=== PATIENT | female | born 1960 | race Caucasian/White ===

== ENCOUNTER 2019-08-20 00:50 | Day surgery (SDC) | payer MEDICARE, SELFPAY ==
[2019-08-13 15:16] VITALS: BMI 27.0
--- NOTE | 2019-08-18 15:43 | WPDANESEPP ---
Anes - Eval Pre Procedure Procedure: Operation Date: 08/20/19 12:00 Proposed Procedures p Esophagogastroduodenoscopy - John Lopez DO Date/Time: 08/18/19 15:43 Pre Op Diagnosis: Abd distension, GERD Patient Data Age: 58 Gender: F Height: 5 ft 6 in Weight: 76 kg Allergies Allergy/AdvReac Type Severity Reaction Status Date / Time varenicline Allergy Severe SUICIDAL Verified 08/13/19 15:14 THOUGHTS alprazolam Allergy Unknown Verified 08/13/19 15:14 levofloxacin Allergy Unknown Verified 08/13/19 15:14 Quinolones Allergy Unknown Verified 08/13/19 15:14 Home Medications Medication Instructions Recorded Confirmed Type albuterol sulfate [ProAir HFA] 90 inh INHALATION DAILY 08/13/19 08/13/19 History buspirone 10 mg PO DAILY 08/13/19 08/13/19 History cefuroxime axetil 250 mg PO DAILY 08/13/19 08/13/19 History cilostazol 100 mg PO BID 08/13/19 08/13/19 History citalopram 40 mg DAILY 08/13/19 08/13/19 History cyclobenzaprine 10 mg PO HS 08/13/19 08/13/19 History ergocalciferol (vitamin D2) 1,250 mcg PO DAILY 08/13/19 08/13/19 History [Vitamin D2] fenofibrate 54 mg PO DAILY 08/13/19 08/13/19 History fluticasone propionate [Flonase 50 mcg INTRANASAL DAILY 08/13/19 08/13/19 History Allergy Relief] gabapentin [Neurontin] 300 mg PO TID 08/13/19 08/13/19 History glipizide 5 mg PO BID 08/13/19 08/13/19 History hydrochlorothiazide 12.5 mg PO DAILY 08/13/19 08/13/19 History isosorbide mononitrate 60 mg PO DAILY 08/13/19 08/13/19 History linagliptin [Tradjenta] 5 mg PO DAILY 08/13/19 08/13/19 History losartan 5 mg PO DAILY 08/13/19 08/13/19 History meloxicam 7.5 mg DAILY 08/13/19 08/13/19 History metformin 1,000 mg DAILY 08/13/19 08/13/19 History metoclopramide HCl 5 mg PO DAILY 08/13/19 08/13/19 History metoprolol succinate 25 mg PO DAILY 08/13/19 08/13/19 History nitroglycerin 0.4 mg SUBLINGUAL PRN 08/13/19 08/13/19 History omeprazole 20 mg PO DAILY 08/13/19 08/13/19 History pantoprazole [Protonix] 40 mg PO DAILY 08/13/19 08/13/19 History potassium citrate 10 meq PO DAILY 08/13/19 08/13/19 History rosuvastatin 10 mg PO DAILY 08/13/19 08/13/19 History trazodone 50 mg PO DAILY 08/13/19 08/13/19 History Patient hx anesthesia problems: none Family hx anesthesia problems: none PMFSH Past Medical History Medical History (Updated 08/18/19 @ 15:43 by Yanira Aaron CRNA) Anxiety Arthritis Chronic GERD COPD (chronic obstructive pulmonary disease) Depression Diabetes oral meds Hyperlipidemia Hypertension SAUD treated with BiPAP Overweight (BMI 25.0-29.9) Seizure disorder last seizure 05/2019 Surgical History Surgical History (Updated 08/18/19 @ 15:45 by Yanira Aaron CRNA) H/O: hysterectomy History of colon resection 11/2018 sigmoid colectomy w/colorectal anastomosis secondary to diverticulitis Hx of cholecystectomy Family History Family History (Updated 08/10/18 @ 10:51 by DOCTOR UNKNOWN) Mother Depression Hypertension Asthma Family history of osteoarthritis Family history of allergic disorder Family history of elevated blood lipids Cerebrovascular accident Family history of diabetes mellitus in first degree relative Other Diabetes mellitus Family history of cardiovascular disease Family history of colonic diverticulitis Family history of malignant neoplasm Social History Social History Smoking status: Former smoker Second hand tobacco smoke exposure: No Smoking end date: 07/11/17 Alcohol intake: never Gender identity (if verbalized by the patient): Female Exam Day of Procedure 08/18/19 15:43
[2019-08-20 10:58] VITALS: BP 116/49; PULSE 58; RESP 14; TEMP 36.4; O2SAT 99
[2019-08-20 11:08] LABS: Glucose Point of Care 93 (65-105)
[2019-08-20] MEDS: LACTATED RINGERS 1,000 ML 150 ML IV CONT (11:10)
--- NOTE | 2019-08-20 11:22 | PM.IMHP ---
H&P: HPI History of Present Illness Chief complaint: Abd distension, GERD Narrative: Valentina Padgett is a 58 year old female presents today for EGD. Patient reports generalized abdominal pain that starts in the epigastric region and radiates to LLQ. She does have chronic GERD and has been on PPI for 20 years. She does report dysphagia to both solids and liquids. She denies NSAID use. She has hx of sigmoid colectomy secondary to diverticulitisi 11/2018 and had extensive adhesions noted as well. She had a colonsocopy 08/[address] Manning and had three polyps that were tubular adenomatous and ulcerated polyp. She tells me she recently had CT abd/pelvis at [facility] but i dont have report to review. She does report chronic constipation and has somewhat improved on miralax daily. She denies any melena, hematochezia or rectal pain. she reports 20 lb weight loss. Denies fever or chills. Review of Systems Review of Systems: All systems reviewed & are unremarkable except as noted in HPI and below PMFSH Past Medical History Medical History (Updated 08/20/19 @ 11:26 by Fadumo Girard, [employer]) Anxiety Arthritis Chronic GERD COPD (chronic obstructive pulmonary disease) Depression Diabetes oral meds Hyperlipidemia Hypertension SAUD treated with BiPAP Overweight (BMI 25.0-29.9) Seizure disorder last seizure 05/2019 Surgical History Surgical History (Updated 08/20/19 @ 11:27 by Fadumo Girard, [employer]) H/O: hysterectomy History of colon resection 11/2018 sigmoid colectomy w/colorectal anastomosis secondary to diverticulitis Hx of cholecystectomy Family History Family History (Updated 08/10/18 @ 10:51 by DOCTOR UNKNOWN) Mother Depression Hypertension Asthma Family history of osteoarthritis Family history of allergic disorder Family history of elevated blood lipids Cerebrovascular accident Family history of diabetes mellitus in first degree relative Other Diabetes mellitus Family history of cardiovascular disease Family history of colonic diverticulitis Family history of malignant neoplasm Social History Social History Smoking status: Former smoker Second hand tobacco smoke exposure: No Smoking end date: 07/11/17 Alcohol intake: never Gender identity (if verbalized by the patient): Female Meds Home Medications and Allergies Home Medications Medication Instructions Recorded Confirmed Type albuterol sulfate [ProAir HFA] 90 inh INHALATION DAILY 08/13/19 08/13/19 History buspirone 10 mg PO DAILY 08/13/19 08/13/19 History cefuroxime axetil 250 mg PO DAILY 08/13/19 08/13/19 History cilostazol 100 mg PO BID 08/13/19 08/13/19 History citalopram 40 mg DAILY 08/13/19 08/13/19 History cyclobenzaprine 10 mg PO HS 08/13/19 08/13/19 History ergocalciferol (vitamin D2) 1,250 mcg PO DAILY 08/13/19 08/13/19 History [Vitamin D2] fenofibrate 54 mg PO DAILY 08/13/19 08/13/19 History fluticasone propionate [Flonase 50 mcg INTRANASAL DAILY 08/13/19 08/13/19 History Allergy Relief] gabapentin [Neurontin] 300 mg PO TID 08/13/19 08/13/19 History glipizide 5 mg PO BID 08/13/19 08/13/19 History hydrochlorothiazide 12.5 mg PO DAILY 08/13/19 08/13/19 History isosorbide mononitrate 60 mg PO DAILY 08/13/19 08/13/19 History linagliptin [Tradjenta] 5 mg PO DAILY 08/13/19 08/13/19 History losartan 5 mg PO DAILY 08/13/19 08/13/19 History meloxicam 7.5 mg DAILY 08/13/19 08/13/19 History metformin 1,000 mg DAILY 08/13/19 08/13/19 History metoclopramide HCl 5 mg PO DAILY 08/13/19 08/13/19 History metoprolol succinate 25 mg PO DAILY 08/13/19 08/13/19 History nitroglycerin 0.4 mg SUBLINGUAL PRN 08/13/19 08/13/19 History omeprazole 20 mg PO DAILY 08/13/19 08/13/19 History pantoprazole [Protonix] 40 mg PO DAILY 08/13/19 08/13/19 History potassium citrate 10 meq PO DAILY 08/13/19 08/13/19 History rosuvastatin 10 mg PO DAILY 08/13/19 08/13/19 History trazodone 50 mg PO DAILY 08/13/19 08/13/19 History Allerg
--- NOTE | 2019-08-20 11:59 | WPDANESEFPP ---
Anes - Eval Final PreProcedure Day of Procedure 08/20/19 11:59 Patient weight: overweight Heart: regular rate and rhythm Lungs: clear to auscultation Airway: Mallampati scale class II and other (dentures) Neurological: alert and oriented Last oral intake: >/= 8 hours ASA classification: III Emergent: no Anesthetic plan: proceed Anesthesia type and monitoring: general GIVS and standard monitoring Informed Consent: The patient's anesthetic plan and its attendant risks and benefits were discussed with the patient/family/POA. Questions were solicited and answers provided to the satisfaction of the patient/family/POA.
[2019-08-20] MEDS: BENZOCAINE (*SP) 60 ML SPRAY CAN (HURRICAINE) 1 SPRAY MUCOUS MEM (12:39)
[2019-08-20 12:50] VITALS: BP 103/52; PULSE 64; RESP 15; O2SAT 95
[2019-08-20 13:00] VITALS: BP 103/51; PULSE 64; RESP 22; O2SAT 96
[2019-08-20 13:10] VITALS: BP 121/64; PULSE 59; RESP 20; O2SAT 97
== END 2019-08-20 13:22 | disposition home or self-care (01) ==
PROVIDERS: Visit Provider Internal Medicine Gastroenterology
PROC: 0DJ08ZZ Inspection of Upper Intestinal Tract, Via Natural or Artificial Opening Endoscopic (ICD-10-PCS; CPT 43235; principal; 2019-08-20 12:00)
DX: K29.80 Duodenitis without bleeding (principal); K29.50 Unspecified chronic gastritis without bleeding; J44.9 Chronic obstructive pulmonary disease, unspecified; E11.9 Type 2 diabetes mellitus without complications; I10 Essential (primary) hypertension; E78.5 Hyperlipidemia, unspecified; G40.909 Epilepsy, unspecified, not intractable, without status epilepticus; M19.90 Unspecified osteoarthritis, unspecified site; F41.8 Other specified anxiety disorders; Z79.84 Long term (current) use of oral hypoglycemic drugs; Z90.49 Acquired absence of other specified parts of digestive tract; Z98.0 Intestinal bypass and anastomosis status; Z87.19 Personal history of other diseases of the digestive system; Z87.891 Personal history of nicotine dependence
CPT/HCPCS: 43239; 43450; 87081; 88305; J2704; J7120

== ENCOUNTER 2019-09-06 01:37 | Day surgery (SDC) | payer MEDICARE, SELFPAY ==
[2019-08-31 15:16] VITALS: BMI 27.6
[2019-09-06 07:17] VITALS: BP 117/61; PULSE 69; RESP 20; TEMP 36.6; O2SAT 97
[2019-09-06] MEDS: LACTATED RINGERS 1,000 ML 150 ML IV CONT (07:42)
--- NOTE | 2019-09-06 07:51 | WPDHPUPDATE1 ---
History and Physical Update Update Date/Time: 09/06/19 07:51 History and Physical has been reviewed, including an updated exam of the patient. There are NO changes in the patient's condition. Risks, benefits, and alternatives have been discussed and questions answered. Patient agrees to proceed with procedure. Plan: 1. Colonoscopy today 2. CBC and Protime
--- NOTE | 2019-09-06 07:57 | WPDANESEPPF ---
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 Patient Data Age: 58 Gender: F Height: 5 ft 6 in Weight: 74 kg Last Vital Signs Temp 36.6 C 09/06/19 07:17 Pulse 69 09/06/19 07:17 Resp 20 09/06/19 07:17 BP 117/61 09/06/19 07:17 Pulse Ox 97 09/06/19 07:17 Allergies Allergy/AdvReac Type Severity Reaction Status Date / Time varenicline Allergy Severe SUICIDAL Verified 09/06/19 07:23 THOUGHTS alprazolam Allergy Unknown Swelling Verified 09/06/19 07:23 levofloxacin Allergy Unknown Swelling Verified 09/06/19 07:23 Quinolones Allergy Unknown Swelling Verified 09/06/19 07:23 Home Medications Medication Instructions Recorded Confirmed Type albuterol sulfate 1 inh INHALATION DAILY 08/31/19 09/06/19 History buspirone 10 mg PO DAILY 08/31/19 09/06/19 History citalopram 40 mg PO DAILY 08/31/19 09/06/19 History ergocalciferol (vitamin D2) 1,250 mcg PO WEEKLY 08/31/19 09/06/19 History [Vitamin D2] fenofibrate 54 mg PO DAILY 08/31/19 09/06/19 History fluticasone propionate 1 spray INTRANASAL DAILY 08/31/19 09/06/19 History gabapentin 300 mg PO TID 08/31/19 09/06/19 History hydrochlorothiazide 12.5 mg PO DAILY 08/31/19 09/06/19 History isosorbide mononitrate 60 mg PO DAILY 08/31/19 08/31/19 History linagliptin [Tradjenta] 5 mg PO DAILY 08/31/19 08/31/19 History losartan 25 mg PO DAILY 08/31/19 08/31/19 History meloxicam 7.5 mg PO DAILY 08/31/19 08/31/19 History metformin 1,000 mg PO BID 08/31/19 08/31/19 History metoprolol succinate 25 mg PO DAILY 08/31/19 08/31/19 History nitroglycerin 0.4 mg SUBLINGUAL PRN PRN 08/31/19 08/31/19 History pantoprazole 40 mg PO DAILY 08/31/19 08/31/19 History rosuvastatin 10 mg PO DAILY 08/31/19 08/31/19 History trazodone 50 mg PO DAILY 08/31/19 08/31/19 History metformin 1,000 mg PO TID 09/06/19 09/06/19 History Patient hx anesthesia problems: none Family hx anesthesia problems: none PMFSH Past Medical History Medical History Anxiety Arthritis Chronic GERD COPD (chronic obstructive pulmonary disease) Depression Diabetes oral meds Hyperlipidemia Hypertension SAUD treated with BiPAP Overweight (BMI 25.0-29.9) Seizure disorder last seizure 05/2019 Surgical History Surgical History H/O: hysterectomy History of colon resection 11/2018 sigmoid colectomy w/colorectal anastomosis secondary to diverticulitis Hx of cholecystectomy Family History Family History Mother Depression Hypertension Asthma Family history of osteoarthritis Family history of allergic disorder Family history of elevated blood lipids Cerebrovascular accident Family history of diabetes mellitus in first degree relative Other Diabetes mellitus Family history of cardiovascular disease Family history of colonic diverticulitis Family history of malignant neoplasm Social History Social History Smoking status: Former smoker Second hand tobacco smoke exposure: No Smoking end date: 07/11/17 Alcohol intake: never Gender identity (if verbalized by the patient): Female Anes - Eval Final PreProcedure Day of Procedure 09/06/19 07:57 Patient weight: overweight Heart: regular rate and rhythm Lungs: clear to auscultation Airway: Mallampati scale class II Neurological: alert and oriented Last oral intake: >/= 8 hours ASA classification: III Emergent: no Anesthetic plan: proceed Anesthesia type and monitoring: general GIVS and standard monitoring Informed Consent: The patient's anesthetic plan and its attendant risks and benefits were discussed with the patient/fa
[2019-09-06 08:02] LABS: Glucose Point of Care 110 (65-105)
[2019-09-06 08:04] LABS: Hematocrit 44.4 % (37.0-47.0); Hemoglobin 14.4 g/dL (12.0-15.0); Mean Corpuscular HGB Conc 32.4 g/dl (32-36); Mean Corpuscular Hemoglobin 29.3 pg (26-34); Mean Corpuscular Volume 90.4 fl (80-100); Mean Platelet Volume 12.2 fl (7.4-10.4); Platelet Count Result 157 k/mm3 (150-375); Red Blood Count 4.91 M/mm3 (4.2-5.4); Red Cell Distribution Width 14.1 % (11.5-14.5); White Blood Count 8.4 K/mm3 (4.5-10.0)
[2019-09-06 08:16] LABS: INR 1.1; Prothrombin Time 13.6 Seconds (11.1-14.7)
[2019-09-06 08:58] VITALS: BP 95/41; PULSE 62; RESP 21; O2SAT 97
[2019-09-06 09:08] VITALS: BP 110/58; PULSE 63; RESP 19; O2SAT 99
[2019-09-06 09:18] VITALS: BP 135/60; PULSE 59; RESP 17; O2SAT 99
== END 2019-09-06 09:33 | disposition home or self-care (01) ==
PROVIDERS: Nurse Practitioner; PCP Physician Assistant; Visit Provider Internal Medicine Gastroenterology
PROC: 0DJD8ZZ Inspection of Lower Intestinal Tract, Via Natural or Artificial Opening Endoscopic (ICD-10-PCS; CPT 45378; principal; 2019-09-06 08:00)
DX: Z12.11 Encounter for screening for malignant neoplasm of colon (principal); D12.3 Benign neoplasm of transverse colon; D12.5 Benign neoplasm of sigmoid colon; K63.89 Other specified diseases of intestine; Z98.0 Intestinal bypass and anastomosis status; Z90.49 Acquired absence of other specified parts of digestive tract; Z87.19 Personal history of other diseases of the digestive system; I10 Essential (primary) hypertension; E78.5 Hyperlipidemia, unspecified; E11.9 Type 2 diabetes mellitus without complications; J44.9 Chronic obstructive pulmonary disease, unspecified; G40.909 Epilepsy, unspecified, not intractable, without status epilepticus; G47.33 Obstructive sleep apnea (adult) (pediatric); F41.8 Other specified anxiety disorders; K21.9 Gastro-esophageal reflux disease without esophagitis; M19.90 Unspecified osteoarthritis, unspecified site; Z79.84 Long term (current) use of oral hypoglycemic drugs; Z87.891 Personal history of nicotine dependence
CPT/HCPCS: 45380; 45385; 36415; 85027; 85610; 88305; J2704; J7120

== ENCOUNTER 2019-09-07 13:55 | Outpatient (CLI) | payer MEDICARE, SELFPAY ==
[2019-09-07 16:07] LABS: Alanine Aminotransferase 29 U/L (4-35); Albumin Level 4.2 g/dL (3.5-5.1); Alkaline Phosphatase 51 U/L (38-126); Aspartate Amino Transferase 40 U/L (14-36); Bilirubin,Total 0.5 mg/dL (0.2-1.3)
[2019-09-07 16:08] LABS: Ammonia < 9 umol/L (9-30)
[2019-09-07 16:36] LABS: Hepatitis B Surface Antigen Negative (Negative)
[2019-09-07 16:42] LABS: HAV RESULT Negative (Negative); Hepatitis B Core IgM Result Negative (Negative)
[2019-09-07 16:53] LABS: Hepatitis C Virus Antibody Negative (Negative)
[2019-09-07 17:13] LABS: Iron 101 ug/dL (37-170)
[2019-09-07 17:21] LABS: Percent Iron Saturation 26 % (20-50)
[2019-09-10 10:58] LABS: Mitochondrial (M2) Ab (IgG) <=20.0 U (<=20.0)
[2019-09-10 18:22] LABS: Alpha Fetoprotein Tumor Marker 2.3 ng/mL (<6.1)
[2019-09-10 22:46] LABS: Alpha-1-Antitrypsin, QN 141 mg/dL (83-199); Ceruloplasmin 27 mg/dL (18-53)
[2019-09-12 11:07] LABS: LKM 1 Antibody <=20.0 U (<=20.0)
[2019-09-12 13:15] LABS: Actin Antibody (IgG) <20 U (<20)
[2019-09-12 14:42] LABS: ALT 25 U/L (6-29); Alpha-2-Macroglobulin 298 mg/dL (106-279); Apolipoprotein A1 102 mg/dL (101-198); Fibrosis Score 0.35; Fibrosis Stage F1-F2; GGT 24 U/L (3-65); Haptoglobin 181 mg/dL (43-212); Necroinflammat Act Grade A0; Total Bilirubin 0.3 mg/dL (0.2-1.2)
[2019-09-12 21:20] LABS: Anti Nuclear Antibody Pattern Nuclear, Speckled; Anti Nuclear Antibody Titer 1:40 (Negative)
== END 2019-09-07 13:56 | disposition home or self-care (01) ==
PROVIDERS: Visit Provider Nurse Practitioner Family
DX: K71.7 Toxic liver disease with fibrosis and cirrhosis of liver (principal)
CPT/HCPCS: 36415; 80074; 80076; 81596; 82103; 82105; 82140; 82390; 82595; 83516; 83520; 83540; 83550; 86038; 86039; 86376

== ENCOUNTER 2019-09-12 06:58 | Outpatient (CLI) | payer MEDICARE, SELFPAY ==
[2019-09-17 16:53] LABS: Cryoglobulin, QL Negative (Negative)
== END 2019-09-12 06:59 | disposition home or self-care (01) ==
PROVIDERS: PCP Physician Assistant; Visit Provider Nurse Practitioner Family
DX: K71.7 Toxic liver disease with fibrosis and cirrhosis of liver (principal)
CPT/HCPCS: 36415; 82595

== ENCOUNTER 2019-09-18 13:00 | Outpatient (CLI) | payer MEDICARE, SELFPAY | END 2019-09-18 13:01 | disposition home or self-care (01) | PROVIDERS: PCP Physician Assistant; Visit Provider Nurse Practitioner Family | DX: K71.7 Toxic liver disease with fibrosis and cirrhosis of liver (principal) | CPT/HCPCS: 36415; 86235 ==

== ENCOUNTER 2019-10-03 12:32 | Outpatient (CLI) | payer MEDICARE, SELFPAY ==
[2019-10-03 13:57] LABS: Ammonia < 9 umol/L (9-30)
[2019-10-03 14:00] LABS: Alanine Aminotransferase 18 U/L (4-35); Alkaline Phosphatase 56 U/L (38-126); Aspartate Amino Transferase 24 U/L (14-36); Bilirubin,Total 0.2 mg/dL (0.2-1.3)
[2019-10-03 14:18] LABS: Iron 69 ug/dL (37-170)
[2019-10-03 14:27] LABS: Percent Iron Saturation 16 % (20-50)
[2019-10-03 14:31] LABS: Hepatitis B Surface Antigen Negative (Negative)
[2019-10-03 14:37] LABS: HAV RESULT Negative (Negative); Hepatitis B Core IgM Result Negative (Negative)
[2019-10-03 14:48] LABS: Hepatitis C Virus Antibody Negative (Negative)
[2019-10-05 03:18] LABS: Alpha-1-Antitrypsin, QN 142 mg/dL (83-199); Ceruloplasmin 30 mg/dL (18-53)
[2019-10-06 10:37] LABS: Mitochondrial (M2) Ab (IgG) <=20.0 U (<=20.0)
[2019-10-06 10:45] LABS: LKM 1 Antibody <=20.0 U (<=20.0)
[2019-10-08 17:42] LABS: Alpha Fetoprotein Tumor Marker 1.9 ng/mL (<6.1)
[2019-10-09 14:01] LABS: SM Antibody <1.0; SM/RNP Antibody <1.0
== END 2019-10-03 12:33 | disposition home or self-care (01) ==
PROVIDERS: PCP Physician Assistant; Visit Provider Nurse Practitioner Family
DX: K71.7 Toxic liver disease with fibrosis and cirrhosis of liver (principal); R93.5 Abnormal findings on diagnostic imaging of other abdominal regions, including retroperitoneum
CPT/HCPCS: 36415; 80074; 80076; 82103; 82105; 82140; 82390; 83520; 83540; 83550; 86038; 86235; 86376

== ENCOUNTER 2019-10-06 10:03 | Outpatient (CLI) | payer MEDICARE, SELFPAY ==
[2019-10-12 07:35] LABS: Cryoglobulin, QL Negative (Negative)
== END 2019-10-06 10:04 | disposition home or self-care (01) ==
PROVIDERS: PCP Physician Assistant; Visit Provider Nurse Practitioner Family
DX: K71.7 Toxic liver disease with fibrosis and cirrhosis of liver (principal)
CPT/HCPCS: 36415; 81596; 82595

== ENCOUNTER 2019-12-10 19:11 | Emergency (ER) | payer MEDICARE, SELFPAY ==
--- NOTE | ~2019-12-10 | XR_ITS ---
EXAMINATION: [id number] EXAM DATE: 12/10/2019 20:42 INDICATION: Rib pain, felt pop. Initial encounter. TECHNIQUE: Frontal projection of the upper right ribs, frontal projection of the lower right ribs, ob lique projection of the right ribs, frontal chest x-ray(s) for interpretation. Comparison is made to prior examination from 02/01/2018. FINDINGS: There are no displaced acute right rib fractures identified. Consider educating patient th at even if there is a radiographically occult nondisplaced rib fracture, there is no specific treatme nt other than to refrain from activity that prevents healing. There is no soft tissue abnormality see n. No confluent consolidation, pneumothorax or pleural effusion suspected. There are cholecystectomy clips. IMPRESSION: No displaced right rib fractures. Reviewed, dictated and finalized at location A.
[2019-12-10 19:16] VITALS: BP 113/61; PULSE 74; RESP 16; TEMP 36.2; O2SAT 100
[2019-12-10 19:37] VITALS: RESP 18
--- NOTE | 2019-12-10 20:09 | ED.GENADULT ---
HPI - General Adult General Chief complaint: Unspecified Stated complaint: right rib pain Time Seen by Provider: 12/10/19 19:54 Source: patient Mode of arrival: ambulatory Limitations: no limitations History of Present Illness HPI narrative: This patient is a 59 year old female who presents for evaluation of right rib pain. Patient states 4 days ago she was reaching across the table and she felt a pop to her right ribs. She has continued to have pain with movement and breathing. She was attempting to mow her lawn today but her pain worsened so she came to the ER. She has not taken any medication for her pain. She denies nausea, vomiting or fever. She also denies abdominal pain, hematemsis or melena. She does reports some sob. Onset (ago): day(s) (4 days) Related Data Home Medications Medication Instructions Recorded Confirmed albuterol sulfate 1 inh INHALATION DAILY 08/31/19 09/06/19 buspirone 10 mg PO DAILY 08/31/19 09/06/19 citalopram 40 mg PO DAILY 08/31/19 09/06/19 ergocalciferol (vitamin D2) 1,250 mcg PO WEEKLY 08/31/19 09/06/19 [Vitamin D2] fenofibrate 54 mg PO DAILY 08/31/19 09/06/19 fluticasone propionate 1 spray INTRANASAL DAILY 08/31/19 09/06/19 gabapentin 300 mg PO TID 08/31/19 09/06/19 hydrochlorothiazide 12.5 mg PO DAILY 08/31/19 09/06/19 isosorbide mononitrate 60 mg PO DAILY 08/31/19 08/31/19 linagliptin [Tradjenta] 5 mg PO DAILY 08/31/19 08/31/19 losartan 25 mg PO DAILY 08/31/19 08/31/19 meloxicam 7.5 mg PO DAILY 08/31/19 08/31/19 metformin 1,000 mg PO BID 08/31/19 08/31/19 metoprolol succinate 25 mg PO DAILY 08/31/19 08/31/19 nitroglycerin 0.4 mg SUBLINGUAL PRN PRN 08/31/19 08/31/19 pantoprazole 40 mg PO DAILY 08/31/19 08/31/19 rosuvastatin 10 mg PO DAILY 08/31/19 08/31/19 trazodone 50 mg PO DAILY 08/31/19 08/31/19 metformin 1,000 mg PO TID 09/06/19 09/06/19 Allergies Allergy/AdvReac Type Severity Reaction Status Date / Time varenicline Allergy Severe SUICIDAL Verified 12/10/19 19:38 THOUGHTS alprazolam Allergy Unknown Swelling Verified 12/10/19 19:38 levofloxacin Allergy Unknown Swelling Verified 12/10/19 19:38 Quinolones Allergy Unknown Swelling Verified 12/10/19 19:38 Review of Systems Review of Systems: All systems reviewed & are unremarkable except as noted in HPI and below Constitutional: Constitutional: Denies chills and Denies fever(s) ENT: Denies dizziness Cardiovascular: Cardiovascular: Denies rapid heart rate Respiratory: Respiratory: Denies cough and Reports dyspnea Comments: right rib pain Gastrointestinal: Gastrointestinal: Denies abdominal pain, Denies nausea and Denies vomiting Genitourinary: Genitourinary: Denies hematuria [facility] Social History Social History Smoking status: Former smoker Second hand tobacco smoke exposure: No Smoking end date: 07/11/17 Alcohol intake: never Gender identity (if verbalized by the patient): Female Exam Const: General: no acute distress and alert Orientation/consciousness: patient oriented x3 HENMT: Head: normocephalic and atraumatic Face and sinus: normal facial exam, sinuses nontender and face symmetric Mouth: Yes Normal oral and palatal mucosa present Throat: posterior oropharynx normal and uvula midline Eyes: EOM: EOMs intact bilaterally Chest: Chest palpation & inspection: tenderness (right anterior lateral along muscles) rib Resp: Effort & Inspection: normal respiratory effort and no retractions Auscultation: clear to auscultation bilaterally Cardio: Rate: regular rate Rhythm: regular rhythm GI: GI Palp: Yes Soft to palpation, No Tenderness to palpation present (GI), No Guarding due to palpation present (GI) and No Rigid due to palpation Course Reevaluation(s) Reevaluation #1: I Discussed with patient xray results. She understands treatment is pain management and to use incentive spirometer Date: 12/10/19 Time: 21:53 Vital Signs Vital si
[2019-12-10] MEDS: KETOROLAC (*BKC) 60 MG/2 ML VIAL IM (20:10)
[2019-12-10] MEDS: CYCLOBENZAPRINE HCL 5 MG TABLET PO (20:11)
[2019-12-10 20:40] VITALS: TEMP 36.2
[2019-12-10 21:03] VITALS: BP 130/54; PULSE 66; RESP 14; O2SAT 96
[2019-12-10 22:09] VITALS: BP 103/89; PULSE 65; RESP 18; TEMP 36.7; O2SAT 98
== END 2019-12-10 22:11 | disposition home or self-care (01) ==
PROVIDERS: Emergency Provider General Practice
DX: R07.81 Pleurodynia (principal); Z87.891 Personal history of nicotine dependence
CPT/HCPCS: 71101; 96372; 99283; A9270; J1885

== ENCOUNTER 2020-06-21 11:21 | Emergency (ER) | payer MEDICARE, SELFPAY ==
--- NOTE | ~2020-06-21 | XR_ITS ---
EXAMINATION: XR chest 2V DATE: 06/21/2020 11:45 INDICATION: Cough and shortness of breath. TECHNIQUE: PA and lateral views of the chest were obtained. COMPARISON: Chest radiograph dated 02/01/2018 FINDINGS: The lungs remain clear with no focal airspace opacities, pulmonary edema, pleural effusion or pneumot horax. Calcified nodules in the left upper lung zone consistent with old granulomatous disease. The c ardiomediastinal silhouette is normal. Cholecystectomy clips in the right upper quadrant. With a coup le likely dropped clips more laterally along the caudal tip of the liver. Mild thoracic spondylosis. IMPRESSION: 1. No acute cardiopulmonary disease. Reviewed, dictated and finalized at location A. SITTER
[2020-06-21 11:28] VITALS: BP 132/76; PULSE 65; RESP 20; TEMP 37.1; O2SAT 98
--- NOTE | 2020-06-21 11:32 | ED.URI ---
HPI - URI/Sore Throat General Chief Complaint: Upper Respiratory Infection Stated Complaint: diarrhea/sob/rossi/body aches Source: patient and RN notes reviewed Limitations: no limitations History of Present Illness HPI Narrative: The patient, a smoker/drinker that works at [employer], presents with with myalgias and body aches. Patient states she has a 3-day history of myalgias with headache, diarrhea x2. No fever measured, CP, vomiting, cough, wheezing/sneezing, rash, known sick contacts-but she reports loss of taste and smell. She mentions shortness of breath - vital signs are stable, including walking pulse ox Related Data Home Medications Medication Instructions Recorded Confirmed albuterol sulfate 1 inh INHALATION DAILY 08/31/19 09/06/19 buspirone 10 mg PO DAILY 08/31/19 09/06/19 citalopram 40 mg PO DAILY 08/31/19 09/06/19 ergocalciferol (vitamin D2) 1,250 mcg PO WEEKLY 08/31/19 09/06/19 [Vitamin D2] fenofibrate 54 mg PO DAILY 08/31/19 09/06/19 fluticasone propionate 1 spray INTRANASAL DAILY 08/31/19 09/06/19 gabapentin 300 mg PO TID 08/31/19 09/06/19 hydrochlorothiazide 12.5 mg PO DAILY 08/31/19 09/06/19 isosorbide mononitrate 60 mg PO DAILY 08/31/19 08/31/19 linagliptin [Tradjenta] 5 mg PO DAILY 08/31/19 08/31/19 losartan 25 mg PO DAILY 08/31/19 08/31/19 meloxicam 7.5 mg PO DAILY 08/31/19 08/31/19 metformin 1,000 mg PO BID 08/31/19 08/31/19 metoprolol succinate 25 mg PO DAILY 08/31/19 08/31/19 nitroglycerin 0.4 mg SUBLINGUAL PRN PRN 08/31/19 08/31/19 pantoprazole 40 mg PO DAILY 08/31/19 08/31/19 rosuvastatin 10 mg PO DAILY 08/31/19 08/31/19 trazodone 50 mg PO DAILY 08/31/19 08/31/19 metformin 1,000 mg PO TID 09/06/19 09/06/19 Allergies Allergy/AdvReac Type Severity Reaction Status Date / Time varenicline Allergy Severe SUICIDAL Verified 12/10/19 19:38 THOUGHTS alprazolam Allergy Unknown Swelling Verified 12/10/19 19:38 levofloxacin Allergy Unknown Swelling Verified 12/10/19 19:38 Quinolones Allergy Unknown Swelling Verified 12/10/19 19:38 Review of Systems Review of Systems: Narrative: General/Constitutional: No weight loss,fever Eyes: N0: Redness,discharge Ears/Nose/Throat: No: Epistaxis,ear discharge Respiratory: Denies: Hemoptysis Gastrointestinal: No Vomiting, Bleeding-rectal Skin: No Lumps, eruption Neurologic: No Focal Weakness,Sz Hematologic: Denies: Petechiae/Purpura Psychiatric: No: Suicida ideationl All Other Systems: Reviewed and Negative PMFSH Past Medical History Medical History (Updated 06/21/20 @ 16:57 by Wellington Alaniz MD) Anxiety Arthritis Chronic GERD COPD (chronic obstructive pulmonary disease) Depression Diabetes oral meds Hyperlipidemia Hypertension SAUD treated with BiPAP Overweight (BMI 25.0-29.9) Seizure disorder last seizure 05/2019 Surgical History Surgical History H/O: hysterectomy History of colon resection 11/2018 sigmoid colectomy w/colorectal anastomosis secondary to diverticulitis Hx of cholecystectomy Family History Family History Mother Depression Hypertension Asthma Family history of osteoarthritis Family history of allergic disorder Family history of elevated blood lipids Cerebrovascular accident Family history of diabetes mellitus in first degree relative Other Diabetes mellitus Family history of cardiovascular disease Family history of colonic diverticulitis Family history of malignant neoplasm Social History Social History Smoking status: Former smoker Second hand tobacco smoke exposure: No Smoking end date: 07/11/17 Alcohol intake: never Gender identity (if verbalized by the patient): Female Exam Narrative: Exam Narrative: General Appearance: , Well nourished EYE: PERRLA, Conjunctiva clear Ears: Auditory canal normal, TM normal Nos
== END 2020-06-21 12:09 | disposition home or self-care (01) ==
PROVIDERS: Emergency Provider Emergency Medicine; PCP Family Medicine
DX: J11.1 Influenza due to unidentified influenza virus with other respiratory manifestations (principal); R19.7 Diarrhea, unspecified; Z20.828 Contact with and (suspected) exposure to other viral communicable diseases; Z87.891 Personal history of nicotine dependence; M19.90 Unspecified osteoarthritis, unspecified site; J44.9 Chronic obstructive pulmonary disease, unspecified; E11.9 Type 2 diabetes mellitus without complications; E78.5 Hyperlipidemia, unspecified; I10 Essential (primary) hypertension; G47.33 Obstructive sleep apnea (adult) (pediatric); G40.909 Epilepsy, unspecified, not intractable, without status epilepticus; F41.9 Anxiety disorder, unspecified; F32.9 Major depressive disorder, single episode, unspecified
CPT/HCPCS: 71046; 87635; 99213; C9803; G0463; U0003

== ENCOUNTER 2020-06-21 11:57 | Outpatient (NON) | payer MEDICARE, SELFPAY ==
[2020-06-22 00:44] LABS: SARS-CoV-2 RNA PCR Negative
== END 2020-06-21 11:58 ==
PROVIDERS: PCP Family Medicine; Visit Provider Emergency Medicine
DX: J11.1 Influenza due to unidentified influenza virus with other respiratory manifestations (principal); Z20.828 Contact with and (suspected) exposure to other viral communicable diseases
CPT/HCPCS: 87635; C9803; U0003

== ENCOUNTER 2020-07-01 09:45 | Emergency (ER) | payer MEDICARE, SELFPAY ==
--- NOTE | ~2020-07-01 | XR_ITS ---
EXAMINATION: XR chest 2V EXAM DATE: 07/01/2020 10:25 INDICATION: COUGH, hx of COPD, HTN, diabetes. TECHNIQUE: Frontal and lateral projections of the chest obtained and reviewed. Comparison is made to prior examination from 06/21/2020. FINDINGS: The lungs are clear. There are no pleural effusions. The cardiomediastinal silhouette is within normal limits. There is no pneumothorax suspected. The bones and soft tissues are unremarkab le. IMPRESSION: No acute cardiopulmonary findings. Reviewed, dictated and finalized at location B. CTOR APPAREL
[2020-07-01 09:50] VITALS: BP 124/51; PULSE 65; RESP 20; TEMP 36.1; O2SAT 100
--- NOTE | 2020-07-01 09:53 | ED.URI ---
HPI - URI/Sore Throat General Chief Complaint: Upper Respiratory Infection Stated Complaint: sore throat/chest pain Time Seen by Provider: 07/01/20 10:02 Source: patient and RN notes reviewed Mode of arrival: ambulatory Limitations: no limitations History of Present Illness HPI Narrative: 59-year-old female who presents to express care with complaints of cough, hoarseness, sore throat, nasal congestion and drainage for the past 3 days. Patient states that she was Covid tested on the for symptoms of muscle aches and back pain and tested Negative at that time. Patient states that her throat is so sore that she can hardly swallow with throat red and tongue also with dryness. Patient has hoarse voice, no acute dyspea noted or tachypnea, SAO2 100% on room air. Patient denies any known fevers, chills or sweats, reports general body aches and severe cough as her main complaints. Patient does have history of COPD, asthma and she continues to abuse tobacco products. MD elicited complaint: cough, sore throat, rhinorrhea and nasal congestion Pertinent past history: pneumonia, COPD, asthma and other (sleep apnea) Onset (ago): day(s) (3) Consistency: progressively worsening Severity: moderate Pain scale (0-10): 7 Description of mucous: yellow Able to tolerate fluids by mouth: Yes Exacerbating factors: swallowing and exertion Related Data Home Medications Medication Instructions Recorded Confirmed albuterol sulfate 1 inh INHALATION DAILY 08/31/19 09/06/19 buspirone 10 mg PO DAILY 08/31/19 09/06/19 citalopram 40 mg PO DAILY 08/31/19 09/06/19 ergocalciferol (vitamin D2) 1,250 mcg PO WEEKLY 08/31/19 09/06/19 [Vitamin D2] fenofibrate 54 mg PO DAILY 08/31/19 09/06/19 fluticasone propionate 1 spray INTRANASAL DAILY 08/31/19 09/06/19 gabapentin 300 mg PO TID 08/31/19 09/06/19 hydrochlorothiazide 12.5 mg PO DAILY 08/31/19 09/06/19 isosorbide mononitrate 60 mg PO DAILY 08/31/19 08/31/19 linagliptin [Tradjenta] 5 mg PO DAILY 08/31/19 08/31/19 losartan 25 mg PO DAILY 08/31/19 08/31/19 meloxicam 7.5 mg PO DAILY 08/31/19 08/31/19 metformin 1,000 mg PO BID 08/31/19 08/31/19 metoprolol succinate 25 mg PO DAILY 08/31/19 08/31/19 nitroglycerin 0.4 mg SUBLINGUAL PRN PRN 08/31/19 08/31/19 pantoprazole 40 mg PO DAILY 08/31/19 08/31/19 rosuvastatin 10 mg PO DAILY 08/31/19 08/31/19 trazodone 50 mg PO DAILY 08/31/19 08/31/19 metformin 1,000 mg PO TID 09/06/19 09/06/19 Allergies Allergy/AdvReac Type Severity Reaction Status Date / Time varenicline Allergy Severe SUICIDAL Verified 12/10/19 19:38 THOUGHTS alprazolam Allergy Unknown Swelling Verified 12/10/19 19:38 levofloxacin Allergy Unknown Swelling Verified 12/10/19 19:38 Quinolones Allergy Unknown Swelling Verified 12/10/19 19:38 Review of Systems Review of Systems: Narrative: CONSTITUTIONAL: Denies fever, chills, or sweats. EYES: Denies visual changes, redness, or discharge. ENT:Positive rhinorrhea, congestion, sore throat, no otalgia. CARDIOVASCULAR: Denies chest pain, palpitations, or edema. RESPIRATORY: Positive cough denies acute dyspnea. GASTROINTESTINAL: Denies abdominal pain, nausea, vomiting, or diarrhea. GENITOURINARY: Denies dysuria or hematuria. SKIN: Denies rash or itching. MUSCULOSKELETAL: Denies back pain, joint pain, or myalgia. NEUROLOGIC: Denies headache, numbness, or weakness. PSYCHIATRIC: Positive history anxiety or depression. All systems reviewed & are unremarkable except as noted in HPI and below PMFSH Past Medical History Medical History (Updated 07/01/20 @ 10:46 by Odalys Parry NP) Anxiety Arthritis Chronic GERD COPD (chronic obstructive pulmonary disease) Depression Diabetes oral meds Hyperlipidemia Hypertension SAUD treated with BiPAP Overweight (BMI 25.0-29.9) Seizure disorder last seizure 05/2019 Surgical History Surgical History H/O: hysterectomy History of colon resection 11/2018 sigm
--- NOTE | 2020-07-01 10:07 | PC.NURSE ---
Pt does not know what medications she takes, There are too many .
== END 2020-07-01 11:05 | disposition home or self-care (01) ==
PROVIDERS: Emergency Provider Registered Nurse; PCP Family Medicine
DX: B34.9 Viral infection, unspecified (principal); J02.9 Acute pharyngitis, unspecified; F41.9 Anxiety disorder, unspecified; M19.90 Unspecified osteoarthritis, unspecified site; K21.9 Gastro-esophageal reflux disease without esophagitis; J44.9 Chronic obstructive pulmonary disease, unspecified; E11.9 Type 2 diabetes mellitus without complications; Z79.84 Long term (current) use of oral hypoglycemic drugs; E78.5 Hyperlipidemia, unspecified; I10 Essential (primary) hypertension; G47.33 Obstructive sleep apnea (adult) (pediatric); E66.3 Overweight; Z68.30 Body mass index [BMI] 30.0-30.9, adult; Z90.49 Acquired absence of other specified parts of digestive tract; F17.210 Nicotine dependence, cigarettes, uncomplicated
CPT/HCPCS: 71046; 87081; 87804; 87880; 99213; G0463

== ENCOUNTER → 2020-09-13 00:44 | Outpatient (CLI) | payer MEDICARE, SELFPAY ==
[2020-09-13 19:48] LABS: SARS-CoV-2 RNA PCR Negative
== END ==
PROVIDERS: PCP Family Medicine; Visit Provider Plastic Surgery
DX: Z01.812 Encounter for preprocedural laboratory examination (principal); Z20.822 Contact with and (suspected) exposure to COVID-19
CPT/HCPCS: C9803; U0003; U0005

== ENCOUNTER 2020-09-15 13:24 | Outpatient (CLI) | payer MEDICARE, SELFPAY ==
--- NOTE | 2020-09-15 13:30 | ECG_ITS ---
Measurements Intervals [place] Rate: 75 P: 8 WI: 168 QRS: -1 QRSD: 84 T: 21 QT: 396 QTc: 443 Interpretive Statements SINUS RHYTHM DELAYED PRECORDIAL R/S TRANSITION LOW QRS VOLTAGE IN PRECORDIAL LEADS BASELINE ARTIFACT- I, III, AVL, V5-V6 BORDERLINE ECG Electronically Signed On 09-15-2020 13:44:50 DISCHARGING MACHINE OPERATOR by Glen Casper D.O.
[2020-09-15 14:03] LABS: Anion Gap 6 mmol/L (8-16); Blood Urea Nitrogen 8 mg/dL (7-17); Calcium 8.5 mg/dL (8.4-10.2); Carbon Dioxide 28 mmol/L (22-30); Chloride 103 mmol/L (98-107); Estimated Glomerular Filt Rate 56; Glucose 193 mg/dL (65-105); Potassium 3.7 mmol/L (3.4-5.0); Sodium 137 mmol/L (137-145)
== END 2020-09-15 13:25 | disposition home or self-care (01) ==
PROVIDERS: Anesthesiology; PCP Family Medicine; Visit Provider Plastic Surgery
DX: Z01.818 Encounter for other preprocedural examination (principal); E11.9 Type 2 diabetes mellitus without complications; I10 Essential (primary) hypertension
CPT/HCPCS: 36415; 80048; 93005

== ENCOUNTER 2020-09-17 01:31 | Day surgery (SDC) | payer MEDICARE, SELFPAY ==
[2020-09-15 11:13] VITALS: BMI 28.7
[2020-09-17] VITALS (7 sets, daily range): BP systolic 116–163; BP diastolic 41–70; PULSE 69–73; RESP 16–18; TEMP 36.6; O2SAT 95–99
--- NOTE | 2020-09-17 07:15 | WPDHPUPDATE1 ---
History and Physical Update Update Date/Time: 09/17/20 07:15 History and Physical has been reviewed, including an updated exam of the patient. There are NO changes in the patient's condition. Risks, benefits, and alternatives have been discussed and questions answered. Patient agrees to proceed with procedure.
[2020-09-17] MEDS: LIDO 1%/EPINEPHRINE 1:100,000 50 ML VIAL INFILTRATE (10:12)
--- NOTE | 2020-09-17 10:36 | PM.OP ---
Procedure Note - Brief Procedure Note - Brief Date of procedure: 09/17/20 Pre-op diagnosis: right carpal tunnel syndrome Post-op diagnosis: same Procedure performed: R OCTR Anesthesia: local Surgeon: Carlos Alberto Tilley MD Tourniquet time (min): 4 Drains: No Packing: No Pathology: none sent Complications: None Condition: stable Disposition: same day
--- NOTE | 2020-09-17 10:38 | PM.PROC ---
Procedure Note - Detailed Date of procedure: 09/17/20 Pre-op diagnosis: right carpal tunnel syndrome Post-op diagnosis: same Procedure performed: Right open carpal tunnel release Description of procedure: The right wrist site was marked on the patient in the holding area. She was taken to the operating room and placed supine on the operating table a time-out was held and confirmed. The site was remarked and infiltrated with 1% lidocaine with epinephrine. The extremity was prepped and draped in usual fashion just before that. A time was allowed for anesthetic effect. The extremity was elevated and the tourniquet inflated to 250 mmHg. The incision was made as marked and carried bluntly through the subcutaneous tissue to the palmar fascia. This and the carpal retinacular ligament was incised. Under 3 point retraction the ligament was divided distally and proximally for complete release. No unusual anatomy was noted. The skin was closed with interrupted 5 0 nylon. The usual bandage was applied. The tourniquet was released and she is discharged home with instructions in wound care and follow-up and a prescription for hydrocodone 5/325 5. Anesthesia: local Surgeon: Carlos Alberto Tilley MD Estimated blood loss (mL): 0 Tourniquet time (min): 4 Drains: No Packing: No Pathology: none sent Complications: No immediate complications Condition: stable Disposition: same day
== END 2020-09-17 10:48 | disposition home or self-care (01) ==
PROVIDERS: PCP Family Medicine; Visit Provider Plastic Surgery
PROC: (CPT 64721; principal; 2020-09-17 09:45)
DX: G56.01 Carpal tunnel syndrome, right upper limb (principal); I10 Essential (primary) hypertension; J45.909 Unspecified asthma, uncomplicated; E11.9 Type 2 diabetes mellitus without complications; M19.90 Unspecified osteoarthritis, unspecified site; Z79.84 Long term (current) use of oral hypoglycemic drugs
CPT/HCPCS: 64721; 36415; 80048; 93005; A9270; C9803; U0003; U0005

== ENCOUNTER 2020-09-23 10:22 | Emergency (ER) | payer OTHER, MEDICARE, SELFPAY ==
--- NOTE | ~2020-09-23 | XR_ITS ---
EXAMINATION: XR hip BI 2V w AP pelvis DATE: 09/23/2020 11:17 INDICATION: Bilateral hip pain. TECHNIQUE: An anteroposterior view of the pelvis and 2 views of each hip were obtained. COMPARISON: None. FINDINGS: There is lumbar dextrocurvature and mild spondylosis. No fracture. There is mild osteoarthr itis of the hips. There is a bowel staple line overlying the pelvis. IMPRESSION: 1. Mild osteoarthritis of the hips. Reviewed, dictated and finalized at location A.
--- NOTE | ~2020-09-23 | CT_ITS ---
EXAMINATION: CT cervical spine wo con DATE: 09/23/2020 11:09 INDICATION: Neck pain post fall TECHNIQUE: Computed tomography (CT) of the cervical spine was performed without intravenous contrast. Automated exposure control and iterative reconstruction technique were employed. The dose-length pro duct was 390.40 mGy-cm. COMPARISON: None FINDINGS: 1-2 mm anterolisthesis C7 on T1. Alignment is otherwise normal. Vertebral body heights are normal. No fracture. Mild disc height loss at C5-C6. Atherosclerotic calcification is at the bilateral carotid siphons and carotid bulbs. Cervical soft tissues are unremarkable. Mosaic attenuation at the bilatera l apices of lungs with both small region of groundglass opacity and increased lucency consistent with expiratory phase of imaging with combination of atelectasis and subsegmental air trapping related to small airway disease. The following disc levels are specifically discussed: C2-C3: Disc is bulging. There is mild bilateral uncovertebral joint osteoarthritis. There is mild tiffanie ateral facet joint osteoarthritis. There is no neural foraminal stenosis. There is mild central canal stenosis. C3-C4: Disc is bulging. There is some ossification along the posterior longitudinal ligament. There i s mild bilateral uncovertebral joint osteoarthritis. There is minimal bilateral facet joint osteoarth ritis. There is mild right and minimal left neural foraminal stenosis. There is mild central canal st enosis. C4-C5: Disc is mildly bulging. There is mild bilateral uncovertebral joint osteoarthritis. There is m inimal bilateral facet joint osteoarthritis. There is minimal bilateral neural foraminal stenosis. Th ere is mild central canal stenosis. C5-C6: Posterior disc osteophyte complex is present. There is severe bilateral uncovertebral joint os teoarthritis. There is mild bilateral facet joint osteoarthritis. There is moderate bilateral neural foraminal stenosis. There is mild central canal stenosis. C6-C7: Disc is mildly bulging. There is minimal bilateral uncovertebral joint osteoarthritis. There i s mild to moderate bilateral facet joint osteoarthritis. There is mild bilateral neural foraminal panda nosis. There is no central canal stenosis. C7-T1: Disc is mildly bulging. There is minimal bilateral uncovertebral joint osteoarthritis. There i s moderate left and severe right facet joint osteoarthritis. There is minimal right neural foraminal stenosis. There is no central canal stenosis. IMPRESSION: 1. Mild to moderate cervical spondylosis. No acute osseous abnormality. Reviewed, dictated and finalized at location B.
--- NOTE | ~2020-09-23 | XR_ITS ---
EXAMINATION: XR lumbar spine 2-3V DATE: 09/23/2020 11:17 INDICATION: Back pain. Fall. TECHNIQUE: 3 views of lumbar spine were obtained. COMPARISON: Lumbar spine radiographs 05/24/2012 FINDINGS: There is 9 degrees dextrocurvature of lumbar spine. Vertebral body heights are normal. Ther e is mildly decreased disc height at L1-L2 and L3-L4. There are endplate osteophytes at most levels. There is multilevel mild to moderate facet joint osteoarthritis. There are surgical clips in the abdo men. IMPRESSION: 1. Mild lumbar spondylosis. Reviewed, dictated and finalized at location A. IMPRESSION: 1. Mild lumbar spondylosis.
[2020-09-23 10:30] VITALS: BP 136/62; PULSE 77; RESP 18; TEMP 36.2; O2SAT 99
[2020-09-23 10:32] VITALS: PULSE 80; RESP 12; O2SAT 98
[2020-09-23 10:46] VITALS: BP 122/84; PULSE 80; RESP 14; O2SAT 96
[2020-09-23 10:47] VITALS: PULSE 81; RESP 14; O2SAT 94
--- NOTE | 2020-09-23 10:57 | ED.FALL ---
HPI - Fall General Chief Complaint: Fall Stated Complaint: fall at work Time Seen by Provider: 09/23/20 10:35 Source: patient Mode of arrival: ambulatory History of Present Illness HPI Narrative: This is a 59 year old female who presents for evaluation after suffering a fall. Patient states she works at [employer] and she suffered a fall at work 6 am this morning. She states she did not see a pallet on the floor and this caused her to fall. She states she fell in between 2 hanging racks. She initially was able to get up and walk around. She states she thought she was find. As time progressed her pain worsened. She denies hitting her head or LOC. She is complaining of neck pain, right hip pain, right thigh pain and lower back pain. She had right carpal tunnel surgery 1 week ago. She denies any complications regarding her right wrist. She has mild pain the incision, and she reports she has sensation to her fingers. She reports she had decreased sensation before her surgery but it has now improved. She has not taken anything for her pain. She take aspirin daily. Related Data Home Medications Medication Instructions Recorded Confirmed albuterol sulfate 2 inh INHALATION DAILY PRN 08/31/19 09/17/20 ergocalciferol (vitamin D2) 1,250 mcg PO WEEKLY 08/31/19 09/17/20 [Vitamin D2] fenofibrate 54 mg PO DAILY 08/31/19 09/17/20 fluticasone propionate 2 spray INTRANASAL DAILY 08/31/19 09/17/20 gabapentin 300 mg PO TID 08/31/19 09/17/20 isosorbide mononitrate 60 mg PO DAILY 08/31/19 09/17/20 losartan 25 mg PO DAILY 08/31/19 09/17/20 metoprolol succinate 25 mg PO DAILY 08/31/19 09/17/20 nitroglycerin 0.4 mg SUBLINGUAL PRN PRN 08/31/19 09/17/20 pantoprazole 40 mg PO DAILY 08/31/19 09/17/20 trazodone 50 mg PO DAILY 08/31/19 09/17/20 aspirin 81 mg tablet,delayed 81 mg PO DAILY 09/03/20 09/17/20 release atorvastatin 40 mg tablet 40 mg PO DAILY 09/03/20 09/17/20 buspirone 15 mg tablet 15 mg PO TID 09/03/20 09/17/20 cilostazol 100 mg tablet 100 mg PO BID 09/03/20 09/17/20 cyanocobalamin (vitamin B-12) 500 500 mcg PO DAILY 09/03/20 09/17/20 mcg tablet meloxicam 15 mg tablet 15 mg PO DAILY 09/03/20 09/17/20 metformin 1,000 mg tablet 1,000 mg PO BID tablet 09/03/20 09/17/20 methotrexate sodium 2.5 mg tablet 10 mg PO WEEKLY tablet 09/03/20 09/17/20 mirtazapine 15 mg tablet 15 mg PO DAILY 09/03/20 09/17/20 oxybutynin chloride 10 mg 10 mg PO DAILY 09/03/20 09/17/20 tablet,extended release 24 hr potassium citrate 10 mEq (1,080 10 meq PO TID 09/03/20 09/17/20 mg) tablet,extended release vitamin E 1,000 unit capsule 1,000 unit PO DAILY 09/03/20 09/17/20 cyclobenzaprine 10 mg PO HS PRN 09/15/20 09/17/20 escitalopram oxalate [Lexapro] 20 mg PO DAILY 09/15/20 09/17/20 fluticasone propionate 2 spray INTRANASAL DAILY 09/15/20 09/17/20 glipizide 10 mg PO BID 09/15/20 09/17/20 guaifenesin [Mucinex] 600 mg PO BID 09/15/20 09/17/20 polyethylene glycol 3350 [Miralax] 17 g PO DAILY 09/15/20 09/17/20 Allergies Allergy/AdvReac Type Severity Reaction Status Date / Time varenicline Allergy Severe SUICIDAL Verified 09/17/20 09:16 THOUGHTS alprazolam Allergy Unknown Swelling Verified 09/17/20 09:16 levofloxacin Allergy Unknown Swelling Verified 09/17/20 09:16 Quinolones Allergy Unknown Swelling Verified 09/17/20 09:16 Review of Systems Review of Systems: All systems reviewed & are unremarkable except as noted in HPI and below PMFSH Past Medical History Medical History Allergies Anxiety Arthritis Asthma Chronic GERD COPD (chronic obstructive pulmonary disease) Depression Diabetes oral meds Hyperlipidemia Hypertension SAUD treated with BiPAP Overweight (BMI 25.0-29.9) Seizure disorder last seizure 05/2019 Surgical History Surgical History H/O: hysterectomy History of colon resection 11/2018 sigmoid colectomy w/color
[2020-09-23] MEDS: CYCLOBENZAPRINE HCL 10 MG TABLET PO (10:59)
[2020-09-23] MEDS: IBUPROFEN 400 MG TABLET 800 MG PO (11:00)
[2020-09-23 12:47] VITALS: BP 120/82; PULSE 80; RESP 12; O2SAT 94
[2020-09-23 13:30] VITALS: BP 125/67; PULSE 75; RESP 12; O2SAT 99
== END 2020-09-23 13:30 | disposition home or self-care (01) ==
PROVIDERS: Emergency Provider General Practice; PCP Family Medicine
DX: S39.92XA Unspecified injury of lower back, initial encounter (principal); M54.2 Cervicalgia; J44.9 Chronic obstructive pulmonary disease, unspecified; E11.9 Type 2 diabetes mellitus without complications; E78.5 Hyperlipidemia, unspecified; I10 Essential (primary) hypertension; G47.33 Obstructive sleep apnea (adult) (pediatric); G40.909 Epilepsy, unspecified, not intractable, without status epilepticus; F41.9 Anxiety disorder, unspecified; F32.9 Major depressive disorder, single episode, unspecified; M16.0 Bilateral primary osteoarthritis of hip; Z79.84 Long term (current) use of oral hypoglycemic drugs; Z79.82 Long term (current) use of aspirin; Z90.49 Acquired absence of other specified parts of digestive tract; F17.210 Nicotine dependence, cigarettes, uncomplicated; M47.816 Spondylosis without myelopathy or radiculopathy, lumbar region; W18.09XA Striking against other object with subsequent fall, initial encounter
CPT/HCPCS: 72100; 72125; 73521; 99284; A9270; L0140

== ENCOUNTER 2020-10-23 11:42 | Observation (INO) | payer MEDICARE, SELFPAY ==
[2020-10-23] VITALS (14 sets, daily range): BP systolic 99–139; BP diastolic 42–107; PULSE 66–87; RESP 13–20; TEMP 35.7–35.9; O2SAT 87–100; BMI 29.7
--- NOTE | ~2020-10-23 | XR_ITS ---
EXAMINATION: XR chest 1V DATE: 10/23/2020 12:55 INDICATION: Dizziness. TECHNIQUE: A single frontal view of the chest was obtained. COMPARISON: Chest 2 views 07/01/2020 FINDINGS: There is mild elevation of right hemidiaphragm. A calcified left lung nodule is consistent with old granulomatous disease. No pleural effusion or pneumothorax. The heart size is normal. There are surgical clips in right abdomen. IMPRESSION: 1. No acute cardiopulmonary disease. Reviewed, dictated and finalized at location A.
--- NOTE | ~2020-10-23 | CT_ITS ---
EXAMINATION: CT abdomen pelvis w con DATE: 10/23/2020 15:31 INDICATION: Lower abdominal pain, back pain. Recent fall. TECHNIQUE: Computed tomography (CT) of the abdomen and pelvis was performed with 100 cc Omnipaque 350 intravenous contrast. Automated exposure control and iterative reconstruction technique were employe d. Exam dose: 731.67 mGy-cm total exam DLP. COMPARISON: 10/05/2018 CT abdomen pelvis FINDINGS: There is bilateral dependent lower lobe atelectasis, greater on the right. Cardiomegaly. No pericardial or pleural effusion. Status post cholecystectomy. Additional surgical clips are noted along the inferomedial aspect of the right hepatic lobe and kimberley hepatis and at the superolateral aspect of the pancreatic head and neck . No hepatic, splenic, pancreatic, adrenal or renal space-occupying mass lesion or urinary tract calcul us or hydroureteronephrosis is evident. The urinary bladder is unremarkable. Diffuse atherosclerotic calcification of the abdominal aorta but no aneurysm. No intraperitoneal or r etroperitoneal or pelvic mass lesion or adenopathy or ascites is evident. Normal appendix. There is a suture line at the sigmoid colon. No bowel obstruction, bowel wall thickening, pneumatosis or intraperitoneal free air is detected. No bone fracture or suspicious osteolytic or osteoblastic lesions. IMPRESSION: Cardiomegaly Status post cholecystectomy Postoperative change of the sigmoid colon Reviewed, dictated and finalized at Location [facility]. Reviewed, dictated and finalized at location A.
--- NOTE | ~2020-10-23 | CT_ITS ---
EXAMINATION: CT brain wo con DATE: 10/23/2020 12:53 INDICATION: Dizziness. TECHNIQUE: Computed tomography (CT) of the head was performed without intravenous contrast. The mA wa s adjusted according to patient size. Iterative reconstruction technique was employed. The dose-lengt h product was 605.33 mGy-cm. COMPARISON: Head CT 06/25/2016 FINDINGS: There is no intracranial hemorrhage, acute infarction, or abnormal intracranial mass lesion . There are scattered areas of low attenuation in the cerebral white matter, which is within normal l imits for the patient's age. The ventricles are normal in size. There are likely changes of ocular le ns replacement surgeries. There is mucosal thickening in sphenoid sinus with thickening and sclerosis of the sinus johnson, consistent with chronic sinusitis. The mastoid air cells are normal. IMPRESSION: 1. Normal aging brain. 2. Chronic sinusitis. Reviewed, dictated and finalized at location A.
--- NOTE | 2020-10-23 12:02 | PC.NURSE ---
Pt states she is diabetic and hasnt checked her bg today and doesnt remember what it was yesterday.
[2020-10-23 12:09] LABS: Glucose Point of Care 152 (65-105)
[2020-10-23] MEDS: LORazepam INJ (*CRX) 2 MG/ML VIAL IM (12:20)
--- NOTE | 2020-10-23 12:21 | PC.NURSE ---
Nurse called to room by registration. Pt went unresponsive and started flailing her arms and legs in bed. Pt able to speak but not following commands. RAMOS miller at bedside. Orders for 2mg IM ativan given and performed. Pt resting comfortably but confused. Currently A&Ox2.
--- NOTE | 2020-10-23 12:23 | ECG_ITS ---
Measurements Intervals [place] Rate: 73 P: 9 NH: 149 QRS: -3 QRSD: 85 T: 28 QT: 394 QTc: 435 Interpretive Statements SINUS RHYTHM LOW QRS VOLTAGE IN PRECORDIAL LEADS CONSIDER INFERIOR INFARCT, AGE INDETERMINATE BASELINE ARTIFACT- I, II, III, AVR, AVL, AVF, V1, V3-V6 ABNORMAL ECG Electronically Signed On 10-23-2020 17:09:31 CDT by Glen Casper D.O.
--- NOTE | 2020-10-23 12:32 | PC.NURSE ---
Bed alarm placed under patient.
[2020-10-23 13:07] LABS: Basophils Percent Auto 0.3 % (0.2-1.2); Eosinophils Absolute Auto 0.1 K/mm3 (0-0.3); Eosinophils Percent Auto 1.2 % (0-4.4); Hematocrit 28.1 % (37.0-47.0); Hemoglobin 8.6 g/dL (12.0-15.0); Immature Granulocyte Absolute 0.05 K/mm3 (0.00-0.031); Immature Granulocyte Percent A 0.5 % (0-0.5); Lymphocytes Percent Auto 16.7 % (18.3-44.2); Mean Corpuscular HGB Conc 30.6 g/dl (32-36); Mean Corpuscular Hemoglobin 24.5 pg (26-34); Mean Corpuscular Volume 80.1 fl (80-100); Mean Platelet Volume 10.2 fl (7.4-10.4); Monocytes Absolute Auto 0.3 K/mm3 (0.1-0.6); Monocytes Percent Auto 3.1 % (2.6-8.5); Neutrophils Percent Auto 78.2 % (45.5-73.1); Platelet Count Result 167 k/mm3 (150-375); Red Blood Count 3.51 M/mm3 (4.2-5.4); Red Cell Distribution Width 20.9 % (11.5-14.5); White Blood Count 10.2 K/mm3 (4.5-10.0)
[2020-10-23 13:18] LABS: INR 0.9; Prothrombin Time 12.6 Seconds (11.1-14.7)
[2020-10-23 13:19] LABS: Partial Thromboplastin Time 21.3 SECONDS (22.3-36.8)
[2020-10-23 13:42] LABS: Acanthocytes 2+ (NORMAL); Hypochromasia 1+ (NORMAL); Ovalocytes 2+ (NORMAL); Platelet Estimate Adequate (Adequate)
--- NOTE | 2020-10-23 14:08 | ED.GENADULT ---
HPI - General Adult General Chief complaint: Dizziness Stated complaint: low blood pressure Time Seen by Provider: 10/23/20 12:16 Mode of arrival: ambulatory Limitations: clinical condition History of Present Illness HPI narrative: This is a 59 year old female with multiple medical problems who presents for evaluation of dizziness. I was called into patient's room because she was Flailing her arms and legs while laying in bed. They report on arrival to ER in triage, patient was alert and oriented x 3. Patient is able look at you during the flailing. Related Data Home Medications Medication Instructions Recorded Confirmed albuterol sulfate 2 inh INHALATION DAILY PRN 08/31/19 09/17/20 ergocalciferol (vitamin D2) 1,250 mcg PO WEEKLY 08/31/19 09/17/20 [Vitamin D2] fenofibrate 54 mg PO DAILY 08/31/19 09/17/20 fluticasone propionate 2 spray INTRANASAL DAILY 08/31/19 09/17/20 gabapentin 300 mg PO TID 08/31/19 09/17/20 isosorbide mononitrate 60 mg PO DAILY 08/31/19 09/17/20 losartan 25 mg PO DAILY 08/31/19 09/17/20 metoprolol succinate 25 mg PO DAILY 08/31/19 09/17/20 nitroglycerin 0.4 mg SUBLINGUAL PRN PRN 08/31/19 09/17/20 pantoprazole 40 mg PO DAILY 08/31/19 09/17/20 trazodone 50 mg PO DAILY 08/31/19 09/17/20 aspirin 81 mg tablet,delayed 81 mg PO DAILY 09/03/20 09/17/20 release atorvastatin 40 mg tablet 40 mg PO DAILY 09/03/20 09/17/20 buspirone 15 mg tablet 15 mg PO TID 09/03/20 09/17/20 cilostazol 100 mg tablet 100 mg PO BID 09/03/20 09/17/20 cyanocobalamin (vitamin B-12) 500 500 mcg PO DAILY 09/03/20 09/17/20 mcg tablet meloxicam 15 mg tablet 15 mg PO DAILY 09/03/20 09/17/20 metformin 1,000 mg tablet 1,000 mg PO BID tablet 09/03/20 09/17/20 methotrexate sodium 2.5 mg tablet 10 mg PO WEEKLY tablet 09/03/20 09/17/20 mirtazapine 15 mg tablet 15 mg PO DAILY 09/03/20 09/17/20 oxybutynin chloride 10 mg 10 mg PO DAILY 09/03/20 09/17/20 tablet,extended release 24 hr potassium citrate 10 mEq (1,080 10 meq PO TID 09/03/20 09/17/20 mg) tablet,extended release vitamin E 1,000 unit capsule 1,000 unit PO DAILY 09/03/20 09/17/20 cyclobenzaprine 10 mg PO HS PRN 09/15/20 09/17/20 escitalopram oxalate [Lexapro] 20 mg PO DAILY 09/15/20 09/17/20 fluticasone propionate 2 spray INTRANASAL DAILY 09/15/20 09/17/20 glipizide 10 mg PO BID 09/15/20 09/17/20 guaifenesin [Mucinex] 600 mg PO BID 09/15/20 09/17/20 polyethylene glycol 3350 [Miralax] 17 g PO DAILY 09/15/20 09/17/20 Allergies Allergy/AdvReac Type Severity Reaction Status Date / Time varenicline Allergy Severe SUICIDAL Verified 09/17/20 09:16 THOUGHTS alprazolam Allergy Unknown Swelling Verified 09/17/20 09:16 levofloxacin Allergy Unknown Swelling Verified 09/17/20 09:16 Quinolones Allergy Unknown Swelling Verified 09/17/20 09:16 [facility] Past Medical History Medical History Allergies Anxiety Arthritis Asthma Chronic GERD COPD (chronic obstructive pulmonary disease) Depression Diabetes oral meds Hyperlipidemia Hypertension SAUD treated with BiPAP Overweight (BMI 25.0-29.9) Seizure disorder last seizure 05/2019 Surgical History Surgical History H/O: hysterectomy History of colon resection 11/2018 sigmoid colectomy w/colorectal anastomosis secondary to diverticulitis Hx of cholecystectomy Family History Family History (Updated 09/03/20 @ 09:24 by Adele Correia CMA) Mother Depression Hypertension Asthma Family history of osteoarthritis Family history of allergic disorder Family history of elevated blood lipids Cerebrovascular accident Family history of diabetes mellitus in first degree relative Kidney disorder Father Cancer Grandparent Cancer Sibling Leukemia Other Diabetes mellitus Family history of cardiovascular disease Family history of colonic diverticulitis Family history of malignant neoplasm
[2020-10-23 14:10] LABS: Alanine Aminotransferase 20 U/L (4-35); Albumin Level 3.6 g/dL (3.5-5.1); Alkaline Phosphatase 61 U/L (38-126); Anion Gap 4 mmol/L (8-16); Aspartate Amino Transferase 30 U/L (14-36); Bilirubin,Total 0.3 mg/dL (0.2-1.3); Blood Urea Nitrogen 16 mg/dL (7-17); Calcium 8.7 mg/dL (8.4-10.2); Carbon Dioxide 27 mmol/L (22-30); Chloride 104 mmol/L (98-107); Estimated CRCL calculation 43 ml/min; Estimated Glomerular Filt Rate 42; Ethanol < 10 mg/dL (<10); Glucose 171 mg/dL (65-105); Sodium 135 mmol/L (137-145)
[2020-10-23 14:49] LABS: Amphetamine Screen Urine Negative (Negative); Barbiturate Screen Urine Negative (Negative); Benzodiazepines Screen Urine Negative (Negative); Cannabinoid Screen Urine Negative (Negative); Cocaine Screen Urine Negative (Negative); Methadone Screen Urine Negative (Negative); Opiate Screen Urine Negative (Negative); Phencyclidine Screen Urine Negative (Negative)
[2020-10-23 15:02] LABS: Add Urine Microscopic? YES; Appearance Urine Cloudy (Clear); Bacteria Urine 2+ /hpf; Bilirubin Urine Negative (Negative); Blood Urine Negative (Negative); Color Urine Yellow (Yellow); Glucose Urine UA Negative (Negative); Ketones Urine Negative (Negative); Leukocyte Esterase Ur 3+ LEU/UL (Negative); Mucus Urine Rare /lpf; Nitrate Urine Negative (Negative); Protein Urine Negative (Negative); Specific Grav Ur 1.008 (1.001-1.035); Squamous Epithelial Cell Urine Rare /hpf (Few); Urobilinogen Urine Negative mg/dL (<2.0); WBC Urine >75 /hpf
[2020-10-23 15:50] LABS: Iron 39 ug/dL (37-170)
[2020-10-23 15:59] LABS: Percent Iron Saturation 9 % (20-50)
[2020-10-23] MEDS: SODIUM CHLORIDE 0.9% IV 1,000 ML 999 ML IV CONT (16:19)
[2020-10-23 16:58] LABS: Folic Acid 3.6 ng/mL (2.76->20)
[2020-10-23 18:35] LABS: Alveolar/Arterial O2 Gradient 40.3 mmHg; Base Excess ABG -0.3 mEq/l (+/-2.0); Carboxyhemoglobin 6.4 % THb (0-2.0); Device ROOM AIR; Fractional Inspired Oxygen 21 %; HCO3 ABG 25.2 mEq/l (22.0-26.0); Methemoglobin ABG 0.2 %THb (0-1.5); Modified Allen's Test Pass; Oxygen Content ABG 10.4 %vol (16.0-22.0); Oxygen Saturation ABG 87.2 % (95.0-100.0); Oxyhemoglobin 81.4 % THb (90.0-100.0); PCO2 ABG 45.6 mmHg (35.0-45.0); PO2 ABG 54.8 mmHg (80.0-100.0); PO2 FiO2 Ratio Arterial Blood 2.61 %; Site Drawn LEFT RADIAL; pH ABG 7.361 (7.350-7.450)
--- NOTE | 2020-10-23 18:51 | PC.NURSE ---
This patient, Valentina Padgett, was admitted to Medical Room 343-01. Patient/family oriented to hospital policies and general routines including ID bracelet, bed and alarms, visiting hours, pain management, procedures, bathroom and other care routines, personal items, smoking policy, room service/diet, and visiting hours. Information on how to activate the Rapid Response Team has been discussed. Patient/Family are encouraged to report perceived risks to care and to ask questions if they do not understand what they are told or what they should do.
[2020-10-23] MEDS: SODIUM CHLORIDE 0.9% IV 1,000 ML 125 ML IV CONT (19:34)
--- NOTE | 2020-10-23 20:32 | PM.IMHP ---
H&P: HPI History of Present Illness Date/Time: 10/23/20 20:32 Chief Complaint: Dizziness, blurred vision and shaking for 1 week Narrative: Source of information: Past medical records and ER records. The patient only provides limited information since she received Ativan in the ER and falls asleep multiple times during my evaluation. 59-year-old female with a past medical history of pseudoseizures, hypertension, diabetes, psoriatic arthritis chronic pain, anxiety and depression who presented to the ER with multiple complaints. The patient reportedly fell 3 weeks ago and came to the ER reporting 1 week of dizziness. When the patient arrived to the ER the patient was flailing her arms and legs while laying in the bed. Her reports that the patient has history of anxiety induced seizures. The patient received a dose of Ativan in the ER at which time her oxygen saturations dropped into the 80s when she fell asleep. She does have a history of obstructive sleep apnea and uses CPAP. When the patient woke up her sats were 95% on room air. She was able to look at staff while she was flailing around. Having lightheadedness for 1 week. She has had decreased oral intake for at least 24 hours. She recommend planes of generalized weakness. She reports brown loose stools. She has not had any hematochezia or melena. She does have a long history of anemia with her hemoglobin for the most part ranging around 10. However last hemoglobin prior to her carpal tunnel surgery in September was up to 14. She no longer has menstrual cycles. She has not noticed any hematuria, hematochezia, or melena. She had a colonoscopy in 2019 with 2 polyps removed. She reported diffuse abdominal tenderness to the ER staff but did not have any abdominal tenderness at the time of my evaluation. The patient reports increased urinary frequency from baseline but denies any dysuria. She has chronic urinary urgency. She denies any chest pain or shortness of breath compared to her baseline. She does still smoke at least a quarter pack of cigarettes per day. She states that she has smoked since the age of 38 however prior documentation to suggest patient actually started smoking at a much younger age. The patient's smell strongly of smoke. She reported low blood pressures to the ER staff. The patient's blood pressures were normotensive on arrival to the ER. Review of Systems Review of Systems: Narrative: 12 systems were reviewed with pertinent positives and negatives per HPI. Except as documented in the HPI, all other systems were reviewed and are negative. However somewhat limited as the patient falls asleep multiple times during my evaluation. FORMERLY [facility] Past Medical History Medical History (Updated 10/24/20 @ 00:02 by Pilar Toney DO) Anxiety Asthma Chronic anemia Chronic GERD COPD (chronic obstructive pulmonary disease) CVA (cerebral vascular accident) at age 28 per patient report however MRI of the brain 08/23/2016 demonstrated normal aging brain Depression Diabetes oral meds Dyslipidemia Hyperlipidemia Hypertension Kidney stones AGUIAR (nonalcoholic steatohepatitis) Obstructive sleep apnea on CPAP polysomnogram March 2017 recommended CPAP of 14 Overweight (BMI 25.0-29.9) Psoriatic arthritis Psychogenic nonepileptic seizure (~2015) Surgical History Surgical History (Updated 10/23/20 @ 20:45 by Pilar Toney DO) H/O bilateral breast reduction surgery (~09/2018) H/O: hysterectomy History of carpal tunnel release (09/17/20) right History of section x1 History of colon resection (11/2018) sigmoid colectomy w/colorectal anastomosis secondary to diverticulitis History of colonoscopy with polypectomy (09/06/19) melanosis coli, 2 colon polyps, colorectal anastomosis History of esophagogastroduodenoscopy (EGD) (08/20/19) Duodenitis History of lithotripsy Hx of cholecystectomy S/P laparoscopic procedure (04/05/18) diagnostic laparoscop
[2020-10-23 22:10] LABS: Glucose Point of Care 85 (65-105)
[2020-10-23] MEDS: guaiFENesin 12 HR 600 MG TABCR PO (22:10)
[2020-10-23] MEDS: busPIRone HCL 5 MG TABLET 15 MG PO (22:10)
[2020-10-23] MEDS: MIRTAZAPINE 15 MG TABLET PO (22:10)
[2020-10-23] MEDS: ATORVASTATIN 40 MG TABLET PO (22:10)
[2020-10-23] MEDS: GABAPENTIN 300 MG CAPSULE PO (22:11)
[2020-10-24] VITALS (12 sets, daily range): BP systolic 115–136; BP diastolic 48–88; PULSE 66–81; RESP 14–18; TEMP 36–36.6; O2SAT 93–99
[2020-10-24] MEDS: SODIUM CHLORIDE 0.9% IV 1,000 ML 125 ML IV CONT ×2 (03:28→12:37)
[2020-10-24 03:56] LABS: IFOB Positive Control Positive; Immunochemical Fecal Occult Bl Negative (N)
[2020-10-24] MEDS: glipiZIDE 5 MG TABLET 10 MG PO (05:45)
[2020-10-24 05:48] LABS: Basophils Percent Auto 0.3 % (0.2-1.2); Eosinophils Absolute Auto 0.1 K/mm3 (0-0.3); Eosinophils Percent Auto 1.4 % (0-4.4); Hematocrit 29.9 % (37.0-47.0); Hemoglobin 8.8 g/dL (12.0-15.0); Immature Granulocyte Absolute 0.05 K/mm3 (0.00-0.031); Immature Granulocyte Percent A 0.9 % (0-0.5); Immature Reticulocyte Fraction 18.1 % (3.0-15.9); Lymphocytes Absolute Auto 1.28 K/mm3 (0.9-3.2); Lymphocytes Percent Auto 21.8 % (18.3-44.2); Mean Corpuscular HGB Conc 29.4 g/dl (32-36); Mean Corpuscular Hemoglobin 23.8 pg (26-34); Mean Platelet Volume 9.4 fl (7.4-10.4); Monocytes Absolute Auto 0.3 K/mm3 (0.1-0.6); Monocytes Percent Auto 5.3 % (2.6-8.5); Neutrophils Absolute Auto 4.1 K/mm3 (1.3-6.7); Neutrophils Percent Auto 70.3 % (45.5-73.1); Platelet Count Result 184 k/mm3 (150-375); Red Blood Count 3.69 M/mm3 (4.2-5.4); Red Cell Distribution Width 20.7 % (11.5-14.5); Reticulocyte Hemoglobin Conten 27.9 pg (28.2-35.7); Reticulocyte Percent 1.18 % (0.7-4.3); Reticulocytes Absolute 0.04 B/L (32.2-175.7); White Blood Count 5.9 K/mm3 (4.5-10.0)
[2020-10-24 06:03] LABS: Anion Gap 0 mmol/L (8-16); Blood Urea Nitrogen 9 mg/dL (7-17); Calcium 8.4 mg/dL (8.4-10.2); Carbon Dioxide 29 mmol/L (22-30); Chloride 112 mmol/L (98-107); Estimated CRCL calculation 57 ml/min; Estimated Glomerular Filt Rate 56; Glucose 101 mg/dL (65-105); Potassium 4.7 mmol/L (3.4-5.0); Sodium 141 mmol/L (137-145)
--- NOTE | 2020-10-24 07:50 | PC.NURSE ---
Blood sugar of 53 this morning. Gave apple juice to patient and will check in 15 minutes before giving IV glucose.
[2020-10-24 07:51] LABS: Glucose Point of Care 53 (65-105)
[2020-10-24 08:02] LABS: Basophils Absolute Manual 0.05 K/mm3 (0.0-0.1); Basophils Percent Manual 1 % (0-1); Lymphocytes Absolute Manual 1.18 K/mm3 (1.1-4.5); Monocytes Absolute Manual 0.11 K/mm3 (0.1-0.90); Monocytes Percent Manual 2 % (3-9); Neutrophils Percent Manual 77 % (46-73); Platelet Estimate Adequate (Adequate); Total Cells Counted 100
[2020-10-24 08:03] LABS: Hypochromasia 2+ (NORMAL); Schistocytes 1+ (NORMAL)
[2020-10-24 08:04] LABS: Crenated RBC 1+ (NORMAL); Ovalocytes 2+ (NORMAL)
[2020-10-24 08:58] LABS: Glucose Point of Care 48 (65-105)
[2020-10-24 08:58] LABS: Glucose Point of Care 69 (65-105)
[2020-10-24] MEDS: GABAPENTIN 300 MG CAPSULE PO ×3 (09:38→17:16)
[2020-10-24] MEDS: ISOSORBIDE MONONITRATE 60 MG TAB.ER.24H PO (09:38)
[2020-10-24] MEDS: OMEGA 3 POLYUNSAT FATTY ACIDS 1 GM CAP PO (09:38)
[2020-10-24] MEDS: guaiFENesin 12 HR 600 MG TABCR PO ×2 (09:38→20:42)
[2020-10-24] MEDS: polyethylene glycoL 3350 17 GM POWD.PACK PO (09:38)
[2020-10-24] MEDS: ESCITALOPRAM OXALATE 10 MG TABLET 20 MG PO (09:38)
[2020-10-24] MEDS: LOSARTAN POTASSIUM 25 MG TABLET PO (09:38)
[2020-10-24] MEDS: busPIRone HCL 5 MG TABLET 15 MG PO ×3 (09:38→17:14)
[2020-10-24] MEDS: METOPROLOL SUCCINATE EXT REL 25 MG TABCR PO (09:38)
[2020-10-24] MEDS: FLUTICASONE PROPIONATE 0.05% NA SPR 16 GM BTL (*BKC) 2 SPRAY NASAL (09:38)
[2020-10-24] MEDS: cilostazoL 100 MG TABLET PO ×2 (09:39→17:14)
[2020-10-24] MEDS: CYANOCOBALAMIN 500 MCG TABLET PO (09:39)
[2020-10-24] MEDS: POTASSIUM CITRATE 5 MEQ TAB CR 10 MEQ PO ×3 (09:39→17:13)
[2020-10-24] MEDS: FENOFIBRATE,MICRONIZED 48 MG TABLET PO (09:39)
[2020-10-24] MEDS: ASPIRIN 81 MG ENTERIC TABLET PO (09:39)
[2020-10-24] MEDS: PANTOPRAZOLE 40 MG TABLET PO (09:40)
[2020-10-24] MEDS: MELOXICAM 7.5 MG TABLET 15 MG PO (09:40)
[2020-10-24] MEDS: metFORMIN HCL 500 MG TABLET 1000 MG PO (09:40)
[2020-10-24 10:45] LABS: Lactate Dehydrogenase 517 U/L (313-618)
[2020-10-24] MEDS: VITAMIN E 1,000 UNIT CAPSULE 1000 UNIT PO (10:50)
[2020-10-24 10:55] LABS: Glucose Point of Care 79 (65-105)
[2020-10-24 13:15] LABS: Glucose Point of Care 58 (65-105)
--- NOTE | 2020-10-24 13:34 | PM.IMPN ---
Progress Note: A&P Assessment and Plan (1) Hypoglycemia: Code(s): E16.2 - Hypoglycemia, unspecified Status: Acute Assessment and Plan: Patient has been hypoglycemic many times today which could explain her symptoms of dizziness, blurred vision and shakiness that led her to the ER -unfortunately, she received oral hypoglycemics today. This has been placed on hold -because of multiple episodes of hypoglycemia, I am going to start dextrose 5% with normal saline and continue Q 2 Accu-Cheks -patient's A1c is 6.0 -she states that she takes her glucose every day but is unable date even give me arrange a what she usually runs -will likely decrease diabetes medications at discharge (2) UTI (urinary tract infection): Code(s): N39.0 - Urinary tract infection, site not specified Status: Acute Assessment and Plan: UA suspicious for UTI -continue ceftriaxone and await cultures -this could also be worsening her dizziness/confusion (3) Acute kidney injury: Code(s): N17.9 - Acute kidney failure, unspecified Status: Acute Assessment and Plan: Resolved (4) Dizziness: Code(s): R42 - Dizziness and giddiness Status: Acute Assessment and Plan: Resolved -continue with PT and OT (5) Anemia: Qualifiers: Anemia type: unspecified type Qualified Code(s): D64.9 - Anemia, unspecified Code(s): D64.9 - Anemia, unspecified Status: Acute Assessment and Plan: It appears has early iron deficiency anemia as her ferritin is low end of normal and her TIBC is high end of normal -occult blood is negative -will start iron Time Spent With Patient Time with patient: 25 - 35 minutes Subjective Date/time seen: 10/24/20 13:34 Interval history: Pt is a 59-year-old female here for dizziness, blurred vision and shakiness for 1 week and found have a UTI and hypoglycemia. Patient was seen today and states she feels okay. She seems to be understand the question and is alert and oriented x4 on exam. She states that she tries to take her glucose daily but cannot even given estimate on what usually runs. She says when she has these shakiness episodes she has not checked her blood sugar. She takes her diabetes medications as prescribed. She has not been having any dysuria, frequency or blood in her urine. She is eating and drinking well with no nausea, vomiting or diarrhea on admission but since she has been here she has had a couple episodes of diarrhea. She denies chest pain or shortness of breath . Review of Systems Review of Systems: All systems reviewed & are unremarkable except as noted in HPI and below Exam Narrative: Exam Narrative: General: Well developed well nourished patient in NAD HEENT: normocephalic Neck: supple Neuro: Alert and oriented x4. Cranial nerves 2-12 intact. Equal strength the upper lower extremity 5/5. No tremor on exam CV:RRR Resp:CTA Abd: Soft, non distended. No pain to palpation. Positive bowel sounds Extremities: No swelling, erythema, or pain to palpation. Objective Data Vital Signs Vital Signs: Vital Signs - 24 hr 10/23/20 15:57 10/23/20 15:59 10/23/20 16:03 Temperature Pulse Rate 81 81 80 Respiratory Rate Blood Pressure 112/58 L 121/58 L 99/53 L Pulse Oximetry 10/23/20 18:10 10/23/20 18:13 10/23/20 18:51 Temperature 96.6 F L Pulse Rate 87 70 Respiratory Rate 13 20 Blood Pressure 139/107 H 131/55 L Pulse Oximetry 87 L 92 100 10/23/20 20:10 10/23/20 20:52 10/23/20 21:04 Temperature 96.2 F L 96.2 F L Pulse Rate 72 66 66 Respiratory Rate 16 16 Blood Pressure 123/59 L 123/59 L Pulse Oximetry 96 98 97 10/23/20 21:10 10/23/20 21:25 10/24/20 00:00 Temperature Pulse Rate 68 70 Respiratory Rate 15 Blood Pressure Pulse Oximetry 95 92 10/24/20 00:20 10/24/20 04:00 10/24/20 04:54 Temperature 97.2 F L Pulse Rate 70 74 81 Respiratory
[2020-10-24] MEDS: DEXTROSE 5%/0.9% SOD CHL 1,000 ML 100 ML IV CONT (13:46)
[2020-10-24 15:14] LABS: Glucose Point of Care 95 (65-105)
[2020-10-24 16:58] LABS: Glucose Point of Care 186 (65-105)
[2020-10-24] MEDS: FERROUS SULFATE 324 MG TABLET PO (17:16)
[2020-10-24] MEDS: ATORVASTATIN 40 MG TABLET PO (20:41)
[2020-10-24] MEDS: MIRTAZAPINE 15 MG TABLET PO (20:42)
[2020-10-24 21:23] LABS: Glucose Point of Care 149 (65-105)
[2020-10-25] VITALS (8 sets, daily range): BP systolic 140; BP diastolic 73; PULSE 66–97; RESP 12–15; TEMP 36.4; O2SAT 95–98
[2020-10-25] MEDS: DEXTROSE 5%/0.9% SOD CHL 1,000 ML 100 ML IV CONT (03:03)
[2020-10-25 06:12] LABS: Hematocrit 27.6 % (37.0-47.0); Hemoglobin 8.3 g/dL (12.0-15.0); Mean Corpuscular HGB Conc 30.1 g/dl (32-36); Mean Corpuscular Hemoglobin 24.2 pg (26-34); Mean Corpuscular Volume 80.5 fl (80-100); Mean Platelet Volume 9.9 fl (7.4-10.4); Platelet Count Result 168 k/mm3 (150-375); Red Blood Count 3.43 M/mm3 (4.2-5.4); Red Cell Distribution Width 20.4 % (11.5-14.5); White Blood Count 5.1 K/mm3 (4.5-10.0)
[2020-10-25 06:19] LABS: Anion Gap 5 mmol/L (8-16); Blood Urea Nitrogen 11 mg/dL (7-17); Carbon Dioxide 25 mmol/L (22-30); Chloride 112 mmol/L (98-107); Estimated CRCL calculation 57 ml/min; Estimated Glomerular Filt Rate 56; Glucose 136 mg/dL (65-105); Sodium 142 mmol/L (137-145)
[2020-10-25] MEDS: FLUTICASONE PROPIONATE 0.05% NA SPR 16 GM BTL (*BKC) 2 SPRAY NASAL (08:04)
[2020-10-25] MEDS: polyethylene glycoL 3350 17 GM POWD.PACK PO (08:06)
[2020-10-25] MEDS: VITAMIN E 1,000 UNIT CAPSULE 1000 UNIT PO (08:08)
[2020-10-25] MEDS: MELOXICAM 7.5 MG TABLET 15 MG PO (08:08)
[2020-10-25] MEDS: ESCITALOPRAM OXALATE 10 MG TABLET 20 MG PO (08:09)
[2020-10-25] MEDS: busPIRone HCL 5 MG TABLET 15 MG PO ×2 (08:10→13:02)
[2020-10-25] MEDS: OMEGA 3 POLYUNSAT FATTY ACIDS 1 GM CAP PO (08:10)
[2020-10-25] MEDS: GABAPENTIN 300 MG CAPSULE PO ×2 (08:11→13:03)
[2020-10-25] MEDS: METOPROLOL SUCCINATE EXT REL 25 MG TABCR PO (08:11)
[2020-10-25] MEDS: cilostazoL 100 MG TABLET PO (08:11)
[2020-10-25] MEDS: POTASSIUM CITRATE 5 MEQ TAB CR 10 MEQ PO ×2 (08:11→11:57)
[2020-10-25] MEDS: metFORMIN HCL 500 MG TABLET 1000 MG PO (08:14)
[2020-10-25] MEDS: ASPIRIN 81 MG ENTERIC TABLET PO (08:14)
[2020-10-25] MEDS: CYANOCOBALAMIN 500 MCG TABLET PO (08:14)
[2020-10-25] MEDS: FERROUS SULFATE 324 MG TABLET PO (08:14)
[2020-10-25] MEDS: LOSARTAN POTASSIUM 25 MG TABLET PO (08:14)
[2020-10-25] MEDS: guaiFENesin 12 HR 600 MG TABCR PO (08:17)
[2020-10-25] MEDS: FENOFIBRATE,MICRONIZED 48 MG TABLET PO (08:17)
[2020-10-25] MEDS: PANTOPRAZOLE 40 MG TABLET PO (08:17)
[2020-10-25] MEDS: ISOSORBIDE MONONITRATE 60 MG TAB.ER.24H PO (08:17)
[2020-10-25 08:25] LABS: Glucose Point of Care 121 (65-105)
[2020-10-25] MEDS: AMOXICILLIN/CLAVULANATE K 500-125 MG TAB 1 TABLET PO (09:28)
--- NOTE | 2020-10-25 11:26 | PM.DS ---
DS: Admitting Diagnosis Admitting Diagnosis Admitting Diagnosis: dizziness DS: Discharge Diagnosis Discharge Diagnosis (1) Hypoglycemia: Code(s): E16.2 - Hypoglycemia, unspecified Status: Acute Assessment and Plan: Patient has been hypoglycemic many times throughout her hospitalization which could explain her symptoms of dizziness, blurred vision and shakiness that led her to the ER -patient's A1c is 6.0 -she states that she takes her glucose every day but is unable date even give me arrange a what she usually runs -she said she is changing her diet and trying to lose weight with her . -with her dietary changes, A1c and these symptoms, I am going to decrease her diabetes medications at discharge. I have asked her to keep a log of all of her glucose is an to show them to her primary care physician in 1-2 weeks dizzy if she needs further adjustment. Also educated her that if she has those symptoms again, that she needs to immediately check her glucose since she has not been doing that. -patient states she has the equipment and abilities to check her glucose at home without issue (2) UTI (urinary tract infection): Code(s): N39.0 - Urinary tract infection, site not specified Status: Acute Assessment and Plan: Confirmed E coli ESBL UTI -will finish treatment with Augmentin outpatient (which is sensitive) (3) Acute kidney injury: Code(s): N17.9 - Acute kidney failure, unspecified Status: Acute Assessment and Plan: Resolved (4) Dizziness: Code(s): R42 - Dizziness and giddiness Status: Acute Assessment and Plan: Resolved -patient was walking to the bathroom back on my exam. No issues (5) Anemia: Qualifiers: Anemia type: unspecified type Qualified Code(s): D64.9 - Anemia, unspecified Code(s): D64.9 - Anemia, unspecified Status: Acute Assessment and Plan: It appears has early iron deficiency anemia as her ferritin is low end of normal and her TIBC is high end of normal -occult blood is negative -start iron -educated to make sure she is up-to-date with her colonoscopy and mammogram DS: Summary Hospital Course Hospital Course: Patient is a 59-year-old female who has a history of diabetes who presented emergency room for dizziness, shakiness and confusion. Vitals in the ER were temperature 96.5? F, pulse 71, respiratory rate 20, blood pressure 111/42, pulse ox 97 on room air. Initial white blood cell count 10.2, hemoglobin 8.6, hematocrit 28.1, platelets 167. BMP showed creatinine 1.3 and a glucose of 171. UA suspicious for UTI. Head CT showed normal aging brain, chest x-ray showed no acute pathology, a CT of the abdomen pelvis showed no cause for her symptoms. Patient was admitted to the hospitalist service and observed. She had multiple episodes of hypoglycemia during her stay which leads me to believe that this is the cause of her symptoms at home although UTI cannot be ruled out. On further review, she said she has been changing her diet and losing weight with her which is likely causing her to become hypoglycemic. I talked to her about the symptoms of hypoglycemia and to check her glucose immediately when she has these symptoms. She agrees. I also decreased her medications as stated above and she is to follow-up with her primary care physician for further adjustment as needed. Her urine culture grew out E coli ESBL which was sensitive to Augmentin and she was discharged on that. The day of discharge she had no further dizziness, shakiness or confusion and was ready to go. She was educated about the worrisome signs and symptoms come back to emergency room for and was discharged stable condition. Status at Discharge Functional status at discharge: independent ambulation Overall status at discharge: patient is back to baseline Time Spent with Patient Time attestation: Total time spe
[2020-10-25 12:34] LABS: Glucose Point of Care 103 (65-105)
== END 2020-10-25 14:40 | disposition home or self-care (01) ==
LOC: ANHED 16:29 → ANH3MED 18:33
PROVIDERS: Internal Medicine; Admitting Provider Family Medicine; Emergency Provider General Practice; PCP Family Medicine; Visit Provider Physician Assistant
DX: E16.2 Hypoglycemia, unspecified (principal); N39.0 Urinary tract infection, site not specified; B96.20 Unspecified Escherichia coli [E. coli] as the cause of diseases classified elsewhere; D64.9 Anemia, unspecified; E11.9 Type 2 diabetes mellitus without complications; F41.8 Other specified anxiety disorders; G89.29 Other chronic pain; G47.33 Obstructive sleep apnea (adult) (pediatric); I10 Essential (primary) hypertension; F17.210 Nicotine dependence, cigarettes, uncomplicated; J44.9 Chronic obstructive pulmonary disease, unspecified; L40.50 Arthropathic psoriasis, unspecified; Z86.73 Personal history of transient ischemic attack (TIA), and cerebral infarction without residual deficits; Z79.84 Long term (current) use of oral hypoglycemic drugs
CPT/HCPCS: 36415; 36600; 70450; 71045; 74177; 80048; 80053; 80307; 81001; 82274; 82375; 82607; 82728; 82746; 82805; 82948; 83036; 83050; 83540; 83550; 83615; 85025; 85027; 85046; 85610; 85730; 86850; 86900; 86901; 87077; 87086; 87088; 87186; 93005; 96361; 96365; 96372; 97161; 97165; 99285; A9270; G0378; J0696; J2060; J7030; J7042; Q9967

== ENCOUNTER 2021-01-16 15:17 | Emergency (ER) | payer MEDICARE, SELFPAY ==
--- NOTE | ~2021-01-16 | CT_ITS ---
EXAMINATION: CT abdomen pelvis w con DATE: 01/16/2021 20:05 INDICATION: Nausea, vomiting and diarrhea TECHNIQUE: Computed tomography (CT) of the abdomen and pelvis was performed without intravenous contr ast. The dose-length product was 789.71 mGy-cm. Automated exposure control and iterative reconstructi on technique were employed. COMPARISON: CT dated 10/23/2020. FINDINGS: Bibasilar dependent atelectasis. Heart size normal. No significant pleural or pericardial e ffusion. There is pancreatic calcifications, consistent with chronic pancreatitis. There are cholecys tectomy clips. Fat-containing umbilical hernia. There is an air-fluid level in the bladder with mild bladder wall thickening. Nonobstructive bowel gas pattern. There is anterior/fluid debris levels in t he colon. Mild lumbar spondylosis. Mild degenerative changes of the hips. The liver, spleen, adrenal glands and kidneys are unremarkable. IMPRESSION: 1. Mild bladder wall thickening with air-fluid level. Correlate for recent instrumentation. If there is no history of recent instrumentation, consider cystitis. 2: Air-fluid/debris levels in the colon, consistent with diarrhea. No obstruction. 3: Chronic pancreatitis. Reviewed, dictated and finalized at location A. IMPRESSION: 1. Mild bladder wall thickening with air-fluid level. Correlate for recent inst rumentation. If there is no history of recent instrumentation, consider cystiti s. 2: Air-fluid/debris levels in the colon, consistent with diarrhea. No obstructi on. 3: Chronic pancreatitis.
[2021-01-16 16:31] VITALS: BP 114/40; PULSE 86; RESP 18; TEMP 36.4; O2SAT 99
[2021-01-16 19:09] LABS: Basophils Percent Auto 0.4 % (0.2-1.2); Eosinophils Absolute Auto 0.1 K/mm3 (0-0.3); Eosinophils Percent Auto 1.3 % (0-4.4); Hematocrit 34.7 % (37.0-47.0); Immature Granulocyte Absolute 0.03 K/mm3 (0.00-0.031); Immature Granulocyte Percent A 0.4 % (0-0.5); Lymphocytes Absolute Auto 2.48 K/mm3 (0.9-3.2); Lymphocytes Percent Auto 29.5 % (18.3-44.2); Mean Corpuscular HGB Conc 31.7 g/dl (32-36); Mean Corpuscular Hemoglobin 27.8 pg (26-34); Mean Corpuscular Volume 87.6 fl (80-100); Mean Platelet Volume 9.5 fl (7.4-10.4); Monocytes Absolute Auto 0.5 K/mm3 (0.1-0.6); Monocytes Percent Auto 5.7 % (2.6-8.5); Neutrophils Absolute Auto 5.3 K/mm3 (1.3-6.7); Neutrophils Percent Auto 62.7 % (45.5-73.1); Platelet Count Result 206 k/mm3 (150-375); Red Blood Count 3.96 M/mm3 (4.2-5.4); Red Cell Distribution Width 20.2 % (11.5-14.5); White Blood Count 8.4 K/mm3 (4.5-10.0)
[2021-01-16 19:17] LABS: Add Urine Microscopic? YES; Appearance Urine Turbid (Clear); Bilirubin Urine Negative (Negative); Blood Urine Negative (Negative); Color Urine Yellow (Yellow); Glucose Urine UA Negative (Negative); Ketones Urine Negative (Negative); Leukocyte Esterase Ur 3+ LEU/UL (Negative); Nitrate Urine Negative (Negative); Protein Urine 1+ mg/dL (Negative); Specific Grav Ur 1.013 (1.001-1.035); Urobilinogen Urine Negative mg/dL (<2.0); WBC Clumps Urine Present /HPF; WBC Urine >75 /hpf
--- NOTE | 2021-01-16 19:22 | ED.NAVMDI ---
HPI - Nausea/Vomiting/Diarrhea General Chief complaint: Nausea/Vomiting/Diarrhea Stated complaint: v/d x 1 month Time Seen by Provider: 01/16/21 19:05 Source: RN notes reviewed History of Present Illness HPI Narrative: Patient presents emergency department from home for nausea vomiting diarrhea. Patient states symptoms been ongoing for the past 1 month. She states that whenever she eats she has either nausea vomiting or diarrhea but states that with this she has diffuse abdominal pain. States abdominal pain is described as cramping. She states she went saw her PCP for this today and recommend she come to the ER for further evaluation. She denies any fevers or chills, chest pain, shortness of breath or any other symptoms Related Data Home Medications Medication Instructions Recorded Confirmed albuterol sulfate 2 inh INHALATION DAILY PRN 08/31/19 10/23/20 ergocalciferol (vitamin D2) 1,250 mcg PO WEEKLY 08/31/19 10/23/20 [Vitamin D2] fenofibrate 54 mg PO DAILY 08/31/19 10/23/20 gabapentin 300 mg PO TID 08/31/19 10/23/20 isosorbide mononitrate 60 mg PO DAILY 08/31/19 10/23/20 losartan 25 mg PO DAILY 08/31/19 10/23/20 metoprolol succinate 25 mg PO DAILY 08/31/19 10/23/20 nitroglycerin 0.4 mg SUBLINGUAL PRN PRN 08/31/19 10/23/20 pantoprazole 40 mg PO DAILY 08/31/19 10/23/20 trazodone 50 mg PO HS PRN 08/31/19 10/23/20 aspirin 81 mg tablet,delayed 81 mg PO DAILY 09/03/20 10/23/20 release atorvastatin 40 mg tablet 40 mg PO HS 09/03/20 10/23/20 buspirone 15 mg tablet 15 mg PO TID 09/03/20 10/23/20 cilostazol 100 mg tablet 100 mg PO BID 09/03/20 10/23/20 cyanocobalamin (vitamin B-12) 500 500 mcg PO DAILY 09/03/20 10/23/20 mcg tablet meloxicam 15 mg tablet 15 mg PO DAILY 09/03/20 10/23/20 metformin 1,000 mg tablet 1,000 mg PO BID tablet 09/03/20 10/23/20 methotrexate sodium 2.5 mg tablet 10 mg PO WEEKLY tablet 09/03/20 10/23/20 mirtazapine 15 mg tablet 15 mg PO HS 09/03/20 10/23/20 oxybutynin chloride 10 mg 10 mg PO DAILY 09/03/20 10/23/20 tablet,extended release 24 hr potassium citrate 10 mEq (1,080 10 meq PO TID 09/03/20 10/23/20 mg) tablet,extended release vitamin E 1,000 unit capsule 1,000 unit PO DAILY 09/03/20 10/23/20 escitalopram oxalate [Lexapro] 20 mg PO DAILY 09/15/20 10/23/20 fluticasone propionate 2 spray INTRANASAL DAILY 09/15/20 10/23/20 polyethylene glycol 3350 [Miralax] 17 g PO DAILY 09/15/20 10/23/20 flaxseed oil 1,000 mg PO TID 10/23/20 10/23/20 omega-3 fatty acids 1,000 mg PO DAILY 10/23/20 10/23/20 tramadol 50 mg PO Q6H PRN 10/23/20 10/23/20 sitagliptin 100 mg tablet 100 mg PO DAILY 11/25/20 Allergies Allergy/AdvReac Type Severity Reaction Status Date / Time varenicline Allergy Severe SUICIDAL Verified 01/16/21 19:16 THOUGHTS alprazolam Allergy Unknown Swelling Verified 01/16/21 19:16 levofloxacin Allergy Unknown Swelling Verified 01/16/21 19:16 Quinolones Allergy Unknown Swelling Verified 01/16/21 19:16 Review of Systems Review of Systems: Narrative: Gen.: Denies fevers or chills ENT: Denies congestion Respiratory: Denies shortness of breath or cough CV: Denies chest pain or palpitations GI: See HPI denies burning, urgency, frequency or hematuria Musculoskeletal: Denies back pain or muscle pain Neuro: Denies numbness, tingling, weakness or focal weakness Skin: Denies rash Except as documented, all other systems reviewed and negative PMFSH Past Medical History Medical History Anxiety Asthma Chronic anemia Chronic GERD COPD (chronic obstructive pulmonary disease) CVA (cerebral vascular accident) at age 28 per patient report however MRI of the brain 08/23/2016 demonstrated normal aging brain Depression Diabetes oral meds Dyslipidemia Hyperlipidemia Hypertension Inflammatory arthritis Kidney stones AGUIAR (nonalcoholic steatohepatitis) Obstructive sleep apnea on CPAP polysomnogram March 2017 recommended CPAP of 14 Ov
[2021-01-16 19:23] LABS: Alanine Aminotransferase 47 U/L (4-35); Albumin Level 4.2 g/dL (3.5-5.1); Alkaline Phosphatase 69 U/L (38-126); Anion Gap 10 mmol/L (8-16); Aspartate Amino Transferase 47 U/L (14-36); Bilirubin,Total 0.3 mg/dL (0.2-1.3); Blood Urea Nitrogen 21 mg/dL (7-17); Calcium 9.4 mg/dL (8.4-10.2); Carbon Dioxide 25 mmol/L (22-30); Chloride 99 mmol/L (98-107); Estimated CRCL calculation 37 ml/min; Estimated Glomerular Filt Rate 35; Glucose 85 mg/dL (65-105); Lipase 129 U/L (23-300); Sodium 134 mmol/L (137-145)
[2021-01-16] MEDS: SODIUM CHLORIDE 0.9% IV 1,000 ML 999 ML IV CONT (19:28)
[2021-01-16 20:23] VITALS: BP 110/60; PULSE 83; RESP 18; O2SAT 96
[2021-01-16 21:27] VITALS: BP 122/56; PULSE 91; RESP 19; O2SAT 96
== END 2021-01-16 21:31 | disposition home or self-care (01) ==
PROVIDERS: Emergency Medicine; Emergency Provider Emergency Medicine; PCP Family Medicine
DX: N39.0 Urinary tract infection, site not specified (principal); R11.2 Nausea with vomiting, unspecified; R10.9 Unspecified abdominal pain; J44.9 Chronic obstructive pulmonary disease, unspecified; E11.9 Type 2 diabetes mellitus without complications; E78.5 Hyperlipidemia, unspecified; I10 Essential (primary) hypertension; K75.81 Nonalcoholic steatohepatitis (NASH); G47.33 Obstructive sleep apnea (adult) (pediatric); L40.50 Arthropathic psoriasis, unspecified; D64.9 Anemia, unspecified; F32.9 Major depressive disorder, single episode, unspecified; F41.9 Anxiety disorder, unspecified; Z86.73 Personal history of transient ischemic attack (TIA), and cerebral infarction without residual deficits; Z87.442 Personal history of urinary calculi; Z79.82 Long term (current) use of aspirin; Z79.84 Long term (current) use of oral hypoglycemic drugs; Z90.49 Acquired absence of other specified parts of digestive tract; Z98.42 Cataract extraction status, left eye; Z98.41 Cataract extraction status, right eye; Z96.1 Presence of intraocular lens; F17.210 Nicotine dependence, cigarettes, uncomplicated; K86.1 Other chronic pancreatitis
CPT/HCPCS: 36415; 74177; 80053; 81001; 83690; 85025; 87077; 87086; 87088; 87186; 96361; 96365; 96367; 99284; J0131; J0696; J7030; Q9967

== ENCOUNTER 2021-02-24 07:55 | Outpatient (CLI) | payer MEDICARE, SELFPAY ==
--- NOTE | ~2021-02-24 | XR_ITS ---
XR enema water soluble INDICATION: Abdomen pain TECHNIQUE: Examination of the colon utilizing water soluble contrast technique. COMPARISON: CT dated 01/16/2021 FINDINGS: The entire colon was filled, distending normally. No extrinsic mass effect is noted. The haustral pattern appears normal. There is no evidence of stricture, extravasation, obstruction or pe rsistent mucosal abnormality. Evaluation for mucosal abnormalities limited by single contrast techniq ue. IMPRESSION: 1:Unremarkable limited colon examination. Reviewed, dictated and finalized at location A.
== END 2021-02-24 07:56 | disposition home or self-care (01) ==
LOC: ANHIMG 07:59
PROVIDERS: PCP Family Medicine; Visit Provider Surgery
DX: R93.89 Abnormal findings on diagnostic imaging of other specified body structures (principal)
CPT/HCPCS: 74270

== ENCOUNTER 2021-04-11 09:41 | Emergency (ER) | payer MEDICARE, SELFPAY ==
--- NOTE | ~2021-04-11 | XR_ITS ---
[XR ribs LT 2V ] INDICATION: Left rib pain TECHNIQUE: Frontal projection of the upper left ribs, frontal projection of the lower left ribs, obli que projection of all the left ribs, frontal inspiratory chest x-ray for interpretation. FINDINGS: There is a nondisplaced fracture distal aspect of the left clavicle, age indeterminate. The re is an acute left seventh rib fracture. There is mild scoliosis. There are no soft tissue abnormali ty seen. The lungs are clear. IMPRESSION: 1: Acute left seventh rib fracture. 2: Age-indeterminate nondisplaced fracture distal aspect of the left clavicle. Correlate for point te nderness. Reviewed, dictated and finalized at location A. IMPRESSION: 1: Acute left seventh rib fracture. 2: Age-indeterminate nondisplaced fracture distal aspect of the left clavicle. Correlate for point tenderness.
[2021-04-11 09:45] VITALS: BP 115/48; PULSE 78; RESP 20; TEMP 36.1; O2SAT 99
--- NOTE | 2021-04-11 11:10 | ED.GENADULT ---
HPI - General Adult General Chief complaint: Unspecified Stated complaint: left rib pain x 1 week Time Seen by Provider: 04/11/21 10:15 Source: RN notes reviewed History of Present Illness HPI narrative: Patient presents emergency department from home for left rib pain. Patient states 1 week ago she was reaching out over the table where she had been doing her jigsaw puzzle when she felt a pop in her left rib states has had pain in that area since that time pain is worse with deep inspiration and move the torso she denies directly falling onto the chest she denies any fevers or chills shortness of breath or any other symptoms states she is not taking pain medication today patient drove her self to the emergency department Related Data Home Medications Medication Instructions Recorded Confirmed albuterol sulfate 2 inh INHALATION DAILY PRN 08/31/19 02/19/21 ergocalciferol (vitamin D2) 1,250 mcg PO WEEKLY 08/31/19 02/19/21 [Vitamin D2] fenofibrate 54 mg PO DAILY 08/31/19 02/19/21 gabapentin 300 mg PO TID 08/31/19 02/19/21 isosorbide mononitrate 60 mg PO DAILY 08/31/19 02/19/21 losartan 25 mg PO DAILY 08/31/19 02/19/21 metoprolol succinate 25 mg PO DAILY 08/31/19 02/19/21 nitroglycerin 0.4 mg SUBLINGUAL PRN PRN 08/31/19 02/19/21 pantoprazole 40 mg PO DAILY 08/31/19 02/19/21 trazodone 50 mg PO HS PRN 08/31/19 02/19/21 aspirin 81 mg tablet,delayed 81 mg PO DAILY 09/03/20 02/19/21 release atorvastatin 40 mg tablet 40 mg PO HS 09/03/20 02/19/21 buspirone 15 mg tablet 15 mg PO TID 09/03/20 02/19/21 cilostazol 100 mg tablet 100 mg PO BID 09/03/20 02/19/21 cyanocobalamin (vitamin B-12) 500 500 mcg PO DAILY 09/03/20 02/19/21 mcg tablet meloxicam 15 mg tablet 15 mg PO DAILY 09/03/20 02/19/21 metformin 1,000 mg tablet 1,000 mg PO BID tablet 09/03/20 02/19/21 methotrexate sodium 2.5 mg tablet 10 mg PO WEEKLY tablet 09/03/20 02/19/21 mirtazapine 15 mg tablet 15 mg PO HS 09/03/20 02/19/21 oxybutynin chloride 10 mg 10 mg PO DAILY 09/03/20 02/19/21 tablet,extended release 24 hr potassium citrate 10 mEq (1,080 10 meq PO TID 09/03/20 02/19/21 mg) tablet,extended release vitamin E 1,000 unit capsule 1,000 unit PO DAILY 09/03/20 02/19/21 escitalopram oxalate [Lexapro] 20 mg PO DAILY 09/15/20 02/19/21 fluticasone propionate 2 spray INTRANASAL DAILY 09/15/20 02/19/21 polyethylene glycol 3350 [Miralax] 17 g PO DAILY 09/15/20 02/19/21 flaxseed oil 1,000 mg PO TID 10/23/20 02/19/21 omega-3 fatty acids 1,000 mg PO DAILY 10/23/20 02/19/21 tramadol 50 mg PO Q6H PRN 10/23/20 02/19/21 sitagliptin 100 mg tablet 100 mg PO DAILY 11/25/20 02/19/21 Allergies Allergy/AdvReac Type Severity Reaction Status Date / Time varenicline Allergy Severe SUICIDAL Verified 03/17/21 13:50 THOUGHTS alprazolam Allergy Unknown Swelling Verified 03/17/21 13:50 levofloxacin Allergy Unknown Swelling Verified 03/17/21 13:50 Quinolones Allergy Unknown Swelling Verified 03/17/21 13:50 Review of Systems Review of Systems: Gen.: Denies fevers or chillsENT: Denies congestion Respiratory: Denies shortness of breath or cough CV: See HPI GI: Denies abdominal pain nausea, emesis or diarrhea Musculoskeletal: Denies back pain or muscle pain Neuro: Denies numbness, tingling, weakness or focal weakness Skin: Denies rash Except as documented, all other systems reviewed and negative PMFSH Past Medical History Medical History Anxiety Asthma Chronic anemia Chronic GERD COPD (chronic obstructive pulmonary disease) CVA (cerebral vascular accident) at age 28 per patient report however MRI of the brain 08/23/2016 demonstrated normal aging brain Depression Diabetes oral meds Dyslipidemia Hyperlipidemia Hypertension Inflammatory arthritis Kidney stones AGUIAR (nonalcoholic steatohepatitis) Obstructive sleep apnea on CPAP polysomnogram March 2017 recommended CPAP of 14 Overweight (BMI 25.0-29.9) Psoriatic arthritis
[2021-04-11] MEDS: IBUPROFEN 600 MG TABLET PO (11:20)
== END 2021-04-11 11:25 | disposition home or self-care (01) ==
PROVIDERS: Emergency Provider Emergency Medicine; PCP Family Medicine
DX: S22.32XA Fracture of one rib, left side, initial encounter for closed fracture (principal); J44.9 Chronic obstructive pulmonary disease, unspecified; D64.9 Anemia, unspecified; E11.9 Type 2 diabetes mellitus without complications; E78.5 Hyperlipidemia, unspecified; I10 Essential (primary) hypertension; G47.33 Obstructive sleep apnea (adult) (pediatric); K75.81 Nonalcoholic steatohepatitis (NASH); M19.90 Unspecified osteoarthritis, unspecified site; L40.50 Arthropathic psoriasis, unspecified; K21.9 Gastro-esophageal reflux disease without esophagitis; F32.A Depression, unspecified; Z90.49 Acquired absence of other specified parts of digestive tract; Z87.442 Personal history of urinary calculi; Z86.010 Personal history of colon polyps; Z98.42 Cataract extraction status, left eye; Z98.41 Cataract extraction status, right eye; Z96.1 Presence of intraocular lens; F17.210 Nicotine dependence, cigarettes, uncomplicated; Z79.82 Long term (current) use of aspirin; Z79.84 Long term (current) use of oral hypoglycemic drugs; X50.9XXA Other and unspecified overexertion or strenuous movements or postures, initial encounter
CPT/HCPCS: 71100; 99283; A9270

== ENCOUNTER → 2021-06-08 13:27 | Outpatient (CLI) | payer MEDICARE, SELFPAY ==
--- NOTE | ~2021-06-08 | DEXA_ITS ---
Bone Density Report Name: ARPIT LECHUGA Age: 60 Sex: Female Ethnicity: White Date of : 1960 Indication: postmenopausal; screening for osteoporosis; height loss; prior fracture; seizure disorder; asthma or emphysema; hysterectomy; rheumatoid arthritis; Referring Provider: Arslan Jose Study: Bone densitometry was performed. Exam Date: June 08, 2021 Accession number: [id number] Bone Density: Region BMD T-score Z-score Classification AP Spine (L1-L4) 0.883 -1.5 0.1 Osteopenia Femoral Neck (Left) 0.573 -2.5 -1.1 Osteoporosis Total Hip (Left) 0.793 -1.2 -0.1 Osteopenia Femoral Neck (Right) 0.587 -2.4 -1.0 Osteopenia Total Hip (Right) 0.769 -1.4 -0.3 Osteopenia Total Hip Mean 0.781 -1.3 -0.2 Osteopenia World Health Organization criteria for BMD impression classify patients as: Normal (T-score at or above -1.0), Osteopenia (T-score between -1.0 and -2.5), or Osteoporosis (T-score at or below -2.5). 10-year Fracture Risk: FRAX not reported because: Some T-score for Spine Total or Hip Total or Femoral Neck at or below -2.5 Clinical Information Provided by Patient: Has had a low trauma fracture Smokes Has rheumatoid arthritis Has used the following medications: Vitamin D Has the following medical conditions: Any Seizure Disorders, Asthma or Emphysema, Hysterectomy Patient maximum height was 67.5 Menopause Age: 36 No regular weight bearing exercise Does not regularly consume dairy products Drinks caffeinated beverages Onset of menses at age 11.5 Number of children 2 Impression: The patient has established osteoporosis, based on the Left Femoral Neck T-score and the existence of a prior fracture. The patient has risk factors, including: smoking, previous fracture. Discussion: HIGH RISK OF FRACTURE. BONE DENSITY IS UNDESIRABLY LOW AT ONE OR MORE SKELETAL SITES, CONSISTENT WITH POSTMENOPAUSAL OSTEOPOROSIS. This patient's lowest T-score, in a patient who has previously fractured, meets the World Health Organization's (WHO) criteria for severe osteoporosis. In untreated patients, the risk of osteoporotic fracture increases approximately two-fold for each 1.0 SD decrease in T-score. Low bone density is not the only risk factor for fracture; also consider factors such as patient's age, frailty or poor health, risk of falling, risk of injury, previous osteoporotic fracture, family history of osteoporosis, cigarette smoking, low body weight, etc. Not everyone with low bone mineral density has osteoporosis; osteomalacia and other metabolic bone disorders should also be considered. Patients who have osteoporosis should be evaluated for specific diseases and conditions (secondary causes) that may cause or contribute to bone loss. The [place] [employer]ocr[employer] (AACE) and National Osteoporosis
== END ==
PROVIDERS: PCP Family Medicine; Visit Provider Obstetrics & Gynecology
DX: Z78.0 Asymptomatic menopausal state (principal); M85.88 Other specified disorders of bone density and structure, other site; M81.0 Age-related osteoporosis without current pathological fracture; M85.852 Other specified disorders of bone density and structure, left thigh; M85.851 Other specified disorders of bone density and structure, right thigh
CPT/HCPCS: 77080

== ENCOUNTER 2021-06-23 17:19 | Observation (INO) | payer MEDICARE, SELFPAY ==
--- NOTE | ~2021-06-23 | MR_ITS ---
EXAMINATION: MR brain/brain stem wo con EXAM DATE: 06/24/2021 10:48 INDICATION: Amnesia . Head trauma. Somnolence. TECHNIQUE: Magnetic resonance imaging (MRI) of the brain/brain stem obtained without contrast. Sagitt al T1, axial diffusion, gradient echo (T2*), T1, T2, FLAIR sequences obtained. There is no prior st udy for comparison. FINDINGS: Some sequences limited due to patient motion. Mild microangiopathy. There are no areas of restricted diffusion to suggest acute infarction. There is no acute hemorrhage seen on the T2*, a he mosiderin sensitive sequence. No intraparenchymal brain mass. The ventricles are normal in size. Th ere are no extra-axial collections. Flow voids are seen in the cerebral arteries on the T2-weighted sequences consistent with their expected patency. The orbits are unremarkable. Soft tissue is unrem arkable. IMPRESSION: 1. No acute intracranial findings. 2. Mild microangiopathy. Reviewed, dictated and finalized at location B. L EDITOR
--- NOTE | ~2021-06-23 | XR_ITS ---
EXAMINATION: XR thoracic spine 2V DATE: 06/24/2021 02:03 INDICATION: Thoracic back pain TECHNIQUE: AP, lateral and lateral swimmer's views of the thoracic spine were obtained. COMPARISON: 06/23/2021 FINDINGS: There is no fracture, dislocation, or subluxation. The vertebral body heights are maintaine d. There is mild loss of intervertebral disc space height at multiple levels in the thoracic spine. S mall degenerative osteophytes project from the anterior endplates of multiple vertebral bodies. IMPRESSION: 1. Mild thoracic spondylosis. Reviewed, dictated and finalized at location A. MOTIVE COLLISION REPAIR INSTRUCTOR
--- NOTE | ~2021-06-23 | US_ITS ---
EXAMINATION: US right upper quadrant DATE: 06/24/2021 14:01 INDICATION: Cirrhosis TECHNIQUE: Multiple grayscale and Doppler ultrasound images of the abdomen were obtained. COMPARISON: CT from today FINDINGS: The head and body of the pancreas are normal. The pancreatic tail is obscured by bowel gas. The liver is normal with normal echogenicity and echotexture. The liver surface is nodular. Normal h epatopetal flow in the main portal vein. The gallbladder is surgically absent. The normal common bile duct measures 4 mm. IMPRESSION: 1. Cirrhosis without acute findings. Reviewed, dictated and finalized at location A. GARAGE ATTENDANT
--- NOTE | ~2021-06-23 | XR_ITS ---
EXAMINATION: XR foot RT min 3V EXAM DATE: 06/24/2021 13:21 INDICATION: Right foot pain. Ecchymosis to the foot after fall. Swelling. TECHNIQUE: Right foot dorsoplantar, lateral and oblique projections obtained and reviewed. Compariso n is made to prior examination from 06/23/2021. FINDINGS: Right metatarsal bones unremarkable. Possible acute closed posttraumatic nondisplaced frac ture through the proximal aspect of the right 5th proximal phalanx identified on an oblique projectio n. Does this coincide with location of patient's ecchymosis, swelling? Finding has been indicated for clinical correlation. Moderate size inferior calcaneal spur. IMPRESSION: Possible acute nondisplaced right 5th proximal phalangeal shaft fracture. Reviewed, dictated and finalized at location B. IT ASSISTANT IMPRESSION: Possible acute nondisplaced right 5th proximal phalangeal shaft fr acture.
--- NOTE | ~2021-06-23 | XR_ITS ---
EXAMINATION: XR chest 2V 06/23/2021 19:45 INDICATION: Right lateral rib pain. Status post fall. COPD. Hypertension. PROCEDURE: 2 view chest COMPARISON: Comparison to multiple prior studies sequentially, with oldest reviewed study dated 06/10. FINDINGS: The lungs are clear. The cardiomediastinal silhouette is within normal limits. There are no pleural effusions. There is no pneumothorax suspected. IMPRESSION: 1: NO ACUTE CARDIOPULMONARY DISEASE. Reviewed, dictated and finalized at location A. IMPERSONATOR
--- NOTE | ~2021-06-23 | CT_ITS ---
EXAMINATION: CT brain wo con INDICATION: Transient alteration of awareness COMPARISON: 10/23/2020 TECHNIQUE: Standard unenhanced head CT. The dose-length product (DLP) was 832.33 mGy-cm. The mA was a djusted according to patient size. Iterative reconstruction technique was employed. FINDINGS: There is no intracranial hemorrhage, acute infarction, or abnormal mass lesion. The ventric les are normal. There is no abnormal mass effect or midline shift. The chaidez-white matter differentiat ion is normal. The basal cisterns are patent. Changes in the globes are likely from ocular lens surge ry. There is partial opacification and wall thickening of the right sphenoid sinus, consistent with c hronic sinusitis. IMPRESSION: 1. No acute intracranial abnormality. Reviewed, dictated and finalized at location A. FITTER
--- NOTE | ~2021-06-23 | CT_ITS ---
EXAMINATION: CT abdomen pelvis wo con DATE: 06/24/2021 02:10 INDICATION: Abdominal pain. TECHNIQUE: Computed tomography (CT) of the abdomen and pelvis was performed without intravenous contr ast. Automated exposure control and iterative reconstruction technique were employed. The dose-length product was 540.49 mGy-cm. COMPARISON: CT abdomen and pelvis 01/16/2021 FINDINGS: The visualized portions of the lung bases demonstrate mild atelectasis. No pleural effusion . The heart size is normal. No pericardial effusion. The liver demonstrates a nodular surface contour , consistent with cirrhosis. There are changes of cholecystectomy. The spleen, pancreas, adrenal glan ds, and kidneys are normal. There is a staple line in the rectosigmoid. There are no dilated loops of bowel. The appendix is normal. There is a widemouthed ventral hernia containing nonobstructed small bowel. There are no pathologically enlarged lymph nodes. There is no free intraperitoneal fluid. Ther e is a benign bone island in left femoral head. There is mild thoracolumbar spondylosis. IMPRESSION: 1. Widemouthed ventral hernia containing nonobstructed small bowel. 2. Cirrhosis of the liver. Reviewed, dictated and finalized at location A. MAKER HELPER
--- NOTE | ~2021-06-23 | XR_ITS ---
XR foot RT min 3V, XR foot LT min 3V 06/23/2021 19:45 INDICATION: Bilateral foot ecchymosis and pain after fall PROCEDURE: 4 views each foot COMPARISON: No prior studies for comparison. FINDINGS: There is mild osteoarthritis of the first MTP joints bilaterally. Osteopenia. There are deg enerative calcaneal enthesophytes. Lisfranc joint intact. There is an acute nondisplaced fracture of the left fifth proximal phalanx. No intra-articular extension. There are nondisplaced left third and fourth metatarsal neck fractures. The soft tissues appear within normal limits. No foreign bodies ar e identified. No acute right foot fracture. IMPRESSION: 1: Acute nondisplaced fracture of the left fifth proximal phalanx. 2: Acute nondisplaced fractures of the left third and fourth metatarsal necks. Reviewed, dictated and finalized at location A. ABORATING SUPERVISING PHYSICIAN IMPRESSION: 1: Acute nondisplaced fracture of the left fifth proximal phalanx. 2: Acute nondisplaced fractures of the left third and fourth metatarsal necks.
[2021-06-23 17:32] VITALS: BP 155/58; PULSE 76; RESP 16; TEMP 36.9; O2SAT 99
--- NOTE | 2021-06-23 17:53 | ECG_ITS ---
Measurements Intervals Letha Rate: 67 P: 15 MS: 135 QRS: -4 QRSD: 96 T: 31 QT: 393 QTc: 416 Interpretive Statements SINUS RHYTHM CONSIDER INFERIOR INFARCT, AGE INDETERMINATE ABNORMAL ECG Electronically Signed On 06-23-2021 20:24:24 POPULATION GENETICIST by Glen Casper D.O.
[2021-06-23 18:44] LABS: Basophils Percent Auto 0.2 % (0.2-1.2); Eosinophils Percent Auto 0.3 % (0-4.4); Hemoglobin 11.6 g/dL (12.0-15.0); Immature Granulocyte Absolute 0.02 K/mm3 (0.00-0.031); Immature Granulocyte Percent A 0.2 % (0-0.5); Lymphocytes Absolute Auto 1.48 K/mm3 (0.9-3.2); Lymphocytes Percent Auto 16.4 % (18.3-44.2); Mean Corpuscular HGB Conc 31.4 g/dl (32-36); Mean Corpuscular Hemoglobin 24.4 pg (26-34); Mean Corpuscular Volume 77.7 fl (80-100); Mean Platelet Volume 9.3 fl (7.4-10.4); Monocytes Absolute Auto 0.8 K/mm3 (0.1-0.6); Monocytes Percent Auto 8.7 % (2.6-8.5); Neutrophils Absolute Auto 6.7 K/mm3 (1.3-6.7); Neutrophils Percent Auto 74.2 % (45.5-73.1); Platelet Count Result 166 k/mm3 (150-375); Red Blood Count 4.76 M/mm3 (4.2-5.4); Red Cell Distribution Width 18.9 % (11.5-14.5); White Blood Count 9.1 K/mm3 (4.5-10.0)
--- NOTE | 2021-06-23 18:49 | ED.GENADULT ---
HPI - General Adult General Chief complaint: Altered Mental Status Stated complaint: I've been sleeping for 3 days Time Seen by Provider: 06/23/21 18:07 History of Present Illness HPI narrative: 60-year-old female presenting to the emergency department for evaluation of generalized fatigue, increased sleepiness and bilateral foot pain. Patient states over the last 3 days she has been sleeping excessively. Patient denies any other significant symptoms. Patient states she has had multiple falls related to this and has subsequently injured her right ribs and her feet bilaterally. Patient states she did recently stop taking her Metformin because it was making her blood sugars go too high. Related Data Home Medications Medication Instructions Recorded Confirmed albuterol sulfate 2 inh INHALATION DAILY PRN 08/31/19 06/19/21 ergocalciferol (vitamin D2) 1,250 mcg PO WEEKLY 08/31/19 06/19/21 [Vitamin D2] fenofibrate 54 mg PO DAILY 08/31/19 06/19/21 gabapentin 300 mg PO TID 08/31/19 06/19/21 isosorbide mononitrate 60 mg PO DAILY 08/31/19 06/19/21 losartan 25 mg PO DAILY 08/31/19 06/19/21 metoprolol succinate 25 mg PO DAILY 08/31/19 06/19/21 nitroglycerin 0.4 mg SUBLINGUAL PRN PRN 08/31/19 06/19/21 pantoprazole 40 mg PO DAILY 08/31/19 06/19/21 trazodone 50 mg PO HS PRN 08/31/19 06/19/21 aspirin 81 mg tablet,delayed 81 mg PO DAILY 09/03/20 06/19/21 release atorvastatin 40 mg tablet 40 mg PO HS 09/03/20 06/19/21 buspirone 15 mg tablet 15 mg PO TID 09/03/20 06/19/21 cilostazol 100 mg tablet 100 mg PO BID 09/03/20 06/19/21 cyanocobalamin (vitamin B-12) 500 500 mcg PO DAILY 09/03/20 06/19/21 mcg tablet meloxicam 15 mg tablet 15 mg PO DAILY 09/03/20 06/19/21 methotrexate sodium 2.5 mg tablet 10 mg PO WEEKLY tablet 09/03/20 06/19/21 mirtazapine 15 mg tablet 15 mg PO HS 09/03/20 06/19/21 oxybutynin chloride 10 mg 10 mg PO DAILY 09/03/20 06/19/21 tablet,extended release 24 hr potassium citrate 10 mEq (1,080 10 meq PO TID 09/03/20 06/19/21 mg) tablet,extended release vitamin E 1,000 unit capsule 1,000 unit PO DAILY 09/03/20 06/19/21 escitalopram oxalate [Lexapro] 20 mg PO DAILY 09/15/20 06/19/21 fluticasone propionate 2 spray INTRANASAL DAILY 09/15/20 06/19/21 polyethylene glycol 3350 [Miralax] 17 g PO DAILY 09/15/20 06/19/21 flaxseed oil 1,000 mg PO TID 10/23/20 06/19/21 omega-3 fatty acids 1,000 mg PO DAILY 10/23/20 06/19/21 sitagliptin 100 mg tablet 100 mg PO DAILY 11/25/20 06/19/21 Allergies Allergy/AdvReac Type Severity Reaction Status Date / Time varenicline Allergy Severe SUICIDAL Verified 06/23/21 17:36 THOUGHTS alprazolam Allergy Unknown Swelling Verified 06/23/21 17:36 levofloxacin Allergy Unknown Swelling Verified 06/23/21 17:36 Quinolones Allergy Unknown Swelling Verified 06/23/21 17:36 Review of Systems Review of Systems: CONSTITUTIONAL: Denies fever, chills, or sweats. But does report increased sleepiness and generalized weakness EYES: Denies visual changes, redness, or discharge. ENT: Denies rhinorrhea, congestion, sore throat, or otalgia. CARDIOVASCULAR: Denies chest pain, palpitations, or edema. RESPIRATORY: Denies cough or dyspnea. GASTROINTESTINAL: Denies abdominal pain, nausea, vomiting, or diarrhea. GENITOURINARY: Denies dysuria or hematuria. SKIN: Denies rash or itching. MUSCULOSKELETAL: Right-sided rib pain and bilateral foot pain NEUROLOGIC: Denies headache, numbness, or weakness. PSYCHIATRIC: Confusion PMFSH Past Medical History Medical History Anxiety Asthma Chronic anemia Chronic GERD COPD (chronic obstructive pulmonary disease) CVA (cerebral vascular accident) at age 28 per patient report however MRI of the brain 08/23/2016 demonstrated normal aging brain Depression Diabetes oral meds Dyslipidemia Hyperlipidemia Hypertension Inflammatory arthritis Kidney stones AGUIAR (nonalcoholic steatohepatitis) Obstructive sleep apnea on C
[2021-06-23 18:56] LABS: Alanine Aminotransferase 28 U/L (4-35); Alkaline Phosphatase 137 U/L (38-126); Anion Gap 10 mmol/L (8-16); Aspartate Amino Transferase 41 U/L (14-36); Bilirubin,Total 0.5 mg/dL (0.2-1.3); Blood Urea Nitrogen 21 mg/dL (7-17); Calcium 9.4 mg/dL (8.4-10.2); Carbon Dioxide 24 mmol/L (22-30); Chloride 104 mmol/L (98-107); Estimated CRCL calculation 50 ml/min; Estimated Glomerular Filt Rate 56; Glucose 348 mg/dL (65-110); Potassium 3.8 mmol/L (3.4-5.0); Sodium 138 mmol/L (137-145)
[2021-06-23 19:25] LABS: Device ROOM AIR; HCO3 VBG 22.8 mEq/l (24.0-30.0); PO2 VBG 47.3 mmHg (35.0-45.0)
[2021-06-23 20:48] VITALS: BP 133/61; PULSE 66; RESP 19; O2SAT 100
[2021-06-23] MEDS: ACETAMINOPHEN 325 MG TABLET 650 MG PO (20:49)
[2021-06-23] MEDS: SODIUM CHLORIDE 0.9% IV 1,000 ML 999 ML IV CONT (20:51)
[2021-06-23 20:56] LABS: Amphetamine Screen Urine Negative (Negative); Barbiturate Screen Urine Negative (Negative); Benzodiazepines Screen Urine Negative (Negative); Cannabinoid Screen Urine Negative (Negative); Cocaine Screen Urine Negative (Negative); Methadone Screen Urine Negative (Negative); Opiate Screen Urine Negative (Negative); Phencyclidine Screen Urine Negative (Negative)
[2021-06-23 21:54] LABS: Add Urine Microscopic? YES; Appearance Urine Cloudy (Clear); Bacteria Urine 2+ /hpf; Bilirubin Urine Negative (Negative); Blood Urine 1+ (Negative); Color Urine Yellow (Yellow); Glucose Urine UA 3+ mg/dL (Negative); Ketones Urine Negative (Negative); Leukocyte Esterase Ur 1+ LEU/UL (Negative); Mucus Urine Rare /lpf; Nitrate Urine Positive (Negative); Protein Urine 1+ mg/dL (Negative); Specific Grav Ur 1.028 (1.001-1.035); Squamous Epithelial Cell Urine Rare /hpf (Few); Urobilinogen Urine Negative mg/dL (<2.0); WBC Urine >75 /hpf
[2021-06-23 22:20] VITALS: BP 116/79; PULSE 63; RESP 17; O2SAT 98
[2021-06-23] MEDS: fentaNYL CITRATE INJ (*CRX) 100 MCG/2 ML VIAL 50 MCG IV PUSH (22:32)
[2021-06-24] VITALS (8 sets, daily range): BP systolic 110–141; BP diastolic 44–58; PULSE 50–67; RESP 16–20; TEMP 36–36.6; O2SAT 98–100; BMI 27.8
--- NOTE | 2021-06-24 01:40 | PM.IMHP ---
H&P: HPI History of Present Illness Date/Time: 06/24/21 01:40 Chief Complaint: Recurrent falls, altered mental status Narrative: This is a 60-year-old female who presents to the ED today for evaluation of not feeling right. She states that she woke up yesterday in the afternoon at 3:00 p.m. and reports she has been sleeping for past 3 days. She is not able to remember what has happened over the past 3 days or even prior to that and seems confused about the events preceding. When she woke up at 3:00 p.m. she did not feel right but was unable to say exactly how. His she spoke to her about it and related to her brother and came to the ER for evaluation. She states she was blurry in her vision but denies any weakness in the arms or legs. She reports pain in her bilateral foot and had noted bruises in both the feet. She denies any use of illicit drugs or drinking alcohol. She had multiple falls however does not know how and when that happened. Sees noted to have left foot metatarsal and phalangeal fracture for which has been splinted in the ER. She was noted to have urinary tract infection. She reports abdominal pain and also pain in the back area corresponding to his abdominal area she denies any fever or chills. She does have diabetes and takes oral hypoglycemic agents at home but she recently stopped taking those. She was noted to be hyperglycemic at 3:48 a.m. on admission. Review of Systems Review of Systems: - CONSTITUTIONAL: Denies weight loss, fever and chills. - HEENT: Reports changes in vision and denies changes in hearing - RESPIRATORY: Denies SOB and cough. - CV: Denies palpitations and CP. - GI: Reports abdominal pain, nausea, denies vomiting and diarrhea. - : Denies dysuria and urinary frequency. - MSK: Denies myalgia and joint pain. Reports bilateral foot pain - SKIN: Denies rash and pruritus. - NEUROLOGICAL: Denies headache and syncope. Reports recurrent falls - PSYCHIATRIC: Denies recent changes in mood. Denies anxiety and depression. All systems reviewed & are unremarkable except as noted in HPI and below Constitutional: Constitutional: Reports fatigue and Reports weakness Neurologic: Reports weakness Endocrine: Endocrine: Reports fatigue [facility] Past Medical History Medical History (Updated 06/24/21 @ 03:15 by Oniel Cruz MD) Anxiety Asthma Chronic anemia Chronic GERD COPD (chronic obstructive pulmonary disease) CVA (cerebral vascular accident) at age 28 per patient report however MRI of the brain 08/23/2016 demonstrated normal aging brain Depression Diabetes oral meds Dyslipidemia Hyperlipidemia Hypertension Inflammatory arthritis Kidney stones AGUIAR (nonalcoholic steatohepatitis) Obstructive sleep apnea on CPAP polysomnogram March 2017 recommended CPAP of 14 Overweight (BMI 25.0-29.9) Psoriatic arthritis Psychogenic nonepileptic seizure (~2015) Surgical History Surgical History (Updated 06/24/21 @ 03:15 by Oniel Cruz MD) H/O bilateral breast reduction surgery (~09/2018) H/O: hysterectomy History of bladder suspension procedure History of carpal tunnel release (09/17/20) right History of section x1 History of colon resection (11/2018) sigmoid colectomy w/colorectal anastomosis secondary to diverticulitis History of colonoscopy with polypectomy (09/06/19) melanosis coli, 2 colon polyps, colorectal anastomosis History of esophagogastroduodenoscopy (EGD) (08/20/19) Duodenitis History of lithotripsy Hx of cholecystectomy S/P laparoscopic procedure (04/05/18) diagnostic laparoscopic procedure due to ovarian cyst complicated by sigmoid colon injury with subsequent repair Status post cataract extraction of both eyes with insertion of intraocular lens (~2015) Family History Family History Mother Depression Diabetes mellitus Hyperlipidemia Osteoarthritis History of kidney
[2021-06-24 02:18] LABS: Hemoglobin A1C 10.8 % (<5.7)
--- NOTE | 2021-06-24 05:01 | ADMGEN ---
This patient, Valentina Padgett, was admitted to Medical Room 245-. Patient/family oriented to hospital policies and general routines including ID bracelet, bed and alarms, visiting hours, pain management, procedures, bathroom and other care routines, personal items, smoking policy, room service/diet, and visiting hours. Information on how to activate the Rapid Response Team has been discussed. Patient/Family are encouraged to report perceived risks to care and to ask questions if they do not understand what they are told or what they should do.
[2021-06-24 06:33] LABS: Basophils Percent Auto 0.3 % (0.2-1.2); Eosinophils Percent Auto 0.3 % (0-4.4); Hematocrit 36.4 % (37.0-47.0); Hemoglobin 11.1 g/dL (12.0-15.0); Immature Granulocyte Absolute 0.03 K/mm3 (0.00-0.031); Immature Granulocyte Percent A 0.4 % (0-0.5); Lymphocytes Absolute Auto 1.06 K/mm3 (0.9-3.2); Lymphocytes Percent Auto 15.7 % (18.3-44.2); Mean Corpuscular HGB Conc 30.5 g/dl (32-36); Mean Corpuscular Hemoglobin 24.1 pg (26-34); Mean Platelet Volume 10.2 fl (7.4-10.4); Monocytes Absolute Auto 0.5 K/mm3 (0.1-0.6); Monocytes Percent Auto 7.7 % (2.6-8.5); Neutrophils Absolute Auto 5.1 K/mm3 (1.3-6.7); Neutrophils Percent Auto 75.6 % (45.5-73.1); Platelet Count Result 154 k/mm3 (150-375); Red Blood Count 4.61 M/mm3 (4.2-5.4); Red Cell Distribution Width 18.8 % (11.5-14.5); White Blood Count 6.8 K/mm3 (4.5-10.0)
[2021-06-24 06:42] LABS: Glucose Point of Care 319 mg/dl (65-105)
[2021-06-24 06:44] LABS: Alanine Aminotransferase 28 U/L (4-35); Albumin Level 3.8 g/dL (3.5-5.1); Alkaline Phosphatase 122 U/L (38-126); Anion Gap 10 mmol/L (8-16); Aspartate Amino Transferase 41 U/L (14-36); Bilirubin,Total 0.6 mg/dL (0.2-1.3); Blood Urea Nitrogen 20 mg/dL (7-17); Calcium 8.9 mg/dL (8.4-10.2); Carbon Dioxide 21 mmol/L (22-30); Chloride 103 mmol/L (98-107); Creatine Kinase 306 U/L (30-135); Estimated CRCL calculation 56 ml/min; Estimated Glomerular Filt Rate > 60; Glucose 317 mg/dL (65-110); Lipase 111 U/L (23-300); Potassium 3.8 mmol/L (3.4-5.0); Sodium 134 mmol/L (137-145)
[2021-06-24 07:38] LABS: Vitamin D 25 Hydroxy 45.5 ng/mL
[2021-06-24 08:02] LABS: Glucose Point of Care 270 mg/dl (65-105)
[2021-06-24] MEDS: INSULIN ASPART (*BKC) 100 UNITS/ML SUB-Q (08:09)
--- NOTE | 2021-06-24 08:12 | PCOTNOTE ---
Nurse speaking with orthopaedic dr regarding WB status
[2021-06-24 08:18] LABS: Vitamin B12 > 1000.0 pg/mL (239-931)
[2021-06-24] MEDS: CYANOCOBALAMIN 500 MCG TABLET PO (09:06)
[2021-06-24] MEDS: OMEGA 3 POLYUNSAT FATTY ACIDS 1 GM CAP PO (09:06)
[2021-06-24] MEDS: ASPIRIN 81 MG ENTERIC TABLET PO (09:07)
[2021-06-24] MEDS: METOPROLOL SUCCINATE EXT REL 25 MG TABCR PO (09:07)
[2021-06-24] MEDS: glipiZIDE 5 MG TABLET PO (09:07)
[2021-06-24] MEDS: PANTOPRAZOLE 40 MG TABLET PO (09:07)
[2021-06-24] MEDS: cilostazoL 100 MG TABLET PO ×2 (09:07→15:58)
[2021-06-24] MEDS: busPIRone HCL 5 MG TABLET 15 MG PO ×3 (09:07→16:36)
[2021-06-24] MEDS: GABAPENTIN 300 MG CAPSULE PO ×3 (09:08→16:00)
[2021-06-24] MEDS: MELOXICAM 7.5 MG TABLET 15 MG PO (09:08)
[2021-06-24] MEDS: LOSARTAN POTASSIUM 25 MG TABLET PO (09:08)
[2021-06-24] MEDS: polyethylene glycoL 3350 17 GM POWD.PACK PO (09:08)
[2021-06-24] MEDS: ESCITALOPRAM OXALATE 10 MG TABLET 20 MG PO (09:08)
[2021-06-24] MEDS: FERROUS SULFATE 324 MG TABLET PO ×2 (09:08→16:00)
[2021-06-24] MEDS: ISOSORBIDE MONONITRATE 60 MG TAB.ER.24H PO (09:08)
[2021-06-24] MEDS: ENOXAPARIN 40 MG/0.4 ML SYRINGE SUB-Q (09:09)
[2021-06-24] MEDS: FAMOTIDINE 20 MG TABLET PO (09:50)
[2021-06-24] MEDS: FLUTICASONE PROPIONATE 0.05% NA SPR 16 GM BTL (*BKC) 2 SPRAY NASAL (09:50)
--- NOTE | 2021-06-24 11:37 | PCOTNOTE ---
Attempted to see for evaluation. Pt. currently in room receiving EEG
--- NOTE | 2021-06-24 12:11 | WPDNEURCNPN ---
Assessment and Plan Additional Plan 1. Encephalopathy 2. Possible postictal state with history of seizure plan is to obtain EEG before further recommendations are made Consult date: 06/24/21 HPI: Valentina Padgett is a 60 year old female admitted to the hospital through the emergency room for the complaints of recurrent falls in addition to change in mental status reportedly she woke up yesterday in the afternoon at 3:00 p.m. and with the information that she has been sleeping for the last 3 days she was not able to remember what has happened over the last 3 days and when she woke up she was not feeling right though she was ex unable to explain what actually was going on she spoke to her who related to her brother and came to the ER she complained of somewhat blurred vision denied weakness of the upper or lower extremities complained of pain in both feet where no bruises were noted she denied illicit drugs or drinking alcohol but she reported she has had multiple falls she has been splinted in the ER for the fracture of the left foot she was also found to have UTI and was complaining of abdominal pain and pain in her back area she does have ongoing history of diabetes mellitus. 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 Evaluation this time up until now includes the normal MRI of the brain, negative CT scan of the head, cirrhosis of the liver with right mouth ventral hernia containing a nonobstructive small bowel on CT of the abdomen, mild thoracic spondylosis on x-ray of the spine and acute nondisplaced fracture of the left 5th proximal phalanx and left 3rd and 4th metatarsal neck is on plain x-rays Review of Systems Review of Systems: All systems reviewed & are unremarkable except as noted in HPI and below PMFSH Past Medical History Medical History Anxiety Asthma Chronic anemia Chronic GERD COPD (chronic obstructive pulmonary disease) CVA (cerebral vascular accident) at age 28 per patient report however MRI of the brain 08/23/2016 demonstrated normal aging brain Depression Diabetes oral meds Dyslipidemia Hyperlipidemia Hypertension Inflammatory arthritis Kidney stones AGUIAR (nonalcoholic steatohepatitis) Obstructive sleep apnea on CPAP polysomnogram March 2017 recommended CPAP of 14 Overweight (BMI 25.0-29.9) Psoriatic arthritis Psychogenic nonepileptic seizure (~2015) Surgical History Surgical History H/O bilateral breast reduction surgery (~09/2018) H/O: hysterectomy History of bladder suspension procedure History of carpal tunnel release (09/17/20) right History of section x1 History of colon resection (11/2018) sigmoid colectomy w/colorectal anastomosis secondary to diverticulitis History of colonoscopy with polypectomy (09/06/19) melanosis coli, 2 colon polyps, colorectal anastomosis History of esophagogastroduodenoscopy (EGD) (08/20/19) Duodenitis History of lithotripsy Hx of cholecystectomy S/P laparoscopic procedure (04/05/18) diagnostic laparoscopic procedure due to ovarian cyst complicated by sigmoid colon injury with subsequent repair Status post cataract extraction of both eyes with insertion of intraocular lens (~2015) Family History Family History Mother Depression Diabetes mellitus Hyperlipidemia Osteoarthritis History of kidney cancer Hypertension Asthma Cerebrovascular accident Father Malignant neoplasm of prostate Colon cancer Diabetes mellitus Grandparent Cancer Sibling , age 46 Leukemia Social History Social History Social History: She
--- NOTE | 2021-06-24 12:12 | PM.CNOR ---
History of Present Illness HPI Consult date: 06/24/21 Chief complaint: UTI, Foot Fracture [facility] Past Medical History Medical History (Updated 06/24/21 @ 03:15 by Oniel Cruz MD) Anxiety Asthma Chronic anemia Chronic GERD COPD (chronic obstructive pulmonary disease) CVA (cerebral vascular accident) at age 28 per patient report however MRI of the brain 08/23/2016 demonstrated normal aging brain Depression Diabetes oral meds Dyslipidemia Hyperlipidemia Hypertension Inflammatory arthritis Kidney stones AGUIAR (nonalcoholic steatohepatitis) Obstructive sleep apnea on CPAP polysomnogram March 2017 recommended CPAP of 14 Overweight (BMI 25.0-29.9) Psoriatic arthritis Psychogenic nonepileptic seizure (~2015) Surgical History Surgical History (Updated 06/24/21 @ 03:15 by Oniel Cruz MD) H/O bilateral breast reduction surgery (~09/2018) H/O: hysterectomy History of bladder suspension procedure History of carpal tunnel release (09/17/20) right History of section x1 History of colon resection (11/2018) sigmoid colectomy w/colorectal anastomosis secondary to diverticulitis History of colonoscopy with polypectomy (09/06/19) melanosis coli, 2 colon polyps, colorectal anastomosis History of esophagogastroduodenoscopy (EGD) (08/20/19) Duodenitis History of lithotripsy Hx of cholecystectomy S/P laparoscopic procedure (04/05/18) diagnostic laparoscopic procedure due to ovarian cyst complicated by sigmoid colon injury with subsequent repair Status post cataract extraction of both eyes with insertion of intraocular lens (~2015) Family History Family History Mother Depression Diabetes mellitus Hyperlipidemia Osteoarthritis History of kidney cancer Hypertension Asthma Cerebrovascular accident Father Malignant neoplasm of prostate Colon cancer Diabetes mellitus Grandparent Cancer Sibling , age 46 Leukemia Social History Social History Social History: She has been for over 40 years. She has 2 adult sons. She has been smoking at least since the age of 28. She has smoked as much as a half a pack of cigarettes per day. She was also using E cigarettes for a brief time. She denies any alcohol or illicit substance use. She works at [employer]. Primary care provider: Thad Carney Code status: Full code Surrogate decision maker: Smoking packs per day: 0.5 Smoking cigarettes per day: 10.0 Years smoked: 35 Smoking pack-years: 17.50 Smoking status: Current every day smoker Second hand tobacco smoke exposure: No Alcohol intake: never Substance use: never Additional occupation/education comments: [employer]) Gender identity (if verbalized by the patient): Female Spiritual care concerns: No Meds Home Medications and Allergies Home Medications Medication Instructions Recorded Confirmed Type albuterol sulfate 2 inh INHALATION DAILY PRN 08/31/19 06/24/21 History ergocalciferol (vitamin D2) 1,250 mcg PO WEEKLY 08/31/19 06/24/21 History [Vitamin D2] fenofibrate 54 mg PO DAILY 08/31/19 06/24/21 History gabapentin 300 mg PO TID 08/31/19 06/24/21 History isosorbide mononitrate 60 mg PO DAILY 08/31/19 06/24/21 History losartan 25 mg PO DAILY 08/31/19 06/24/21 History metoprolol succinate 25 mg PO DAILY 08/31/19 06/24/21 History nitroglycerin 0.4 mg SUBLINGUAL PRN PRN 08/31/19 06/24/21 History pantoprazole 40 mg PO DAILY 08/31/19 06/24/21 History trazodone 50 mg PO HS PRN 08/31/19 06/24/21 History aspirin 81 mg tablet,delayed 81 mg PO DAILY 09/03/20 06/24/21 History release atorvastatin 40 mg tablet 40 mg PO HS 09/03/20 06/24/21 History buspirone 15 mg tablet 15 mg PO TID 09/03/20 06/24/21 History cilostazol 100 mg tablet 100 mg PO BID 09/03/20 06/24/21 History cyanocobalamin (manjit
[2021-06-24 12:16] LABS: Glucose Point of Care 188 mg/dl (65-105)
[2021-06-24] MEDS: CHOLESTYRAMINE LIGHT 4 GM POWD.PACK PO (12:16)
--- NOTE | 2021-06-24 12:18 | PM.IMPN ---
Progress Note: A&P Assessment and Plan (1) AMS (altered mental status): Qualifiers: Altered mental status type: disorientation Qualified Code(s): R41.0 - Disorientation, unspecified Code(s): R41.82 - Altered mental status, unspecified Status: Acute (2) UTI (urinary tract infection): Qualifiers: Hematuria presence: with hematuria Urinary tract infection type: acute cystitis Qualified Code(s): N30.01 - Acute cystitis with hematuria Code(s): N39.0 - Urinary tract infection, site not specified Status: Acute (3) Displaced fracture of third metatarsal bone, left foot, initial encounter for closed fracture: Code(s): S92.332A - Displaced fracture of third metatarsal bone, left foot, initial encounter for closed fracture Status: Acute (4) Closed fracture of phalanx of left fourth toe: Qualifiers: Encounter type: initial encounter Qualified Code(s): S92.502A - Displaced unspecified fracture of left lesser toe(s), initial encounter for closed fracture Code(s): S92.502A - Displaced unspecified fracture of left lesser toe(s), initial encounter for closed fracture Status: Acute (5) Generalized abdominal pain: Code(s): R10.84 - Generalized abdominal pain Status: Acute (6) Cirrhosis: Code(s): K74.60 - Unspecified cirrhosis of liver Status: Acute (7) Obstructive sleep apnea on CPAP: Code(s): G47.33 - Obstructive sleep apnea (adult) (pediatric); Z99.89 - Dependence on other enabling machines and devices Status: Acute (8) Seizure disorder: Code(s): G40.909 - Epilepsy, unspecified, not intractable, without status epilepticus Status: Acute (9) Diabetes: Code(s): E11.9 - Type 2 diabetes mellitus without complications Status: Acute (10) CVA (cerebral vascular accident): Code(s): I63.9 - Cerebral infarction, unspecified Status: Inactive (11) Chronic GERD: Code(s): K21.9 - Gastro-esophageal reflux disease without esophagitis Status: Acute (12) COPD (chronic obstructive pulmonary disease): Code(s): J44.9 - Chronic obstructive pulmonary disease, unspecified Status: Acute (13) Hypertension: Code(s): I10 - Essential (primary) hypertension Status: Acute (14) History of colon resection: Onset Date: 11/2018 Code(s): Z90.49 - Acquired absence of other specified parts of digestive tract Status: Acute Additional Plan Patient has been admitted to [address] [place] [id number]. Etiology of her altered mental status is unclear. Consider medication induced. Encouraged to be more attentive regarding the patient's medication. Brain MRI showing no acute findings. EEG has been ordered. Neurology consult has been ordered. UA noted. Urine culture pending. She has been started on Rocephin. Follow-up on urine culture. In regards to her left foot fracture, will will consult Orthopedics. Bruising noted on the right foot but no obvious fractures by x-ray. Patient also with a generalized abdominal pain but exam inconsistent. CT of the abdomen pelvis shows hernia but otherwise no acute findings. There was noted to have liver nodularity consistent with cirrhosis. This was not seen by CT scans in October or January of this year but has had a full hepatic workup in September 2019. Will check ammonia level. Will check right upper quadrant ultrasound. Continue CPAP for sleep apnea. 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 She is not on anti epileptic medications chronically. A1c was 10.8. Will resume her diabetic medications. Continue diabetic diet. PT and OT have been ordered but will defer to Orthopedics about extent of which she is able to do. Will review home medications and start appropriate medications. Further recommendations course dictates. Lovenox for DVT prophylaxis Subjective Date/time seen: 06/24/21 12:18 Interval history: 60yo female wi
[2021-06-24 13:25] LABS: Vitamin D 25 Hydroxy 55.2 ng/mL
[2021-06-24 13:25] LABS: Rapid Plasma Reagin Non-Reactive (NonReactive)
--- NOTE | 2021-06-24 15:51 | PM.PNORT ---
Subjective Subjective Date/Time Seen: 06/24/21 15:51 Reviewed new xrays of right foot, no definite evidence of fracture at the 2nd,3rd,4th, MT necks.Poss. fracture to 5th toe prox. phal.this does correlate to bruising of fifth toe. also old sesimoid fractured noted . Can treat right foot as comfort allows,FWB and reg shoe if pt tolerates this, if not may need post-op shoe on right as well till symptoms improve. Objective Data Vital Signs Vital Signs: Vital Signs - 24 hr 06/23/21 17:32 06/23/21 20:48 06/23/21 22:20 Temperature 36.9 C Pulse Rate 76 66 63 Respiratory Rate 16 19 17 Blood Pressure 155/58 H 133/61 116/79 Pulse Oximetry 99 100 98 06/24/21 00:57 06/24/21 04:48 06/24/21 05:03 Temperature 36.0 C L Pulse Rate 60 60 55 L Respiratory Rate 17 20 16 Blood Pressure 141/46 H 133/47 L 141/44 H Pulse Oximetry 99 98 98 06/24/21 05:04 06/24/21 05:15 06/24/21 09:07 Temperature 36.0 C L Pulse Rate 55 L 55 L 67 Respiratory Rate 16 16 Blood Pressure 141/44 H Pulse Oximetry 98 98 Intake/Output Intake/Output: Intake & Output 06/21/21 06/22/21 06/23/21 06/24/21 23:59 23:59 23:59 23:59 Intake Total 1050 930 Balance 1050 930 Meds/Results Medications: Active Medications Generic Name Dose Route Start Last Admin Trade Name Freq PRN Reason Stop Dose Admin Acetaminophen 650 mg 06/24/21 04:48 Acetaminophen 325 Mg Tablet PO Q4H PRN Headache Albuterol 2 puff 06/24/21 07:27 Albuterol Sulfate (*Sp) Aerosol 1 Puff INHALATION DAILY PRN Shortness Of Breath Aspirin 81 mg 06/24/21 09:00 06/24/21 09:07 Aspirin 81 Mg Enteric Tablet PO 81 mg DAILY VENUS Administration Atorvastatin Calcium 40 mg 06/24/21 21:00 Atorvastatin 40 Mg Tablet PO HS VENUS Buspirone HCl 15 mg 06/24/21 09:00 06/24/21 14:13 Buspirone Hcl 5 Mg Tablet PO 15 mg TID VENUS Administration Cholestyramine Resin 4 gm 06/24/21 10:00 06/24/21 12:16 Cholestyramine Light 4 Gm Powd.Pack PO 4 gm 1000,1800 VENUS Administration Cilostazol 100 mg 06/24/21 08:30 06/24/21 09:07 Cilostazol 100 Mg Tablet PO 100 mg 0700,1545 VENUS Administration Cyanocobalamin 500 mcg 06/24/21 09:00 06/24/21 09:06 Cyanocobalamin 500 Mcg Tablet PO 500 mcg DAILY VENUS Administration Dextrose 12.5 gm 06/24/21 01:39 Dextrose 50% 25 Gm/50 Ml Syringe IV PUSH PRN PRN Hypoglycemia Protocol Enoxaparin Sodium 40 mg 06/24/21 09:00 06/24/21 09:09 Enoxaparin 40 Mg/0.4 Ml Syringe SUB-Q 40 mg DAILY VENUS Administration Escitalopram Oxalate 20 mg 06/24/21 09:00 06/24/21 09:08 Escitalopram Oxalate 10 Mg Tablet PO 20 mg DAILY VENUS Administration Famotidine 20 mg 06/24/21 09:00 06/24/21 09:50 Famotidine 20 Mg Tablet PO 20 mg DAILY VENUS Administration Ferrous Sulfate 324 mg 06/24/21 08:00 06/24/21 09:08 Ferrous Sulfate 324 Mg Tablet PO 324 mg BIDWM VENUS Administration Fish Oil 1 gm 06/24/21 09:00 06/24/21 09:06 [place] 3 Polyunsat Fatty Acids 1 Gm Cap PO 1 gm QAM VENUS Administration Fluticasone Propionate 2 spray 06/24/21 09:00 06/24/21 09:50 Fluticasone Propionate 0.05% Na Spr 16 Gm Btl (*Bkc) NASAL 2 spray DAILY VENUS Administration Gabapentin 300 mg 06/24/21 09:00 06/24/21 14:13 Gabapentin 300 Mg Capsule PO 300 mg TID VENUS Administration Glipizide 5 mg 06/24/21 08:15 06/24/21 09:07 Glipizide 5 Mg Tablet PO 5 mg DAILY@0700 VENUS Administration Glucagon 1 mg 06/24/21 01:39 Glucagon For Inj 1 Mg Vial IM PRN PRN Hypoglycemia Protocol Glucose 15 gm 06/24/21 01:39 Glucose Oral Gel 15 Gm Of Glucse In 37.5 Gm Tube PO PRN PRN Hypoglycemia Protocol Ceftriaxone Sodium/Dextrose 1 gm in 50 mls @ 100 mls/hr 06/24/21 22:00 Rocephin 1 Gm/D5w 50 Ml IVPB Q24H VENUS Dextrose 1,000 mls @ 100 mls/hr 06/24/21 01:39 Dextrose 5% 1,000 Ml IVPB PRN PRN
[2021-06-24 16:36] LABS: Glucose Point of Care 197 mg/dl (65-105)
[2021-06-24] MEDS: HYDROcodone/acetaminophen (*CRX) 5-325 MG TABLET 1 TAB PO (16:36)
[2021-06-24] MEDS: MIRTAZAPINE 15 MG TABLET PO (20:34)
[2021-06-24] MEDS: METOCLOPRAMIDE HCL 5 MG TABLET PO (20:34)
[2021-06-24] MEDS: SUCRALFATE 1 GM TABLET PO (20:34)
[2021-06-24] MEDS: guaiFENesin 12 HR 600 MG TABCR PO (20:34)
[2021-06-24 21:27] LABS: Glucose Point of Care 278 mg/dl (65-105)
[2021-06-24] MEDS: ATORVASTATIN 40 MG TABLET PO (22:00)
[2021-06-25] MEDS: CHOLESTYRAMINE LIGHT 4 GM POWD.PACK PO ×2 (00:45→09:46)
[2021-06-25 03:49] VITALS: BP 144/82; PULSE 55; RESP 17; TEMP 36.1; O2SAT 100
[2021-06-25] MEDS: METOCLOPRAMIDE HCL 5 MG TABLET PO ×3 (05:48→16:47)
[2021-06-25] MEDS: SUCRALFATE 1 GM TABLET PO ×3 (05:48→16:48)
[2021-06-25 05:49] LABS: Ammonia < 9 umol/L (9-30)
[2021-06-25 05:59] LABS: Basophils Percent Auto 0.4 % (0.2-1.2); Eosinophils Absolute Auto 0.1 K/mm3 (0-0.3); Eosinophils Percent Auto 0.9 % (0-4.4); Hematocrit 36.2 % (37.0-47.0); Immature Granulocyte Absolute 0.02 K/mm3 (0.00-0.031); Immature Granulocyte Percent A 0.4 % (0-0.5); Lymphocytes Absolute Auto 1.15 K/mm3 (0.9-3.2); Lymphocytes Percent Auto 20.6 % (18.3-44.2); Mean Corpuscular HGB Conc 30.4 g/dl (32-36); Mean Corpuscular Hemoglobin 24.1 pg (26-34); Mean Corpuscular Volume 79.4 fl (80-100); Mean Platelet Volume 10.6 fl (7.4-10.4); Monocytes Absolute Auto 0.4 K/mm3 (0.1-0.6); Monocytes Percent Auto 7.9 % (2.6-8.5); Neutrophils Absolute Auto 3.9 K/mm3 (1.3-6.7); Neutrophils Percent Auto 69.8 % (45.5-73.1); Platelet Count Result 163 k/mm3 (150-375); Red Blood Count 4.56 M/mm3 (4.2-5.4); Red Cell Distribution Width 18.9 % (11.5-14.5); White Blood Count 5.6 K/mm3 (4.5-10.0)
[2021-06-25 06:08] LABS: Alanine Aminotransferase 29 U/L (4-35); Albumin Level 3.6 g/dL (3.5-5.1); Alkaline Phosphatase 106 U/L (38-126); Anion Gap 4 mmol/L (8-16); Aspartate Amino Transferase 39 U/L (14-36); Bilirubin,Total 0.4 mg/dL (0.2-1.3); Blood Urea Nitrogen 17 mg/dL (7-17); Calcium 8.7 mg/dL (8.4-10.2); Carbon Dioxide 23 mmol/L (22-30); Chloride 107 mmol/L (98-107); Estimated CRCL calculation 51 ml/min; Estimated Glomerular Filt Rate 56; Glucose 267 mg/dL (65-110); Potassium 4.1 mmol/L (3.4-5.0); Sodium 134 mmol/L (137-145)
[2021-06-25 06:11] LABS: Iron 40 ug/dL (37-170)
[2021-06-25 06:20] LABS: Percent Iron Saturation 11 % (20-50)
--- NOTE | 2021-06-25 07:17 | PM.PNORT ---
Progress Note: A&P Additional Plan Hospital day 3. Again x-rays of left foot show minimally angulated fracture between the shaft and base of the proximal phalanx of the left 5th toe and mildly impacted fractures of the metatarsal necks of the 4th and 3rd rays. Repeat x-rays of the right foot yesterday show possibly a nondisplaced fracture at the lateral base of the proximal phalanx of the 4th toe. I personally reviewed these x-rays. This finding is somewhat equivocal on x-ray. Patient has diabetes chronic smoking history inflammatory arthritis( psoriatic arthritis). I am going to stop her meloxicam as this may impede healing of her fractures. It would be best for her to remain off anti-inflammatory medications until her fractures are healed. She does take methotrexate. Smoking impairs healing of fractures and she was advised to quit smoking completely at this time. I spent 10 minutes counseling her on the numerous advantages to her stopping smoking status. Patient is on Lovenox for DVT prophylaxis. I think that is appropriate while she is in the hospital since she is inactive but since she will be mobilized when she goes home she would appropriately be protected with a baby aspirin twice daily for 6 weeks. She has history of stroke so she is already on a baby aspirin daily. She has no personal or family history of DVT. Twenty-five hydroxy vitamin-D level was normal. I would recommend the patient have a bone density test done on an outpatient basis and this was recommended to her. Patient has cirrhosis of the liver by ultrasound presumably due to nonalcoholic steatohepatitis. On exam today she has ecchymosis on either side of the base of the right 4th toe and severe tenderness at the base of the right 4th toe and no where else the right foot so I think the subtle finding of possible hairline fracture at the lateral margin of the base of the proximal phalanx of the right 4th toe is likely indicative of a fracture in that location as it correlates precisely with there are areas severe tenderness. I have jagdeep taped the right 4th toe to the 3rd. On the left foot I took the jagdeep taping off and switched it to jagdeep taping the 5th toe to the 4th. She has Darco shoes in her rooms. Her ankles and mid feet are nontender. Patient may be up with a walker. She should wear the [employer]co shoes on both feet. She may be full weight-bearing on the right foot. On the left foot it would be best for her to keep most of her weight on the heel and off the forefoot. She has feeling of pain but does have history of diabetic peripheral neuropathy and is at some increased risk on that basis for nonunion of her fractures if she puts too much weight on the forefoot that she should consciously avoid that. That was discussed with her. I will see her back in the office in 2 weeks to assess her progress. 35 minutes were spent in total care this patient. Subjective Subjective Date/Time Seen: 06/25/21 07:17 Objective Data Vital Signs Vital Signs: Vital Signs - 24 hr 06/24/21 09:07 06/24/21 14:40 06/24/21 19:38 Temperature 36.6 C 36.1 C L Pulse Rate 67 50 L 57 L Respiratory Rate 18 16 Blood Pressure 133/58 L 110/46 L Pulse Oximetry 100 99 06/25/21 03:49 Temperature 36.1 C L Pulse Rate 55 L Respiratory Rate 17 Blood Pressure 144/82 H Pulse Oximetry 100 Intake/Output Intake/Output: Intake & Output 06/22/21 06/23/21 06/24/21 06/25/21 23:59 23:59 23:59 23:59 Intake Total 1050 1470 200 Output Total 250 Balance 1050 1220 200 Meds/Results Medications: Active Medications Generic Name Dose Route Start Last Admin Trade Name Freq PRN Reason Stop Dose Admin Acetaminophen 650 mg 06/24/21 04:48 Acetaminophen 325 Mg Tablet PO Q4H PRN Headache Hydrocodone Bitart/Acetaminophen 1 tab 06/24/21 16:06 06/24/21 16:36 Hydrocodone/Acetaminophen (*Crx) 5-325 Mg Tablet PO 1 tab Q6H PRN Administration Pain rate 6
[2021-06-25] MEDS: cilostazoL 100 MG TABLET PO ×2 (07:32→16:48)
[2021-06-25] MEDS: glipiZIDE 5 MG TABLET PO (07:32)
--- NOTE | 2021-06-25 07:32 | PM.PNORT ---
Subjective Subjective Date/Time Seen: 06/25/21 07:32 Objective Data Vital Signs Vital Signs: Vital Signs - 24 hr 06/24/21 09:07 06/24/21 14:40 06/24/21 19:38 Temperature 36.6 C 36.1 C L Pulse Rate 67 50 L 57 L Respiratory Rate 18 16 Blood Pressure 133/58 L 110/46 L Pulse Oximetry 100 99 06/25/21 03:49 Temperature 36.1 C L Pulse Rate 55 L Respiratory Rate 17 Blood Pressure 144/82 H Pulse Oximetry 100 Intake/Output Intake/Output: Intake & Output 06/22/21 06/23/21 06/24/21 06/25/21 23:59 23:59 23:59 23:59 Intake Total 1050 1470 200 Output Total 250 Balance 1050 1220 200 Meds/Results Medications: Active Medications Generic Name Dose Route Start Last Admin Trade Name Freq PRN Reason Stop Dose Admin Acetaminophen 650 mg 06/24/21 04:48 Acetaminophen 325 Mg Tablet PO Q4H PRN Headache Hydrocodone Bitart/Acetaminophen 1 tab 06/24/21 16:06 06/24/21 16:36 Hydrocodone/Acetaminophen (*Crx) 5-325 Mg Tablet PO 1 tab Q6H PRN Administration Pain rate 6-10 Albuterol 2 puff 06/25/21 04:57 Albuterol Sulfate (*Sp) Aerosol 1 Puff INHALATION Q4H PRN Shortness Of Breath Aspirin 81 mg 06/24/21 09:00 06/24/21 09:07 Aspirin 81 Mg Enteric Tablet PO 81 mg DAILY VENUS Administration Atorvastatin Calcium 40 mg 06/24/21 21:00 06/24/21 22:00 Atorvastatin 40 Mg Tablet PO 40 mg HS VENUS Administration Buspirone HCl 15 mg 06/24/21 09:00 06/24/21 16:36 Buspirone Hcl 5 Mg Tablet PO 15 mg TID VENUS Administration Calcium Polycarbophil 625 mg 06/25/21 09:00 Calcium Polycarbophil 625 Mg Tablet PO DAILY [facility] Cholestyramine Resin 4 gm 06/24/21 10:00 06/25/21 00:45 Cholestyramine Light 4 Gm Powd.Pack PO 4 gm 1000,1800 VENUS Administration Cilostazol 100 mg 06/24/21 08:30 06/25/21 07:32 Cilostazol 100 Mg Tablet PO 100 mg 0700,1545 VENUS Administration Cyanocobalamin 500 mcg 06/24/21 09:00 06/24/21 09:06 Cyanocobalamin 500 Mcg Tablet PO 500 mcg DAILY VENUS Administration Dextrose 12.5 gm 06/24/21 01:39 Dextrose 50% 25 Gm/50 Ml Syringe IV PUSH PRN PRN Hypoglycemia Protocol Enoxaparin Sodium 40 mg 06/24/21 09:00 06/24/21 09:09 Enoxaparin 40 Mg/0.4 Ml Syringe SUB-Q 40 mg DAILY VENUS Administration Escitalopram Oxalate 20 mg 06/24/21 09:00 06/24/21 09:08 Escitalopram Oxalate 10 Mg Tablet PO 20 mg DAILY VENUS Administration Famotidine 20 mg 06/24/21 09:00 06/24/21 09:50 Famotidine 20 Mg Tablet PO 20 mg DAILY VENUS Administration Ferrous Sulfate 324 mg 06/24/21 08:00 06/24/21 16:00 Ferrous Sulfate 324 Mg Tablet PO 324 mg BIDWM VENUS Administration Fish Oil 1 gm 06/24/21 09:00 06/24/21 09:06 [place] 3 Polyunsat Fatty Acids 1 Gm Cap PO 1 gm QAM VENUS Administration Fluticasone Propionate 2 spray 06/24/21 09:00 06/24/21 09:50 Fluticasone Propionate 0.05% Na Spr 16 Gm Btl (*Bkc) NASAL 2 spray DAILY VENUS Administration Gabapentin 300 mg 06/24/21 09:00 06/24/21 16:00 Gabapentin 300 Mg Capsule PO 300 mg TID VENUS Administration Glipizide 5 mg 06/24/21 08:15 06/25/21 07:32 Glipizide 5 Mg Tablet PO 5 mg DAILY@0700 VENUS Administration Glucagon 1 mg 06/24/21 01:39 Glucagon For Inj 1 Mg Vial IM PRN PRN Hypoglycemia Protocol Glucose 15 gm 06/24/21 01:39 Glucose Oral Gel 15 Gm Of Glucse In 37.5 Gm Tube PO PRN PRN Hypoglycemia Protocol Guaifenesin 600 mg 06/24/21 21:00 06/24/21 20:34 Guaifenesin 12 Hr 600 Mg Tabcr PO 600 mg Q12HR VENUS Administration Hydrochlorothiazide 12.5 mg 06/25/21 09:00 Hydrochlorothiazide 12.5 Mg Capsule PO QAM VENUS Ceftriaxone Sodium/Dextrose 1 gm in 50 mls @ 100 mls/hr 12/15/21 22:00 06/24/21 22:31 Rocephin 1 Gm/D5w 50 Ml IVPB Infused Q24H VENUS Infusion Dextrose 1,000 mls @ 100 mls/hr 06/24/21 01:39 Dextrose 5% 1,000 Ml IVP
[2021-06-25 07:49] LABS: Glucose Point of Care 241 mg/dl (65-105)
[2021-06-25] MEDS: INSULIN ASPART (*BKC) 100 UNITS/ML SUB-Q ×2 (08:01→11:38)
[2021-06-25] MEDS: polyethylene glycoL 3350 17 GM POWD.PACK PO (08:03)
[2021-06-25] MEDS: ENOXAPARIN 40 MG/0.4 ML SYRINGE SUB-Q (08:03)
[2021-06-25] MEDS: MAGNESIUM OXIDE 400 MG TABLET PO ×3 (08:03→16:48)
[2021-06-25] MEDS: ISOSORBIDE MONONITRATE 60 MG TAB.ER.24H PO (08:04)
[2021-06-25] MEDS: guaiFENesin 12 HR 600 MG TABCR PO (08:04)
[2021-06-25] MEDS: calcium polycarbophiL 625 MG TABLET PO (08:04)
[2021-06-25] MEDS: FERROUS SULFATE 324 MG TABLET PO ×2 (08:04→16:48)
[2021-06-25] MEDS: GABAPENTIN 300 MG CAPSULE PO ×3 (08:04→16:47)
[2021-06-25] MEDS: busPIRone HCL 5 MG TABLET 15 MG PO ×3 (08:04→16:48)
[2021-06-25] MEDS: hydroCHLOROthiazide 12.5 MG CAPSULE PO (08:04)
[2021-06-25 08:05] VITALS: PULSE 64
[2021-06-25] MEDS: OMEGA 3 POLYUNSAT FATTY ACIDS 1 GM CAP PO (08:05)
[2021-06-25] MEDS: PANTOPRAZOLE 40 MG TABLET PO (08:05)
[2021-06-25] MEDS: LOSARTAN POTASSIUM 50 MG TABLET PO (08:05)
[2021-06-25] MEDS: METOPROLOL SUCCINATE EXT REL 25 MG TABCR PO (08:05)
[2021-06-25] MEDS: FLUTICASONE PROPIONATE 0.05% NA SPR 16 GM BTL (*BKC) 2 SPRAY NASAL (08:05)
[2021-06-25] MEDS: CYANOCOBALAMIN 500 MCG TABLET PO (09:46)
[2021-06-25] MEDS: ASPIRIN 81 MG ENTERIC TABLET PO (09:46)
[2021-06-25] MEDS: ESCITALOPRAM OXALATE 10 MG TABLET 20 MG PO (09:46)
[2021-06-25] MEDS: FAMOTIDINE 20 MG TABLET PO (09:46)
--- NOTE | 2021-06-25 11:10 | P.NEURO_ITS ---
Neurology EEG Report General Information Date of Study: 06/24/21 TEST eeg DIAGNOSIS change in the mental status CONDITION OF RECORDING drowsy and sleep EEG NUMBER [id number] CLINICAL HISTORY patient reported she is here in the hospital because she fell but she was not sure whether she lost the consciousness or not EEG DESCRIPTION the whole record consists of medium voltage 6 to 7 hertz per 2nd theta activity admixed with low to medium voltage 3 to 4 hertz per 2nd delta activity. Bilateral symmetrical sleep activity seen during sleep. Hyperventilation not done. Photic stimulation not done. Non paroxysmal. Nonfocal. Nonlateralizing . IMPRESSION Abnormal record due to the presence of excessive amount of theta and delta activity. Abnormalities could be suggestive of of underlying organic or metabolic encephalopathy or postictal state clinical correlation recommended
[2021-06-25 11:38] LABS: Glucose Point of Care 212 mg/dl (65-105)
[2021-06-25 14:43] VITALS: BP 114/52; PULSE 54; RESP 18; TEMP 36.9; O2SAT 98
--- NOTE | 2021-06-25 15:36 | PM.DS ---
DS: Admitting Diagnosis Discharge Date 06/25/21 Admitting Diagnosis Altered Mental Status DS: Discharge Diagnosis Discharge Diagnosis (1) AMS (altered mental status): Qualifiers: Altered mental status type: disorientation Qualified Code(s): R41.0 - Disorientation, unspecified Code(s): R41.82 - Altered mental status, unspecified Status: Acute (2) UTI (urinary tract infection): Qualifiers: Hematuria presence: with hematuria Urinary tract infection type: acute cystitis Qualified Code(s): N30.01 - Acute cystitis with hematuria Code(s): N39.0 - Urinary tract infection, site not specified Status: Acute (3) Displaced fracture of third metatarsal bone, left foot, initial encounter for closed fracture: Code(s): S92.332A - Displaced fracture of third metatarsal bone, left foot, initial encounter for closed fracture Status: Acute (4) Closed fracture of phalanx of left fourth toe: Qualifiers: Encounter type: initial encounter Qualified Code(s): S92.502A - Displaced unspecified fracture of left lesser toe(s), initial encounter for closed fracture Code(s): S92.502A - Displaced unspecified fracture of left lesser toe(s), initial encounter for closed fracture Status: Acute (5) Generalized abdominal pain: Code(s): R10.84 - Generalized abdominal pain Status: Acute (6) Cirrhosis: Code(s): K74.60 - Unspecified cirrhosis of liver Status: Acute (7) Obstructive sleep apnea on CPAP: Code(s): G47.33 - Obstructive sleep apnea (adult) (pediatric); Z99.89 - Dependence on other enabling machines and devices Status: Acute (8) Seizure disorder: Code(s): G40.909 - Epilepsy, unspecified, not intractable, without status epilepticus Status: Acute (9) Diabetes: Code(s): E11.9 - Type 2 diabetes mellitus without complications Status: Acute (10) CVA (cerebral vascular accident): Code(s): I63.9 - Cerebral infarction, unspecified Status: Inactive (11) Chronic GERD: Code(s): K21.9 - Gastro-esophageal reflux disease without esophagitis Status: Acute (12) COPD (chronic obstructive pulmonary disease): Code(s): J44.9 - Chronic obstructive pulmonary disease, unspecified Status: Acute (13) Hypertension: Code(s): I10 - Essential (primary) hypertension Status: Acute (14) History of colon resection: Onset Date: 11/2018 Code(s): Z90.49 - Acquired absence of other specified parts of digestive tract Status: Acute DS: Summary Hospital Course Reason for hospitalization: 60yo female with DM here for falls and altered mental status. Please see H&P for details. Hospital Course: Patient was admitted to [address] [place] [address]. Patient became alert and oriented. She denies that she took excessive medications resulting in her symptoms. She denies any suicidal or homicidal ideation. Spoke with her by phone with the patient present but he was unable to determine if patient took excessive amounts her medication because she has multiple pill boxes. UA was consistent with UTI. She was started on Rocephin. UCx returned as pansensitive EColi. CBC was unremarkable except for minor microcytic anemia; she is on MTX chronically. Iron studies consistent with iron deficiency. She is on iron chronically. Add Folate. A1c 10.8 and glucose elevated in the 200's. We resumed her home diabetic medications. She will need tighter glycemic control which will be deferred to her primary care doctor. Metformin to be added. CXR was clear. Thoracic spine x-ray showed mild thoracic spondylosis. Head CT showed no acute intracranial abnormalities. Brain MRI also showed no acute intracranial abnormalities. 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 She is not on anti epileptic medications chronically. EEG showed abnormal record due to the presence of excessive amounts of the
[2021-06-25 16:38] LABS: Glucose Point of Care 147 mg/dl (65-105)
[2021-06-27 11:19] LABS: Folic Acid 2.7 ng/mL (2.76->20)
== END 2021-06-25 17:57 | disposition home or self-care (01) ==
LOC: ANHED 23:04 → ANH2MED 06-24 05:31
PROVIDERS: Emergency Medicine; Physician Assistant Surgical; Admitting Provider Internal Medicine; Emergency Provider Emergency Medicine; PCP Family Medicine; Visit Provider Internal Medicine
DX: S92.335A Nondisplaced fracture of third metatarsal bone, left foot, initial encounter for closed fracture (principal); S92.345A Nondisplaced fracture of fourth metatarsal bone, left foot, initial encounter for closed fracture; S92.515A Nondisplaced fracture of proximal phalanx of left lesser toe(s), initial encounter for closed fracture; S20.211A Contusion of right front wall of thorax, initial encounter; R53.83 Other fatigue; W19.XXXA Unspecified fall, initial encounter; R29.6 Repeated falls; N30.01 Acute cystitis with hematuria; B96.20 Unspecified Escherichia coli [E. coli] as the cause of diseases classified elsewhere; G93.40 Encephalopathy, unspecified; R41.0 Disorientation, unspecified; R10.84 Generalized abdominal pain; G40.909 Epilepsy, unspecified, not intractable, without status epilepticus; R94.01 Abnormal electroencephalogram [EEG]; E11.65 Type 2 diabetes mellitus with hyperglycemia; M54.9 Dorsalgia, unspecified; I10 Essential (primary) hypertension; E78.5 Hyperlipidemia, unspecified; J44.9 Chronic obstructive pulmonary disease, unspecified; F41.8 Other specified anxiety disorders; D64.9 Anemia, unspecified; K75.81 Nonalcoholic steatohepatitis (NASH); L40.50 Arthropathic psoriasis, unspecified; G47.33 Obstructive sleep apnea (adult) (pediatric); K21.9 Gastro-esophageal reflux disease without esophagitis; F17.210 Nicotine dependence, cigarettes, uncomplicated; Z86.73 Personal history of transient ischemic attack (TIA), and cerebral infarction without residual deficits; Z79.51 Long term (current) use of inhaled steroids; Z79.82 Long term (current) use of aspirin; Z79.84 Long term (current) use of oral hypoglycemic drugs; Z90.49 Acquired absence of other specified parts of digestive tract; Z98.0 Intestinal bypass and anastomosis status
CPT/HCPCS: 29515; 36415; 51701; 70450; 70551; 71046; 72070; 73630; 74176; 76705; 80053; 80307; 81001; 82140; 82306; 82550; 82607; 82728; 82746; 82803; 82948; 83036; 83540; 83550; 83690; 84439; 84443; 85025; 86592; 87077; 87086; 87186; 93005; 95816; 96361; 96365; 96366; 96372; 96375; 97110; 97165; 97530; 97535; 99285; A9270; G0378; J0696; J1650; J1815; J3010; J7030

== ENCOUNTER 2021-07-02 09:04 | Outpatient (CLI) | payer MEDICARE, SELFPAY ==
[2021-07-02 09:36] LABS: Basophils Percent Auto 0.6 % (0.2-1.2); Eosinophils Percent Auto 0.6 % (0-4.4); Hemoglobin 10.6 g/dL (12.0-15.0); Immature Granulocyte Absolute 0.02 K/mm3 (0.00-0.031); Immature Granulocyte Percent A 0.3 % (0-0.5); Lymphocytes Absolute Auto 1.38 K/mm3 (0.9-3.2); Lymphocytes Percent Auto 19.1 % (18.3-44.2); Mean Corpuscular HGB Conc 30.3 g/dl (32-36); Mean Corpuscular Hemoglobin 24.5 pg (26-34); Mean Corpuscular Volume 80.8 fl (80-100); Mean Platelet Volume 10.6 fl (7.4-10.4); Monocytes Absolute Auto 0.6 K/mm3 (0.1-0.6); Monocytes Percent Auto 8.1 % (2.6-8.5); Neutrophils Absolute Auto 5.2 K/mm3 (1.3-6.7); Neutrophils Percent Auto 71.3 % (45.5-73.1); Platelet Count Result 216 k/mm3 (150-375); Red Blood Count 4.33 M/mm3 (4.2-5.4); Red Cell Distribution Width 19.8 % (11.5-14.5); White Blood Count 7.2 K/mm3 (4.5-10.0)
[2021-07-02 09:57] LABS: Anion Gap 10 mmol/L (8-16); Blood Urea Nitrogen 11 mg/dL (7-17); Calcium 9.3 mg/dL (8.4-10.2); Carbon Dioxide 30 mmol/L (22-30); Chloride 98 mmol/L (98-107); Estimated Glomerular Filt Rate > 60; Glucose 386 mg/dL (65-110); Sodium 138 mmol/L (137-145)
[2021-07-02 09:59] LABS: Alanine Aminotransferase 23 U/L (4-35); Albumin Level 3.7 g/dL (3.5-5.1); Alkaline Phosphatase 115 U/L (38-126); Anion Gap 9 mmol/L (8-16); Aspartate Amino Transferase 24 U/L (14-36); Bilirubin,Total 0.6 mg/dL (0.2-1.3); Blood Urea Nitrogen 11 mg/dL (7-17); Calcium 9.3 mg/dL (8.4-10.2); Carbon Dioxide 29 mmol/L (22-30); Chloride 98 mmol/L (98-107); Estimated Glomerular Filt Rate > 60; Glucose 386 mg/dL (65-110); Sodium 136 mmol/L (137-145); Uric Acid 4.6 mg/dL (2.5-7.5)
[2021-07-02 10:02] LABS: Add Urine Microscopic? YES; Appearance Urine Clear (Clear); Bilirubin Urine Negative (Negative); Blood Urine Negative (Negative); Color Urine Yellow (Yellow); Glucose Urine UA 3+ mg/dL (Negative); Ketones Urine Negative (Negative); Leukocyte Esterase Ur Negative LEU/UL (Negative); Mucus Urine Rare /lpf; Nitrate Urine Negative (Negative); Protein Urine Negative (Negative); RBC Urine 0-2 /hpf (0-2); Specific Grav Ur 1.023 (1.001-1.035); Squamous Epithelial Cell Urine Few /hpf (Few); Urobilinogen Urine Negative mg/dL (<2.0); WBC Urine 0-3 /hpf
[2021-07-02 10:09] LABS: Parathyroid Intact 5.3 pg/mL (7.5-53.5)
[2021-07-02 10:10] LABS: Hemoglobin A1C 10.9 % (<5.7)
[2021-07-02 10:11] LABS: Erythrocyte Sedimentation Rate 24 mm/hr (0-20)
[2021-07-02 10:44] LABS: Vitamin D 25 Hydroxy 51.7 ng/mL
[2021-07-02 11:10] LABS: Creatinine Urine 55.7 mg/dL
[2021-07-02 11:13] LABS: MALB Creatinine Ratio 35.4 mg/g (0-30); Microalbumin Urine Random 19.7 mg/L (0-16.7)
== END 2021-07-02 09:05 | disposition home or self-care (01) ==
PROVIDERS: PCP Family Medicine; Referring Provider Specialist; Visit Provider Internal Medicine
DX: N18.2 Chronic kidney disease, stage 2 (mild) (principal); I50.9 Heart failure, unspecified; R80.9 Proteinuria, unspecified; E11.65 Type 2 diabetes mellitus with hyperglycemia; E55.9 Vitamin D deficiency, unspecified; N39.0 Urinary tract infection, site not specified
CPT/HCPCS: 36415; 80048; 80053; 81001; 82043; 82306; 83036; 83970; 84550; 85025; 85652

== ENCOUNTER 2021-07-06 12:15 | Emergency (ER) | payer MEDICARE, SELFPAY ==
[2021-07-06 12:15] VITALS: BP 93/47; PULSE 66; RESP 18; TEMP 37.1; O2SAT 97
[2021-07-06 12:26] LABS: Glucose Point of Care > 500 mg/dl (65-105)
[2021-07-06 14:02] VITALS: BP 117/41; PULSE 58; RESP 16; O2SAT 98
--- NOTE | 2021-07-06 14:15 | ECG_ITS ---
Measurements Intervals [place] Rate: 54 P: 20 SC: 146 QRS: -5 QRSD: 84 T: 9 QT: 417 QTc: 398 Interpretive Statements SINUS BRADYCARDI VENTRICULAR PREMATURE COMPLEX CONSIDER INFERIOR INFARCT, AGE INDETERMINATE ABNORMAL ECG Electronically Signed On 07-06-2021 17:00:53 [employer]AN [employer]ULT[employer] MEMBER by Glen Casper D.O.
--- NOTE | 2021-07-06 14:15 | ED.GENADULT ---
HPI - General Adult General Chief complaint: Unspecified Stated complaint: high bg Time Seen by Provider: 07/06/21 14:09 Source: patient Mode of arrival: ambulatory Limitations: no limitations History of Present Illness HPI narrative: Patient is a 60-year-old female complaining of elevated blood sugar at home, her glucose meter read high . Patient states that she has been feeling weak and shaky today, and when she checked her blood sugar it was high. Patient states that she is on Metformin 500 mg twice a day, she was advised by her doctor to increase it to 1000 mg twice a day but patient thinks it is the Metformin that is causing her blood sugar to go up so she did not follow her doctor's advice. Denies any speech or vision disturbance, focal weakness or numbness or unsteady gait. Patient denies any chest pain, shortness of breath, abdominal pain, nausea, vomiting, diarrhea, urinary symptoms, fever or chills. Related Data Home Medications Medication Instructions Recorded Confirmed albuterol sulfate 2 inh INHALATION Q4H PRN 08/31/19 06/24/21 ergocalciferol (vitamin D2) 1,250 mcg PO WEEKLY 08/31/19 06/24/21 [Vitamin D2] fenofibrate 54 mg PO DAILY 08/31/19 06/24/21 gabapentin 300 mg PO TID 08/31/19 06/24/21 isosorbide mononitrate 60 mg PO DAILY 08/31/19 06/24/21 metoprolol succinate 25 mg PO DAILY 08/31/19 06/24/21 nitroglycerin 0.4 mg SUBLINGUAL PRN PRN 08/31/19 06/24/21 pantoprazole 40 mg PO DAILY 08/31/19 06/24/21 atorvastatin 40 mg tablet 40 mg PO HS 09/03/20 06/24/21 buspirone 15 mg tablet 15 mg PO TID 09/03/20 06/24/21 cilostazol 100 mg tablet 100 mg PO BID 09/03/20 06/24/21 cyanocobalamin (vitamin B-12) 500 500 mcg PO DAILY 09/03/20 06/24/21 mcg tablet methotrexate sodium 2.5 mg tablet 10 mg PO WEEKLY tablet 09/03/20 06/24/21 mirtazapine 15 mg tablet 15 mg PO HS 09/03/20 06/24/21 oxybutynin chloride 10 mg 10 mg PO DAILY 09/03/20 06/24/21 tablet,extended release 24 hr potassium citrate 10 mEq (1,080 10 meq PO TID 09/03/20 06/24/21 mg) tablet,extended release escitalopram oxalate [Lexapro] 20 mg PO DAILY 09/15/20 06/24/21 fluticasone propionate 2 spray INTRANASAL DAILY 09/15/20 06/24/21 polyethylene glycol 3350 [Miralax] 17 g PO DAILY 09/15/20 06/24/21 omega-3 fatty acids 1,000 mg PO DAILY 10/23/20 06/24/21 calcium polycarbophil [Fiber 625 mg PO DAILY 06/24/21 06/24/21 (calcium polycarbophil)] guaifenesin [Mucinex] 600 mg PO BID 06/24/21 06/24/21 losartan-hydrochlorothiazide 1 tablet PO DAILY 06/24/21 06/24/21 magnesium 40 mg PO TID 06/24/21 06/24/21 metoclopramide HCl 5 mg PO ACHS 06/24/21 06/24/21 spironolactone 25 mg PO DAILY 06/24/21 06/24/21 sucralfate 1 g PO ACHS 06/24/21 06/24/21 Allergies Allergy/AdvReac Type Severity Reaction Status Date / Time varenicline Allergy Severe SUICIDAL Verified 06/23/21 17:36 THOUGHTS alprazolam Allergy Unknown Swelling Verified 06/23/21 17:36 levofloxacin Allergy Unknown Swelling Verified 06/23/21 17:36 Quinolones Allergy Unknown Swelling Verified 06/23/21 17:36 Review of Systems Review of Systems: All systems reviewed & are unremarkable except as noted in HPI and below Constitutional: Constitutional: Denies body ache(s), Denies chills, Denies excessive sweating, Denies fatigue, Denies fever(s), Denies headache(s), Denies lethargy, Denies malaise and Denies weight loss Eyes: Eyes: Denies blurry vision, Denies change in vision and Denies loss of vision ENT: Denies dizziness, Denies ear discharge, Denies headache(s), Denies lip swelling, Denies epistaxis, Denies nasal congestion, Denies neck pain, Denies throat swelling and Denies tongue swelling Cardiovascular: Cardiovascular: Denies chest pain, Denies chest pain at rest, Denies chest pain with activity, Denies diaphoresis, Denies rapid heart rate, Denies edema, Denies irregular heart rhythm, Denies lightheadedness, Denies palpitations, Denies dyspnea and Denies dyspnea on exertion Respiratory: Respiratory: Denies omayra
[2021-07-06] MEDS: SODIUM CHLORIDE 0.9% IV 1,000 ML 999 ML IV CONT (14:20)
[2021-07-06 14:22] LABS: Basophils Percent Auto 0.4 % (0.2-1.2); Eosinophils Absolute Auto 0.1 K/mm3 (0-0.3); Eosinophils Percent Auto 0.6 % (0-4.4); Hematocrit 32.7 % (37.0-47.0); Hemoglobin 10.1 g/dL (12.0-15.0); Immature Granulocyte Absolute 0.03 K/mm3 (0.00-0.031); Immature Granulocyte Percent A 0.3 % (0-0.5); Lymphocytes Absolute Auto 1.77 K/mm3 (0.9-3.2); Lymphocytes Percent Auto 18.6 % (18.3-44.2); Mean Corpuscular HGB Conc 30.9 g/dl (32-36); Mean Corpuscular Hemoglobin 24.4 pg (26-34); Mean Platelet Volume 10.9 fl (7.4-10.4); Monocytes Absolute Auto 0.6 K/mm3 (0.1-0.6); Monocytes Percent Auto 6.5 % (2.6-8.5); Neutrophils Percent Auto 73.6 % (45.5-73.1); Platelet Count Result 210 k/mm3 (150-375); Red Blood Count 4.14 M/mm3 (4.2-5.4); Red Cell Distribution Width 19.3 % (11.5-14.5); White Blood Count 9.5 K/mm3 (4.5-10.0)
[2021-07-06 14:36] LABS: Alanine Aminotransferase 19 U/L (4-35); Albumin Level 3.6 g/dL (3.5-5.1); Alkaline Phosphatase 156 U/L (38-126); Anion Gap 5 mmol/L (8-16); Aspartate Amino Transferase 23 U/L (14-36); Bilirubin,Total 0.4 mg/dL (0.2-1.3); Blood Urea Nitrogen 12 mg/dL (7-17); Calcium 8.6 mg/dL (8.4-10.2); Carbon Dioxide 29 mmol/L (22-30); Chloride 92 mmol/L (98-107); Estimated CRCL calculation 53 ml/min; Estimated Glomerular Filt Rate > 60; Glucose 536 mg/dL (65-110); Potassium 3.9 mmol/L (3.4-5.0); Sodium 126 mmol/L (137-145)
[2021-07-06 14:39] LABS: Alveolar/Arterial O2 Gradient 38.9 mmHg; Base Excess ABG 1.4 mEq/l (+/-2.0); Fractional Inspired Oxygen 21 %; HCO3 ABG 25.8 mEq/l (22.0-26.0); Methemoglobin ABG 0.3 %THb (0-1.5); Oxygen Content ABG 13.2 %vol (16.0-22.0); Oxygen Saturation ABG 92.7 % (95.0-100.0); PCO2 ABG 39.9 mmHg (35.0-45.0); PO2 ABG 63.1 mmHg (80.0-100.0); Reduced Hemoglobin 6.2 %THb (0-5.0); Total Hemoglobin 11.4 g/dL (12.0-18.0); pH ABG 7.428 (7.350-7.450)
[2021-07-06 14:41] LABS: Oxyhemoglobin 81.9 % THb (90.0-100.0)
[2021-07-06 14:42] LABS: Carboxyhemoglobin 11.6 % THb (0-2.0); Modified Allen's Test Pass; Site Drawn LEFT RADIAL
[2021-07-06 14:43] LABS: Device ROOM AIR
[2021-07-06 14:47] LABS: Basophils Percent Auto 0.3 % (0.2-1.2); Eosinophils Absolute Auto 0.1 K/mm3 (0-0.3); Eosinophils Percent Auto 0.6 % (0-4.4); Hematocrit 33.3 % (37.0-47.0); Hemoglobin 10.3 g/dL (12.0-15.0); Immature Granulocyte Absolute 0.03 K/mm3 (0.00-0.031); Immature Granulocyte Percent A 0.3 % (0-0.5); Lymphocytes Absolute Auto 1.88 K/mm3 (0.9-3.2); Lymphocytes Percent Auto 20.2 % (18.3-44.2); Mean Corpuscular HGB Conc 30.9 g/dl (32-36); Mean Corpuscular Hemoglobin 24.6 pg (26-34); Mean Corpuscular Volume 79.7 fl (80-100); Mean Platelet Volume 10.1 fl (7.4-10.4); Monocytes Absolute Auto 0.6 K/mm3 (0.1-0.6); Neutrophils Absolute Auto 6.7 K/mm3 (1.3-6.7); Neutrophils Percent Auto 72.6 % (45.5-73.1); Platelet Count Result 199 k/mm3 (150-375); Red Blood Count 4.18 M/mm3 (4.2-5.4); Red Cell Distribution Width 19.3 % (11.5-14.5); White Blood Count 9.3 K/mm3 (4.5-10.0)
[2021-07-06 14:56] LABS: Troponin I < 0.012 ng/mL (0.000-0.034)
[2021-07-06 15:00] LABS: Add Urine Microscopic? YES; Appearance Urine Cloudy (Clear); Bilirubin Urine Negative (Negative); Blood Urine Negative (Negative); Budding Yeast Urine Present /hpf; Color Urine Yellow (Yellow); Glucose Urine UA 3+ mg/dL (Negative); Ketones Urine Negative (Negative); Leukocyte Esterase Ur 2+ LEU/UL (Negative); Mucus Urine Rare /lpf; Nitrate Urine Positive (Negative); Protein Urine Negative (Negative); Squamous Epithelial Cell Urine Rare /hpf (Few); Urobilinogen Urine Negative mg/dL (<2.0); WBC Urine >75 /hpf
[2021-07-06] MEDS: LACTATED RINGERS 1,000 ML 999 ML IV CONT ×2 (16:19→17:00)
[2021-07-06 17:39] VITALS: BP 154/51; PULSE 56; RESP 16; O2SAT 100
[2021-07-06 18:53] LABS: Glucose Point of Care 393 mg/dl (65-105)
[2021-07-06 18:53] LABS: Glucose Point of Care > 500 mg/dl (65-105)
[2021-07-06 18:53] LABS: Glucose Point of Care 296 mg/dl (65-105)
[2021-07-06 19:05] VITALS: BP 154/74; PULSE 51; RESP 18; O2SAT 96
== END 2021-07-06 19:06 | disposition home or self-care (01) ==
PROVIDERS: Emergency Medicine; Emergency Provider Emergency Medicine; PCP Family Medicine
DX: E11.65 Type 2 diabetes mellitus with hyperglycemia (principal); N39.0 Urinary tract infection, site not specified; I10 Essential (primary) hypertension; E78.5 Hyperlipidemia, unspecified; F41.8 Other specified anxiety disorders; J44.9 Chronic obstructive pulmonary disease, unspecified; D64.9 Anemia, unspecified; K21.9 Gastro-esophageal reflux disease without esophagitis; K75.81 Nonalcoholic steatohepatitis (NASH); G47.33 Obstructive sleep apnea (adult) (pediatric); L40.50 Arthropathic psoriasis, unspecified; Z86.73 Personal history of transient ischemic attack (TIA), and cerebral infarction without residual deficits; F17.210 Nicotine dependence, cigarettes, uncomplicated; Z79.51 Long term (current) use of inhaled steroids; Z79.84 Long term (current) use of oral hypoglycemic drugs; Z79.82 Long term (current) use of aspirin
CPT/HCPCS: 36415; 36600; 80053; 81001; 82375; 82805; 82948; 83050; 84484; 85025; 87077; 87086; 87088; 87186; 93005; 96361; 96365; 99284; J0696; J7030; J7120

== ENCOUNTER → 2021-07-23 14:02 | Outpatient (CLI) | payer MEDICARE, SELFPAY ==
--- NOTE | ~2021-07-23 | MM_ITS ---
EXAMINATION: MM screening [facility] BI w phyllis HISTORY: Screening TECHNIQUE: Craniocaudal and mediolateral oblique 3-D tomosynthesis images were obtained and synthetic 2-D images were generated. CAD analysis was submitted and interpreted. COMPARISON: Comparison to multiple prior studies sequentially, with oldest reviewed study dated 04/10. BREAST PARENCHYMAL COMPOSITION: Breast composed of scattered areas of fibroglandular density FINDINGS: There are surgical changes in the breasts consistent with previous breast reduction surgery with bilateral areas of fat necrosis. There is no evidence of suspicious mass, calcification, or arc hitectural distortion to suggest malignancy in either breast. There has been no suspicious interval c hange. IMPRESSION: 1. No mammographic evidence of malignancy. 2. Recommend routine screening mammography in one year. BI-RADS Category 2: Benign finding(s). Reviewed, dictated and finalized at location A. ECONOMIST
== END ==
PROVIDERS: PCP Family Medicine; Visit Provider Obstetrics & Gynecology
DX: Z12.31 Encounter for screening mammogram for malignant neoplasm of breast (principal)
CPT/HCPCS: 77063; 77067

== ENCOUNTER 2021-07-27 16:12 | Observation (INO) | payer MEDICARE, SELFPAY ==
[2021-07-27 16:19] VITALS: BP 120/47; PULSE 67; RESP 16; TEMP 36.2; O2SAT 100
[2021-07-27 16:26] LABS: Glucose Point of Care > 500 mg/dl (65-105)
[2021-07-27 18:45] LABS: Glucose Point of Care > 500 mg/dl (65-105)
[2021-07-27 18:58] VITALS: BP 102/90; PULSE 88; RESP 16; RESP 20; O2SAT 100; O2SAT 94
[2021-07-27] MEDS: SODIUM CHLORIDE 0.9% IV 1,000 ML 999 ML IV CONT ×3 (19:07→22:11)
[2021-07-27 19:16] LABS: Basophils Percent Auto 0.2 % (0.2-1.2); Eosinophils Absolute Auto 0.1 K/mm3 (0-0.3); Eosinophils Percent Auto 0.7 % (0-4.4); Hematocrit 35.4 % (37.0-47.0); Hemoglobin 10.6 g/dL (12.0-15.0); Immature Granulocyte Absolute 0.08 K/mm3 (0.00-0.031); Immature Granulocyte Percent A 0.9 % (0-0.5); Lymphocytes Absolute Auto 1.44 K/mm3 (0.9-3.2); Lymphocytes Percent Auto 16.3 % (18.3-44.2); Mean Corpuscular HGB Conc 29.9 g/dl (32-36); Mean Corpuscular Hemoglobin 23.3 pg (26-34); Mean Platelet Volume 11.6 fl (7.4-10.4); Monocytes Absolute Auto 0.6 K/mm3 (0.1-0.6); Monocytes Percent Auto 6.5 % (2.6-8.5); Neutrophils Absolute Auto 6.7 K/mm3 (1.3-6.7); Neutrophils Percent Auto 75.4 % (45.5-73.1); Platelet Count Result 170 k/mm3 (150-375); Red Blood Count 4.54 M/mm3 (4.2-5.4); Red Cell Distribution Width 18.2 % (11.5-14.5); White Blood Count 8.8 K/mm3 (4.5-10.0)
[2021-07-27 19:29] LABS: Alanine Aminotransferase 22 U/L (4-35); Albumin Level 4.2 g/dL (3.5-5.1); Alkaline Phosphatase 165 U/L (38-126); Anion Gap 12 mmol/L (8-16); Aspartate Amino Transferase 30 U/L (14-36); Bilirubin,Total 0.5 mg/dL (0.2-1.3); Blood Urea Nitrogen 17 mg/dL (7-17); Calcium 9.3 mg/dL (8.4-10.2); Carbon Dioxide 24 mmol/L (22-30); Chloride 91 mmol/L (98-107); Estimated CRCL calculation 48 ml/min; Estimated Glomerular Filt Rate 56; Potassium 4.7 mmol/L (3.4-5.0); Sodium 127 mmol/L (137-145)
[2021-07-27 19:37] LABS: Glucose 704 mg/dL (65-110)
[2021-07-27 19:53] LABS: Hypochromasia 1+ (NORMAL); Platelet Estimate Adequate (Adequate)
[2021-07-27 19:54] LABS: Anisocytosis 1+ (NORMAL); Ovalocytes 1+ (NORMAL)
--- NOTE | 2021-07-27 19:54 | ED.GENADULT ---
HPI - General Adult General Chief complaint: Recheck/Abnormal Lab/Rx <Loreta Rcok MD - Last Filed: 07/28/21 15:11> Stated complaint: blood sugar over 600 <Loreta Rock MD - Last Filed: 07/28/21 15:11> Time Seen by Provider: 07/27/21 18:44 <Loreta Rock MD - Last Filed: 07/28/21 15:11> Source: patient <Loreta Rock MD - Last Filed: 07/28/21 15:11> History of Present Illness HPI narrative: Patient is a 60 y/o female complaining of high blood sugar for several months. She state that her BS is getting worse during 3-4 days. Her reading has been over 600 recently. There is no alleviating or exacerbating factor. She states that her doctor started on Insulin last . She has feels thirsty and she has frequent urination. She denies any pain, or vomiting. <Loreta Rock MD - Last Filed: 07/28/21 15:11> Related Data Home medications: Home Medications Medication Instructions Recorded Confirmed albuterol sulfate 2 inh INHALATION Q4H PRN 08/31/19 07/28/21 ergocalciferol (vitamin D2) 1,250 mcg PO WEEKLY 08/31/19 07/28/21 [Vitamin D2] fenofibrate 54 mg PO DAILY 08/31/19 07/28/21 gabapentin 300 mg PO TID 08/31/19 07/28/21 isosorbide mononitrate 60 mg PO DAILY 08/31/19 07/28/21 metoprolol succinate 25 mg PO DAILY 08/31/19 07/28/21 nitroglycerin 0.4 mg SUBLINGUAL PRN PRN 08/31/19 07/28/21 pantoprazole 40 mg PO DAILY 08/31/19 07/28/21 atorvastatin 40 mg tablet 40 mg PO HS 09/03/20 07/28/21 buspirone 15 mg tablet 15 mg PO TID 09/03/20 07/28/21 cilostazol 100 mg tablet 100 mg PO BID 09/03/20 07/28/21 cyanocobalamin (vitamin B-12) 500 500 mcg PO DAILY 09/03/20 07/28/21 mcg tablet mirtazapine 15 mg tablet 15 mg PO HS 09/03/20 07/28/21 oxybutynin chloride 10 mg 10 mg PO DAILY 09/03/20 07/28/21 tablet,extended release 24 hr potassium citrate 10 mEq (1,080 10 meq PO TID 09/03/20 07/28/21 mg) tablet,extended release escitalopram oxalate [Lexapro] 20 mg PO DAILY 09/15/20 07/28/21 fluticasone propionate 2 spray INTRANASAL DAILY 09/15/20 07/28/21 polyethylene glycol 3350 [Miralax] 17 g PO DAILY PRN 09/15/20 07/28/21 omega-3 fatty acids 1,000 mg PO DAILY 10/23/20 07/28/21 calcium polycarbophil [Fiber 625 mg PO DAILY 06/24/21 07/28/21 (calcium polycarbophil)] losartan-hydrochlorothiazide 1 tablet PO DAILY 06/24/21 07/28/21 magnesium 400 mg PO TID 06/24/21 07/28/21 metoclopramide HCl 5 mg PO ACHS 06/24/21 07/28/21 spironolactone 25 mg PO DAILY 06/24/21 07/28/21 sucralfate 1 g PO ACHS 06/24/21 07/28/21 aspirin [Aspirin Childrens] 81 mg PO DAILY 07/28/21 07/28/21 hydrocodone-acetaminophen 5 tablet PO BID PRN 07/28/21 07/28/21 insulin glargine U-300 conc 22 unit SUBCUT DAILY 07/28/21 07/28/21 [Toujeo Max U-300 SoloStar] meloxicam 15 mg PO DAILY 07/28/21 07/28/21 metformin 500 mg PO BIDWMEAL 07/28/21 07/28/21 trazodone 50 mg PO HS PRN 07/28/21 07/28/21 <Loreta Rock MD - Last Filed: 07/28/21 15:11> Allergies/adverse reactions: Allergies Allergy/AdvReac Type Severity Reaction Status Date / Time varenicline Allergy Severe SUICIDAL Verified 06/23/21 17:36 THOUGHTS alprazolam Allergy Unknown Swelling Verified 06/23/21 17:36 levofloxacin Allergy Unknown Swelling Verified 06/23/21 17:36 Quinolones Allergy Unknown Swelling Verified 06/23/21 17:36 <Loreta Rock MD - Last Filed: 07/28/21 15:11> Review of Systems Constitutional: Constitutional: Denies chills, Denies fever(s), Denies headache(s) and Denies weakness <Loreta Rock MD - Last Filed: 07/28/21 15:11> Eyes: Eyes: Denies blurry vision <Loreta Rock MD - Last Filed: 07/28/21 15:11> ENT: Denies headache(s) and Denies neck pain <Loreta Rock MD - Last Filed: 07/28/21 15:11> Cardiovascular: Cardiovascular: Denies chest pain and Denies dyspnea <Loreta Rock MD - Last Filed: 07/28/21 15:11> Respiratory: Respiratory: Denies cough and Denies dyspnea <Loreta Rock MD - Last Filed: 07/28/21 15:11> Gastrointestinal
[2021-07-27 20:23] VITALS: BP 125/56; PULSE 62; RESP 17; O2SAT 97
[2021-07-27] MEDS: INSULIN HUMAN REGULAR (*BKC) 100 UNITS/ML 10 UNITS IV PUSH ×2 (20:24→22:07)
[2021-07-27 20:52] LABS: Glucose Point of Care > 500 mg/dl (65-105)
[2021-07-27 20:53] LABS: Add Urine Microscopic? YES; Appearance Urine Clear (Clear); Bilirubin Urine Negative (Negative); Blood Urine Negative (Negative); Color Urine Colorless (Yellow); Glucose Urine UA 3+ mg/dL (Negative); Ketones Urine Negative (Negative); Leukocyte Esterase Ur Negative LEU/UL (Negative); Mucus Urine Rare /lpf; Nitrate Urine Negative (Negative); Protein Urine Negative (Negative); Specific Grav Ur 1.017 (1.001-1.035); Squamous Epithelial Cell Urine Rare /hpf (Few); Urobilinogen Urine Negative mg/dL (<2.0); WBC Urine 0-3 /hpf
[2021-07-27] MEDS: INSULIN GLARGINE (*BKC) 100 UNITS/ML 30 UNITS SUB-Q (22:06)
[2021-07-27] MEDS: METOCLOPRAMIDE HCL INJ 10 MG/2 ML VIAL IV PUSH (22:11)
[2021-07-27 23:01] LABS: Glucose Point of Care 318 mg/dl (65-105)
[2021-07-28] VITALS (10 sets, daily range): BP systolic 115–146; BP diastolic 46–63; PULSE 54–65; RESP 18–20; TEMP 35.8–36.1; O2SAT 91–100; BMI 25.9
[2021-07-28 00:33] LABS: Glucose Point of Care 245 mg/dl (65-105)
--- NOTE | 2021-07-28 01:16 | ADMGEN ---
This patient, Valentina Padgett, was admitted to Medical Room 252-01. Patient/family oriented to hospital policies and general routines including ID bracelet, bed and alarms, visiting hours, pain management, procedures, bathroom and other care routines, personal items, smoking policy, room service/diet, and visiting hours. Information on how to activate the Rapid Response Team has been discussed. Patient/Family are encouraged to report perceived risks to care and to ask questions if they do not understand what they are told or what they should do.
[2021-07-28] MEDS: SODIUM CHLORIDE 0.9% IV 1,000 ML 100 ML IV CONT (05:16)
[2021-07-28 05:41] LABS: Hematocrit 33.3 % (37.0-47.0); Mean Corpuscular Hemoglobin 23.5 pg (26-34); Mean Corpuscular Volume 78.2 fl (80-100); Platelet Count Result 140 k/mm3 (150-375); Red Blood Count 4.26 M/mm3 (4.2-5.4); Red Cell Distribution Width 17.8 % (11.5-14.5); White Blood Count 6.2 K/mm3 (4.5-10.0)
[2021-07-28 06:14] LABS: Anion Gap 8 mmol/L (8-16); Blood Urea Nitrogen 11 mg/dL (7-17); Calcium 8.4 mg/dL (8.4-10.2); Carbon Dioxide 23 mmol/L (22-30); Chloride 107 mmol/L (98-107); Estimated CRCL calculation 67 ml/min; Estimated Glomerular Filt Rate > 60; Glucose 203 mg/dL (65-110); Potassium 4.3 mmol/L (3.4-5.0); Sodium 138 mmol/L (137-145)
--- NOTE | 2021-07-28 06:48 | PM.IMHP ---
H&P: HPI History of Present Illness Date/Time: 07/28/21 06:48 Chief Complaint: Blood sugar greater than 600 Narrative: 60-year-old female with past medical history of pseudoseizures, hypertension, psoriatic arthritis, chronic pain, poorly controlled type 2 diabetes mellitus with history with diabetic nephropathy and neuropathy who presented to the ER with glucoses greater than 600. She was seen hospitalized in mid June for similar complaints but her glucoses at that time were in the mid 300s. During her last hospitalization she had actually stops taking her oral hypoglycemic medications. This time she states that she actually has been taking her medications as directed. At the time she was continued on Januvia and metformin was added. She reported that she went to her primary care physician's office due to glucoses in the 5 and 600 range and a review of external med history demonstrates that she was started on Toujeo 22 units subq daily starting on the . She states that she has been taking the medications as directed but her glucoses have remained elevated above 600. When she arrived to the ER last night her glucose was 704. She reports that she has been having several weeks of polydipsia, polyuria and dysuria. She reports decreased appetite from baseline. She has not been having any abdominal pain or suprapubic tenderness. She denies any hematuria. She has not had any urinary incontinence. She does have chronic peripheral neuropathy is unchanged from baseline. She has chronic pain from her psoriatic arthritis. She denies any shortness of breath or chest pain. Review of Systems Review of Systems: 12 systems were reviewed with pertinent positives and negatives per HPI. Except as documented in the HPI, all other systems were reviewed and are negative. [facility] Past Medical History Medical History Anxiety Asthma Chronic anemia Chronic GERD COPD (chronic obstructive pulmonary disease) CVA (cerebral vascular accident) at age 28 per patient report however MRI of the brain 08/23/2016 demonstrated normal aging brain Depression Diabetes oral meds Dyslipidemia Hyperlipidemia Hypertension Inflammatory arthritis Kidney stones AGUIRA (nonalcoholic steatohepatitis) Obstructive sleep apnea on CPAP polysomnogram March 2017 recommended CPAP of 14 Overweight (BMI 25.0-29.9) Psoriatic arthritis Psychogenic nonepileptic seizure (~2015) Surgical History Surgical History H/O bilateral breast reduction surgery (~09/2018) H/O: hysterectomy History of bladder suspension procedure History of carpal tunnel release (09/17/20) right History of section x1 History of colon resection (11/2018) sigmoid colectomy w/colorectal anastomosis secondary to diverticulitis History of colonoscopy with polypectomy (09/06/19) melanosis coli, 2 colon polyps, colorectal anastomosis History of esophagogastroduodenoscopy (EGD) (08/20/19) Duodenitis History of lithotripsy Hx of cholecystectomy S/P laparoscopic procedure (04/05/18) diagnostic laparoscopic procedure due to ovarian cyst complicated by sigmoid colon injury with subsequent repair Status post cataract extraction of both eyes with insertion of intraocular lens (~2015) Family History Family History Mother Depression Diabetes mellitus Hyperlipidemia Osteoarthritis History of kidney cancer Hypertension Asthma Cerebrovascular accident Father Malignant neoplasm of prostate Colon cancer Diabetes mellitus Grandparent Cancer Sibling , age 46 Leukemia Social History Social History (Updated 07/28/21 @ 06:58 by Pilar Toney DO) Social History: She has been for 43 years. She has 2 adult sons. She has been smoking at least since the age of 28. She has smoked as much as a half a pa
[2021-07-28] MEDS: METOCLOPRAMIDE HCL 5 MG TABLET PO ×4 (06:52→21:14)
[2021-07-28] MEDS: SUCRALFATE 1 GM TABLET PO ×4 (06:52→21:18)
[2021-07-28 07:48] LABS: Glucose Point of Care 202 mg/dl (65-105)
[2021-07-28] MEDS: INSULIN ASPART (*BKC) 100 UNITS/ML SUB-Q ×6 (08:27→16:22)
[2021-07-28] MEDS: MELOXICAM 7.5 MG TABLET 15 MG PO (08:30)
[2021-07-28] MEDS: busPIRone HCL 5 MG TABLET 15 MG PO ×3 (08:31→16:23)
[2021-07-28] MEDS: MAGNESIUM OXIDE 400 MG TABLET PO ×3 (08:31→16:24)
[2021-07-28] MEDS: ASPIRIN 81 MG CHEWABLE TABLET PO (08:31)
[2021-07-28] MEDS: PANTOPRAZOLE 40 MG TABLET PO (08:31)
[2021-07-28] MEDS: METOPROLOL SUCCINATE EXT REL 25 MG TABCR PO (08:31)
[2021-07-28] MEDS: metFORMIN HCL 500 MG TABLET PO ×2 (08:31→16:23)
[2021-07-28] MEDS: FENOFIBRATE,MICRONIZED 48 MG TABLET PO (08:31)
[2021-07-28] MEDS: hydroCHLOROthiazide 12.5 MG CAPSULE PO (08:31)
[2021-07-28] MEDS: POTASSIUM CITRATE 5 MEQ TAB CR 10 MEQ PO ×3 (08:31→16:23)
[2021-07-28] MEDS: SPIRONOLACTONE 25 MG TABLET PO (08:31)
[2021-07-28] MEDS: cilostazoL 100 MG TABLET PO ×2 (08:32→16:24)
[2021-07-28] MEDS: LOSARTAN POTASSIUM 50 MG TABLET PO (08:32)
[2021-07-28] MEDS: CYANOCOBALAMIN 500 MCG TABLET PO (08:32)
[2021-07-28] MEDS: ISOSORBIDE MONONITRATE 60 MG TAB.ER.24H PO (08:32)
[2021-07-28] MEDS: calcium polycarbophiL 625 MG TABLET PO (08:32)
[2021-07-28] MEDS: OMEGA 3 POLYUNSAT FATTY ACIDS 1 GM CAP PO (08:32)
[2021-07-28] MEDS: ESCITALOPRAM OXALATE 10 MG TABLET 20 MG PO (08:32)
[2021-07-28] MEDS: FLUTICASONE PROPIONATE 0.05% NA SPR 16 GM BTL (*BKC) 2 SPRAY NASAL (08:33)
[2021-07-28] MEDS: ENOXAPARIN 40 MG/0.4 ML SYRINGE SUB-Q (10:19)
[2021-07-28 11:27] LABS: Glucose Point of Care 306 mg/dl (65-105)
--- NOTE | 2021-07-28 13:08 | PM.IMPN ---
Progress Note: A&P Assessment and Plan (1) Type 2 diabetes mellitus with hyperglycemia: Qualifiers: Diabetes mellitus equipment operator intermodal yard insulin use: with equipment operator intermodal yard use Qualified Code(s): E11.65 - Type 2 diabetes mellitus with hyperglycemia; Z79.4 - USP (current) use of insulin Code(s): E11.65 - Type 2 diabetes mellitus with hyperglycemia Status: Acute Assessment and Plan: The patient reports that she has been taking her home medications as directed and my found that is difficult to believe as the patient's glucoses have improved significantly does with 20 units of IV insulin and initially 2 L of fluid in the ER with a completion of 3 L of fluid in the ER resulting in the patient's glucoses being down in the low 200s. Will place the patient on high-dose sliding scale insulin with Accu-Cheks a.c. HS. Will increase the patient's long-acting insulin to 30 units subQ daily. Will add mealtime bolus insulin of 5 units with each meal. Continue monitoring and make adjustments as needed. (2) Hypertension: Code(s): I10 - Essential (primary) hypertension Status: Acute Assessment and Plan: BP stable 115/54 this morning. Continue home medications. (3) COPD (chronic obstructive pulmonary disease): Code(s): J44.9 - Chronic obstructive pulmonary disease, unspecified Status: Acute Assessment and Plan: Lungs are clear. No wheezing. Continue home inhalers. Additional Plan Time Spent With Patient Time with patient: 25 - 35 minutes Subjective Date/time seen: 07/28/21 13:08 Interval history: Date of service 07/28/2021: Patient reports feeling better today. She is still having some slight increased thirst and frequent urination, but is improving. She does report to taking her oral diabetes medications as prescribed. She has been checking her glucose 4 times a day which is how she has noticed her glucose being in the 500s. Currently she denies any fevers, chills, CP, SOB, cough, nausea, vomiting, abd pain, leg swelling, calf pain or any other symptoms at this time. Review of Systems Review of Systems: All systems reviewed & are unremarkable except as noted in HPI and below Exam Narrative: General: 60-year-old woman laying flat in bed on her right side taking a nap, easily arousable. Appears comfortable. In no acute distress. Skin: No jaundice or cyanosis. Good skin turgor. Neck: Full range of motion. Supple. Respiratory: Inspiratory crackles noted, but cleared with coughing. Lungs are otherwise clear to auscultation bilaterally. No bony chest wall tenderness. Cardiovascular: The heart has a regular rate and rhythm without murmur. Lower extremities: No lower extremity edema. Distal pulses are easily palpated. No calf tenderness to palpation. Gastrointestinal: The abdomen is soft, nontender and nondistended with active bowel sounds. Psychiatric: Lucid and oriented. Memory intact. Neurologic: No focal deficits. Speech is clear. No facial drooping. Objective Data Vital Signs Vital Signs: Vital Signs - 24 hr 07/27/21 16:19 07/27/21 18:58 07/27/21 20:23 Temperature 97.1 F L Pulse Rate 67 88 62 Respiratory Rate 16 20 17 Blood Pressure 120/47 L 102/90 125/56 L Pulse Oximetry 100 94 97 07/28/21 00:22 07/28/21 01:03 07/28/21 01:35 Temperature 96.9 F L Pulse Rate 63 64 62 Respiratory Rate 18 18 20 Blood Pressure 146/63 H 137/63 119/55 L Pulse Oximetry 91 95 94 07/28/21 02:46 07/28/21 08:31 07/28/21 08:44 Temperature 96.9 F L 96.9 F L Pulse Rate 65 65 65 Respiratory Rate 20 20 Blood Pressure 115/54 L 136/62 Pulse Oximetry 92 98 07/28/21 12:41 Temperature 97.0 F L Pulse Rate 65 Respiratory Rate 20 Blood Pressure 140/51 L Pulse Oximetry 95 Intake/Output Intake/Output: Intake & Output 07/25/21 07/26/21 07/27/21 07/28/21 23:59 23:59 23:59 23:59 Intake Total 1000 2760 Balance 1000 2760 Meds/Results
[2021-07-28 16:12] LABS: Glucose Point of Care 230 mg/dl (65-105)
[2021-07-28] MEDS: MIRTAZAPINE 15 MG TABLET PO (21:15)
[2021-07-28] MEDS: ATORVASTATIN 40 MG TABLET PO (21:17)
[2021-07-28] MEDS: INSULIN GLARGINE (*BKC) 100 UNITS/ML 30 UNITS SUB-Q (21:18)
[2021-07-28 22:53] LABS: Glucose Point of Care 180 mg/dl (65-105)
[2021-07-29] VITALS: BP 120/53; PULSE 54; RESP 20; TEMP 36.1; O2SAT 97
[2021-07-29 04:00] VITALS: BP 123/57; PULSE 64; RESP 22; TEMP 36; O2SAT 100
[2021-07-29 05:29] LABS: Hematocrit 35.6 % (37.0-47.0); Hemoglobin 10.7 g/dL (12.0-15.0); Mean Corpuscular HGB Conc 30.1 g/dl (32-36); Mean Corpuscular Hemoglobin 22.9 pg (26-34); Mean Corpuscular Volume 76.2 fl (80-100); Mean Platelet Volume 10.9 fl (7.4-10.4); Platelet Count Result 166 k/mm3 (150-375); Red Blood Count 4.67 M/mm3 (4.2-5.4); Red Cell Distribution Width 17.6 % (11.5-14.5)
[2021-07-29 05:51] LABS: Anion Gap 8 mmol/L (8-16); Blood Urea Nitrogen 12 mg/dL (7-17); Calcium 9.3 mg/dL (8.4-10.2); Carbon Dioxide 27 mmol/L (22-30); Chloride 105 mmol/L (98-107); Estimated CRCL calculation 48 ml/min; Estimated Glomerular Filt Rate 56; Glucose 199 mg/dL (65-110); Potassium 5.1 mmol/L (3.4-5.0); Sodium 140 mmol/L (137-145)
[2021-07-29] MEDS: SUCRALFATE 1 GM TABLET PO ×2 (06:41→10:30)
[2021-07-29] MEDS: METOCLOPRAMIDE HCL 5 MG TABLET PO ×2 (06:41→10:30)
[2021-07-29 08:00] VITALS: BP 122/54; PULSE 62; RESP 20; TEMP 36.4; O2SAT 100
[2021-07-29 08:09] LABS: Glucose Point of Care 212 mg/dl (65-105)
[2021-07-29] MEDS: metFORMIN HCL 500 MG TABLET PO (08:20)
[2021-07-29] MEDS: busPIRone HCL 5 MG TABLET 15 MG PO ×2 (08:20→12:00)
[2021-07-29] MEDS: ASPIRIN 81 MG CHEWABLE TABLET PO (08:20)
[2021-07-29] MEDS: calcium polycarbophiL 625 MG TABLET PO (08:21)
[2021-07-29] MEDS: cilostazoL 100 MG TABLET PO (08:21)
[2021-07-29] MEDS: CYANOCOBALAMIN 500 MCG TABLET PO (08:21)
[2021-07-29] MEDS: ESCITALOPRAM OXALATE 10 MG TABLET 20 MG PO (08:21)
[2021-07-29] MEDS: ENOXAPARIN 40 MG/0.4 ML SYRINGE SUB-Q (08:21)
[2021-07-29] MEDS: OMEGA 3 POLYUNSAT FATTY ACIDS 1 GM CAP PO (08:22)
[2021-07-29] MEDS: ISOSORBIDE MONONITRATE 60 MG TAB.ER.24H PO (08:22)
[2021-07-29] MEDS: MAGNESIUM OXIDE 400 MG TABLET PO ×2 (08:22→12:00)
[2021-07-29] MEDS: FENOFIBRATE,MICRONIZED 48 MG TABLET PO (08:22)
[2021-07-29] MEDS: FLUTICASONE PROPIONATE 0.05% NA SPR 16 GM BTL (*BKC) 2 SPRAY NASAL (08:22)
[2021-07-29 08:23] VITALS: PULSE 62
[2021-07-29] MEDS: PANTOPRAZOLE 40 MG TABLET PO (08:23)
[2021-07-29] MEDS: METOPROLOL SUCCINATE EXT REL 25 MG TABCR PO (08:23)
[2021-07-29] MEDS: INSULIN ASPART (*BKC) 100 UNITS/ML SUB-Q ×4 (08:24→11:55)
[2021-07-29] MEDS: LOSARTAN POTASSIUM 50 MG TABLET PO (09:28)
--- NOTE | 2021-07-29 10:40 | PM.DS ---
DS: Admitting Diagnosis Discharge Date 07/29/21 Admitting Diagnosis Hyperglycemia DS: Discharge Diagnosis Discharge Diagnosis (1) Type 2 diabetes mellitus with hyperglycemia: Qualifiers: Diabetes mellitus shelter insulin use: with intermediate card tender use Qualified Code(s): E11.65 - Type 2 diabetes mellitus with hyperglycemia; Z79.4 - penitentiary (current) use of insulin Code(s): E11.65 - Type 2 diabetes mellitus with hyperglycemia Status: Acute Assessment and Plan: The patient is a 60-year-old female with past medical history of pseudoseizures, hypertension, psoriatic arthritis, chronic pain, poorly controlled type 2 diabetes mellitus with history with diabetic nephropathy and neuropathy who presented to the ER with glucoses greater than 600. This time she states that she actually has been taking her medications as directed- Januvia,metformin and she was started on Toujeo 22 units subq daily starting on the 07/21/21. She states that she has been taking the medications as directed but her glucoses have remained elevated above 600. When she arrived to the ER her glucose was 704. She reports that she has been having several weeks of polydipsia, polyuria and dysuria. Initial vitals showed blood pressure 120/47, heart rate 67, afebrile, normal oxygenation on room air. Labs show stable microcytic anemia with a hemoglobin of 10, medic crit 35%. Slight hyponatremia at 127 most likely due to hyperglycemia. Creatinine 1.0, BUN 17. Normal LFTs. Urinalysis with 3+ glucose otherwise normal. The patient was given 20 units of IV insulin and initially 2 L of fluid in the ER with a completion of 3 L of fluid in the ER resulting in the patient's glucoses being down in the low 200s. She was placed on long-acting insulin 30 units daily and 5 units with meals. During the patient's hospitalizations her glucoses remained stable- 180-230. Total continue checking glucose 4 times a day, follow-up PCP and may need seeing oil field laborer. I also set her up with an outpatient lathe machinist visit to help her understand her diagnosis and better treat. Return to ER warnings given. Follow-up instructions given. The patient understands agrees the plan all questions answered. (2) Hypertension: Code(s): I10 - Essential (primary) hypertension Status: Acute Assessment and Plan: BP stable 122/54 this morning. Continue home medications. (3) COPD (chronic obstructive pulmonary disease): Code(s): J44.9 - Chronic obstructive pulmonary disease, unspecified Status: Acute Assessment and Plan: Lungs are clear. No wheezing. Continue home inhalers. DS: Summary Hospital Course Hospital Course: See above Status at Discharge Cognitive/behavioral status at discharge: Stable, improved. Time Spent with Patient Time attestation: Total time spent providing and/or coordinating discharge services: 41 Time spent: Greater than 30 minutes Exam Narrative: General: 60-year-old woman sitting up in bed on her phone. Appears comfortable. In no acute distress. Skin: No jaundice or cyanosis. Good skin turgor. Neck: Full range of motion. Supple. Respiratory: Lungs are otherwise clear to auscultation bilaterally. No wheezing, rales or rhonchi. No bony chest wall tenderness. Cardiovascular: The heart has a regular rate and rhythm without murmur. Lower extremities: No lower extremity edema. Distal pulses are easily palpated. No calf tenderness to palpation. Gastrointestinal: The abdomen is soft, nontender and nondistended with active bowel sounds. Psychiatric: Lucid and oriented. Memory intact. Neurologic: No focal deficits. Speech is clear. No facial drooping. DS: Data Data Completed and Pending Labs on day of discharge: Labs from last 24 hours 07/29/21 07/29/21 07/29/21 07:53 04:50 04:50 WBC 6.0 RBC 4.67 Hgb 10.7 L Hct 35.6 L MCV 76.2 L MCH 22.9 L MCHC 30.1 L RDW
[2021-07-29 11:35] VITALS: BMI 25.9
[2021-07-29 11:49] LABS: Glucose Point of Care 216 mg/dl (65-105)
--- NOTE | 2021-07-30 07:31 | PC.NURSE ---
Outpatient referral for initial DSMT and MNT. [facility].
== END 2021-07-29 12:13 | disposition home or self-care (01) ==
LOC: ANHED 23:45 → ANH2MED 07-28 00:15
PROVIDERS: Physician Assistant; Admitting Provider Internal Medicine; Emergency Provider Emergency Medicine; PCP Family Medicine; Visit Provider Internal Medicine
DX: E11.65 Type 2 diabetes mellitus with hyperglycemia (principal); I10 Essential (primary) hypertension; G89.29 Other chronic pain; E11.42 Type 2 diabetes mellitus with diabetic polyneuropathy; E11.21 Type 2 diabetes mellitus with diabetic nephropathy; E78.5 Hyperlipidemia, unspecified; F41.8 Other specified anxiety disorders; F17.210 Nicotine dependence, cigarettes, uncomplicated; J44.9 Chronic obstructive pulmonary disease, unspecified; L40.50 Arthropathic psoriasis, unspecified; Z79.84 Long term (current) use of oral hypoglycemic drugs; Z79.82 Long term (current) use of aspirin; Z79.899 Other long term (current) drug therapy; Z90.710 Acquired absence of both cervix and uterus; Z90.49 Acquired absence of other specified parts of digestive tract; Z98.41 Cataract extraction status, right eye; Z98.42 Cataract extraction status, left eye; Z96.1 Presence of intraocular lens; Z79.4 Long term (current) use of insulin
CPT/HCPCS: 36415; 80048; 80053; 81001; 82948; 85025; 85027; 96361; 96372; 96374; 96375; 96376; 99285; A9270; G0378; J1650; J1815; J2765; J7030

== ENCOUNTER 2021-11-04 14:30 | Outpatient (RCR) | payer MEDICARE, SELFPAY ==
[2021-09-09 09:27] VITALS: BMI 28.1
[2021-10-20 14:28] VITALS: BMI 29.2
[2021-10-20 14:31] VITALS: BMI 29.2
== END 2021-11-23 14:25 | disposition home or self-care (01) ==
LOC: ANHDMC 14:30
PROVIDERS: PCP Family Medicine; Visit Provider Family Medicine
DX: E11.40 Type 2 diabetes mellitus with diabetic neuropathy, unspecified (principal); E11.65 Type 2 diabetes mellitus with hyperglycemia; Z71.3 Dietary counseling and surveillance; Z71.89 Other specified counseling
CPT/HCPCS: 97802; 97803; G0108; G0109

== ENCOUNTER 2022-01-28 14:29 | Outpatient (RCR) | payer MEDICARE, SELFPAY | END 2022-02-05 13:23 | disposition home or self-care (01) | LOC: ANHDMC 14:29 | PROVIDERS: PCP Family Medicine; Visit Provider Family Medicine | DX: E11.65 Type 2 diabetes mellitus with hyperglycemia (principal); E11.40 Type 2 diabetes mellitus with diabetic neuropathy, unspecified; Z71.89 Other specified counseling | CPT/HCPCS: G0109 ==

== ENCOUNTER 2022-05-06 12:31 | Emergency (ER) | payer MEDICARE, SELFPAY ==
--- NOTE | 2022-05-06 12:42 | PC.NURSE ---
After checking in and looking at the waiting room patient states oh gosh it looks like a long wait, I think i will go to [place] Pt ambulated to the exit without difficulty
== END 2022-05-06 12:42 | disposition left against medical advice (07) ==
DX: Z20.822 Contact with and (suspected) exposure to COVID-19 (principal)
CPT/HCPCS: 99199

== ENCOUNTER 2022-05-06 20:32 | Emergency (ER) | payer MEDICARE, SELFPAY ==
[2022-05-06] VITALS (10 sets, daily range): BP systolic 101–121; BP diastolic 47–52; PULSE 82–97; RESP 14–18; TEMP 36.6–37.1; O2SAT 96–100
--- NOTE | ~2022-05-06 | CT_ITS ---
EXAMINATION: CT soft tissue neck w con DATE: 05/06/2022 23:32 INDICATION: Right-sided neck swelling TECHNIQUE: Computed tomography (CT) of the neck was performed with 75 mL Omnipaque-350 intravenous co ntrast. Automated exposure control and iterative reconstruction technique were employed. The dose-ananth gth product was 564.48 mGy-cm. COMPARISON: None FINDINGS: There is stranding in the subcutaneous fat at the right face and right anterior aspect of the upper n rigo extending to the anterior midline of the lower neck. No abscess or abnormal masses identified. Th yroid gland is unremarkable. Submandibular and parotid glands are symmetric. There are scattered no rmal-sized lymph nodes in the neck, no lymphadenopathy. The vasculature is patent and normal in nikki gabriel. Airway is unremarkable. Superior mediastinum is unremarkable. Changes of bilateral intraocular lens replacement. Visualized sinuses and mastoid air cells are well aerated. Mild emphysema. Calcifi ed left upper lobe nodule consistent with old granulomatous disease. IMPRESSION: 1. Nonspecific subcutaneous stranding at the inferior right face extending to the anterior midline of the lower neck with additional subtle haziness to the fat along the anterior strap muscles which maykel ears mildly thickened on the left. This could be infectious, inflammatory or posttraumatic in etiolog y. No abscess or abnormal mass identified. Reviewed, dictated and finalized at location A. IMPRESSION: 1. Nonspecific subcutaneous stranding at the inferior right face extending to t he anterior midline of the lower neck with additional subtle haziness to the fa t along the anterior strap muscles which appears mildly thickened on the left. This could be infectious, inflammatory or posttraumatic in etiology. No abscess or abnormal mass identified.
[2022-05-06 21:42] LABS: Basophils Percent Auto 0.2 % (0.2-1.2); Hemoglobin 7.5 g/dL (12.0-15.0); Immature Granulocyte Absolute 0.08 K/mm3 (0.00-0.031); Immature Granulocyte Percent A 0.8 % (0-0.5); Lymphocytes Absolute Auto 0.76 K/mm3 (0.9-3.2); Lymphocytes Percent Auto 7.9 % (18.3-44.2); Mean Corpuscular HGB Conc 27.8 g/dl (32-36); Mean Corpuscular Hemoglobin 18.3 pg (26-34); Mean Corpuscular Volume 65.9 fl (80-100); Mean Platelet Volume 9.4 fl (7.4-10.4); Monocytes Absolute Auto 0.1 K/mm3 (0.1-0.6); Monocytes Percent Auto 0.7 % (2.6-8.5); Neutrophils Absolute Auto 8.8 K/mm3 (1.3-6.7); Neutrophils Percent Auto 90.4 % (45.5-73.1); Platelet Count Result 254 k/mm3 (150-375); Red Cell Distribution Width 18.8 % (11.5-14.5); White Blood Count 9.7 K/mm3 (4.5-10.0)
[2022-05-06 22:06] LABS: Alanine Aminotransferase 33 U/L (6-35); Albumin Level 4.1 g/dL (3.5-5.1); Alkaline Phosphatase 88 U/L (38-126); Anion Gap 14 mmol/L (8-16); Aspartate Amino Transferase 30 U/L (14-36); Bilirubin,Total 0.4 mg/dL (0.2-1.3); Blood Urea Nitrogen 14 mg/dL (7-17); Calcium 8.4 mg/dL (8.4-10.2); Carbon Dioxide 19 mmol/L (22-30); Chloride 101 mmol/L (98-107); Estimated CRCL calculation 46 ml/min; Estimated Glomerular Filt Rate 45; Glucose 348 mg/dL (65-110); Potassium 4.6 mmol/L (3.4-5.0); Sodium 134 mmol/L (137-145)
[2022-05-06 22:08] LABS: Anisocytosis 1+ (NORMAL); Microcytosis 2+ (NORMAL); Platelet Estimate Adequate (Adequate)
[2022-05-06 22:09] LABS: Hypochromasia 3+ (NORMAL); Ovalocytes 2+ (NORMAL); Schistocytes None Seen (NORMAL)
--- NOTE | 2022-05-06 23:09 | ED.GENADULT ---
HPI - General Adult General Chief complaint: Unspecified Stated complaint: swelling to right side of neck Time Seen by Provider: 05/06/22 22:51 History of Present Illness HPI narrative: Patient is a 61-year-old female who presents the emergency department with chief complaint of right-sided neck pain. Patient reports that she started having swelling in the right side of her neck and feels full and enlarged on that side patient reports no trauma reports no fever reports that her voice seems to be a little different than normal. The patient reports that she is not on blood thinners reports no bruising patient reports that she first noticed it this morning Related Data Home Medications Medication Instructions Recorded Confirmed albuterol sulfate 90 mcg/actuation 2 inh inhalation Q4H PRN Shortness 08/31/19 09/01/21 aerosol inhaler Of Breath ergocalciferol (vitamin D2) 1,250 1,250 mcg PO WEEKLY 08/31/19 09/01/21 mcg (50,000 unit) capsule (Vitamin D2) fenofibrate 54 mg tablet 54 mg PO DAILY 08/31/19 09/01/21 gabapentin 300 mg capsule 300 mg PO TID 08/31/19 09/01/21 isosorbide mononitrate 60 mg 60 mg PO DAILY 08/31/19 09/01/21 tablet,extended release 24 hr metoprolol succinate 25 mg 25 mg PO DAILY 08/31/19 09/01/21 tablet,extended release 24 hr nitroglycerin 0.4 mg sublingual 0.4 mg sublingual PRN PRN Chest 08/31/19 09/01/21 tablet Pain pantoprazole 40 mg tablet,delayed 40 mg PO DAILY 08/31/19 09/01/21 release atorvastatin 40 mg tablet (Lipitor) 40 mg PO HS 09/03/20 09/01/21 buspirone 15 mg tablet 15 mg PO TID 09/03/20 09/01/21 cilostazol 100 mg tablet 100 mg PO BID 09/03/20 09/01/21 cyanocobalamin (vitamin B-12) 500 500 mcg PO DAILY 09/03/20 09/01/21 mcg tablet (Vitamin B-12) mirtazapine 15 mg tablet 15 mg PO HS 09/03/20 09/01/21 oxybutynin chloride 10 mg 10 mg PO DAILY 09/03/20 09/01/21 tablet,extended release 24 hr potassium citrate 10 mEq (1,080 10 meq PO TID 09/03/20 09/01/21 mg) tablet,extended release escitalopram oxalate 20 mg tablet 20 mg PO DAILY 09/15/20 09/01/21 (Lexapro) fluticasone propionate 50 2 spray intranasal DAILY 09/15/20 09/01/21 mcg/actuation nasal spray,suspension polyethylene glycol 3350 17 17 g PO DAILY PRN Constipation 09/15/20 09/01/21 gram/dose oral powder (Miralax) omega-3 fatty acids 1,000 mg PO DAILY 10/23/20 09/01/21 calcium polycarbophil 625 mg 625 mg PO DAILY 06/24/21 09/01/21 tablet (Fiber (calcium polycarbophil)) losartan 50 mg-hydrochlorothiazide 1 tablet PO DAILY 06/24/21 09/01/21 12.5 mg tablet magnesium 200 mg tablet 400 mg PO TID 06/24/21 09/01/21 metoclopramide HCl 5 mg tablet 5 mg PO ACHS 06/24/21 09/01/21 spironolactone 25 mg tablet 25 mg PO DAILY 06/24/21 09/01/21 sucralfate 1 gram tablet 1 g PO ACHS 06/24/21 09/01/21 aspirin 81 mg chewable tablet 81 mg PO DAILY 07/28/21 09/01/21 (Aspirin Childrens) hydrocodone 5 mg-acetaminophen 325 5 tablet PO BID PRN Pain (Scale 07/28/21 09/01/21 mg tablet Score 4-6) meloxicam 15 mg tablet 15 mg PO DAILY 07/28/21 09/01/21 metformin 500 mg tablet 500 mg PO BIDWMEAL 07/28/21 09/01/21 trazodone 50 mg tablet 50 mg PO HS PRN Sleep 07/28/21 09/01/21 Allergies Allergy/AdvReac Type Severity Reaction Status Date / Time varenicline Allergy Severe SUICIDAL Verified 05/06/22 21:27 THOUGHTS alprazolam Allergy Unknown Swelling Verified 05/06/22 21:27 levofloxacin Allergy Unknown Swelling Verified 05/06/22 21:27 Quinolones Allergy Unknown Swelling Verified 05/06/22 21:27 Review of Systems Review of Systems: A 10 system review of systems was completed on the patient and is negative except for what is stated in the HPI. Nursing and ancillary documentation was reviewed. [facility] [place] Past Medical History Medical History Anxiety Asthma Chronic anemia Chronic GERD COPD (chronic obstructive pulmonary disease) CVA (cerebral vascular accident) at age 28
[2022-05-07] VITALS: O2SAT 100
[2022-05-07 00:15] VITALS: BP 108/52; PULSE 83; RESP 16; TEMP 36.8; O2SAT 96
[2022-05-07 00:30] VITALS: O2SAT 100
[2022-05-07 01:02] VITALS: BP 104/62; PULSE 83; RESP 16; TEMP 36.7; O2SAT 96
[2022-05-07] MEDS: AMOXICILLIN/CLAVULANATE K 875-125 MG TAB 1 TABLET PO (01:13)
[2022-05-07 01:26] VITALS: TEMP 36.8
== END 2022-05-07 01:28 | disposition home or self-care (01) ==
PROVIDERS: Emergency Provider Emergency Medicine; PCP Family Medicine
DX: R22.1 Localized swelling, mass and lump, neck (principal); J44.9 Chronic obstructive pulmonary disease, unspecified; E11.9 Type 2 diabetes mellitus without complications; E78.5 Hyperlipidemia, unspecified; I10 Essential (primary) hypertension; D64.9 Anemia, unspecified; K21.9 Gastro-esophageal reflux disease without esophagitis; M19.90 Unspecified osteoarthritis, unspecified site; G47.33 Obstructive sleep apnea (adult) (pediatric); L40.50 Arthropathic psoriasis, unspecified; F41.9 Anxiety disorder, unspecified; Z90.710 Acquired absence of both cervix and uterus; Z90.49 Acquired absence of other specified parts of digestive tract; Z98.42 Cataract extraction status, left eye; Z98.41 Cataract extraction status, right eye; F17.210 Nicotine dependence, cigarettes, uncomplicated; Z96.1 Presence of intraocular lens; Z79.84 Long term (current) use of oral hypoglycemic drugs; Z79.82 Long term (current) use of aspirin
CPT/HCPCS: 36415; 70491; 80053; 85025; 99284; A9270; Q9967

== ENCOUNTER 2022-06-18 14:11 | Outpatient (CLI) | payer MEDICARE, SELFPAY ==
--- NOTE | ~2022-06-18 | XR_ITS ---
XR foot RT 2V DATE: 06/18/2022 14:41 INDICATION: Right foot injury, pain and swelling laterally. TECHNIQUE: AP and lateral views COMPARISON: 06/24/2021 right foot FINDINGS: There is new sclerosis at the base of the proximal phalanx of the fifth digit, not present on 06/24/2021, which may indicate interval fracture. Consider additional fifth toe radiographs for mo re definitive evaluation. No other fracture or dislocation is evident. Prominent plantar calcaneal enthesopathy. IMPRESSION: Interval sclerosis at the base of the proximal phalanx of the fifth toe since 06/24/2021, suggesting interval fracture. There is a limited examination of the fifth toe. Consider additional r adiographic views Reviewed, dictated and finalized at location B. CONTROL SERVICE REPRESENTATIVE IMPRESSION: Interval sclerosis at the base of the proximal phalanx of the fifth toe since 06/24/2021, suggesting interval fracture. There is a limited examina tion of the fifth toe. Consider additional radiographic views
[2022-06-18 15:16] LABS: Alanine Aminotransferase 25 U/L (6-35); Albumin Level 4.5 g/dL (3.5-5.1); Alkaline Phosphatase 100 U/L (38-126); Anion Gap 13 mmol/L (8-16); Aspartate Amino Transferase 37 U/L (14-36); Bilirubin,Total 0.6 mg/dL (0.2-1.3); Blood Urea Nitrogen 35 mg/dL (7-17); Carbon Dioxide 23 mmol/L (22-30); Chloride 99 mmol/L (98-107); Estimated Glomerular Filt Rate 21; Glucose 132 mg/dL (65-110); Potassium 4.4 mmol/L (3.4-5.0); Sodium 135 mmol/L (137-145)
== END 2022-06-18 14:12 | disposition home or self-care (01) ==
PROVIDERS: PCP Family Medicine; Visit Provider Family Medicine
DX: S99.921A Unspecified injury of right foot, initial encounter (principal); X58.XXXA Exposure to other specified factors, initial encounter; E11.40 Type 2 diabetes mellitus with diabetic neuropathy, unspecified; Z79.4 Long term (current) use of insulin
CPT/HCPCS: 36415; 73620; 80053

== ENCOUNTER 2022-11-09 06:43 | Outpatient (CLI) | payer MEDICARE, SELFPAY ==
--- NOTE | ~2022-11-09 | MR_ITS ---
MRI of the right ankle Clinical history: Pain Technique: Coronal proton-density and proton-density fat-sat images, axial proton-density and proton- density fat-sat images, and sagittal proton-density and proton-density fat-sat images were acquired. Findings: Syndesmotic ligaments are intact. There is increased signal and thickening of the anterior talofibular ligament. Posterior talofibular ligament and calcaneofibular ligament are intact. Deltoid ligament is intact. Medial flexor tendons, peroneal tendons, anterior extensor tendons, and Achilles tendon are intact. T here is minimal Achilles tendinosis. There is thickening and increased signal with probable low-grade partial tearing at the origin of the plantar fascia. There is mild adjacent soft tissue edema. No osteochondral lesion of the talar dome. There is mild degenerative change at the tarsometatarsal j oints. No suspicious bone marrow signal abnormality seen. Small tibiotalar and subtalar joint effusio ns are present. Impression: Plantar fasciitis, as detailed above. Probable sprain of the anterior talofibular ligament. Small tibiotalar and subtalar joint effusions. Mild degenerative change at the tarsometatarsal joints. Reviewed, dictated and finalized at location . Impression: Plantar fasciitis, as detailed above. Probable sprain of the anterior talofibular ligament. Small tibiotalar and subtalar joint effusions. Mild degenerative change at the tarsometatarsal joints.
== END 2022-11-09 06:44 | disposition home or self-care (01) ==
PROVIDERS: PCP Family Medicine; Visit Provider Podiatrist Foot & Ankle Surgery
DX: S93.491D Sprain of other ligament of right ankle, subsequent encounter (principal); X58.XXXD Exposure to other specified factors, subsequent encounter; M25.471 Effusion, right ankle; M72.2 Plantar fascial fibromatosis
CPT/HCPCS: 73721

== ENCOUNTER 2022-11-16 13:15 | Outpatient (RCR) | payer MEDICARE, SELFPAY ==
[2022-11-16 14:13] VITALS: BMI 26.0
[2022-11-16 14:19] VITALS: BMI 26.0
== END 2023-01-31 09:30 | disposition home or self-care (01) ==
LOC: ANHDMC 13:15
PROVIDERS: PCP Family Medicine; Visit Provider Family Medicine
DX: E11.40 Type 2 diabetes mellitus with diabetic neuropathy, unspecified (principal); Z71.89 Other specified counseling; Z71.3 Dietary counseling and surveillance
CPT/HCPCS: 97803; G0108

== ENCOUNTER 2023-01-18 09:37 | Outpatient (CLI) | payer MEDICARE, SELFPAY ==
[2023-01-18 10:44] LABS: Hematocrit 43.1 % (37.0-47.0); Hemoglobin 13.9 g/dL (12.0-15.0); Mean Corpuscular HGB Conc 32.3 g/dl (32-36); Mean Corpuscular Hemoglobin 28.5 pg (26-34); Mean Corpuscular Volume 88.3 fl (80-100); Mean Platelet Volume 10.8 fl (7.4-10.4); Platelet Count Result 198 k/mm3 (150-375); Red Blood Count 4.88 M/mm3 (4.2-5.4); Red Cell Distribution Width 19.7 % (11.5-14.5); White Blood Count 11.1 K/mm3 (4.5-10.0)
[2023-01-18 11:00] LABS: Alanine Aminotransferase 26 U/L (6-35); Albumin Level 4.2 g/dL (3.5-5.1); Alkaline Phosphatase 61 U/L (38-126); Anion Gap 6 mmol/L (8-16); Aspartate Amino Transferase 27 U/L (14-36); Bilirubin,Total 0.6 mg/dL (0.2-1.3); Blood Urea Nitrogen 22 mg/dL (7-17); Calcium 9.4 mg/dL (8.4-10.2); Carbon Dioxide 26 mmol/L (22-30); Chloride 105 mmol/L (98-107); Estimated Glomerular Filt Rate 50; Glucose 129 mg/dL (65-110); Potassium 4.2 mmol/L (3.4-5.0); Sodium 137 mmol/L (137-145)
[2023-01-18 11:44] LABS: Hepatitis B Core IgM Result Negative (Negative)
[2023-01-18 11:56] LABS: Hepatitis C Virus Antibody Negative (Negative)
[2023-01-21 11:34] LABS: NIL 0.02 IU/mL; Quantiferon TB Plus, 1T NEGATIVE (NEGATIVE); TB1-NIL 0.01 IU/mL; TB2-NIL 0.01 IU/mL
== END 2023-01-18 09:38 | disposition home or self-care (01) ==
PROVIDERS: PCP Family Medicine
DX: L40.0 Psoriasis vulgaris (principal)
CPT/HCPCS: 36415; 80053; 85027; 86480; 86705; 86803

== ENCOUNTER 2023-10-12 06:50 | Outpatient (CLI) | payer MEDICARE, SELFPAY ==
[2023-10-12 07:54] LABS: Alanine Aminotransferase 27 U/L (6-35); Albumin Level 3.6 g/dL (3.5-5.1); Alkaline Phosphatase 81 U/L (38-126); Anion Gap 6 mmol/L (4-12); Aspartate Amino Transferase 22 U/L (14-36); Bilirubin,Total 0.4 mg/dL (0.2-1.3); Blood Urea Nitrogen 28 mg/dL (7-17); Calcium 9.2 mg/dL (8.4-10.2); Carbon Dioxide 24 mmol/L (22-30); Chloride 104 mmol/L (98-107); Cholesterol 85 mg/dL (0-200); Creatine Kinase 32 U/L (30-135); Estimated Glomerular Filt Rate 32; Glucose 209 mg/dL (65-110); HDL Direct 13 mg/dL; Potassium 4.3 mmol/L (3.4-5.0); Sodium 134 mmol/L (137-145); Triglycerides 275 mg/dL (<150)
[2023-10-12 08:05] LABS: LDL Cholesterol Direct 49 mg/dL
== END 2023-10-12 06:51 | disposition home or self-care (01) ==
LOC: ANHLAB 06:58
PROVIDERS: PCP Family Medicine; Visit Provider Specialist
DX: I10 Essential (primary) hypertension (principal)
CPT/HCPCS: 36415; 80053; 80061; 82550

== ENCOUNTER 2023-11-14 20:44 | Emergency (ER) | payer MEDICARE, SELFPAY ==
--- NOTE | ~2023-11-14 | CT_ITS ---
EXAMINATION: CT abdomen pelvis w con DATE: 11/14/2023 22:19 INDICATION: necrotic abd wounds with green pus TECHNIQUE: Computed tomography (CT) of the abdomen and pelvis was performed with 100 mL Omnipaque-350 intravenous contrast. Automated exposure control and iterative reconstruction technique were employe d. The dose-length product was 580.93 mGy-cm. COMPARISON: 06/24/2021. FINDINGS: Lower thorax: Mild coronary artery constipation. Right basilar scar/atelectasis. Liver: Normal. Biliary/Gallbladder: Gallbladder is absent. No bile duct dilation. Pancreas: No mass or duct dilation. Spleen: Normal. Adrenals:No mass. Kidneys: No suspicious mass, obstructing stone, or hydronephrosis. Subcentimeter right midpole hypode nsity, too small to characterize but likely represents a cyst GI tract: Mild distal esophageal and gastric wall edema. Uncomplicated sigmoid anastomosis. No small or large bowel dilation. Appendix not confidently visualized. Mesentery/Peritoneum: No ascites, mass, or free air. Retroperitoneum: No mass. Atherosclerotic abdominal aortic and/or arterial calcifications. Pelvis: Normal urinary bladder. Uterus and bilateral ovaries not confidently visualized. Soft Tissues: Large multilobulated right abdominal wall collection with thin surrounding rim enhancem ent involving the musculature of the anterior abdominal wall. No intraperitoneal extension. Irregular shape makes discrete measurement difficult, overall size is approximately 17 cm transverse by 23 cm craniocaudad. Irregular extension into the subcutaneous tissues of the right abdomen, with apparent d ermal breakthrough to the right of the umbilicus. Unchanged diastases of the anterior abdominal wall near the umbilicus. Bones: No acute osseous finding. IMPRESSION: Mild esophagitis/gastritis. Large abdominal wall abscess involving the right anterior and anterolateral abdominal wall musculatur e, with extension into the overlying subcutaneous tissues and likely drainage site to the right of th e umbilicus. Reviewed, dictated and finalized at location K. IMPRESSION: Mild esophagitis/gastritis. Large abdominal wall abscess involving the right anterior and anterolateral abd ominal wall musculature, with extension into the overlying subcutaneous tissues and likely drainage site to the right of the umbilicus.
[2023-11-14 21:43] LABS: Basophils Absolute Auto 0.1 K/mm3 (0.0-0.1); Basophils Percent Auto 0.5 % (0.2-1.2); Eosinophils Percent Auto 0.1 % (0-4.4); Hematocrit 40.3 % (37.0-47.0); Hemoglobin 13.1 g/dL (12.0-15.0); Immature Granulocyte Absolute 0.14 K/mm3 (0.00-0.031); Immature Granulocyte Percent A 0.7 % (0-0.5); Lymphocytes Absolute Auto 1.11 K/mm3 (0.9-3.2); Lymphocytes Percent Auto 5.7 % (18.3-44.2); Mean Corpuscular HGB Conc 32.5 g/dl (32-36); Mean Corpuscular Hemoglobin 30.1 pg (26-34); Mean Corpuscular Volume 92.6 fl (80-100); Mean Platelet Volume 9.7 fl (7.4-10.4); Monocytes Absolute Auto 0.5 K/mm3 (0.1-0.6); Monocytes Percent Auto 2.7 % (2.6-8.5); Neutrophils Absolute Auto 17.6 K/mm3 (1.3-6.7); Neutrophils Percent Auto 90.3 % (45.5-73.1); Platelet Count Result 281 k/mm3 (150-375); Red Blood Count 4.35 M/mm3 (4.2-5.4); Red Cell Distribution Width 13.6 % (11.5-14.5); White Blood Count 19.5 K/mm3 (4.5-10.0)
--- NOTE | 2023-11-14 21:47 | ED.SKABFB ---
HPI - Skin/Abscess/Foreign Bdy General Chief complaint: Skin/Abscess/Foreign Body Stated complaint: wounds Time Seen by Provider: 11/14/23 20:52 Source: patient and EMS Mode of arrival: EMS Limitations: no limitations History of Present Illness HPI narrative: Patient is a 62-year-old female, with past medical history of diabetes, COPD, AGUIAR, sigmoid colectomy in 2019 r/t recurrent diverticulitis, who presents to the ED via EMS with draining wounds to her abdomen. Per EMS report, they were called out due to patient having drainage from her abdominal wall wounds. Patient reports the wound popped and began draining approx 3 hours ago. She is unsure how long the wounds have been there. She states she has been weak and fatigued and unable to get out of bed for the past 2 days. She states she has not showered for the past 2 weeks. She reportedly saw her PCP 1 month ago for a rib fracture. Unclear if she had the wounds at that time. Patient denies fevers. Does not check her blood sugar regularly. Blood sugar per EMS was mid 300s. Related Data Home Medications Medication Instructions Recorded Confirmed albuterol sulfate 90 mcg/actuation 2 inh inhalation Q4H PRN Shortness 08/31/19 09/01/21 aerosol inhaler Of Breath ergocalciferol (vitamin D2) 1,250 1,250 mcg PO WEEKLY 08/31/19 09/01/21 mcg (50,000 unit) capsule (Vitamin D2) fenofibrate 54 mg tablet 54 mg PO DAILY 08/31/19 09/01/21 gabapentin 300 mg capsule 300 mg PO TID 08/31/19 09/01/21 isosorbide mononitrate 60 mg 60 mg PO DAILY 08/31/19 09/01/21 tablet,extended release 24 hr metoprolol succinate 25 mg 25 mg PO DAILY 08/31/19 09/01/21 tablet,extended release 24 hr nitroglycerin 0.4 mg sublingual 0.4 mg sublingual PRN PRN Chest 08/31/19 09/01/21 tablet Pain pantoprazole 40 mg tablet,delayed 40 mg PO DAILY 08/31/19 09/01/21 release atorvastatin 40 mg tablet (Lipitor) 40 mg PO HS 09/03/20 09/01/21 buspirone 15 mg tablet 15 mg PO TID 09/03/20 09/01/21 cilostazol 100 mg tablet 100 mg PO BID 09/03/20 09/01/21 cyanocobalamin (vitamin B-12) 500 500 mcg PO DAILY 09/03/20 09/01/21 mcg tablet (Vitamin B-12) mirtazapine 15 mg tablet 15 mg PO HS 09/03/20 09/01/21 oxybutynin chloride 10 mg 10 mg PO DAILY 09/03/20 09/01/21 tablet,extended release 24 hr potassium citrate 10 mEq (1,080 10 meq PO TID 09/03/20 09/01/21 mg) tablet,extended release escitalopram oxalate 20 mg tablet 20 mg PO DAILY 09/15/20 09/01/21 (Lexapro) fluticasone propionate 50 2 spray intranasal DAILY 09/15/20 09/01/21 mcg/actuation nasal spray,suspension polyethylene glycol 3350 17 17 g PO DAILY PRN Constipation 09/15/20 09/01/21 gram/dose oral powder (Miralax) omega-3 fatty acids 1,000 mg PO DAILY 10/23/20 09/01/21 calcium polycarbophil 625 mg 625 mg PO DAILY 06/24/21 09/01/21 tablet (Fiber (calcium polycarbophil)) losartan 50 mg-hydrochlorothiazide 1 tablet PO DAILY 06/24/21 09/01/21 12.5 mg tablet magnesium 200 mg tablet 400 mg PO TID 06/24/21 09/01/21 metoclopramide HCl 5 mg tablet 5 mg PO ACHS 06/24/21 09/01/21 spironolactone 25 mg tablet 25 mg PO DAILY 06/24/21 09/01/21 sucralfate 1 gram tablet 1 g PO ACHS 06/24/21 09/01/21 aspirin 81 mg chewable tablet 81 mg PO DAILY 07/28/21 09/01/21 (Aspirin Childrens) hydrocodone 5 mg-acetaminophen 325 5 tablet PO BID PRN Pain (Scale 07/28/21 09/01/21 mg tablet Score 4-6) meloxicam 15 mg tablet 15 mg PO DAILY 07/28/21 09/01/21 metformin 500 mg tablet 500 mg PO BIDWMEAL 07/28/21 09/01/21 trazodone 50 mg tablet 50 mg PO HS PRN Sleep 07/28/21 09/01/21 Allergies Allergy/AdvReac Type Severity Reaction Status Date / Time varenicline Allergy Severe SUICIDAL Verified 05/06/22 21:27 THOUGHTS alprazolam Allergy Unknown Swelling Verified 05/06/22 21:27 levofloxacin Allergy Unknown Swelling Verified 05/06/22 21:27 Quinolones Allergy Unknown Swelling Verified 05/06/22 21:27 Review of Systems Review of Systems: CONSTITUTIONAL: Denies fever
[2023-11-14 21:53] LABS: INR 1.3; Prothrombin Time 17.3 Seconds (11.1-14.7)
[2023-11-14 21:53] LABS: Lactic Acid Reflex 2.3 mmol/L (0.7-2.0)
[2023-11-14 21:54] LABS: Partial Thromboplastin Time 38.1 Seconds (22.3-36.8)
[2023-11-14 21:56] LABS: Alanine Aminotransferase 30 U/L (6-35); Albumin Level 3.6 g/dL (3.5-5.1); Alkaline Phosphatase 211 U/L (38-126); Anion Gap 9 mmol/L (4-12); Aspartate Amino Transferase 38 U/L (14-36); Bilirubin,Total 0.8 mg/dL (0.2-1.3); Blood Urea Nitrogen 22 mg/dL (7-17); Calcium 9.8 mg/dL (8.4-10.2); Carbon Dioxide 23 mmol/L (22-30); Chloride 101 mmol/L (98-107); Estimated CRCL calculation 58 ml/min; Estimated Glomerular Filt Rate > 60; Glucose 172 mg/dL (65-110); Potassium 4.6 mmol/L (3.4-5.0); Sodium 133 mmol/L (137-145)
[2023-11-14 22:02] VITALS: BP 142/49; PULSE 108; RESP 18; TEMP 36.5; O2SAT 93
[2023-11-14 22:05] LABS: Anisocytosis 1+; Giant Platelets Present; Platelet Clumps Present; Platelet Estimate Adequate (Adequate)
[2023-11-14 22:06] LABS: Schistocytes None Seen
[2023-11-14 22:09] LABS: Erythrocyte Sedimentation Rate 48 mm/hr (0-20)
[2023-11-14 22:22] LABS: Hemoglobin A1C 6.4 % (<5.7)
[2023-11-14 22:23] LABS: CRP 38.6 mg/dL (<1.0)
[2023-11-14] MEDS: VANCOMYCIN 1,500 MG/NS 500 ML 1,500 MG/500 ML BAG 250 MG IVPB (22:41)
[2023-11-14 23:20] VITALS: BP 125/40; PULSE 74; RESP 18; O2SAT 97
[2023-11-15 00:38] LABS: Reflex Lactic Acid Yes or No Add Lactic
== END 2023-11-15 00:38 | disposition short-term general hospital (02) ==
PROVIDERS: Emergency Provider Physician Assistant; PCP Family Medicine
DX: A41.9 Sepsis, unspecified organism (principal); L02.211 Cutaneous abscess of abdominal wall; E11.9 Type 2 diabetes mellitus without complications; F41.9 Anxiety disorder, unspecified; J45.909 Unspecified asthma, uncomplicated; D64.9 Anemia, unspecified; K21.9 Gastro-esophageal reflux disease without esophagitis; F32.A Depression, unspecified; E78.5 Hyperlipidemia, unspecified; K75.81 Nonalcoholic steatohepatitis (NASH); Z87.442 Personal history of urinary calculi; G47.30 Sleep apnea, unspecified
CPT/HCPCS: 36415; 74177; 80053; 83036; 83605; 85025; 85610; 85652; 85730; 86140; 87040; 87070; 87077; 87205; 96365; 99285; J3370; Q9967

== ENCOUNTER 2024-05-31 08:17 | Outpatient (CLI) | payer MEDICARE, SELFPAY ==
[2024-06-05 12:39] LABS: NIL 0.03 IU/mL; Quantiferon TB Plus, 1T NEGATIVE (NEGATIVE); TB1-NIL 0.01 IU/mL; TB2-NIL 0.01 IU/mL
== END 2024-05-31 08:18 | disposition home or self-care (01) ==
PROVIDERS: PCP Student in an Organized Health Care Education/Training Program
DX: Z11.1 Encounter for screening for respiratory tuberculosis (principal)
CPT/HCPCS: 36415; 86480

== ENCOUNTER 2024-06-18 12:41 | Emergency (ER) | payer MEDICARE, SELFPAY ==
[2024-06-18] VITALS (24 sets, daily range): BP systolic 115–147; BP diastolic 53–114; PULSE 64–84; RESP 13–28; TEMP 36.5; O2SAT 85–100
--- NOTE | ~2024-06-18 | XR_ITS ---
EXAMINATION: XR chest 1V portable Exam Date/Time: 06/18/2024 14:15 [employer] HISTORY: URI Comparison: 06/23/2021. RESULT: Lines, tubes, and devices: None. Lungs and pleura: Streaky/subsegmental right basilar opacities. Cardiomediastinal silhouette: Stable. Other: No acute osseous or upper abdominal finding. IMPRESSION: Mild subsegmental right bibasilar atelectasis/consolidation. Reviewed, dictated and finalized at location [facility]
--- NOTE | 2024-06-18 13:57 | ED.NEUROSD ---
HPI - Neuro Symptoms/Deficit General Chief Complaint: Neuro Symptoms/Deficit Stated Complaint: shaking Time Seen by Provider: 06/18/24 13:30 Related Data Home Medications Medication Instructions Recorded Confirmed albuterol sulfate 90 mcg/actuation 2 inh inhalation Q4H PRN Shortness 08/31/19 09/01/21 aerosol inhaler Of Breath ergocalciferol (vitamin D2) 1,250 1,250 mcg PO WEEKLY 08/31/19 09/01/21 mcg (50,000 unit) capsule (Vitamin D2) fenofibrate 54 mg tablet 54 mg PO DAILY 08/31/19 09/01/21 gabapentin 300 mg capsule 300 mg PO TID 08/31/19 09/01/21 isosorbide mononitrate 60 mg 60 mg PO DAILY 08/31/19 09/01/21 tablet,extended release 24 hr metoprolol succinate 25 mg 25 mg PO DAILY 08/31/19 09/01/21 tablet,extended release 24 hr nitroglycerin 0.4 mg sublingual 0.4 mg sublingual PRN PRN Chest 08/31/19 09/01/21 tablet Pain pantoprazole 40 mg tablet,delayed 40 mg PO DAILY 08/31/19 09/01/21 release atorvastatin 40 mg tablet (Lipitor) 40 mg PO HS 09/03/20 09/01/21 buspirone 15 mg tablet 15 mg PO TID 09/03/20 09/01/21 cilostazol 100 mg tablet 100 mg PO BID 09/03/20 09/01/21 cyanocobalamin (vitamin B-12) 500 500 mcg PO DAILY 09/03/20 09/01/21 mcg tablet (Vitamin B-12) mirtazapine 15 mg tablet 15 mg PO HS 09/03/20 09/01/21 oxybutynin chloride 10 mg 10 mg PO DAILY 09/03/20 09/01/21 tablet,extended release 24 hr potassium citrate 10 mEq (1,080 10 meq PO TID 09/03/20 09/01/21 mg) tablet,extended release escitalopram oxalate 20 mg tablet 20 mg PO DAILY 09/15/20 09/01/21 (Lexapro) fluticasone propionate 50 2 spray intranasal DAILY 09/15/20 09/01/21 mcg/actuation nasal spray,suspension polyethylene glycol 3350 17 17 g PO DAILY PRN Constipation 09/15/20 09/01/21 gram/dose oral powder (Miralax) omega-3 fatty acids 1,000 mg PO DAILY 10/23/20 09/01/21 calcium polycarbophil 625 mg 625 mg PO DAILY 06/24/21 09/01/21 tablet (Fiber (calcium polycarbophil)) losartan 50 mg-hydrochlorothiazide 1 tablet PO DAILY 06/24/21 09/01/21 12.5 mg tablet magnesium 200 mg tablet 400 mg PO TID 06/24/21 09/01/21 metoclopramide HCl 5 mg tablet 5 mg PO ACHS 06/24/21 09/01/21 spironolactone 25 mg tablet 25 mg PO DAILY 06/24/21 09/01/21 sucralfate 1 gram tablet 1 g PO ACHS 06/24/21 09/01/21 aspirin 81 mg chewable tablet 81 mg PO DAILY 07/28/21 09/01/21 (Aspirin Childrens) hydrocodone 5 mg-acetaminophen 325 5 tablet PO BID PRN Pain (Scale 07/28/21 09/01/21 mg tablet Score 4-6) meloxicam 15 mg tablet 15 mg PO DAILY 07/28/21 09/01/21 metformin 500 mg tablet 500 mg PO BIDWMEAL 07/28/21 09/01/21 trazodone 50 mg tablet 50 mg PO HS PRN Sleep 07/28/21 09/01/21 Allergies Allergy/AdvReac Type Severity Reaction Status Date / Time varenicline Allergy Severe SUICIDAL Verified 05/06/22 21:27 THOUGHTS alprazolam Allergy Unknown Swelling Verified 05/06/22 21:27 levofloxacin Allergy Unknown Swelling Verified 05/06/22 21:27 Quinolones Allergy Unknown Swelling Verified 05/06/22 21:27 [facility] Past Medical History Medical History Anxiety Asthma Chronic anemia Chronic GERD COPD (chronic obstructive pulmonary disease) CVA (cerebral vascular accident) at age 28 per patient report however MRI of the brain 08/23/2016 demonstrated normal aging brain Depression Diabetes oral meds Dyslipidemia Hyperlipidemia Hypertension Inflammatory arthritis Kidney stones AGUIAR (nonalcoholic steatohepatitis) Obstructive sleep apnea on CPAP polysomnogram March 2017 recommended CPAP of 14 Overweight (BMI 25.0-29.9) Psoriatic arthritis Psychogenic nonepileptic seizure (~2015) Surgical History Surgical History H/O bilateral breast reduction surgery (~09/2018) H/O: hysterectomy History of bladder suspension procedure History of carpal tunnel release (09/17/20) right History of section x1 History of colon resection (11/2018) sigmoid colectomy w/colorectal anastomosis secondary to diverticulitis History of colonoscopy with polypectomy (09/06/19) melanosis coli, 2 colon polyps, colorectal anastomosis History of esophagogastroduodenoscopy (EGD) (08/20/19) Duodenitis History of lithotripsy Hx of cholecystectomy S/P laparoscopic procedure (04/05/18) diagnostic laparoscopic procedure due to ovarian cyst complicated by sigmoid colon injury with subsequent repair Status post cataract extraction of both eyes with insertion of intraocular lens (~2015) Family History Family History Mother Depression Hypertension Asthma Cerebrovascular accident Diabetes mellitus Hyperlipidemia Osteoarthritis History of kidney cancer Father Malignant neoplasm of prostate Colon cancer Diabetes mellitus Grandparent Cancer Sibling , age 46 Leukemia Social History Social History Social History: She has been for 43 years. She has 2 adult sons. She has been smoking at least since the age of 28. She has smoked as much as a half a pack of cigarettes per day. She was also using E cigarettes for a brief time. She denies any alcohol or illicit substance use. She works at [employer]. Primary care provider: Thad Carney Code status: Full code Surrogate decision maker: Smoking packs per day: 0.5 Smoking cigarettes per day: 10.0 Years smoked: 35 Smoking pack-years: 17.50 Smoking status: Current some day smoker Second hand tobacco smoke exposure: No Alcohol intake: never Substance use: never Lack of Transportation: No Lack of Food: Never True Current Housing: I Have Housing Difficulty Paying Gas/Electric Bills: No Difficulty Paying for Meds: No Currently Unemployed: No Education: High School Diploma/GED Difficulty w/ Childcare or Family Care: No Living arrangements: with family Occupation/Education: occupation Additional occupation/education comments: [employer]) Gender identity (if verbalized by the patient): Female Spiritual care concerns: No Course Vital Signs Vital signs: Vital Signs Temperature 36.5 C 06/18/24 12:50 Pulse Rate 67 06/18/24 12:50 Respiratory Rate 20 06/18/24 12:50 Blood Pressure 139/71 06/18/24 12:50 Pulse Oximetry 97 06/18/24 12:50 Oxygen Delivery Room Air 06/18/24 12:50 Temperature 36.5 C 06/18/24 12:50 Pulse Rate 70 06/18/24 13:11 Respiratory Rate 16 06/18/24 13:11 Blood Pressure 138/69 06/18/24 13:11 Pulse Oximetry 97 06/18/24 13:11 Oxygen Delivery Room Air 06/18/24 12:58 Discharge Plan Discharge Prescriptions: No Action polyethylene glycol 3350 [Miralax] 17 gram/dose Powder 17 g PO DAILY PRN (Reason: Constipation) fluticasone propionate 50 mcg/actuation [place],Suspension 2 spray INTRANASAL DAILY escitalopram oxalate [Lexapro] 20 mg Tablet 20 mg PO DAILY omega-3 fatty acids Capsule 1,000 mg PO DAILY trazodone 50 mg tablet 50 mg PO HS PRN (Reason: Sleep) hydrocodone-acetaminophen 5-325 mg tablet 5 tablet PO BID PRN (Reason: Pain (Scale Score 4-6)) meloxicam 15 mg tablet 15 mg PO DAILY metformin 500 mg tablet 500 mg PO BIDWMEAL aspirin [Aspirin Childrens] 81 mg tablet,chewable 81 mg PO DAILY insulin aspart U-100 [Novolog FlexPen U-100 Insulin] 100 unit/mL (3 mL) insulin pen 5 unit subcut TID Qty: 15 1RF (DME) OneTouch Verio test strips Strip Qty: 1 0RF Rx Instructions: May substitute to in-stock and/or covered by insurance strips. Use As Directed (DME) pen needle, diabetic [BD Ultra-Fine Gissell Pen Needle] 32 gauge x 5/32 Needle Qty: 1 2RF Rx Instructions: May substitute to meet patient needs. Use As Directed (DME) lancets [OneTouch Delica Plus Lancet] 30 gauge Misc Qty: 1 0RF Rx Instructions: May substitute to in-stock and/or covered by insurance lancets. Use As Directed Toujeo Max U-300 SoloStar 300 unit/mL (3 mL) insulin pen 30 unit SUBCUT DAILY Qty: 6 0RF isosorbide mononitrate 60 mg tablet extended release 24 hr 60 mg PO DAILY pantoprazole 40 mg tablet,delayed release (DR/EC) 40 mg PO DAILY nitroglycerin 0.4 mg tablet, sublingual 0.4 mg sublingual PRN PRN (Reason: Chest Pain) gabapentin 300 mg capsule 300 mg PO TID metoprolol succinate 25 mg tablet extended release 24 hr 25 mg PO DAILY ergocalciferol (vitamin D2) [Vitamin D2] 1,250 mcg (50,000 unit) capsule 1,250 mcg PO WEEKLY Rx Instructions: Takes on Tuesday albuterol sulfate 90 mcg/actuation HFA aerosol inhaler 2 inh INHALATION Q4H PRN (Reason: Shortness Of Breath) fenofibrate 54 mg tablet 54 mg PO DAILY sucralfate 1 gram Tablet 1 g PO ACHS spironolactone 25 mg tablet 25 mg PO DAILY Hold Instructions: Hold -resume when okay with your doctor metoclopramide HCl 5 mg tablet 5 mg PO ACHS calcium polycarbophil [Fiber (calcium polycarbophil)] 625 mg Tablet 625 mg PO DAILY losartan-hydrochlorothiazide 50-12.5 mg tablet 1 tablet PO DAILY magnesium 200 mg Tablet 400 mg PO TID Januvia 100 mg tablet 100 mg PO DAILY Qty: 0 0RF amoxicillin-pot clavulanate 875-125 mg tablet 1 tablet PO Q12H 10 Days Qty: 20 0RF atorvastatin [Lipitor] 40 mg tablet 40 mg PO HS buspirone 15 mg tablet 15 mg PO TID cilostazol 100 mg tablet 100 mg PO BID cyanocobalamin (vitamin B-12) [Vitamin B-12] 500 mcg tablet 500 mcg PO DAILY mirtazapine 15 mg tablet 15 mg PO HS oxybutynin chloride 10 mg tablet extended release 24hr 10 mg PO DAILY potassium citrate 10 mEq (1,080 mg) tablet extended release 10 meq PO TID Hold Instructions: Hold - resume when okay with your doctor Follow-up/Referrals: Saima,Cuca Chambers DO [Primary Care Provider] -
[2024-06-18] MEDS: HALOPERIDOL LACTATE 5 MG/ML VIAL 2.5 MG IV PUSH (14:05)
[2024-06-18 14:16] LABS: Basophils Percent Auto 0.5 % (0.2-1.2); Eosinophils Absolute Auto 0.1 K/mm3 (0-0.3); Eosinophils Percent Auto 1.2 % (0-4.4); Hemoglobin 15.2 g/dL (12.0-15.0); Immature Granulocyte Absolute 0.05 K/mm3 (0.00-0.031); Immature Granulocyte Percent A 0.6 % (0-0.5); Lymphocytes Absolute Auto 1.62 K/mm3 (0.9-3.2); Lymphocytes Percent Auto 18.8 % (18.3-44.2); Mean Corpuscular HGB Conc 34.5 g/dl (32-36); Mean Corpuscular Hemoglobin 32.8 pg (26-34); Mean Corpuscular Volume 94.8 fl (80-100); Monocytes Absolute Auto 0.5 K/mm3 (0.1-0.6); Monocytes Percent Auto 5.7 % (2.6-8.5); Neutrophils Absolute Auto 6.3 K/mm3 (1.3-6.7); Neutrophils Percent Auto 73.2 % (45.5-73.1); Platelet Count Result 144 k/mm3 (150-375); Red Blood Count 4.64 M/mm3 (4.2-5.4); Red Cell Distribution Width 13.2 % (11.5-14.5); White Blood Count 8.6 K/mm3 (4.5-10.0)
[2024-06-18 14:31] LABS: Anion Gap 6 mmol/L (4-12); Blood Urea Nitrogen 14 mg/dL (7-17); Calcium 8.4 mg/dL (8.4-10.2); Carbon Dioxide 24 mmol/L (22-30); Chloride 104 mmol/L (98-107); Estimated CRCL calculation 39 ml/min; Estimated Glomerular Filt Rate 45; Glucose 189 mg/dL (65-110); Potassium 4.2 mmol/L (3.4-5.0); Sodium 134 mmol/L (137-145)
[2024-06-18 14:53] LABS: Influenza A QL RT-PCR Negative (Negative); Influenza B QL RT-PCR Negative (Negative); RSV RNA, RT-PCR Negative (Negative); SARS-CoV-2 RNA PCR Negative (Negative)
--- NOTE | 2024-06-18 15:32 | ED.NEUROSD ---
HPI - Neuro Symptoms/Deficit General Chief Complaint: Neuro Symptoms/Deficit Stated Complaint: shaking Time Seen by Provider: 06/18/24 13:30 History of Present Illness HPI Narrative: 63-year-old female with a past medical history including psychogenic nonepileptic seizures, diabetes and anxiety disorder. Today patient presents to the emergency department with generalized shaking. Patient is awake and talking during these episodes and has asymmetric flapping of both arms and legs and walks up to triage in tells us that she has possibly having a seizure. No actual reported seizure activity. She had previous workups for seizures with EEGs and was diagnosed with PE any as and 2016. Not any antiepileptic medications. Patient self describes diffuse chills and states she is just not feeling well and had a URI for the last week. Endorses a nonproductive cough and a headache. Denies any chest pain, shortness a breath, headache, vision changes, abdominal pain, back pain, weakness. She is ambulatory without ataxia antalgic gait. Overall NIH stroke scale 0 Related Data Home Medications Medication Instructions Recorded Confirmed albuterol sulfate 90 mcg/actuation 2 inh inhalation Q4H PRN Shortness 08/31/19 09/01/21 aerosol inhaler Of Breath ergocalciferol (vitamin D2) 1,250 1,250 mcg PO WEEKLY 08/31/19 09/01/21 mcg (50,000 unit) capsule (Vitamin D2) fenofibrate 54 mg tablet 54 mg PO DAILY 08/31/19 09/01/21 gabapentin 300 mg capsule 300 mg PO TID 08/31/19 09/01/21 isosorbide mononitrate 60 mg 60 mg PO DAILY 08/31/19 09/01/21 tablet,extended release 24 hr metoprolol succinate 25 mg 25 mg PO DAILY 08/31/19 09/01/21 tablet,extended release 24 hr nitroglycerin 0.4 mg sublingual 0.4 mg sublingual PRN PRN Chest 08/31/19 09/01/21 tablet Pain pantoprazole 40 mg tablet,delayed 40 mg PO DAILY 08/31/19 09/01/21 release atorvastatin 40 mg tablet (Lipitor) 40 mg PO HS 09/03/20 09/01/21 buspirone 15 mg tablet 15 mg PO TID 09/03/20 09/01/21 cilostazol 100 mg tablet 100 mg PO BID 09/03/20 09/01/21 cyanocobalamin (vitamin B-12) 500 500 mcg PO DAILY 09/03/20 09/01/21 mcg tablet (Vitamin B-12) mirtazapine 15 mg tablet 15 mg PO HS 09/03/20 09/01/21 oxybutynin chloride 10 mg 10 mg PO DAILY 09/03/20 09/01/21 tablet,extended release 24 hr potassium citrate 10 mEq (1,080 10 meq PO TID 09/03/20 09/01/21 mg) tablet,extended release escitalopram oxalate 20 mg tablet 20 mg PO DAILY 09/15/20 09/01/21 (Lexapro) fluticasone propionate 50 2 spray intranasal DAILY 09/15/20 09/01/21 mcg/actuation nasal spray,suspension polyethylene glycol 3350 17 17 g PO DAILY PRN Constipation 09/15/20 09/01/21 gram/dose oral powder (Miralax) omega-3 fatty acids 1,000 mg PO DAILY 10/23/20 09/01/21 calcium polycarbophil 625 mg 625 mg PO DAILY 06/24/21 09/01/21 tablet (Fiber (calcium polycarbophil)) losartan 50 mg-hydrochlorothiazide 1 tablet PO DAILY 06/24/21 09/01/21 12.5 mg tablet magnesium 200 mg tablet 400 mg PO TID 06/24/21 09/01/21 metoclopramide HCl 5 mg tablet 5 mg PO [facility] 06/24/21 09/01/21 spironolactone 25 mg tablet 25 mg PO DAILY 06/24/21 09/01/21 sucralfate 1 gram tablet 1 g PO ACHS 06/24/21 09/01/21 aspirin 81 mg chewable tablet 81 mg PO DAILY 07/28/21 09/01/21 (Aspirin Childrens) hydrocodone 5 mg-acetaminophen 325 5 tablet PO BID PRN Pain (Scale 07/28/21 09/01/21 mg tablet Score 4-6) meloxicam 15 mg tablet 15 mg PO DAILY 07/28/21 09/01/21 metformin 500 mg tablet 500 mg PO BIDWMEAL 07/28/21 09/01/21 trazodone 50 mg tablet 50 mg PO HS PRN Sleep 07/28/21 09/01/21 Allergies Allergy/AdvReac Type Severity Reaction Status Date / Time varenicline Allergy Severe SUICIDAL Verified 05/06/22 21:27 THOUGHTS alprazolam Allergy Unknown Swelling Verified 05/06/22 21:27 levofloxacin Allergy Unknown Swelling Verified 05/06/22 21:27 Quinolones Allergy Unknown Swelling Verified 05/06/22 21:27 Review of Systems Review of Systems: as reviewed above in HPI [facility] Past Medical History Medical History Anxiety Asthma Chronic anemia Chronic GERD COPD (chronic obstructive pulmonary disease) CVA (cerebral vascular accident) at age 28 per patient report however MRI of the brain 08/23/2016 demonstrated normal aging brain Depression Diabetes oral meds Dyslipidemia Hyperlipidemia Hypertension Inflammatory arthritis Kidney stones AGUIAR (nonalcoholic steatohepatitis) Obstructive sleep apnea on CPAP polysomnogram March 2017 recommended CPAP of 14 Overweight (BMI 25.0-29.9) Psoriatic arthritis Psychogenic nonepileptic seizure (~2015) Surgical History Surgical History H/O bilateral breast reduction surgery (~09/2018) H/O: hysterectomy History of bladder suspension procedure History of carpal tunnel release (09/17/20) right History of section x1 History of colon resection (11/2018) sigmoid colectomy w/colorectal anastomosis secondary to diverticulitis History of colonoscopy with polypectomy (09/06/19) melanosis coli, 2 colon polyps, colorectal anastomosis History of esophagogastroduodenoscopy (EGD) (08/20/19) Duodenitis History of lithotripsy Hx of cholecystectomy S/P laparoscopic procedure (04/05/18) diagnostic laparoscopic procedure due to ovarian cyst complicated by sigmoid colon injury with subsequent repair Status post cataract extraction of both eyes with insertion of intraocular lens (~2015) Family History Family History Mother Depression Hypertension Asthma Cerebrovascular accident Diabetes mellitus Hyperlipidemia Osteoarthritis History of kidney cancer Father Malignant neoplasm of prostate Colon cancer Diabetes mellitus Grandparent Cancer Sibling , age 46 Leukemia Social History Social History Social History: She has been for 43 years. She has 2 adult sons. She has been smoking at least since the age of 28. She has smoked as much as a half a pack of cigarettes per day. She was also using E cigarettes for a brief time. She denies any alcohol or illicit substance use. She works at [employer]. Primary care provider: Thad Carney Code status: Full code Surrogate decision maker: Smoking packs per day: 0.5 Smoking cigarettes per day: 10.0 Years smoked: 35 Smoking pack-years: 17.50 Smoking status: Current some day smoker Second hand tobacco smoke exposure: No Alcohol intake: never Substance use: never Lack of Transportation: No Lack of Food: Never True Current Housing: I Have Housing Difficulty Paying Gas/Electric Bills: No Difficulty Paying for Meds: No Currently Unemployed: No Education: High School Diploma/GED Difficulty w/ Childcare or Family Care: No Living arrangements: with family Occupation/Education: occupation Additional occupation/education comments: [employer]) Gender identity (if verbalized by the patient): Female Spiritual care concerns: No Exam Narrative: GENERAL: [Well-appearing, well-nourished, and in no acute distress.] HEAD: [Normocephalic, atraumatic.] EYES: [PERRLA and EOMI.] ENT: Nares clear, no rhinorrhea or epistaxis. Mucous membranes moist. NECK: Supple. CHEST: [Clear to auscultation. No respiratory distress.] HEART: [Regular rate and rhythm]. No murmur heard. [Normal peripheral pulses.] ABDOMEN: [Soft, nondistended], [nontender], [No rigidity or guarding] EXTREMITIES: Normal range of motion. [No edema.] SKIN: Warm, dry, no rash. NEURO: [No focal deficits]. Alert and oriented [x3.] symmetric strength and sensation throughout both arms and legs. No ataxia or antalgic gait. PSYCH: anxious appearing. Volitional flapping asymmetrically bilateral upper and lower extremities While she is awake and talking clearly and without any seizure activity. Stops with command and with redirection without any ictal or postictal state. Course Vital Signs Vital signs: Vital Signs Temperature 36.5 C 06/18/24 12:50 Pulse Rate 67 06/18/24 12:50 Respiratory Rate 20 06/18/24 12:50 Blood Pressure 139/71 06/18/24 12:50 Pulse Oximetry 97 06/18/24 12:50 Oxygen Delivery Room Air 06/18/24 12:50 Temperature 36.5 C 06/18/24 12:50 Pulse Rate 66 06/18/24 15:16 Respiratory Rate 15 06/18/24 15:16 Blood Pressure 138/73 06/18/24 15:16 Pulse Oximetry 93 06/18/24 15:16 Oxygen Delivery Room Air 06/18/24 12:58 MDM - Neuro Symptoms/Deficit MDM Narrative Medical decision making narrative: 63-year-old female with history of PNES, diabetes, anxiety presenting with generalized shaking without any clear seizure activity, unwell feeling and URI symptoms for last week with a nonproductive cough. She has overall clear breath sounds, appears well is not any acute distress but is anxious in appearance. She has very volitional appearing flapping in both arms and legs that is immediately stop with redirection and with commands. She has an NIH stroke scale 0. Full strength and sensation throughout both arms and legs, no facial asymmetry or droop. No ataxia. Ambulatory unassisted. who reassuring vital signs with any blood pressure concerns, hypoxic given fever, tachycardia. patient is requesting for medication help her shaking. Clinically she is not having any kind of seizure or seizure-like activity. She was provided Haldol prior to offer her symptomatology with complete resolution. She was also given a chest x-ray and basic laboratory studies including a COVID fluid RSV swab to assess for any further other process leading to her URI symptoms for last week. workup revealed no leukocytosis or anemia. Normal platelets. She has a baseline CKD without any elevations presently, normal electrolyte profile. Her chest x-ray does have a little bit of atelectasis versus consolidation in her right lower lobe which could be a pneumonia specially in the context for recent infectious symptoms. Will treat her with a dose of doxycycline given her allergies and medication list. Will send her home with a 5 day course and encouraged to follow-up with her PCP. Given patient's symptom resolution and reassuring exam, vitals and workup she is stable for discharge home at this time and made aware of the plan going forward antibiotics p.o. Medical Records Attestation: I reviewed the patient's medical records. Lab Data Attestation: I reviewed the patient's lab results. 06/18/24 14:07 06/18/24 14:07 Labs: Lab Results 06/18/24 Range/Units 14:07 WBC 8.6 (4.5-10.0) K/mm3 RBC 4.64 (4.2-5.4) M/mm3 Hgb 15.2 H (12.0-15.0) g/dL Hct 44.0 (37.0-47.0) % MCV 94.8 (80-100) fl MCH 32.8 (26-34) pg MCHC 34.5 (32-36) g/dl RDW 13.2 (11.5-14.5) % Plt Count 144 L (150-375) k/mm3 MPV 10.0 (7.4-10.4) fl Immature Gran % (Auto) 0.6 H (0-0.5) % Neut % (Auto) 73.2 H (45.5-73.1) % Lymph % (Auto) 18.8 (18.3-44.2) % Knox % (Auto) 5.7 (2.6-8.5) % Eos % (Auto) 1.2 (0-4.4) % Baso % (Auto) 0.5 (0.2-1.2) % Lymph # (Auto) 1.62 (0.9-3.2) K/mm3 Knox # (Auto) 0.5 (0.1-0.6) K/mm3 Eos # (Auto) 0.1 (0-0.3) K/mm3 Baso # (Auto) 0.0 (0.0-0.1) K/mm3 Abs Immat Gran (auto) 0.05 H (0.00-0.031) K/mm3 Absolute Neuts (auto) 6.3 (1.3-6.7) K/mm3 Absolute Nucleated RBC 0.000 (0.0-0.012) K/mm3 Nucleated RBC % 0.0 (0.0-0.2) % Sodium 134 L (137-145) mmol/L Potassium 4.2 (3.4-5.0) mmol/L Chloride 104 (98-107) mmol/L Carbon Dioxide 24 (22-30) mmol/L Anion Gap 6 (4-12) mmol/L BUN 14 D (7-17) mg/dL Creatinine 1.20 H (0.7-1.0) mg/dL Estim Creat Clear Calc 39 ml/min Estimated GFR 45 L (59 - ) Glucose 189 H (65-110) mg/dL Calcium 8.4 (8.4-10.2) mg/dL Influenza A (RT-PCR) Negative (Negative) Influenza B (RT-PCR) Negative (Negative) RSV (RT-PCR) Negative (Negative) SARS-CoV-2 RNA (RT-PCR) Negative (Negative) Imaging Data Attestation: I personally reviewed and interpreted this imaging study as follows: My impression: Impressions Chest X-Ray 06/18/24 14:23 IMPRESSION: Mild subsegmental right bibasilar atelectasis/consolidation. Discharge Plan Discharge Clinical Impression: CAP (community acquired pneumonia), Episode of shaking Patient Disposition: Home, Self-Care Condition: Stable Instructions: Antibiotic Form, Nonepileptic Seizures (ED), Community Acquired Pneumonia (DC) Additional Instructions: your x-ray shows a right-sided potential early pneumonia and combined with your upper respiratory symptoms it would be beneficial to treat with antibiotics at this time. We have prescribed a course sent to your preferred pharmacy. Follow-up with your regular primary care provider on outpatient basis. No other concerning findings and your workup here today. Return with any new or worsening concerns but you can safely see your regular doctors outside the hospital. Prescriptions: New doxycycline hyclate 100 mg capsule 100 mg PO BID 5 Days Qty: 10 0RF No Action polyethylene glycol 3350 [Miralax] 17 gram/dose Powder 17 g PO DAILY PRN (Reason: Constipation) fluticasone propionate 50 mcg/actuation [place],Suspension 2 spray INTRANASAL DAILY escitalopram oxalate [Lexapro] 20 mg Tablet 20 mg PO DAILY omega-3 fatty acids Capsule 1,000 mg PO DAILY trazodone 50 mg tablet 50 mg PO HS PRN (Reason: Sleep) hydrocodone-acetaminophen 5-325 mg tablet 5 tablet PO BID PRN (Reason: Pain (Scale Score 4-6)) meloxicam 15 mg tablet 15 mg PO DAILY metformin 500 mg tablet 500 mg PO BIDWMEAL aspirin [Aspirin Childrens] 81 mg tablet,chewable 81 mg PO DAILY insulin aspart U-100 [Novolog FlexPen U-100 Insulin] 100 unit/mL (3 mL) insulin pen 5 unit subcut TID Qty: 15 1RF (DME) OneTouch Verio test strips Strip Qty: 1 0RF Rx Instructions: May substitute to in-stock and/or covered by insurance strips. Use As Directed (DME) pen needle, diabetic [BD Ultra-Fine Gissell Pen Needle] 32 gauge x 5/32 Needle Qty: 1 2RF Rx Instructions: May substitute to meet patient needs. Use As Directed (DME) lancets [CrowdSystemsTouch Delica Plus Lancet] 30 gauge Misc Qty: 1 0RF Rx Instructions: May substitute to in-stock and/or covered by insurance lancets. Use As Directed Toujeo Max U-300 SoloStar 300 unit/mL (3 mL) insulin pen 30 unit SUBCUT DAILY Qty: 6 0RF isosorbide mononitrate 60 mg tablet extended release 24 hr 60 mg PO DAILY pantoprazole 40 mg tablet,delayed release (DR/EC) 40 mg PO DAILY nitroglycerin 0.4 mg tablet, sublingual 0.4 mg sublingual PRN PRN (Reason: Chest Pain) gabapentin 300 mg capsule 300 mg PO TID metoprolol succinate 25 mg tablet extended release 24 hr 25 mg PO DAILY ergocalciferol (vitamin D2) [Vitamin D2] 1,250 mcg (50,000 unit) capsule 1,250 mcg PO WEEKLY Rx Instructions: Takes on Tuesday albuterol sulfate 90 mcg/actuation HFA aerosol inhaler 2 inh INHALATION Q4H PRN (Reason: Shortness Of Breath) fenofibrate 54 mg tablet 54 mg PO DAILY sucralfate 1 gram Tablet 1 g PO ACHS spironolactone 25 mg tablet 25 mg PO DAILY Hold Instructions: Hold -resume when okay with your doctor metoclopramide HCl 5 mg tablet 5 mg PO ACHS calcium polycarbophil [Fiber (calcium polycarbophil)] 625 mg Tablet 625 mg PO DAILY losartan-hydrochlorothiazide 50-12.5 mg tablet 1 tablet PO DAILY magnesium 200 mg Tablet 400 mg PO TID Januvia 100 mg tablet 100 mg PO DAILY Qty: 0 0RF amoxicillin-pot clavulanate 875-125 mg tablet 1 tablet PO Q12H 10 Days Qty: 20 0RF atorvastatin [Lipitor] 40 mg tablet 40 mg PO HS buspirone 15 mg tablet 15 mg PO TID cilostazol 100 mg tablet 100 mg PO BID cyanocobalamin (vitamin B-12) [Vitamin B-12] 500 mcg tablet 500 mcg PO DAILY mirtazapine 15 mg tablet 15 mg PO HS oxybutynin chloride 10 mg tablet extended release 24hr 10 mg PO DAILY potassium citrate 10 mEq (1,080 mg) tablet extended release 10 meq PO TID Hold Instructions: Hold - resume when okay with your doctor Follow-up/Referrals: Saima,Cuca Chambers DO [Primary Care Provider] - Time of Disposition: 15:39
[2024-06-18] MEDS: DOXYCYCLINE HYCLATE 100 MG TABLET PO (15:51)
== END 2024-06-18 15:55 | disposition home or self-care (01) ==
PROVIDERS: Emergency Provider Student in an Organized Health Care Education/Training Program; PCP Student in an Organized Health Care Education/Training Program
DX: J18.9 Pneumonia, unspecified organism (principal); I10 Essential (primary) hypertension; E11.9 Type 2 diabetes mellitus without complications; E78.5 Hyperlipidemia, unspecified; J44.9 Chronic obstructive pulmonary disease, unspecified; M19.90 Unspecified osteoarthritis, unspecified site; G47.33 Obstructive sleep apnea (adult) (pediatric); K21.9 Gastro-esophageal reflux disease without esophagitis; K75.81 Nonalcoholic steatohepatitis (NASH); L40.50 Arthropathic psoriasis, unspecified; D64.9 Anemia, unspecified; F41.9 Anxiety disorder, unspecified; F17.210 Nicotine dependence, cigarettes, uncomplicated; Z86.73 Personal history of transient ischemic attack (TIA), and cerebral infarction without residual deficits; Z87.442 Personal history of urinary calculi; Z90.710 Acquired absence of both cervix and uterus; Z90.49 Acquired absence of other specified parts of digestive tract; Z96.1 Presence of intraocular lens; Z98.42 Cataract extraction status, left eye; Z98.41 Cataract extraction status, right eye; Z79.899 Other long term (current) drug therapy; Z79.4 Long term (current) use of insulin; Z79.84 Long term (current) use of oral hypoglycemic drugs; Z79.82 Long term (current) use of aspirin
CPT/HCPCS: 36415; 71045; 80048; 85025; 87637; 96374; 99284; A9270; J1630

== ENCOUNTER 2025-05-23 16:00 | Emergency (ER) | payer MEDICARE, SELFPAY ==
--- NOTE | ~2025-05-23 | CT_ITS ---
CT brain wo con HISTORY:daily ELAM; gen weakness; weight loss COMPARISON: None. TECHNIQUE: Axial images were obtained of the head without intravenous contrast. FINDINGS: No acute intracranial hemorrhage, mass effect or midline shift. No extra-axial fluid collections. There is a chronic lacunar infarct in the left basal ganglia.There are chronic lacunar infarct in the right thalamus and right basal ganglia. Chronic white matter microangiopathic changes are not ed.Visualized paranasal sinuses and mastoid air cells are clear. IMPRESSION: No acute intracranial hemorrhage or extra axial fluid collections. All CT scans at this facility are performed using low dose modulation techniques as appropriate to perform exam including the following: automated exposure control; use of iterative reconstruction technique; adjustment of the mA and/or kV according to patient size (this includes techniques or standardized protocols for targeted exams where dose is matched to indication/reason for exam). Reviewed, dictated and finalized at location S. ANICAL ARTIST IMPRESSION: No acute intracranial hemorrhage or extra axial fluid collections. All CT scans at this facility are performed using low dose modulation techniqu es as appropriate to perform exam including the following: automated exposure c ontrol; use of iterative reconstruction technique; adjustment of the mA and/or kV according to patient size (this includes techniques or standardized protocol s for targeted exams where dose is matched to indication/reason for exam).
--- NOTE | ~2025-05-23 | XR_ITS ---
EXAMINATION: XR chest 2V DATE: 05/23/2025 17:05 INDICATION: Weakness TECHNIQUE: PA and lateral views of the chest were obtained. COMPARISON: Chest radiograph dated 06/18/2024 FINDINGS: Calcified nodule left upper lung zone consistent with old granulomatous disease. No other airspace opacities, pulmonary edema, pleural effusion or pneumothorax. The cardiomediastinal silhouette is normal. Cholecystectomy clips in right upper quadrant. Dystrophic pancreatic calcifications in the mid upper abdomen consistent with sequela of chronic pancreatitis. IMPRESSION: 1. No acute cardiopulmonary disease. Reviewed, dictated and finalized at location A. TERM CARE PHARMACIST
--- OUTSIDE RECORDS SUMMARY | 2025-05-23 14:45 | XMS_ITS | Encounter Summary ---
Author Organization [facility] Healthcare Address [address] [place] [id number] Care Team Providers Care Environmental Health And Safety Intern Name Role Phone Thad Carney MD Primary Care Provider [phone] Zaid Jose MD Unavailable [phone] Ezekiel Samano MD Unavailable [phone] Reason for Visit * Reason Comments other Weight loss, vomitin g they think it is from the monjero she is taking, been on the monjero for 4 months, increased her medication recently, been feeling like this for 1 to 2 months Encounter Details Date Type Department Care Team (Late Contact Info) Description 05/23/2025 2:45 PM UNIFORM DESIGNER Office Visit [facility] at [address] [id number] Kaylie Rojo NP [address] [place] [address] [address] [place] [address] Decreased appetite (Primary Dx); Generalized abdominal pain; Weight loss Social History Tobacco Use Types Packs/Day Years Used Date Smoking Tobacco: Every Day Cigarettes 0.5 43.9 Started: 1983 Smokeless Tobacco: Never Alcohol Use Standard Drinks/Week Comments Never 0 (1 standard drink = 0.6 oz pur e alcohol) [facility] Utilities Answer Date Recorded In the past 12 months has [facility] electric, gas, oil, or water company threatened to shut off services in your home? No 11/15/2023 Humiliation, Afraid, Rape, and Kick questionnair e Answer Date Recorded Within the last year, have y ou been afraid of your partner or ex-partner? No 11/15/2023 Within the last year, have y ou been humiliated or emotionally abused in other ways by your partner or ex-partner? No Within the last year, have y ou been kicked, hit, slapped, or otherwise physically hurt by your partner or ex-partner? No 11/15/2023 Within the last year, have y ou been raped or forced to have any kind of sexual activity by your partner or ex-partner? No 11/15/2023 Social Connection and Isolation Panel Answer Date Recorded In a typical week, how many times do you talk on the phone with family, friends, or neighbors? More than three times a week 11/16/2023 How often do you get togethe r with friends or relatives? Twice a week 11/16/2023 How often do you attend [facility] or rastafari services? Never 11/16/2023 Do you belong to any clubs o r organizations such as temple groups, unions, fraternal or athletic groups, or school groups? No 11/16/2023 How often do you attend meet ings of the clubs or organizations you belong to? Never 11/16/2023 Are you , , di vorced, , never , or living with a partner? 11/16/2023 AUDIT-C Answer Date Recorded Q1: How often do you have a drink containing alcohol? Never 12/13/2023 Q2: How many drinks containi ng alcohol do you have on a typical day when you are drinking? Patient does not drink Q3: How often do you have si x or more drinks on one occasion? Never 12/13/2023 Overall Financial Resource Strain (CARDIA) Answe r Date Recorded How hard is it for you to pa y for the very basics like food, housing, medical care, and heating? Not very hard 11/16/2023 PHQ-2 Answer Date Recorded PHQ-2 Total Score 6 11/16/2023 [facility]ational Stress Questionnaire Answer Date Recorded Do you feel stress - tense, restless, nervous, or anxious, or unable to sleep at night because your mind is troubled all the time - these days? Only a little 11/15/2023 Exercise Vital Sign Answer Date Recorde d On average, how many days pe r week do you engage in moderate to strenuous exercise (like a brisk walk)? 0 days 11/15/2023 On average, how many minutes do you engage in exercise at this level? 0 min 11/15/2023 Hunger Vital Sign Answer Date Recorded Within the past 12 months, y ou worried that your food would run out before you got the money to buy more. Never true 05/01/20 24 Within the past 12 months, t he food you bought just didn't last and you didn't have money to get more. Never true 05/01/2024 PRAPARE - Transportation Answer Date Re corded In the past 12 months, has l ack of transportation kept you from medical appointments or from getting medications? No 02/2024 In the past 12 months, has l ack of transportation kept you from meetings, work, or from getting things needed for daily living? No 11/16/2023 Housing Stability Vital Sign Answer Bj e Recorded In the last 12 months, was t here a time when you were not able to pay the mortgage or rent on time? No 11/16/2023 In the last 12 months, how many places have you lived? 1 11/16/2023 In the last 12 months, was t here a time when you did not have a steady place to sleep or slept in a mcc (including now)? No 11/16/2023 PHQ-9 Answer Date Recorded PHQ-9 Total Score 24 11/16/2023 Personal Safety Answer Date Recorded Have you ever been in or are you currently in a harmful physical or emotional relationship or is someone making you feel afraid or unsafe? 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 Not on file Not on file Not on file documented as of this encounter Last Filed Vital Signs Vital Sign Reading Time Taken Comments Blood Pressure 122/76 05/23/2025 2:36 PM UNIFORM DESIGNER Pulse 67 05/23/2025 2:36 PM UNIFORM DESIGNER Temperature 36.6 C (97.9 F) 05/23/2025 2:36 PM UNIFORM DESIGNER Respiratory Rate 18 05/23/2025 2:36 PM UNIFORM DESIGNER Oxygen Saturation 99% 05/23/2025 2:36 PM UNIFORM DESIGNER Inhaled Oxygen Concentration - - Weight 56.3 kg (124 lb 1.6 oz) 05/23/2025 2:36 P M UNIFORM DESIGNER Height 168.9 cm (5' 6.5) 05/23/2025 2:36 PM UNIFORM DESIGNER Body Mass Index 19.73 05/23/2025 2:36 PM UNIFORM DESIGNER documented in this encounter Functional Status documented as of this encounter Patient Instructions * Patient Instructions* Kaylie Rojo NP - 05/23/2025 2:45 PM UNIFORM DESIGNER Patient presents with significant weight loss of 30 lb in the last 2 months, generalized weakness, fatigue, decreased appetite, diffuse abdominal pain. Patient does report 1 episode of vomiting each morning. She is currently on Mounjaro. Patient does have a history of peritonitis due to ruptured ulcer. Concern for dehydration, failure to thrive, intra-abdominal etiology ORM DESIGNER documented in this encounter Plan of Treatment Not on file documented as of this encounter Visit Diagnoses Diagnosis Decreased appetite- Primary Anorexia Generalized abdominal pain Abdominal pain, generalized Weight loss Loss of weight documented in this encounter Historical Medications * This list may reflect changes made after this encounter. Mounjaro 7.5 mg/0.5 mL pen injector injection Inject 0.5 mL (7.5 mg total) under the skin once a week 11/09/2024 gabapentin (NEURONTIN) 600 mg tablet Take 1 tablet (600 mg total) by mouth 05/13/2025 tiotropium (SPIRIVA) 18 mcg per inhalation capsule Place 1 capsule into inhaler and inhale 2 puffs (18 mcg total) daily 12/10/2024 metoprolol XL (TOPROL-XL) 50 mg extended release tablet Take 1 tablet (50 mg total) by mouth 04/10/2025 losartan-hydrochl orothiazide (HYZAAR) 100-25 mg per tablet Take 1 tablet by mouth 03/15/2025 isosorbide mononitrate ER (IMDUR) 60 mg 24 hr tablet Take 1 tablet (60 mg total) by mouth 04/16/2025 dicyclomine (BENTYL) 10 mg capsule Take 1 capsule (10 mg total) by mouth 3 (three) times a day 01/21/2025 buPROPion XL (WELLBUTRIN XL) 300 mg 24 hr tablet Take 1 tablet (300 mg total) by mouth electric motor assembler and tester before breakfast 04/10/2025 amLODIPine (NORVASC) 5 mg tablet Take 1 tablet (5 mg total) by mouth daily 05/15/2025 added in this encounter Care Teams Environmental Health And Safety Intern Relationship Specialty Start Date End Date Thad Carney MD [address] [address] PCP - General Family Medicine 05/07/20 Zaid Jose MD [address] [place] [address] Referring Physician Obstetrics and Gynecology 11/26/20 Ezekiel Samano MD [phone] [place] [address] Surgeon Colon and Rectal Surgery 06/28/23 documented as of this encounter
[2025-05-23 16:03] VITALS: BP 133/60; PULSE 69; RESP 18; TEMP 36.4; O2SAT 100
--- NOTE | 2025-05-23 16:53 | ED.WEAKNESS ---
HPI - Weakness General Chief complaint: Weakness <Slime Dukes PA-C - Last Filed: 06/01/25 14:56> Stated complaint: weakness, weight loss <Slime Dukes PA-C - Last Filed: 06/01/25 14:56> Time Seen by Provider: 05/23/25 16:53 <Slime Dukes PA-C - Last Filed: 06/01/25 14:56> Focused HPI: This is a 64 year old female that presents to the ER for weight loss, nausea, vomiting. This has been ongoing over the last couple of months. She has not seen a doctor for this yet. GENERAL: Chronically ill-appearing, thin, and in no acute distress. HEAD: Normocephalic, atraumatic. CHEST: Clear to auscultation. ?No respiratory distress. HEART: Regular rate and rhythm.? NEURO: ?Alert and oriented x3. Patient screened in triage and initial orders placed.? ?Additional care and disposition to be based upon?diagnostic testing and treatment. <Slime Dukes PA-C - Last Filed: 06/01/25 14:56> Source: patient and family (brother) <Rochelle Pabon MD - Last Filed: 05/26/25 03:03> Mode of arrival: ambulatory <Rochelle Pabon MD - Last Filed: 05/26/25 03:03> Limitations: no limitations <Rochelle Pabon MD - Last Filed: 05/26/25 03:03> History of Present Illness HPI Narrative: Agree with The above with the following additions/corrections: Patient presents with report of increasing weakness over the past several months. She also reports 30 lb weight loss in the past 2 months but with some more before that. Reports previously wearing 160 lb now 125. She reports having a daily headache. No unilateral symptoms. Notably, patient started Monjaro 3-4 months ago with a dose increase 2 months in. Patient states she does not eat as she does not have an appetite and has had taste changes in that she cannot taste most of she eats. History of DM non insulin dependent. She denies any chest pain or shortness of breath or abdominal pain although does state that when she was being assessed at urgent care she seemed to have tenderness palpation on exam. Patient cares for her sick . Her brother has come down from [place] and he reports that he bought some protein drinks and protein bars for her. Patient denies any night sweats. Patient had initially presented to urgent care. She denies any dizziness. Patient denies any other new medications. She reports having daily hiccups. She denies any vaginal bleeding. She reports having a primary care physician Saima but has not seen them for this issue. She does have an appointment tomorrow. <Rochelel Pabon MD - Last Filed: 05/26/25 03:03> Related Data Home medications: Home Medications ?Medication ?Instructions ?Recorded ?Confirmed ?Last Taken ?Type albuterol sulfate 90 mcg/actuation 2 inh inhalation Q4H PRN Shortness 08/31/19 09/01/21 09/05/19 09:00 History aerosol inhaler Of Breath ergocalciferol (vitamin D2) 1,250 1,250 mcg PO WEEKLY 08/31/19 09/01/21 09/05/19 09:00 History mcg (50,000 unit) capsule (Vitamin D2) fenofibrate 54 mg tablet 54 mg PO DAILY 08/31/19 09/01/21 09/05/19 09:00 History gabapentin 300 mg capsule 300 mg PO TID 08/31/19 09/01/21 09/05/19 09:00 History isosorbide mononitrate 60 mg 60 mg PO DAILY 08/31/19 09/01/21 Unknown History tablet,extended release 24 hr metoprolol succinate 25 mg 25 mg PO DAILY 08/31/19 09/01/21 Unknown History tablet,extended release 24 hr nitroglycerin 0.4 mg sublingual 0.4 mg sublingual PRN PRN Chest 08/31/19 09/01/21 Unknown History tablet Pain pantoprazole 40 mg tablet,delayed 40 mg PO DAILY 08/31/19 09/01/21 Unknown History release atorvastatin 40 mg tablet (Lipitor) 40 mg PO HS 09/03/20 09/01/21 Unknown History buspirone 15 mg tablet 15 mg PO TID 09/03/20 09/01/21 Unknown History cilostazol 100 mg tablet 100 mg PO BID 09/03/20 09/01/21 Unknown History cyanocobalamin (vitamin B-12) 500 500 mcg PO DAILY 09/03/20 09/01/21 Unknown History mcg tablet (Vitamin B-12) mirtazapine 15 mg tablet 15 mg PO HS 09/03/20 09/01/21 Unknown History oxybutynin chloride 10 mg 10 mg PO DAILY 09/03/20 09/01/21 Unknown History tablet,extended release 24 hr potassium citrate 10 mEq (1,080 10 meq PO TID 09/03/20 09/01/21 Unknown History mg) tablet,extended release escitalopram oxalate 20 mg tablet 20 mg PO DAILY 09/15/20 09/01/21 Unknown History (Lexapro) fluticasone propionate 50 2 spray intranasal DAILY 09/15/20 09/01/21 Unknown History mcg/actuation nasal spray,suspension polyethylene glycol 3350 17 17 g PO DAILY PRN Constipation 09/15/20 09/01/21 Unknown History gram/dose oral powder (Miralax) omega-3 fatty acids 1,000 mg PO DAILY 10/23/20 09/01/21 Unknown History calcium polycarbophil 625 mg 625 mg PO DAILY 06/24/21 09/01/21 Unknown History tablet (Fiber (calcium polycarbophil)) losartan 50 mg-hydrochlorothiazide 1 tablet PO DAILY 06/24/21 09/01/21 Unknown History 12.5 mg tablet magnesium 200 mg tablet 400 mg PO TID 06/24/21 09/01/21 Unknown History metoclopramide HCl 5 mg tablet 5 mg PO ACHS 06/24/21 09/01/21 Unknown History spironolactone 25 mg tablet 25 mg PO DAILY 06/24/21 09/01/21 Unknown History sucralfate 1 gram tablet 1 g PO ACHS 06/24/21 09/01/21 Unknown History aspirin 81 mg chewable tablet 81 mg PO DAILY 07/28/21 09/01/21 Unknown History (Aspirin Childrens) hydrocodone 5 mg-acetaminophen 325 5 tablet PO BID PRN Pain (Scale 07/28/21 09/01/21 Unknown History mg tablet Score 4-6) meloxicam 15 mg tablet 15 mg PO DAILY 07/28/21 09/01/21 Unknown History metformin 500 mg tablet 500 mg PO BIDWMEAL 07/28/21 09/01/21 Unknown History trazodone 50 mg tablet 50 mg PO HS PRN Sleep 07/28/21 09/01/21 Unknown History <Slime Dukes PA-C - Last Filed: 06/01/25 14:56> Allergies/Adverse reactions: Allergies Allergy/AdvReac Type Severity Reaction Status Date / Time varenicline Allergy Severe SUICIDAL Verified 05/23/25 16:08 THOUGHTS alprazolam Allergy Unknown Swelling Verified 05/23/25 16:08 levofloxacin Allergy Unknown Swelling Verified 05/23/25 16:08 Quinolones Allergy Unknown Swelling Verified 05/23/25 16:08 <Slime Dukes PA-C - Last Filed: 06/01/25 14:56> Review of Systems Review of Systems: All systems reviewed & are unremarkable except as noted in HPI and below <QIANA Prather Last Filed: 06/01/25 14:56> [facility] Past Medical History Medical History: Medical History Inflammatory arthritis Dyslipidemia Kidney stones Chronic anemia AGUIAR (nonalcoholic steatohepatitis) Psoriatic arthritis CVA (cerebral vascular accident) at age 28 per patient report however MRI of the brain 08/23/2016 demonstrated normal aging brain Obstructive sleep apnea on CPAP polysomnogram March 2017 recommended CPAP of 14 Psychogenic nonepileptic seizure (~2015) Asthma Depression Anxiety Diabetes oral meds Chronic GERD COPD (chronic obstructive pulmonary disease) Overweight (BMI 25.0-29.9) Hypertension Hyperlipidemia <QIANA Prather Last Filed: 06/01/25 14:56> Surgical History Surgical History: Surgical History History of bladder suspension procedure History of lithotripsy History of section x1 Status post cataract extraction of both eyes with insertion of intraocular lens (~2015) History of colonoscopy with polypectomy (09/06/19) melanosis coli, 2 colon polyps, colorectal anastomosis History of esophagogastroduodenoscopy (EGD) (08/20/19) Duodenitis History of carpal tunnel release (09/17/20) right H/O bilateral breast reduction surgery (~09/2018) S/P laparoscopic procedure (04/05/18) diagnostic laparoscopic procedure due to ovarian cyst complicated by sigmoid colon injury with subsequent repair H/O: hysterectomy History of colon resection (11/2018) sigmoid colectomy w/colorectal anastomosis secondary to diverticulitis Hx of cholecystectomy <Slime Dukes PA-C - Last Filed: 06/01/25 14:56> Family History Family History: Family History Mother Depression Hypertension Asthma Cerebrovascular accident Diabetes mellitus Hyperlipidemia Osteoarthritis History of kidney cancer Father Malignant neoplasm of prostate Colon cancer Diabetes mellitus Grandparent Cancer Sibling , age 46 Leukemia <Slime Dukes PA-C - Last Filed: 06/01/25 14:56> Social History Social History: Social History Social History: She has been for 43 years. She has 2 adult sons. She has been smoking at least since the age of 28. She has smoked as much as a half a pack of cigarettes per day. She was also using E cigarettes for a brief time. She denies any alcohol or illicit substance use. She works at [employer] Primary care provider: Thad Carney Code status: Full code Surrogate decision maker: Smoking packs per day: 0.5 Smoking cigarettes per day: 10.0 Years smoked: 35 Smoking pack-years: 17.50 Smoking status: Current some day smoker Second hand tobacco smoke exposure: No Alcohol intake: never Substance use: never Lack of Transportation: No Lack of Food: Never True Current Housing: I Have Housing Difficulty Paying Gas/Electric Bills: No Difficulty Paying for Meds: No Currently Unemployed: No Education: High School Diploma/GED Difficulty w/ Childcare or Family Care: No Living arrangements: with family Occupation/Education: occupation Additional occupation/education comments: [employer] Gender identity (if verbalized by the patient): Female Spiritual care concerns: No <Slime Dkues PA-C - Last Filed: 06/01/25 14:56> Exam Narrative: GENERAL: well-nourished, and in no acute distress. Appears older than stated age. HEAD: Normocephalic, atraumatic. EYES: Non injected, non icteric ENT: Nares clear, no rhinorrhea or epistaxis. Gross auditory acuity intact. Moist mucous membranes. NECK: Supple. No meningismus. CHEST: Speaking in full sentences. No respiratory distress. HEART: Regular rate and rhythm. . ABDOMEN: Soft, nondistended. No rigidity or guarding. Not peritoneal. No TTP throughout. EXTREMITIES: Normal range of motion. No lower extremity edema. SKIN: Warm, dry, no rash. NEURO: No focal deficits. Alert and oriented. Answering questions. Following commands. Normal speech without aphasia or dysarthria. PSYCH: Normal mood and affect. <Rochelle Pabon MD - Last Filed: 05/26/25 03:03> Course Vital Signs Vital signs: Vital Signs Temperature 97.6 F 05/23/25 16:03 Pulse Rate 69 05/23/25 16:03 Respiratory Rate 18 05/23/25 16:03 Blood Pressure 133/60 05/23/25 16:03 Pulse Oximetry 100 05/23/25 16:03 Oxygen Delivery Room Air 05/23/25 16:03 Temperature 97.6 F 05/23/25 16:03 Pulse Rate 70 05/23/25 22:10 Respiratory Rate 18 05/23/25 22:10 Blood Pressure 114/85 05/23/25 22:10 Pulse Oximetry 98 05/23/25 22:10 Oxygen Delivery Room Air 05/23/25 16:03 <Slime Dukes PA-C - Last Filed: 06/01/25 14:56> Vital Signs Temperature 97.6 F 05/23/25 16:03 Pulse Rate 69 05/23/25 16:03 Respiratory Rate 18 05/23/25 16:03 Blood Pressure 133/60 05/23/25 16:03 Pulse Oximetry 100 05/23/25 16:03 Oxygen Delivery Room Air 05/23/25 16:03 Temperature 97.6 F 05/23/25 16:03 Pulse Rate 70 05/23/25 22:10 Respiratory Rate 18 05/23/25 22:10 Blood Pressure 114/85 05/23/25 22:10 Pulse Oximetry 98 05/23/25 22:10 Oxygen Delivery Room Air 05/23/25 16:03 <Rochelle Pabon MD - Last Filed: 05/26/25 03:03> MDM - Weakness MDM Narrative Medical decision making narrative: Patient presents with report of increased weakness and weight loss. Has been eating less, no appetite. Weakness is generalized. Vomits every morning. She is on monjaro. She reports that she is on it for diabetes, not weight loss. In the emergency department they are afebrile with vital signs within normal limits. CBC unremarkable. Mild hyponatremia. Per review of the EMR patient's kidney function has drastically fluctuated ranging from 0.7 -2.3. Suspect some baseline kidney dysfunction thus today it likely represents ASHLEY versus more likely ASHLEY superimposed on CKD. 1L IVF ordered. Viral swab negative. Notably, lipase and albumin are normal. Per review of the EMR, BMI in 2019 had been noted to be between 25 & 29.9. BMI today is 19.7. Had considered obtaining CT abdomen pelvis with contrast however patient's GFR is low and given this, given other etiology/etiologies far more likely, this does not appear to be an emergent scan needed today. Patient ready has follow-up with her PCP tomorrow. reasonable to discuss further and, potentially proceed with this in the outpatient setting for further workup if indicated in the future. Study cancelled for today. Patient is a urinary tract infection. Urine culture ordered; previous culture is reviewed which grew E coli in 2020 that was resistant to ciprofloxacin levofloxacin indeterminate it to nitrofurantoin however sensitive to the rest. Patient given first dose cephalexin with rest of antibiotic to follow. UDS and TSH ok. <Rochelle Pabon MD - Last Filed: 05/26/25 03:03> Differential Diagnosis Differential diagnosis: Likely anemia, hypoglycemia, hypothyroidism, rhabdomyolysis, sepsis, dehydration and other (medication effect/side effect; pancreatitis; malignancy) <Rochelle Pabon MD - Last Filed: 05/26/25 03:03> Lab Data Attestation: I reviewed the patient's lab results. <Rochelle Pabon MD - Last Filed: 05/26/25 03:03> Result diagrams: 05/23/25 16:58 05/23/25 16:58 <Slime Dukes PA-C - Last Filed: 06/01/25 14:56> Labs: Lab Results 05/23/25 05/23/25 05/23/25 Range/Units 16:58 20:12 20:48 WBC 8.3 (4.5-10.0) K/mm3 RBC 4.54 (4.2-5.4) M/mm3 Hgb 14.3 (12.0-15.0) g/dL Hct 41.8 (37.0-47.0) % MCV 92.1 (80-100) fl MCH 31.5 (26-34) pg MCHC 34.2 (32-36) g/dl RDW 13.4 (11.5-14.5) % Plt Count 217 D (150-375) k/mm3 MPV 9.5 (7.4-10.4) fl Immature Gran % (Auto) 0.2 (0-0.5) % Neut % (Auto) 66.9 (45.5-73.1) % Lymph % (Auto) 24.7 (18.3-44.2) % [place] % (Auto) 7.0 (2.6-8.5) % Eos % (Auto) 0.8 (0-4.4) % Baso % (Auto) 0.4 (0.2-1.2) % Lymph # (Auto) 2.04 (0.9-3.2) K/mm3 [place] # (Auto) 0.6 (0.1-0.6) K/mm3 Eos # (Auto) 0.1 (0-0.3) K/mm3 Baso # (Auto) 0.0 (0.0-0.1) K/mm3 Abs Immat Gran (auto) 0.02 (0.00-0.031) K/mm3 Absolute Neuts (auto) 5.5 (1.3-6.7) K/mm3 Absolute Nucleated RBC 0.000 (0.0-0.012) K/mm3 Nucleated RBC % 0.0 (0.0-0.2) % PT 13.3 (11.1-14.7) Seconds INR 1.0 APTT 27.4 (22.3-36.8) Seconds Sodium 135 L (137-145) mmol/L Potassium 3.9 (3.4-5.0) mmol/L Chloride 101 (98-107) mmol/L Carbon Dioxide 26 (22-30) mmol/L Anion Gap 8 (4-12) mmol/L BUN 32 H D (7-17) mg/dL Creatinine 1.77 H (0.7-1.0) mg/dL Estim Creat Clear Calc 25 ml/min Estimated GFR 29 L (59 - ) Glucose 83 (65-110) mg/dL Calcium 9.4 (8.4-10.2) mg/dL Total Bilirubin 0.5 (0.2-1.3) mg/dL AST 23 (14-36) U/L ALT 16 (6-35) U/L Alkaline Phosphatase 75 (38-126) U/L Total Creatine Kinase 24 L (30-135) U/L Total Protein 7.3 (6.3-8.2) g/dL Albumin 4.1 (3.5-5.1) g/dL Lipase 56 (23-300) U/L TSH 1.130 (0.465-4.680) uIU/mL Urine Color Yellow (Yellow) Urine Appearance Turbid H (Clear) Urine pH 5.5 (5.0-9.0) Ur Specific [place] 1.020 (1.001-1.035) Urine Protein 4+ H (Negative) mg/dL Urine Glucose (UA) Negative (Negative) mg/dL Urine Ketones 1+ H (Negative) mg/dL Ur Blood (Man) Non-hemolyzed trace H (Negative) Urine Nitrate Positive H (Negative) Urine Bilirubin Negative (Negative) Urine Urobilinogen 1.0 (<2.0) mg/dL Add Ur Microanalysis Reviewed Leukocyte Esterase Rfl 3+ H (Negative) GELACIO/UL Urine RBC 3-5 H (0-2) /hpf Urine WBC >100 H (0-3) /hpf Ur Squamous Epith Cells Moderate (Few) /hpf Urine Bacteria 4+ /hpf Urine Casts >20 Urine Mucus Present /lpf Urine Opiates Screen Negative (Negative) Urine Methadone Screen Negative (Negative) Ur Barbiturates Screen Negative (Negative) Ur Phencyclidine Scrn Negative (Negative) Ur Amphetamine Screen Negative (Negative) U Benzodiazepines Scrn Negative (Negative) Urine Cocaine Screen Negative (Negative) U Cannabinoids Screen Negative (Negative) Influenza A (RT-PCR) Negative (Negative) Influenza B (RT-PCR) Negative (Negative) RSV (RT-PCR) Negative (Negative) SARS-CoV-2 RNA (RT-PCR) Negative (Negative) <Slime Dukes PA-C - Last Filed: 06/01/25 14:56> Lab Results 11/05/23/25 05/23/25 Range/Units 16:58 20:12 20:48 WBC 8.3 (4.5-10.0) K/mm3 RBC 4.54 (4.2-5.4) M/mm3 Hgb 14.3 (12.0-15.0) g/dL Hct 41.8 (37.0-47.0) % MCV 92.1 (80-100) fl MCH 31.5 (26-34) pg MCHC 34.2 (32-36) g/dl RDW 13.4 (11.5-14.5) % Plt Count 217 D (150-375) k/mm3 MPV 9.5 (7.4-10.4) fl Immature Gran % (Auto) 0.2 (0-0.5) % Neut % (Auto) 66.9 (45.5-73.1) % Lymph % (Auto) 24.7 (18.3-44.2) % [place] % (Auto) 7.0 (2.6-8.5) % Eos % (Auto) 0.8 (0-4.4) % Baso % (Auto) 0.4 (0.2-1.2) % Lymph # (Auto) 2.04 (0.9-3.2) K/mm3 [place] # (Auto) 0.6 (0.1-0.6) K/mm3 Eos # (Auto) 0.1 (0-0.3) K/mm3 Baso # (Auto) 0.0 (0.0-0.1) K/mm3 Abs Immat Gran (auto) 0.02 (0.00-0.031) K/mm3 Absolute Neuts (auto) 5.5 (1.3-6.7) K/mm3 Absolute Nucleated RBC 0.000 (0.0-0.012) K/mm3 Nucleated RBC % 0.0 (0.0-0.2) % PT 13.3 (11.1-14.7) Seconds INR 1.0 APTT 27.4 (22.3-36.8) Seconds Sodium 135 L (137-145) mmol/L Potassium 3.9 (3.4-5.0) mmol/L Chloride 101 (98-107) mmol/L Carbon Dioxide 26 (22-30) mmol/L Anion Gap 8 (4-12) mmol/L BUN 32 H D (7-17) mg/dL Creatinine 1.77 H (0.7-1.0) mg/dL Estim Creat Clear Calc 25 ml/min Estimated GFR 29 L (59 - ) Glucose 83 (65-110) mg/dL Calcium 9.4 (8.4-10.2) mg/dL Total Bilirubin 0.5 (0.2-1.3) mg/dL AST 23 (14-36) U/L ALT 16 (6-35) U/L Alkaline Phosphatase 75 (38-126) U/L Total Creatine Kinase 24 L (30-135) U/L Total Protein 7.3 (6.3-8.2) g/dL Albumin 4.1 (3.5-5.1) g/dL Lipase 56 (23-300) U/L TSH 1.130 (0.465-4.680) uIU/mL Urine Color Yellow (Yellow) Urine Appearance Turbid H (Clear) Urine pH 5.5 (5.0-9.0) Ur Specific [place] 1.020 (1.001-1.035) Urine Protein 4+ H (Negative) mg/dL Urine Glucose (UA) Negative (Negative) mg/dL Urine Ketones 1+ H (Negative) mg/dL Ur Blood (Man) Non-hemolyzed trace H (Negative) Urine Nitrate Positive H (Negative) Urine Bilirubin Negative (Negative) Urine Urobilinogen 1.0 (<2.0) mg/dL Add Ur Microanalysis Reviewed Leukocyte Esterase Rfl 3+ H (Negative) GELACIO/UL Urine RBC 3-5 H (0-2) /hpf Urine WBC >100 H (0-3) /hpf Ur Squamous Epith Cells Moderate (Few) /hpf Urine Bacteria 4+ /hpf Urine Casts >20 Urine Mucus Present /lpf Urine Opiates Screen Negative (Negative) Urine Methadone Screen Negative (Negative) Ur Barbiturates Screen Negative (Negative) Ur Phencyclidine Scrn Negative (Negative) Ur Amphetamine Screen Negative (Negative) U Benzodiazepines Scrn Negative (Negative) Urine Cocaine Screen Negative (Negative) U Cannabinoids Screen Negative (Negative) Influenza A (RT-PCR) Negative (Negative) Influenza B (RT-PCR) Negative (Negative) RSV (RT-PCR) Negative (Negative) SARS-CoV-2 RNA (RT-PCR) Negative (Negative) <Rochelle Pabon MD - Last Filed: 05/26/25 03:03> Imaging Data Radiologist's impression: Chest x-ray: IMPRESSION: 1. No acute cardiopulmonary disease. CT brain: IMPRESSION: No acute intracranial hemorrhage or extra axial fluid collections. <Slime Dukes PA-C - Last Filed: 06/01/25 14:56> IMPRESSION: 1. No acute cardiopulmonary disease. IMPRESSION: No acute intracranial hemorrhage or extra axial fluid collections. <Rochelle Pabon MD - Last Filed: 05/26/25 03:03> ECG Data EKG #1: Attestation: I personally reviewed and interpreted this ECG as follows: <Rochelle Pabon MD - Last Filed: 05/26/25 03:03> ECG completion date: 05/23/25 <Rochelle Pabon MD - Last Filed: 05/26/25 03:03> ECG completion time: 20:16 <Rochelle Pabon MD - Last Filed: 05/26/25 03:03> Interpretation: S rhythm at a rate of 67 beats per minute. IN interval 161. QRS 100. QT/QTC 439/466. Good R-wave progression across the precordial leads. No T-wave inversions but there is baseline artifact limits full interpretation particularly in lead 3 <Rochelle Pabon MD - Last Filed: 05/26/25 03:03> Discharge Plan Discharge Clinical Impression: ASHLEY (acute kidney injury), Generalized weakness, Weight loss due to medication UTI (urinary tract infection) Qualifiers: Urinary tract infection type: acute cystitis Hematuria presence: with hematuria Qualified Code(s): N30.01 - Acute cystitis with hematuria <Slime Dukes PA-C - Last Filed: 06/01/25 14:56> Patient Disposition: Home <QIANA Prather Last Filed: 06/01/25 14:56> Condition: Stable <QIANA Prather Last Filed: 06/01/25 14:56> Instructions: Antibiotic Form, Acute Kidney Injury (DC), Urinary Tract Infection in Women (DC), Weakness (ED) <Slime Dukes PA-C - Last Filed: 06/01/25 14:56> Additional Instructions: You had a little bit of kidney dysfunction possibly due to mild dehydration and you received IV fluids for this. You also have evidence of urinary tract infection received 1st dose of antibiotic in the emergency department with the rest of the course to follow. I do suspect that many of your symptoms are explained by the Monjaro you are on but discuss further with your primary care physician at your appointment tomorrow. Return to the emergency department any new or worsening symptoms. Maintain your hydration and nutrition as best as possible. <Slime Dukes PA-C - Last Filed: 06/01/25 14:56> Patient Language: Mosotho <Slime Dukes PA-C - Last Filed: 06/01/25 14:56> Prescriptions: New cephalexin 500 mg tablet 500 mg PO Q8H 5 Days Qty: 15 0RF No Action polyethylene glycol 3350 [Miralax] 17 gram/dose Powder 17 g PO DAILY PRN (Reason: Constipation) fluticasone propionate 50 mcg/actuation [place],Suspension 2 spray INTRANASAL DAILY escitalopram oxalate [Lexapro] 20 mg Tablet 20 mg PO DAILY omega-3 fatty acids Capsule 1,000 mg PO DAILY trazodone 50 mg tablet 50 mg PO HS PRN (Reason: Sleep) hydrocodone-acetaminophen 5-325 mg tablet 5 tablet PO BID PRN (Reason: Pain (Scale Score 4-6)) meloxicam 15 mg tablet 15 mg PO DAILY metformin 500 mg tablet 500 mg PO BIDWMEAL aspirin [Aspirin Childrens] 81 mg tablet,chewable 81 mg PO DAILY insulin aspart U-100 [Novolog FlexPen U-100 Insulin] 100 unit/mL (3 mL) insulin pen 5 unit subcut TID Qty: 15 1RF (DME) OneTouch Verio test strips Strip Qty: 1 0RF Rx Instructions: May substitute to in-stock and/or covered by insurance strips. Use As Directed (DME) pen needle, diabetic [BD Ultra-Fine Gissell Pen Needle] 32 gauge x 5/32 Needle Qty: 1 2RF Rx Instructions: May substitute to meet patient needs. Use As Directed (DME) lancets [OneTouch Delica Plus Lancet] 30 gauge Misc Qty: 1 0RF Rx Instructions: May substitute to in-stock and/or covered by insurance lancets. Use As Directed Toujeo Max U-300 SoloStar 300 unit/mL (3 mL) insulin pen 30 unit SUBCUT DAILY Qty: 6 0RF isosorbide mononitrate 60 mg tablet extended release 24 hr 60 mg PO DAILY pantoprazole 40 mg tablet,delayed release (DR/EC) 40 mg PO DAILY nitroglycerin 0.4 mg tablet, sublingual 0.4 mg sublingual PRN PRN (Reason: Chest Pain) gabapentin 300 mg capsule 300 mg PO TID metoprolol succinate 25 mg tablet extended release 24 hr 25 mg PO DAILY ergocalciferol (vitamin D2) [Vitamin D2] 1,250 mcg (50,000 unit) capsule 1,250 mcg PO WEEKLY Rx Instructions: Takes on Tuesday albuterol sulfate 90 mcg/actuation HFA aerosol inhaler 2 inh INHALATION Q4H PRN (Reason: Shortness Of Breath) fenofibrate 54 mg tablet 54 mg PO DAILY sucralfate 1 gram Tablet 1 g PO ACHS spironolactone 25 mg tablet 25 mg PO DAILY metoclopramide HCl 5 mg tablet 5 mg PO ACHS calcium polycarbophil [Fiber (calcium polycarbophil)] 625 mg Tablet 625 mg PO DAILY losartan-hydrochlorothiazide 50-12.5 mg tablet 1 tablet PO DAILY magnesium 200 mg Tablet 400 mg PO TID Januvia 100 mg tablet 100 mg PO DAILY Qty: 0 0RF amoxicillin-pot clavulanate 875-125 mg tablet 1 tablet PO Q12H 10 Days Qty: 20 0RF doxycycline hyclate 100 mg capsule 100 mg PO BID 5 Days Qty: 10 0RF atorvastatin [Lipitor] 40 mg tablet 40 mg PO HS buspirone 15 mg tablet 15 mg PO TID cilostazol 100 mg tablet 100 mg PO BID cyanocobalamin (vitamin B-12) [Vitamin B-12] 500 mcg tablet 500 mcg PO DAILY mirtazapine 15 mg tablet 15 mg PO HS oxybutynin chloride 10 mg tablet extended release 24hr 10 mg PO DAILY potassium citrate 10 mEq (1,080 mg) tablet extended release 10 meq PO TID <Slime Dukes PA-C - Last Filed: 06/01/25 14:56> Follow-up/Referrals: Saima,Cuca Chambers DO [Primary Care Provider, Unknown] <Slime Dukes PA-C - Last Filed: 06/01/25 14:56> Stand Alone Forms: Work/School Release IP <Slime Dukes PA-C - Last Filed: 06/01/25 14:56> Time of Disposition: 22:07 <Slime Dukes PA-C - Last Filed: 06/01/25 14:56> 22:07 <Rochelle Pabon MD - Last Filed: 05/26/25 03:03>
--- NOTE | 2025-05-23 16:54 | ECG_ITS ---
Test Date: 2025-05-23 20:16:45 Measurements Intervals [place] Rate: 67 P: 48 IN: 161 QRS: 5 QRSD: 100 T: 79 QT: 439 QTc: 466 Interpretive Statements SINUS RHYTHM BASELINE MOTION ARTIFACT GROSSLY NORMAL ECG No previous ECG available for comparison Electronically Signed On 05-24-2025 13:04:11 SENIOR NET SOFTWARE ENGINEER by Noble Mckinnon M.D.
--- OUTSIDE RECORDS SUMMARY | 2025-05-23 16:59 | XMS_ITS | Encounter Summary ---
Author Organization [facility] Address [address] [place] [address] Phone Care Team Providers Care Bed Manager Name Role Phone Thad Carney MD Primary Care Provider [phone] Anthony Guzman MD Unavailable [phone] Evette Parry RN Unavailable Unavailable Cuca Landaverde DO Primary Care Provider [phone] Suzie Mulligan ASPHALT DISTRIBUTOR OPERATOR Unavailable Unavailable Alicia Foreman PUBLIC HEALTH TECHNICIAN Unavailable Unavailab Scott Means MD Unavailable Evette Parry RN Unavailable Unavailable Reason for Visit * Reason Comments Medication Refill Encounter Details Date Type Department Care Team (Late st Contact Info) Description 09/28/2023 [facility]ill [facility] [address] [place] [address] Thad Carney MD [address] [place], [place] [id number] Medication Refill Social History Tobacco Use Types Packs/Day Years Used Date Smoking Tobacco: Every Day Cigarettes 0.5 30 Smokeless Tobacco: Never Alcohol Use Standard Drinks/Week Comments No 0 (1 standard drink = 0.6 oz pur e alcohol) PHQ-2 Answer Date Recorded Total Score - Questions 1-9 0 03/11 Education Answer Date Recorded What is the highest level of school you have completed or the highest degree you have received? 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 Requested Prescriptions Pending Prescriptions Disp Refills traZODone (DESYREL) 50 MG Tablet [Pharmacy Med Name: TRAZODONE HYDROCHLORIDE 50 MG Tablet] 90 Tablet 3 Sig: TAKE 1 TABLET EVERY NIGHT NEEDED FOR SLEEP Serotonin Modulators (6 Month Refill Only) Protocol Failed - 09/28/2023 2:29 AM Failed - Has an encounter in the past 6 months with a depression or anxiety visit diagnosis Passed - Visit with relevant provider in past 6 months or upcoming 90 days Recent Visits Date Type Provider Dept 07/25/23 Office Visit Carmelina Miller APRN, TOOL OPERATOR [facility] Show[facility] recent visits within past 182 days and meeting all other requirements Future Appointments Date Type Provider Dept 11/24/23 Appointment Thad Carney MD [facility] Showing future appointments within next 90 days and meeting all other requirements Passed - No PRN Use for Trazodone Passed - Patient has established therapy with Serotonin Modulators for at least 6 months documented in this encounter Plan of Treatment Upcoming Encounters Date Type Department Care Team (Late st Contact Info) Description 05/24/2025 9:00 AM ORTHOPEDICS TEACHER Office Visit [facility] - Family Medicine - [place] [address] [place] [phone] Katrin Figueroa, NURSING ASSISTANTS TEACHER, TOOL OPERATOR 2 [facility] [place] [facility] [place] [address] 06/05/2025 8:45 AM ORTHOPEDICS TEACHER Appointment [facility] Mammography 1 [facility] [place] [address] Cuca Landaverde, DO 2 [address] [place] [address] Discharge Disposition: Discharged to home or Selfcare 08/15/2025 8:00 AM ORTHOPEDICS TEACHER Office Visit [facility] Medical [facility] - Endocrinology - [place] [address] [facility] [place] [address] Scott Tavera MD #2 [facility] [address] [place] [address] 09/13/2025 8:00 AM ORTHOPEDICS TEACHER Office Visit [facility] Medical [facility] - Family Medicine - [place] [address]2 [facility] [place] [address] Cuca Landaverde, DO 2 [facility] [address] [place] [address] documented as of this encounter Goals Goal Patient Goal Type Associated Problems Recent Progress Patient-Stated? Author Behavioral Health Behavioral Health On track(2024 8:43 AM ORTHOPEDICS TEACHER) Yes Johnny Champion, YARN DYER Note: I need to be able to cope better with all my stress Goal/Objective: Increase coping skills for stress. Anticipated Time Frame for Goal Completion: 6 months Goal Reviewed with: patient Readiness to change: Ready to change Department associated with goal: [facility] Steps to achieve goal: will attend counseling/psychotherapy sessions at least once monthly, at least 6 sessions, utilizing individual and/or group sessions to express thoughts and feelings. to identify, verbalize and process at least three contributing factors/triggers to anxiety and depression. to identify and verbalize at least three actions/skills to prevent and/or cope with anxiety and depression. to put into action, at least one time weekly, for one month, an action/skill to prevent and or cope with anxiety and depression. documented as of this encounter Visit Diagnoses Diagnosis Insomnia, unspecified type Urge incontinence documented in this encounter Additional Health Concerns Assessment Noted Time PHQ-9 Depression Total Score: 0 03/22/20 23 6:54 AM CDT documented as of this encounter Care Teams Bed Manager Relationship Specialty Start Date End Date Thad Carney MD PCP - General Family Medicine 12/20/19 12/26/23 Cuca Landaverde DO [address] [address] PCP - General Family Medicine 12/27/23 Anthony Guzman MD [address] [place] [address] Consulting Physician Gastroenterology 03/18/22 Evette Parry RN [place] Nurse Mobile Architect 12/27/23 12/27/23 Suzie Mulligan LPN [place] [facility] 04/20/24 04/20/24 Alicia Foreman LSW [place] Perfume Maker Mobile Architect 04/20/24 Scott Tavera MD #[address] [address] Consulting Physician Endocrinology 11/06/24 Evette Parry RN [place] Nurse Mobile Architect 01/01/25 documented as of this encounter
--- OUTSIDE RECORDS SUMMARY | 2025-05-23 16:59 | XMS_ITS | Encounter Summary ---
Author Organization [facility] Address [address] [place] [address] Phone Care Team Providers Care Parts Counter Clerk Name Role Phone Thad Carney MD Primary Care Provider [phone] Anthony Guzman MD Unavailable [phone] Evette Parry RN Unavailable Unavailable Cuca Landaverde DO Primary Care Provider [phone] Suzie Mulligan OIL WELL GUN PERFORATOR OPERATOR Unavailable Unavailable Alicia Foreman WATERMELON HARVESTING SUPERVISOR Unavailable Unavailab Scott Means MD Unavailable Evette Parry RN Unavailable Unavailable Reason for Visit * Reason Comments Medication Refill Encounter Details Date Type Department Care Team (Late st Contact Info) Description 12/15/2023 Refill [facility] [address] [place] [address] Thad Carney MD [address] [place], [place] [id number] Medication Refill Social History Tobacco Use Types [...] encounter Miscellaneous Notes * Telephone Encounter - Meseret Westbrook CMA - 12/16/2023 9:37 AM CDT Pt scheduled for RANDY on 12/[address] Landaverde. * Telephone Encounter - Nichole Marcano RN - 12/15/2023 11:48 AM CDT Needs RANDY * Telephone Encounter - Nichole Marcano RN - 12/15/2023 11:48 AM CDT Medication failed the protocol, provider to review and approve the medication order if appropriate. Requested Prescriptions Pending Prescriptions Disp Refills fenofibrate (LOFIBRA) 54 MG Tablet [Pharmacy Med Name: FENOFIBRATE 54 MG Tablet] 90 Tablet 0 Sig: TAKE 1 TABLET EVERY DAY Fibrates Protocol Passed - 12/15/2023 10:46 AM Passed - Visit with relevant provider in past 12 months or upcoming 90 days Recent Visits Date Type Provider Dept 10/07/23 Office Visit Jyotsna Costa APRN, ZOHAIB [facility] [place] 07/25/23 Office Visit Carmelina Miller APRN, ZOHAIB [facility] [place] 03/22/23 Office Visit Thad Carney MD [facility] 01/06/23 Office Visit Thad Carney MD [facility] [place] Showing recent visits within past 365 days and meeting all other requirements Future Appointments No visits were found meeting these conditions. Showing future appointments within next 90 days and meeting all other requirements Passed - Lipid panel in past 12 months LDL Date Value Ref Range Status 10/12/2023 49 Final HDL CHOLESTEROL Date Value Ref Range Status 10/12/2023 13 Final CHOLESTEROL Date Value Ref Range Status 10/12/2023 85 Final TRIGLYCERIDES Date Value Ref Range Status 07/28/2023 303 (H) <150 mg/dL Final VLDL Date Value Ref Range Status 07/28/2023 61 (H) 10 - 50 mg/dL Final CHOL/HDL RATIO Date Value Ref Range Status 07/28/2023 3.8 0.0 - 4.4 Final NON-HDL CHOLESTEROL Date Value Ref Range Status 07/28/2023 84 <130 mg/dL Final mirtazapine (REMERON) 15 MG Tablet [Pharmacy Med Name: MIRTAZAPINE 15 MG Tablet] 90 Tablet 0 Sig: TAKE 1 TABLET EVERY NIGHT Alpha-2 Receptor Antagonists (6 Month Refill Only) Protocol Failed - 12/15/2023 10:46 AM Failed - Has an encounter in the past 6 months with a depression or anxiety visit diagnosis Passed - Visit with relevant provider in past 6 months or upcoming 90 days Recent Visits Date Type Provider Dept 10/07/23 Office Visit Jyotsna Costa APRN, ZOHAIB [facility] 07/25/23 Office Visit Carmelina Miller APRN, ROTARY PEEL OVEN TENDER [facility] Showing recent visits within past 182 days and meeting all other requirements Future Appointments No visits were found meeting these conditions. Showing future appointments within next 90 days and meeting all other requirements Passed - Patient has established therapy with Alpha-2 Receptor Antagonists for at least 6 months documented in this encounter Plan of Treatment Upcoming Encounters Date Type Department Care Team (Late st Contact Info) Description 05/24/2025 9:00 AM JAVA ARCHITECT Office Visit [facility] Medical Group - Family Medicine - [place] [address] [place] [address] Katrin Figueroa APRN, ROTARY PEEL OVEN TENDER [address] [place] [address] 06/05/2025 8:45 AM JAVA ARCHITECT Appointment [facility] Mammography [address] [place] [address] Cuca Landaverde, DO 2 [facility] [place] [address] Discharge Disposition: Discharged to home or Selfcare 08/15/2025 8:00 AM JAVA ARCHITECT Office Visit [facility] Medical [facility] - Endocrinology - [place] #2 [facility] [place] [address] Scott Tavera MD [address] [place] [address] 09/13/2025 8:00 AM JAVA ARCHITECT Office Visit [facility] - Family Medicine - [place] [address] [facility] [place] [address] Cuca Landaverde, DO 2 [address] [facility] [address] [place] [address] documented as of this encounter Goals Goal Patient Goal Type Associated Problems Recent Progress Patient-Stated? Author Behavioral Health Behavioral Health On track(2024 8:43 AM JAVA ARCHITECT) Yes Johnny Champion, FARM CREW MEMBER Note: I need to be able to cope better with all my stress Goal/Objective: Increase coping skills for stress. Anticipated Time Frame for Goal Completion: 6 months Goal Reviewed with: patient Readiness to change: Ready to change Department associated with goal: [facility] Steps to achieve [...] as of this encounter Visit Diagnoses Diagnosis Dyslipidemia Other and unspecified hyperlipidemia Depressive disorder Depressive disorder, not elsewhere classified documented in this encounter Additional Health Concerns Assessment Noted Time PHQ-9 Depression Total Score: 0 03/22/20 23 6:54 AM CDT documented as of this encounter Care Teams Parts Counter Clerk Relationship Specialty Start Date End Date Thad Carney MD PCP - General Family Medicine 12/20/19 12/26/23 Cuca Landaverde DO [address] [address] PCP - General Family Medicine 12/27/23 Anthony Guzman MD [address] [place] [address] Consulting Physician Gastroenterology 03/18/22 Evette Parry RN [place] Nurse Director Of Brand Marketing 12/27/23 12/27/23 Suzie Mulligan LPN [place] Health Blueprint Processor 04/20/24 04/20/24 Alicia Foreman LSW [place] Teacher'S Assistant Director Of Brand Marketing 04/20/24 Scott Tavera MD #[address] [address] Consulting Physician Endocrinology 11/06/24 Evette Parry, [place] Nurse Director Of Brand Marketing 01/01/25 documented as of this encounter
--- OUTSIDE RECORDS SUMMARY | 2025-05-23 16:59 | XMS_ITS | Encounter Summary ---
Author Organization [facility] Address [address] [place] [address] Phone Care Team Providers Care Data Officer Name Role Phone Thad Carney MD Primary Care Provider [phone] Evette Parry RN Unavailable Unavailable Anthony Guzman MD Unavailable [phone] Evette Parry RN Unavailable Unavailable Cuca Landaverde DO Primary Care Provider [phone] Suzie Mulligan PREFLIGHT INSPECTOR Unavailable Unavailable Alicia Foreman QUALITY ENG Unavailable Unavailab Scott Means MD Unavailable Evette Parry RN Unavailable Unavailable Reason for Visit * Reason Comments Medication Refill Encounter Details Date Type Department Care Team (Late st Contact Info) Description 03/06/2021 Refill [facility] #2 [place] [address] Thad Carney MD [address] [place] [address] Medication Refill Social History Tobacco Use Types Packs/Day Years Used Date Smoking Tobacco: Every Day Cigarettes 0.5 30 Smokeless Tobacco: Never Alcohol Use Standard Drinks/Week Comments No 0 (1 standard drink = 0.6 oz pur e alcohol) PHQ-2 Answer Date Recorded Total Score - Questions 1-9 17 12/09 Education Answer Date Recorded What is the highest level of school you have completed or the highest degree you have received? 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 No / Unsure 03/09/2021 3:17 PM CDT documented as of this encounter Miscellaneous Notes * Telephone Encounter - Nichole Marcano RN - 03/09/2021 12:18 PM CDT Medication failed the protocol, provider to review and approve the medication order if appropriate. Requested Prescriptions Pending Prescriptions Disp Refills cyclobenzaprine (FLEXERIL) 10 MG Tablet [Pharmacy Med Name: CYCLOBENZAPRINE HYDROCHLORIDE 10 MG Tablet] 270 Tablet 1 Sig: TAKE 1 TABLET THREE TIMES DAILY NEEDED FOR MUSCLE SPASMS Not Delegated - Muscle Relaxants Protocol Failed - 03/06/2021 4:11 PM Failed - This refill cannot be delegated Passed - Visit with relevant provider in past 12 months or upcoming 90 days Recent Visits Date Type Provider Dept 12/25/20 Office Visit Thad Carney MD [facility] 10/28/20 Office Visit Thad Carney MD [facility] 08/13/20 Office Visit Thad Carney MD [facility] 07/09/20 Telemedicine Thad Carney MD [facility] 07/01/20 Telemedicine Jyotsna Costa APN, ZOHAIB [facility] 04/29/20 Office Visit Thad Carney MD [facility] 04/01/20 Office Visit Thad Carney MD [facility] Showing recent visits within past 365 days and meeting all other requirements Future Appointments Date Type Provider Dept 04/23/21 Appointment Thad Carney MD [facility] Showing future appointments within next 90 days and meeting all other requirements methotrexate 2.5 MG Tablet [Pharmacy Med Name: METHOTREXATE SODIUM 2.5 MG Tablet] 36 Tablet Sig: TAKE 4 TABLETS BY MOUTH EVERY 7 DAYS [facility] Off-Protocol Failed - 03/06/2021 4:11 PM Failed - Medication not assigned to a protocol, review manually. Passed - Valid encounter within last 12 months Past Office Visits Recent Outpatient Visits 2 months ago Type 2 diabetes mellitus with diabetic neuropathy, without long- term current use of insulin ([facility]) [facility] Thad Begum MD 4 months ago Type 2 diabetes mellitus with diabetic neuropathy, without long- term current use of insulin ([facility]) [facility] Thad Begum MD 6 months ago HTN (hypertension), benign [facility] Thad Mercado MD 8 months ago Bronchitis [facility] Thad Mercado MD 8 months [facility] Upcoming Appointments Future Appointments In 1 month Thad Carney MD [facility] VACUUM CONDITIONER OPERATOR - Recent and Past Visits Recent Visits Date Type Provider Dept 12/25/20 Office Visit Thad Carney MD [facility] 10/28/20 Office Visit Thad Carney MD [facility] 08/13/20 Office Visit Thad Carney MD [facility] 07/09/20 Telemedicine Thad Carney MD [facility] 07/01/20 Telemedicine Jyotsna Costa APN, CNP [facility] 04/29/20 Office Visit Thad Carney MD [facility] 04/01/20 Office Visit Thad Carney MD [facility] 03/06/20 Office Visit Thad Carney MD [facility] 12/20/19 Office Visit Thad Carney MD [facility] Showing recent visits within past 460 days with a meds authorizing provider and meeting all other requirements Future Appointments Date Type Provider Dept 04/23/21 Appointment Thad Carney MD [facility] Showing future appointments within next 90 days with a meds authorizing provider and meeting all other requirements documented in this encounter Plan of Treatment Upcoming Encounters Date Type Department Care Team (Late st Contact Info) Description 05/24/2025 9:00 AM SUPERVISOR SAMPLE PREPARATION [facility] [place] [address]2 [place] [address] Katrin Figueroa, JOB SPECIFICATION WRITER, DECK ENGINE OPERATOR 2 [place] [address] 06/05/2025 8:45 AM SUPERVISOR SAMPLE PREPARATION [facility] 1 [place] [address] Cuca Landaverde, DO 2 [facility] [address] [place] [address] Discharge Disposition: Discharged to home or Selfcare 08/15/2025 8:00 AM SUPERVISOR SAMPLE PREPARATION [facility] [place] #2 [place] [address] Scott Tavera MD #[address] [address] 09/13/2025 8:00 AM SUPERVISOR SAMPLE PREPARATION [facility] [place] [address] [place] [address] Cuca Landaverde, DO 2 [facility] [address] [place] [address] documented as of this encounter Visit Diagnoses Diagnosis Pain of both hip joints documented in this encounter Additional Health Concerns Assessment Noted Time PHQ-9 Depression Total Score: 17 020 9:01 AM CDT documented as of this encounter Care Teams Data Officer Relationship Specialty Start Date End Date Thad Carney MD PCP - General Family Medicine 12/20/19 12/26/23 Cuca Landaverde DO 2 [facility] [address] [place] [address] PCP - General Family Medicine 12/27/23 Evette Parry, RN [place] [employer] 06/01/22 05/04/23 Anthony Guzman MD #[address] [place] [address] Consulting Physician Gastroenterology 03/18/22 Evette Parry, RN [place] Nurse [place] [employer] 12/27/23 12/27/23 Suzie Mulligan LPN [place] Health Manager Strategic 04/20/24 04/20/24 Alicia Foreman LSW [place] Hat Ironer [employer] 04/20/24 Scott Tavera MD #2 [facility] [address] [place] [address] Consulting Physician Endocrinology 11/06/24 Evette Parry, RN [place] Nurse [place] Rougher 01/01/25 documented as of this encounter
--- OUTSIDE RECORDS SUMMARY | 2025-05-23 16:59 | XMS_ITS | Encounter Summary ---
Author Organization [facility] Address [address] [place] [address] Phone Care Team Providers Care Concrete Smoother Name Role Phone Thad Carney MD Primary Care Provider [phone] Anthony Guzman MD Unavailable [phone] Evette Parry RN Unavailable Unavailable Cuca Landaverde DO Primary Care Provider [phone] Suzie Mulligan RN MDS Unavailable Unavailable Alicia Foreman EXTERNAL GRINDER Unavailable Unavailab Scott Means MD Unavailable Evette Parry RN Unavailable Unavailable Reason for Visit * Reason Comments Medication Refill Encounter Details Date Type Department Care Team (Late st Contact Info) Description 07/25/2023 [facility]ill [facility] #2 [place] [address] Thad Carney MD #1 [place], [place] [id number] Medication Refill Social History Tobacco Use Types [...] on file documented as of this encounter Functional Status * Question Answer Date of Assessment Author Little interest or pleasure in doing things Not at all 07/25/2023 7:52 AM Genia Mcgowan MA Feeling down, depressed, or hopeless Not at all 07/25/2023 7:52 AM ATHLETICS TEACHER Sylvia Almanzar MA * Over the past 2 weeks, how often have you been bothered by any of the following problems? Question Answer Date of Assessment Author Patient Health Questionnaire-2 Score 0 07/25/2023 7:52 AM Angle Mcgowan MA documented as of this encounter Miscellaneous Notes * Telephone Encounter - Nichole Marcano RN - 07/25/2023 4:25 PM CST Name from pharmacy: SPIRONOLACTONE 25 MG Tablet Will file in chart as: spironolactone (ALDACTONE) 25 MG Tablet The original prescription was discontinued on 11/16/2022 by Thad Carney MD ETICS TEACHER documented in this encounter Plan of Treatment Upcoming Encounters Date Type Department Care Team (Late st Contact Info) Description 05/24/2025 9:00 AM ATHLETICS TEACHER Office Visit [facility] [address]2 [place] [address] Katrin Figueroa, FREELANCE COURT STENOGRAPHER, SYSTEMS SOFTWARE DEVELOPER 2 [facility] [place] [address] 06/05/2025 8:45 AM ATHLETICS TEACHER Appointment [facility] Mammography 1 [facility] [place] [address] Cuca Landaverde, DO 2 [address] [address] [place] [address] Discharge Disposition: Discharged to home or Selfcare 08/15/2025 8:00 AM ATHLETICS TEACHER Office Visit [facility] Medical [facility] - Endocrinology - [place] [address]2 [place] [address] Scott Tavera MD #[address] [place] [address] 09/13/2025 8:00 AM ATHLETICS TEACHER Office Visit [facility] Medical [facility] - Family Medicine - [place] [address] [facility] [place] [address] Cuca Landaverde, DO 2 [facility] [address] [place] [address] documented as of this encounter Goals Goal Patient Goal Type Associated Problems Recent Progress Patient-Stated? Author Behavioral Health Behavioral Health On track(2024 8:43 AM ATHLETICS TEACHER) Yes Johnny Champion, MAGNETIC TESTING TECHNICIAN Note: I need to be able to cope better with all my stress Goal/Objective: Increase coping skills for stress. Anticipated Time Frame for Goal Completion: 6 months Goal Reviewed with: patient Readiness to change: Ready to change Department associated with goal: [facility] Steps to achieve goal: [...] as of this encounter Visit Diagnoses Diagnosis Hepatic cirrhosis, unspecified hepatic cirrhosis type, unspecified whether ascites present documented in this encounter Additional Health Concerns Assessment Noted Time PHQ-9 Depression Total Score: 0 03/22/20 23 6:54 AM CDT documented as of this encounter Care Teams Concrete Smoother Relationship Specialty Start Date End Date Thad Carney MD PCP - General Family Medicine 12/20/19 12/26/23 Cuca Landaverde DO 2 [facility] [address] [place] [address] PCP - General Family Medicine 12/27/23 Anthony Guzman MD #2 [place] [address] Consulting Physician Gastroenterology 03/18/22 Evette Parry, RN [place] Nurse Geomagnetist 12/27/23 12/27/23 Suzie Mulligan LPN [place] Health [place] Attendant 04/20/24 04/20/24 Alicia Foreman, EXTERNAL GRINDER [place] Torch Straightener Geomagnetist 04/20/24 Scott Tavera MD #[address] [address] Consulting Physician Endocrinology 11/06/24 Evette Parry, RN [place] Nurse Geomagnetist 01/01/25 documented as of this encounter
--- OUTSIDE RECORDS SUMMARY | 2025-05-23 16:59 | XMS_ITS | Encounter Summary ---
Author Organization [facility] Address [address] [place] [address] Phone Care Team Providers Care Front End Web Developer Name Role Phone Thad Carney MD Primary Care Provider [phone] Evette Parry RN Unavailable Unavailable Anthony Guzman MD Unavailable [phone] Evette Parry RN Unavailable Unavailable Cuca Landaverde DO Primary Care Provider [phone] Suzie Mulligan ANNEALING FURNACE OPERATOR Unavailable Unavailable Alicia Foreman GENERAL OFFICE CLERK Unavailable Unavailab Scott Means MD Unavailable Evette Parry RN Unavailable Unavailable Reason for Visit * Reason Comments Medication Refill Encounter Details Date Type Department Care Team (Late st Contact Info) Description 06/06/2022 Refill [facility] [address]2 [place] [address] Thad Carney MD [address] [place] [address] Medication Refill Social History Tobacco Use Types Packs/Day Years Used Date Smoking Tobacco: Every Day Cigarettes 0.5 30 Smokeless Tobacco: Never Alcohol Use Standard Drinks/Week Comments No 0 (1 standard drink = 0.6 oz pur e alcohol) PHQ-2 Answer Date Recorded Total Score - Questions 1-9 14 05/12 Education Answer Date Recorded What is the [...] Exposure Response Date Recorded In the last 10 days, have yo u been in contact with someone who was confirmed or suspected to have Coronavirus/COVID-19? No / Unsure 05/18/2022 7:46 AM HOG CONFINEMENT SYSTEM MANAGER documented as of this encounter Miscellaneous Notes * Telephone Encounter - Noemy Perrin RN - 06/07/2022 8:03 AM HOG CONFINEMENT SYSTEM MANAGER Medication failed the protocol, provider to review and approve the medication order if appropriate. Requested Prescriptions Pending Prescriptions Disp Refills Alcohol Swabs (DropSafe Alcohol Prep) 70 % Pads [Pharmacy Med Name: DROPSAFE ALCOHOL PREP PADS 70 %Pad] Sig: USE TO CLEAN SKIN PRIOR TO INSULIN INJECTION DAILY Not Delegated - Off Protocol Failed - 06/06/2022 2:18 AM Failed - This refill cannot be delegated Passed - Visit with relevant provider in past 12 months or upcoming 90 days Recent Visits Date Type Provider Dept 05/18/22 Office Visit Thad Carney MD [facility] 04/20/22 Office Visit Thad Carney MD [facility] 04/05/22 Office Visit Thad Carney MD [facility] 03/02/22 Office Visit Thad Carney MD [facility] 11/27/21 Office Visit Thad Carney MD [facility] 11/06/21 Office Visit Thad Carney MD [facility] 10/22/21 Office Visit Jyotsna Costa APRN, [facility] 08/25/21 Office Visit Thad Carney MD [facility] 08/06/21 Office Visit Thad Carney MD [facility] 07/31/21 Office Visit Thad Car[facility] MD [facility] Showing recent visits within past 365 days and meeting all other requirements Future Appointments Date Type Provider Dept 06/17/22 Appointment Thad Carney MD [facility] 06/17/22 Appointment Clinic[facility] Nurse [facility] Showing future appointments within next 90 days and meeting all other requirements CONFINEMENT SYSTEM MANAGER documented in this encounter Plan of Treatment Upcoming Encounters Date Type Department Care Team (Late st Contact Info) Description 05/24/2025 9:00 AM HOG CONFINEMENT SYSTEM MANAGER [facility] #2 [place] [address] Katrin Figueroa, CHAIR MECHANIC, RESIDENT CARE ASSOCIATE 2 [place] [address] 06/05/2025 8:45 AM HOG CONFINEMENT SYSTEM MANAGER Appointment [facility] Mamm[facility] 1 [place] [address] Cuca Landaverde, DO [address] [address] Discharge Disposition: Discharged to home or Selfcare 08/15/2025 8:00 AM HOG CONFINEMENT SYSTEM MANAGER [facility] [place] #2 [place] [address] Scott Tavera MD #[address] [address] 09/13/2025 8:00 AM HOG CONFINEMENT SYSTEM MANAGER [facility] #2 [place] [address] Cuca Landaverde DO 2 [facility] [address] [place] [address] documented as of this encounter Visit Diagnoses Not on filedocumented in this encounter Additional Health Concerns Assessment Noted Time PHQ-9 Depression Total Score: 14 022 2:28 PM HOG CONFINEMENT SYSTEM MANAGER documented as of this encounter Care Teams Front End Web Developer Relationship Specialty Start Date End Date Thad Carney MD PCP - General Family Medicine 12/20/19 12/26/23 Cuca Landaverde DO 2 [facility] [address] [place] [address] PCP - General Family Medicine 12/27/23 Evette Parry, RN [place] Flare Worker 06/01/22 05/04/23 Anthony Guzman MD #2 [place] [address] Consulting Physician Gastroenterology 03/18/22 Evette Parry, RN [place] Nurse Flare Worker 12/27/23 12/27/23 Suzie Mulligan LPN [place] Health Silk Trimmer 04/20/24 04/20/24 Alicia Foreman LSW [place] Attending Pathologist Flare Worker 04/20/24 Scott Tavera MD #[address] [address] Consulting Physician Endocrinology 11/06/24 Evette Parry, RN [place] Nurse Flare Worker 01/01/25 documented as of this encounter
--- OUTSIDE RECORDS SUMMARY | 2025-05-23 16:59 | XMS_ITS | Encounter Summary ---
Author Organization [facility] Address [address] [place] [address] Phone Care Team Providers Care Tie Carrier Name Role Phone Thad Carney MD Primary Care Provider [phone] Anthony Guzman MD Unavailable [phone] Evette Parry RN Unavailable Unavailable Cuca Landaverde DO Primary Care Provider [phone] Suzie Mulligan ORTHOTIC ASSISTANT Unavailable Unavailable Alicia Foreman AGRICULTURE MANAGER Unavailable Unavailab Scott Means MD Unavailable Evette Parry RN Unavailable Unavailable Reason for Visit * Reason Comments Medication Refill Encounter Details Date Type Department Care Team (Late st Contact Info) Description 09/06/2023 Refill [facility] #2 [place] [address] Thad Carney MD #1 [place], [place] [id number] Medication Refill Social History Tobacco Use Types [...] Telephone Encounter - Nichole Marcano RN - 09/06/2023 5:21 PM CST Medication(s) [facility] Standing Order for Pediatricand Adult Patients. Requested Prescriptions Pending Prescriptions Disp Refills Insulin Pen Needle (Droplet Pen Mitchell) 31G X 8 MM Misc [Pharmacy Med Name: DROPLET PEN NEEDLES [id number] 31G X 8 MM] 400 Pen Needle 3 Sig: USE INSTRUCTED TO INJECT INSULIN FOUR TIMES DAILY Diabetic Supplies Protocol Passed - 09/06/2023 4:22 PM Passed - Visit with relevant provider in past 6 months Recent Visits Date Type Provider Dept 07/25/23 Office Visit Carmelina Miller APRN, BASKET GRADER [facility] [place] 03/22/23 Office Visit Thad Carney MD [facility] Showing recent visits within past 182 days and meeting all other requirements Future Appointments Date Type Provider Dept 11/24/23 Appointment Thad Carney MD [facility] Showing future appointments within next 90 days and meeting all other requirements CARRIER MAINTENANCE INSPECTOR documented in this encounter Plan of Treatment Upcoming Encounters Date Type Department Care Team (Late st Contact Info) Description 05/24/2025 9:00 AM AIR CARRIER MAINTENANCE INSPECTOR Office Visit [facility] - [place] #[address] [place] [address] Katrin Figueroa APRN, BASKET GRADER 2 [place] [address] 06/05/2025 8:45 AM AIR CARRIER MAINTENANCE INSPECTOR Appointment [facility] Mammography [address] [place] [address] Cuca Landaverde, DO 2 [facility] [address] [place] [address] Discharge Disposition: Discharged to home or Selfcare 08/15/2025 8:00 AM AIR CARRIER MAINTENANCE INSPECTOR Office Visit [facility] - Endocrinology - [place] #[address] [facility] [address] Scott Tavera MD #[address] [place] [address] 09/13/2025 8:00 AM AIR CARRIER MAINTENANCE INSPECTOR Office [facility] Medical [facility] - Family Medicine - [place] #[address] [facility] [place] [address] Cuca Landaverde, DO 2 [address] [facility] [place] [address] [place] [address] documented as of this encounter Goals Goal Patient Goal Type Associated Problems Recent Progress Patient-Stated? Author Behavioral Health Behavioral Health On track(2024 8:43 AM AIR CARRIER MAINTENANCE INSPECTOR) Yes Johnny Champion, IT COORDINATOR Note: I need to be able to cope better with all my stress Goal/Objective: Increase coping skills for stress. Anticipated Time Frame for Goal Completion: 6 months Goal Reviewed with: patient Readiness to change: Ready to change Department associated with goal: [facility] Steps to achieve goal: [...] as of this encounter Visit Diagnoses Diagnosis Type 2 diabetes mellitus with diabetic neuropathy, with long-term current use of insulin documented in this encounter Additional Health Concerns Assessment Noted Time PHQ-9 Depression Total Score: 0 03/22/20 23 6:54 AM CDT documented as of this encounter Care Teams Tie Carrier Relationship Specialty Start Date End Date Thad Carney MD PCP - General Family Medicine 12/20/19 12/26/23 Cuca Landaverde DO [address] [address] PCP - General Family Medicine 12/27/23 Anthony Guzman MD #2 [place] [address] Consulting Physician Gastroenterology 03/18/22 Evette Parry RN [place] Nurse Parts Counterman 12/27/23 12/27/23 Suzie Mulligan LPN [place] Health Field Pipe Lines Supervisor 04/20/24 04/20/24 Alicia Foreman LSW [place] Oil Recovery Operator Parts Counterman 04/20/24 Scott Tavera MD #[address] [address] Consulting Physician Endocrinology 11/06/24 Evette Parry, RN [place] Nurse Parts Counterman 01/01/25 documented as of this encounter
--- OUTSIDE RECORDS SUMMARY | 2025-05-23 16:59 | XMS_ITS | Encounter Summary ---
Author Organization [facility] Address [address] [place] [address] Phone Care Team Providers Care Glass Maker Name Role Phone Thad Carney MD Primary Care Provider [phone] Anthony Guzman MD Unavailable [phone] Evette Parry RN Unavailable Unavailable Cuca Landaverde DO Primary Care Provider Suzie Mulligan FAMILY AND CONSUMER EDUCATION TEACHER Unavailable Unavailable Alicia Foreman PARATRANSIT DRIVER Unavailable Unavailab Scott Means MD Unavailable Evette Parry RN Unavailable Unavailable Reason for Visit * Reason Comments Medication Refill Encounter Details Date Type Department Care Team (Late st Contact Info) Description 12/12/2023 Refill [facility] #2 [place] [address] Thad Carney MD #[address] [place], [place] [id number] Medication Refill Social History Tobacco Use Types [...] Telephone Encounter - Nichole Marcano RN - 12/12/2023 12:11 PM CDT How many times a daily should she be testing? Last Rx's were for once daily. Patient is taking Novolog 3x daily and Toujeo once daily. * Telephone Encounter - Nichole Marcano RN - 12/12/2023 12:10 PM CDT Per nursing clinical judgement, provider to review and approve the medication(s) order(s) if appropriate. Requested Prescriptions Pending Prescriptions Disp Refills Accu-Chek Guide Strip [Pharmacy Med Name: ACCU-CHEK GUIDE Strip] 100 Strip 3 Sig: TEST BLOOD SUGAR EVERY DAY DIRECTED Diabetic Supplies Protocol Passed - 12/12/2023 2:23 AM Passed - Visit with relevant provider in past 6 months Recent Visits Date Type Provider Dept 10/07/23 Office Visit Jyotsna Costa APRN, CONSUMER AFFAIRS MANAGER [facility] 07/25/23 Office Visit Carmelina Miller APRN, CONSUMER AFFAIRS MANAGER [facility] Showing recent visits within past 182 days and meeting all other requirements Future Appointments No visits were found meeting these conditions. Showing future appointments within next 90 days and meeting all other requirements Accu-Chek Softclix Lancets Misc [Pharmacy Med Name: ACCU-CHEK SOFTCLIX LANCETS] 100 Each 3 Sig: USE TO TEST ONCE DAILY Diabetic Supplies Protocol Passed - 12/12/2023 2:23 AM Passed - Visit with relevant provider in past 6 months Recent Visits Date Type Provider Dept 10/07/23 Office Visit Jyotsna Costa, MERCHANDISING LEAD, CONSUMER AFFAIRS MANAGER [facility] [place] 07/25/23 Office Visit Carmelina Miller MERCHANDISING LEAD, CONSUMER AFFAIRS MANAGER [facility] Show[facility] recent visits within past 182 days and meeting all other requirements Future Appointments No visits were found meeting these conditions. Showing future appointments within next 90 days and meeting all other requirements documented in this encounter Plan of Treatment Upcoming Encounters Date Type Department Care Team (Late st Contact Info) Description 05/24/2025 9:00 AM CABINET INSTALLER Office Visit [facility] Family [facility] [place] #2 [place] [address] Katrin Figueroa APRN, CONSUMER AFFAIRS MANAGER 2 [facility] [address] 06/05/2025 8:45 AM CABINET INSTALLER [facility] 1 [place] [address] Cuca Landaverde, DO [address] [address] Discharge Disposition: Discharged to home or Selfcare 08/15/2025 8:00 AM CABINET INSTALLER [facility] [place] #2 [place] [address] Scott Tavera MD #[address] [place] [address] 09/13/2025 8:00 AM CABINET INSTALLER [facility] [place] #2 [place] [address] Cuca Landaverde, DO 2 [facility] [address] [place] [address] documented as of this encounter Goals Goal Patient Goal Type Associated Problems Recent Progress Patient-Stated? Author Behavioral Health Behavioral Health On track(2024 8:43 AM CABINET INSTALLER) Yes Johnny Champion, SCREW MACHINE HAND Note: I need to be able to cope better with all my stress Goal/Objective: Increase coping skills for stress. Anticipated Time Frame for Goal Completion: 6 months Goal Reviewed with: patient Readiness to change: Ready to change Department associated with goal: [facility] Steps to achieve goal: [...] diabetic neuropathy, with long-term current use of insulin- Primary documented in this encounter Additional Health Concerns Assessment Noted Time PHQ-9 Depression Total Score: 0 03/22/20 23 6:54 AM CDT documented as of this encounter Care Teams Glass Maker Relationship Specialty Start Date End Date Thad Carney MD PCP - General Family Medicine 12/20/19 12/26/23 Cuca Landaverde DO 2 [facility] [address] [address] PCP - General Family Medicine 12/27/23 Anthony Guzman MD #2 [place] [address] Consulting Physician Gastroenterology 03/18/22 Evette Parry RN [place] Nurse Honey Blender 12/27/23 12/27/23 Suzie Mulligan LPN [place] Health Office Support Clerk 04/20/24 04/20/24 Alicia Foreman LSW [place] Printed Circuit Board Layout Designer Honey Blender 04/20/24 Scott Tavera MD #[address] [address] Consulting Physician Endocrinology 11/06/24 Evette Parry RN [place] Nurse Honey Blender 01/01/25 documented as of this encounter
--- OUTSIDE RECORDS SUMMARY | 2025-05-23 16:59 | XMS_ITS | Clinical Summary ---
Author Organization [facility] Physician Office Building [address] [place] [id number] Care Team Providers Care Materials Handler Name Role Phone Thad Carney MD Primary Care Provider [phone] Zaid Jose MD Unavailable [phone] Ezekiel Samano MD Unavailable [phone] Allergies Active Allergy Reactions Criticality Noted Date Comments Alprazolam Hallucinations Medium 07/28/2016 Benzodiazepines Unknown 09/03/2014 Levofloxacin Hives,Swelling Medium 09/03/2014 Quinolones Hives Medium 09/03/2014 Varenicline Hallucinations Medium 07/28/2016 Medications gabapentin (NEURONTIN) 300 mg capsuleIndications:N europathic Pain Take 4 capsules (1,200 mg total) by mouth 3 (three) times a day Active oxybutynin XL (DITROPAN-XL) 10 mg 24 hr tabletIndications:Bl adder Hyperactivity Take 1 tablet (10 mg total) by mouth every morning Active ergocalciferol (VITAMIN D) 50,000 unit capsuleIndications:V itamin D Deficiency Take 1 capsule (50,000 Units total) by mouth once a week On Tuesday Active cyclobenzaprine (FLEXERIL) 10 mg tablet Take 1 tablet (10 mg total) by mouth every morning Active fluticasone (FLONASE) 50 mcg/actuation nasal sprayIndications:All ergic Rhinitis Administer 1 spray into each nostril every morning Active traZODone (DESYREL) 50 mg tabletIndications:in somnia associated with depression Take 1 tablet (50 mg total) by mouth nightly 08/14/19 Active mirtazapine (REMERON) 15 mg tabletIndications:sl eep Take 1 tablet (15 mg total) by mouth nightly 04/01/20 20 Active lancets 33 gauge misc OneTouch Delica Plus Lancet 33 gauge Active blood-glucose meter misc E11.4 Testing QD. 04/01/20 Active BD Alcohol Swabs pads, medicated 08/21/19 22 Active atorvastatin (LIPITOR) 40 mg tabletIndications:hy perlipidemia Take 1 tablet (40 mg total) by mouth nightly 08/04/19 Active Accu-Chek Gretel Control Soln solution 08/21/19 Active Accu-Chek Guide test strips strip 08/26/19 22 Active escitalopram (LEXAPRO) 20 mg tabletIndications:An xiety with Depression Take 1 tablet (20 mg total) by mouth every morning 08/04/19 22 Active BD Gissell 2nd Gen Pen Needle 32 gauge x 32 needle as directed 07/29/19 22 Active sucralfate (CARAFATE) 1 gram tabletIndications:He artburn Take 1 tablet (1 g total) by mouth 4 (four) times a day 07/31/19 22 Active allopurinoL (ZYLOPRIM) 100 mg tabletIndications:pr evention of acute gout attack Take 1 tablet (100 mg total) by mouth every morning 06/21/20 23 Active albuterol HFA (PROVENTIL HFA,VENTOLIN HFA,PROAIR HFA) 90 mcg/actuation inhaler Inhale 2 puffs every 6 (six) hours as needed for shortness of breath or wheezing 11/25/19 24 Active acetaminophen 500 mg capsuleIndications:F ever,Pain Take 2 capsules (1,000 mg total) by mouth every 6 (six) hours as needed for pain 11/25/19 24 Active ascorbic acid (VITAMIN C) 500 mg tablet,chewable Take 1 tablet/chew tab (500 mg total) by mouth 2 (two) times a day 11/25/19 24 Active Additional Information Patient not taking.Reported on 05/23/2025 fenofibrate nanocrystallized (TRICOR) 48 mg tablet Take 1 tablet (48 mg total) by mouth daily 11/26/19 Active PNV with felthoh-ryzh-MJ 27 mg iron- 1 mg tablet Take 1 tablet by mouth daily 11/26/19 Active Additional Information Patient not taking.Reported on 05/23/2025 zinc sulfate (ZINCATE) 50 mg zinc (220 mg) capsule Take 1 capsule (220 mg total) by mouth daily 11/26/19 Active oxyCODONE (ROXICODONE) 5 mg immediate release tabletIndications:Pa in Take 1 tablet (5 mg total) by mouth every 6 (six) hours as needed for pain 10 tablet 11/25/19 Active Additional Information Patient not taking.Reported on 05/23/2025 aspirin 81 mg chewable tablet Take 1 tablet (81 mg total) by mouth daily 07/08/20 Active polyethylene glycol 3350 4 gram powder in packet 07/08/20 Active omega 5-lsg-lun-fish oil (Fish OiL) 300-1,000 mg capsule Take by mouth Active busPIRone (BUSPAR) 15 mg tablet Take 1 tablet (15 mg total) by mouth 3 (three) times a day 11/03/19 Active omeprazole 20 mg tablet,delayed release (DR/EC) Take 1 tablet (20 mg total) by mouth daily 12/06/19 Active metFORMIN (FORTAMET) 1,000 mg 24 hr tablet Take 1 tablet (1,000 mg total) by mouth 2 (two) times a day with meals 12/06/19 Active ferrous sulfate ER 324 mg (65 mg iron) EC tablet Take 1 tablet every day by oral route. 07/08/20 Active magnesium gluconate 200 mg tablet 07/08/20 21 Active folic acid 20 mg capsule 07/08/20 21 Active FLUTICASONE PROPIONATE INHAL 08/10/19 19 Active codeine phosphate/guaifenesi n (GUAIFENESIN AC ORAL) 07/08/20 21 Active OMEGA-3 FATTY ACIDS ORAL 07/08/20 21 Active semaglutide (Ozempic) 0.25 mg or 0.5 mg(2 mg/1.5 mL) pen injector injection Inject 0.25 mg under the skin once a week Active HYDROcodone-acetamin ophen (NORCO) 5-325 mg per tabletIndications:Pa in Take 1 tablet by mouth every 8 (eight) hours as needed for pain Active hydrOXYzine (ATARAX) 25 mg tablet Take 1 tablet (25 mg total) by mouth every 6 (six) hours as needed for anxiety Active metoclopramide (REGLAN) 5 mg tablet Take 1 tablet (5 mg total) by mouth 4 (four) times a day Active amLODIPine (NORVASC) 5 mg tablet Take 1 tablet (5 mg total) by mouth daily 05/15/20 25 Active buPROPion XL (WELLBUTRIN XL) 300 mg 24 hr tablet Take 1 tablet (300 mg total) by mouth [employer] before breakfast 04/10/20 25 Active dicyclomine (BENTYL) 10 mg capsule Take 1 capsule (10 mg total) by mouth 3 (three) times a day 01/22/20 25 Active isosorbide mononitrate ER (IMDUR) 60 mg 24 hr tablet Take 1 tablet (60 mg total) by mouth 04/16/20 25 Active losartan-hydrochloro thiazide (HYZAAR) 100-25 mg per tablet Take 1 tablet by mouth 03/15/20 25 Active metoprolol XL (TOPROL-XL) 50 mg extended release tablet Take 1 tablet (50 mg total) by mouth 04/10/20 25 Active tiotropium (SPIRIVA) 18 mcg per inhalation capsule Place 1 capsule into inhaler and inhale 2 puffs (18 mcg total) daily 12/11/19 25 Active gabapentin (NEURONTIN) 600 mg tablet Take 1 tablet (600 mg total) by mouth 05/13/20 25 Active Mounjaro 7.5 mg/0.5 mL pen injector injection Inject 0.5 mL (7.5 mg total) under the skin once a week 11/10/19 25 Active Active Problems Problem Noted Date Diagnosed Date Anemia of chronic disease 12/02/2023 Chronic pain 11/17/2023 Assessment & Plan (11/17/2023 11:57 AM CDT): Home regimen: flexeril (continued), gabapentin (continued), meloxicam (held) GERD (gastroesophageal reflux disease) Assessment & Plan (11/17/2023 11:58 AM CDT): Home regimen: reglan (held), carafate (continued) OAB (overactive bladder) 11/17/2023 Assessment & Plan (11/17/2023 11:59 AM CDT): Home regimen: oxybutynin (continued) Drop in hemoglobin 11/17/2023 Assessment & Plan (11/24/2023 12:27 PM CDT): 11/16 hgb 7.6 overnight, transfused 1un PRBC iso CAD, transfusion threshold: 8 11/17 hgb 10 from 9.5, no signs of bleeding 11/18: HgB 9.9; no signs of bleeding 11/22 Hgb 7.8, no signs of active bleeding, repeat CBC tonight and wound check with next WV change 11/23: Hgb 7.5, HDS Hyperkalemia 11/16/2023 Assessment & Plan (11/16/2023 1:27 PM CDT): 11/15 protocol last night received, WBK NL - RESOLVED Sepsis, due to unspecified o rganism, unspecified whether acute organ dysfunction present 11/15/2023 Assessment & Plan (11/15/2023 12:39 PM CDT): See ABSCESS for management Encounter for medication review 11/15/2023 Assessment & Plan (11/18/2023 9:17 AM CDT): 11/14 clarified home medication regimen post-op Discharge planning issues 11/15/2023 Assessment & Plan (11/25/2023 12:33 PM CDT): 11/14 patient reports functional independence at baseline, case management+SW consulted for confirmation, OR today, ADD end of week at earliest 11/15 OR tomorrow, ADD early next week, SW and CM to see - patient requesting hotline to be called for self-neglect iso chronic depression, PT to eval 11/16 PT to see, anticipate SNF given patient's admitted inability to care for self at home, ADD early next week 11/17-11/18 RTOR Tuesday, anticipate need for placement mid next week with WV 11/19 WV with open wound, bedside dressing changes. Not ready for discharge. 11/21 DC with wound vac Patient is medically stable for discharge, SW/CM updated. Discharge pending facility acceptance 11/22-11/23 Remains medically stable, pending auth acceptance 11/24: Discharged to SNF At risk for malnutrition 11/15/2023 Assessment & Plan (11/23/2023 2:12 PM CDT): 11/14 RD consulted for malnutrition evaluation, nutrition labs tonight and weekly while inpatient, vitamins + supplements 11/15 ASPEN criteria NOT met, continue diet + supplements 11/18 - present Tolerating Carb consistent diet and supplements. LABS 11/14 albumin 2, prealbumin 6 Closed fracture of multiple ribs of right side 0 11/15/2023 Assessment & Plan (11/18/2023 9:14 AM CDT): 11/[address] overread: displaced fracture of the right 9th rib, with component of fracture position within this fluid collection. - patient reports falling into object while playing with great grandson 2w prior to admission, rib fxs communicate with fluid collection, broad abx, pulmonary toilet 11/15 1L per IS, CXR for surveillance this AM, CPT as ordered 11/16-11/17 RA, continue IS (1500cc) + CPT Abscess 11/14/2023 Assessment & Plan (11/25/2023 12:35 PM CDT): 11/13 presented to ED with c/o abd drainage started 1 day prior with abdominal wounds that appeared approximatly 2 weeks ago per patient, after playing with great grandson, CT with large abscess in communication with R rib fxs and abdominal wall IMPRESSION: large, multiloculated peripherally enhancing fluid collection along the anterior and lateral right abdominal wall, which extends from the level of the right lateral 8th rib level of the iliac crest. This collection measures up to 21 cm in greatest craniocaudal dimension with the largest component measuring approximately 13.4 x 4.2 cm in greatest transaxial diameter. The collection appears to dissect multiple fascial planes throughout the anterior abdominal wall. --- broad abx, NPO 11/14 AFVSS, continue vanc/cefe/flagyl, OR today for debridement, f/u cultures, RTOR 24h --- 11/14 OR ([facility]): I&D abdominal wall 11/15 AFVSS, wbc 20 from 14, dressing changed by this author this AM, no purulence, OR tomorrow, continue BID WTD dressings and abx as below 11/16 AFVSS, wbc 11 from 20, OR today, abx as below, vanc dosing held for supratherapeutic value --- 11/16 OR ([facility]): I&D abdominal wall, skin bridge removed, wound: 24cm x 24cm x7cm 11/17 AFVSS, wbc 13, cultures as below, stop vanc, dressing change with photo today, RTOR Saturday 11/18: Plan for OR today for debridement, wound vacuum placement. Continue Cefe/Flagyl. WBC 10.2 from 13.1. AFVSS. Doing well. -11/18 OR ([facility]) Debridement abdominal wall, partial closure, WV placed. 11/[address] holding suction. Tolerating a diet and had BM overnight. Abdominal wall culture NGTD. Continue IV cefepime, flagyl. Planning bedside WV change tomorrow. Will use white foam/adaptic to base of wound and in area of tunneling near ribs. 11/20: WV replaced at bedside, ABx duration pending 11/21: Will DC with wound vac to facility , continue CTX for 7 days, switch to PO at the time of discharge 11/22 WV holding seal, continue rocephin while inpatient. If still inpatient, plan to change WV tomorrow 11/23: Bedside wound vac change 11/24: Discharged to SNF, continue twice weekly wound vac changes F/U scheduled on 12/12 for post op check and wound vac change Discussion with patient regarding coverage options. No concern with cosmetic coverage. Patient would prefer STSG over PRS flap coverage d/t complexity of surgery and healing time. Plan to discharge with WV in place. Follow up in [facility] clinic in 2 weeks for wound check and discussion of STSG coverage planning HISTORICAL CULTURE DATA: none CURRENT CULTURE DATA 11/14 nasal MRSA swab: negative 11/14 blood: NG final 11/14 peritoneal fluid: group B strep 11/14 peritoneal fluid fungal: NFGTD 11/14 abd wall tissue: group B strep, staph lugdunensis, mixed orgs 11/14 abd wall tissue fungal: NFGTD 11/14 abd wall tissue: group B strep 11/14 abd wall tissue fungal: NFGTD 11/18 abd tissue: NG final ANTIBIOTICS Ancef 11/14 periop Vanc 11/14-11/17 Cefepime 11/13-11/20 Flagyl 11/13-11/20 Ceftriaxone 11/20-11/24 Augmentin 11/24-11/25 PATHOLOGY 11/17 OR: A. Skin, right chest wall lesion, excision: - Acute inflammation and necrosis, including fragments of necrotic bone in a background of granulation tissue and regenerative bone - Negative for malignancy Anal fistula 08/02/2023 Vaginal fistula 08/02/2023 Rectovaginal fistula 06/30/2023 Assessment & Plan (11/15/2023 12:38 PM CDT): H/o sigmoidectomy for diverticular disease Follows outpatient with Dr. Samano, last seen 10/11/23, EUA negative as below, RTC PRN HISTORICAL SURGICAL PROCEDURES 08/26/23 OR ([facility]): EUA with anoscopy, rigid proctoscopy and vaginoscopy, no abnormalities or fistula identified, methylene blue via rectum without vaginal dye noted; anastomosis not visualized due to stool --> MRI: no fistula 07/26/23 colonoscopy: Tcolon polyps, healthy anastomosis, no fistula (path benign) Closed fracture of metatarsal bone 11/05/2021 Pain in right foot 10/29/2021 Brachial neuritis 09/22/2021 Cervical spondylosis without myelopathy 09/23/19 22 Spinal stenosis in cervical region 09/22/2021 Closed fracture of proximal phalanx of toe 08/05 CKD (chronic kidney disease) 05/26/2021 Assessment & Plan (11/23/2023 2:02 PM CDT): Care everywhere interrogated, based on office visit documentation, baseline Cr 1.4-1.5 11/14-11/18 sCr well below baseline, strict I&O, daily labs 11/19 sCr 0.7, below baseline. UOOP 1350 ml. 11/22 sCr stable; +UOP; OK to stop daily labs while pending SNF dispo Esophageal dysmotility 04/30/2021 Gastroparesis 04/30/2021 Nausea & vomiting 04/30/2021 NSAID long-term use 04/30/2021 Cirrhosis of liver 09/08/2019 Dry skin 02/08/2019 Fibrocystic change of breast, left 11/17/2018 Foot callus 10/05/2018 Anxiety disorder 08/10/2018 Dizziness 08/10/2018 Headache 08/10/2018 Heartburn 08/10/2018 Plantar fasciitis of right foot 08/10/2018 Seasonal allergies 08/10/2018 Sleep disorder 08/10/2018 Exposure to secondhand smoke 05/24/2018 Macromastia 05/24/2018 Tear of right rotator cuff 05/24/2018 Tachycardia 12/24/2017 Leukemoid reaction 10/24/2017 Iron deficiency 02/08/2017 Neuropathy 01/05/2017 Diastolic dysfunction 02/19/2016 Assessment & Plan (11/23/2023 2:05 PM CDT): 10/2023 elective cath cancelled d/t kidney fxn 2.1 from baseilne 1.4-1.5 (recurrent CP with +stress test for inferior ischemia 08/2023 OSH exercise stress test: unable to open report, office note documentation supporting inferior ischemia 12/2021 OSH echo: unable to open report Home regimen: imdur, losartan-hctz, metoprolol 11/16 metoprolol held for asymptomatic bradycardia documented overnight - patient endorses she takes metoprolol as prescribed, resume remaining regimen as indicated 11/17-11/18: HDS, ongoing intermittent asymptomatic bradycardia, continue to hold metoprolol, resume imdur 11/22 HDS with metoprolol held Dyslipidemia 01/15/2016 Assessment & Plan (11/17/2023 11:55 AM CDT): Home regimen: lipitor, fenofibrate (continued) Obstructive sleep apnea syndrome 12/12/2015 Assessment & Plan (11/15/2023 12:36 PM CDT): precautions Dependence on continuous pos itive airway pressure ventilation 12/12/2015 Abdominal mass 12/04/2015 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 11/20/2015 Calculus of kidney 11/20/2015 Angina pectoris 11/20/2015 Overview (05/26/2021): CCM Enroll Chronic obstructive pulmonary disease 11/20/2015 Assessment & Plan (11/17/2023 11:43 AM CDT): PFTs: none on file Home regimen: none SpO2 goal >88 Stable on RA Family history of heart disease 11/20/2015 Hyperlipidemia 11/20/2015 Intermittent claudication 11/20/2015 Lung nodule 11/20/2015 Overweight 11/20/2015 Vitamin D deficiency 11/20/2015 Allergic rhinitis 10/15/2015 Asthma 10/15/2015 Chronic depression 10/15/2015 Assessment & Plan (11/17/2023 11:44 AM CDT): - follows with [facility] s/p ECT (last 09/28/23), plan to repeat in 4w + individual therapy Home regimen: buspar, lexapro, trazodone (continued) DM (diabetes mellitus) 10/15/2015 Assessment & Plan (11/25/2023 12:32 PM CDT): Home regimen: lantus 76un nightly 11/14 add-on A1c: 6.6, clarify home regimen post-op, goal BG <180, SSI 11/15 BG elevated overnight iso receiving D10 bolus for hyperkalemia protocol, SSI dosing modified 11/16 Endo consulted given presentation was precipitated by infection, BG controlled 11/17-11/18 BG controlled, PO intake low, continue SSI for now per Endo 11/19 BG 125-218 11/22 Endo following; continued with SSI, diabetes nurse educator ordered to meet with patient 11/23: Per Endo, discharge on Metformin 500 mg BID x 1 week, then 1000 mg BID. NO insulin. 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 History of renal calculi 10/15/2015 History of transient ischemic attack 10/15/2015 Assessment & Plan (11/17/2023 11:55 AM CDT): Home regimen: lipitor, fenofibrate (continued) Primary hypertension 10/15/2015 Overview (01/20/2022): CCM enroll CCM enroll CCM enroll CCM enroll Assessment & Plan (11/15/2023 12:37 PM CDT): See DIASTOLIC DYSFUNCTION for management Metabolic syndrome X 10/15/2015 Mitral valve prolapse 10/15/2015 Nonalcoholic fatty liver disease 10/15/2015 Peripheral vascular disease 10/15/2015 Assessment & Plan (11/17/2023 11:55 AM CDT): Home regimen: lipitor, fenofibrate (continued) Psoriasis 10/15/2015 Tobacco dependence syndrome 10/15/2015 Adhesive capsulitis of shoulder 07/22/2015 Pain in shoulder 07/22/2015 Hemochromatosis 08/06/2014 Osteoarthritis 04/17/2014 Rheumatoid arthritis 04/17/2014 Assessment & Plan (11/17/2023 11:56 AM CDT): Home regimen: none Joint pain 12/12/2013 Raised antibody titer 12/12/2013 Encounters Date Type Department Care Team Description 05/23/2025 2:45 PM 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 Care at [address] [id number] Kaylie Rojo, BELEN Decreased appetite (Primary Dx); Generalized abdominal pain; Weight loss from Last 3 Months Immunizations Immunization Administration Dates Next Due Hep A, Adult 06/08/2006,11/19/2005 Influenza, Quadrivalent, Spl it, Intramuscular 03/24/2017 Influenza, Quadrivalent, Spl it, Preservative Free, Intramuscular 04/05/2022,04/17/2021,04/28/2019,04/09,03/31/2018,03/30/2018 Influenza, Trivalent, IM (MDV) 05/13/2020 Influenza, Unspecified 09/17/2014,09/03/2014 Pneumococcal Conjugate Pcv20 03/02/2022 Tdap 06/05/2016 Surgical History Surgery Date Site/Laterality Comments TOTAL ABDOMINAL HYSTERECTOMY W/ BILATERAL SALPINGOOPHORECTOMY 07/11/1989 - 07/10/1990 Hysterectomy Total, With Removal Of Both Tubes And Both Ovaries - (Added by TW Conv) SC TONSILLECTOMY PRIMARY/SECONDARY <AGE 12 Tonsillectomy - (Added by TW Conv). 1969' SC CHOLECYSTECTOMY Cholecystectomy - (Added by TW Conv). CARDIAC CATHETERIZATION Cardiac Cath Procedure Summary - (Added by TW Conv) All Clear BOWEL RESECTION 07/07/2023 sigmoid CARPAL TUNNEL RELEASE 07/11/2020 - 07/10/2021 Right SECTION 07/11/1983 - 07/10/1984 COLONOSCOPY 07/26/2023 ANAL EXAMINATION UNDER ANESTHESIA 08/22/2023 Exam under anesthesia, rigid proctoscopy, vaginoscopy Medical History Medical History Date Comments Unspecified disorder of circulatory system Poor circulation - (Added by TW Conv) Pure hypercholesterolemia High c holesterol - (Added by TW Conv) Personal history of other di seases of the respiratory system History of asthma - (Added b y TW Conv) Personal history of other en docrine, nutritional and metabolic disease History of diabetes mellitus - (Added by TW Conv) Gastro-esophageal reflux dis ease without esophagitis Gastric reflux - (Added by T W Conv) Personal history of other me ntal and behavioral disorders History of depression - (Add ed by TW Conv) Personal history of other di seases of the musculoskeletal system and connective tissue History of rheumatoid arthri tis - (Added by TW Conv) Convulsions (HCC) Seizures - (Ad ded by TW Conv)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 Hypertension SAUD on CPAP Diverticulitis 06/2023 Fistula COPD (chronic obstructive pu lmonary disease) Asthma Family History Medical History Relation Name Comments Cancer Father Family history of malignant neoplasm - (Added by TW Conv) Kidney disease Father Family histor y of kidney disease - (Added by TW Conv) Cancer Mother Family history of malignant neoplasm - (Added by TW Conv) Heart attack Mother Heart failure Mother Family history of heart failure - (Added by TW Conv) Kidney disease Mother Family histor y of kidney disease - (Added by TW Conv) Mental illness Mother Mental proble m - (Added by TW Conv) Leukemia Sister 1 Family history of leukemia - (Added by TW Conv) Cancer Sister 2 Family history of malignant neoplasm - (Added by TW Conv) Low Back Pain Sister 3 Family history of low back pain - (Added by TW Conv) Arthritis Sister 4 Family history of arthritis - (Added by TW Conv) Bleeding Disorder Sister 5 Family his tory of bleeding disorder - (Added by TW Conv) Diabetes Sister 6 Family history of diabetes mellitus - (Added by TW Conv) Heart disease Sister 7 Family history of cardiac disorder - (Added by TW Conv) Lung disease Sister 8 Family history of lung disease - (Added by TW Conv) Seizures Sister 9 Family history of seizures - (Added by TW Conv) Stroke Sister 10 Family history of cerebrovascular accident (CVA) - (Added by TW Conv) Hypertension Sister 11 Family history of hypertension - (Added by TW Conv) Anesthesia problems Neg Hx Relation Name Status Comments Father Mother CO age 50s Sister 1 Sister 2 Sister 3 Sister 4 Sister 5 Sister 6 Sister 7 Sister 8 Sister 9 Sister 10 CVA age 30s Sister 11 Social History Tobacco Use Types Packs/Day Years Used Date Smoking Tobacco: Every Day Cigarettes 0.5 43.9 Started: 1981 Smokeless Tobacco: Never Tobacco Cessation:Ready to Q uit: No Alcohol Use Standard Drinks/Week Comments Never 0 (1 standard drink = 0.6 oz pur e alcohol) [facility] Utilities Answer Date Recorded In the past 12 months has e [employer], gas, oil, or water [employer] threatened to shut off services in your [...] week 11/16/2023 How often do you attend chur or episcopalian services? Never 11/16/2023 Do you belong to any clubs o r organizations such as sabianism groups, unions, fraternal or athletic groups, or [...] Date Recorded PHQ-2 Total Score 6 11/16/2023 [facility] - Occupational Stress Questionnaire Answer Date [...] medical appointments or from getting medications? No 0 02/2024 In the past 12 months, has [...] place to sleep or slept in a senior care (including now)? 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 Not on file Not on file Not on file Obstetrics History Para Term AB IAB SAB Ectopic Multiple Livin g Live Births 3 2 2 1 1 Date Outcome GA Total Labor Labor/2nd/3rd Weight Sex Type Anes PTL Sonya A1 A5 Name Clin Term Term SAB Last Filed Vital Signs Vital Sign Reading Time Taken Comments Blood Pressure 122/76 05/23/2025 2:36 PM SCREW CUTTER Pulse 67 05/23/2025 2:36 PM SCREW CUTTER Temperature 36.6 C (97.9 F) 05/23/2025 2:36 PM SCREW CUTTER Respiratory Rate 18 05/23/2025 2:36 PM SCREW CUTTER Oxygen Saturation 99% 05/23/2025 2:36 PM SCREW CUTTER Inhaled Oxygen Concentration - - Weight 56.3 kg (124 lb 1.6 oz) 05/23/2025 2:36 P M SCREW CUTTER Height 168.9 cm (5' 6.5) 05/23/2025 2:36 PM SCREW CUTTER Body Mass Index 19.73 05/23/2025 2:36 PM SCREW CUTTER Plan of Treatment Health Maintenance Due Date Last Done Comments Albumin Creatinine Ratio, Urine 1958 Dilated Eye Exam 1958 Foot Exam 1960 Zoster Vaccine (1 of 2) 2008 Well Visit 65+ 12/07/2023 Hemoglobin A1C 05/17/2024 11/15/2023, 11/15/2023 Depression Screening 11/13/2024 11/14/2023, 11/14/19 24 eGFR 11/21/2024 11/22/2023, 11/08, 11/20/2023, Additional history exists Fall Risk Assessment 11/24/2024 11/25/2023 Lipid Panel 12/26/2024 12/27/2023, 05/0 01/2024, 07/28/2023 Covid-19 Vaccine (2024-08 6 season) 2025 06/01/2021, 11/06/2020, 10/09/2020 Breast Cancer Screening-Mammogram 06/01/2025 06/01/2024, 06/01/2024, 07/23/2021, Additional history exists Osteoporosis Screening-Bone Density Scan 05/30/2026 05/30/2024, 05/30/2024, 01/29/2020, Additional history exists DTaP/Tdap/Td Vaccine (2 - Td or Tdap) 06/05/2026 06/05/2016 Colon Cancer Screening-Colonoscopy 07/26/2033 07/26/2023 Hepatitis B Screening Completed 04/23/2015 Hepatitis C Screening Completed 04/23/2015 Cervical Cancer Screening Discontinued 09/22/2021, Pneumococcal vaccine 65+ Completed 03/02/2022, 02/09 Colon Cancer Screening-CT Colonography Discontinued 07/26/2023 Colon Cancer Screening-DNA Stool Discontinued 07/26/19 24 Colon Cancer Screening-FIT Discontinued 07/26/2023 Colon Cancer Screening-Sigmoidoscopy Discontinued 07/26/2023 Influenza Vaccine Completed 03/15/2025, , 03/22/2023, Additional history exists Procedures Procedure Name Priority Date/Time Associated Diagnosis Comments EGFR Routine 11/22/2023 8:49 PM CDT HEMOGLOBIN A1C STAT 11/15/2023 1:28 AM CDT LIPID PANEL STAT 11/15/2023 1:28 AM CDT COLONOSCOPY 07/26/2023 10:10 AM SCREW CUTTER PAP AND HIGH RISK HPV, REFLEX TO GENOTYPING Routine 09/22/2021 4:05 PM CDT Pelvic mass in female Pelvic pain SERUM HEPATITIS C AB Routine 04/23/2015 8:13 AM CDT from Last 3 Months or Most Recently Relevant to Health Maintenance Results * eGFR (11/22/2023 8:49 PM CDT) eGFR 82 >=60 mL/min/1. 73 m2 Comment: Interpretive Data Reference Interval Normal >/= 90 mL/min/1.73m2 Mildly decreased* 60 - 89 mL/min/1.73m2 Mildly to moderately decreased 45 - 59 mL/min/1.73m2 Moderately to severely decreased 30 - 44 mL/min/1.73m2 Severely decreased 15 - 29 mL/min/1.73m2 Kidney Failure < 15 mL/min/1.73m2 *Relative to young adult level Estimated glomerular filtration rate is determined by the 2020 CKD-EPI equation recommended by the National Kidney Foundation (A Unifying Approach to GFR Estimation: Recommendations of the NKF-ASK Task Force on Reassessing the Inclusion of Race in Diagnosing Kidney Disease, JASN 202). The CKD-EPI equation should not be used for patients with unstable renal function and has not been validated in children and those over 70. Current interpretive data was last reviewed 2021. Blood 11/22/2023 8:49 PM CDT 11/22/2023 9:50 PM CDT us Lala Fields DO LAB BLOOD ORDERABLE S Final Result DELVIN FAGAN [facility] [place] [address] * (ABNORMAL) Hemoglobin A1c (11/15/2023 1:28 AM CDT) Hgb A1C 6.6(H) 4.0 - 5.6 % Estimated Average Glucose 143 mg/dL DELVIN FAGAN Comment: The ADA recommends reporting an estimated Average Glucose (eAG) with all Hemoglobin A1c results using the equation derived from a study of 507 normal and diabetic adults. Minority populations were underrepresented and children were not included. (Diabetes Care 2020; 43(S1): S66-S76). The eAG is not equivalent to a fasting glucose. Blood 11/15/2023 1:28 AM CDT 11/15/2023 1:54 AM CDT Lala Fields DO LAB BLOOD ORDERABLE S Final Result DELVIN [facility] [place] [address] * (ABNORMAL) Lipid panel (11/15/2023 1:28 AM CDT) Cholesterol 66 30 - 199 mg/dL Comment: Interpretive Data Ages < or = 19 years Acceptable: <170 mg/dL Borderline high: 170-199 mg/dL High: >or= 200 mg/dL Ages > or = 20 years Desirable: <200 mg/dL Borderline high: 200-239 mg/dL High: >or= 240 mg/dL Literature References: 1. Expert Panel on Integrated Guidelines for Cardiovascular Health and Risk Reduction in Children and Adolescents. Pediatrics 2011;128:S213 2. NCEP Expert Panel. Circulation 2004;110:227 Current Interpretive Data was last revised on 2018. Triglycerides 112 <=149 mg/dL DELVIN FAGAN Comment: Interpretive Data Ages < or = 9 years Acceptable: <75 mg/dL Borderline high: 75-99 mg/dL High: >or= 100 mg/dL Ages 10 to 20 years Acceptable: <90 mg/dL Borderline high: 90-129 mg/dL High: >or= 130 mg/dL Ages > or = 20 years Desirable: <150 mg/dL Borderline high: 150-199 mg/dL High: 200-499 mg/dL Very high: >or= 499 mg/dL Literature References: 1. Expert Panel on Integrated Guidelines for Cardiovascular Health and Risk Reduction in Children and Adolescents. Pediatrics 2011;128:S213 2. NCEP Expert Panel. Circulation 2004;110:227 Current Interpretive Data was last revised on 2018. HDL 24(L) >=40 mg/dL [facility] Comment: Interpretive Data Ages < or = 19 years Acceptable: >45 mg/dL Borderline low: 40-45 mg/dL Low: <40 mg/dL Ages > or = 20 years Desirable: >or= 60 mg/dL Low: <40 mg/dL Literature References: 1. Expert Panel on Integrated Guidelines for Cardiovascular Health and Risk Reduction in Children and Adolescents. Pediatrics 2011;128:S213 2. NCEP Expert Panel. Circulation 2004;110:227 Current Interpretive Data was last revised on 2018. LDL, calculated 20 <=129 mg/dL [facility] Comment: Interpretive Data Ages < or = 19 years Acceptable: <110 mg/dL Borderline high: 110-129 mg/dL High: >or= 130 mg/dL Ages > or = 20 years Optimal: <100 mg/dL Near optimal: 100-129 mg/dL Borderline high: 130-159 mg/dL High: >160 mg/dL Literature References: 1. Expert Panel on Integrated Guidelines for Cardiovascular Health and Risk Reduction in Children and Adolescents. Pediatrics 2011;128:S213 2. NCEP Expert Panel. Circulation 2004;110:227 Current Interpretive Data was last revised on 2018. Non-HDL Cholesterol 42 mg/dL [facility] Comment: Interpretive Data Ages < or = 19 years Acceptable: <120 mg/dL Borderline high: 120-144 mg/dL High: >145 mg/dL Ages > or = 20 years When triglycerides are >200 mg/dL, Non-HDL cholesterol is a secondary target of therapy with treatment goals that are 30 mg/dL greater than the LDL cholesterol target. Literature References: 1. Expert Panel on Integrated Guidelines for Cardiovascular Health and Risk Reduction in Children and Adolescents. Pediatrics 2011;128:S213 2. NCEP Expert Panel. Circulation 2004;110:227 Current Interpretive Data was last revised on 2018. Chol/HDL ratio 3 [facility] Blood 11/15/2023 1:28 AM CDT 11/15/2023 1:47 AM CDT us Lala Fields DO LAB BLOOD ORDERABLE S Final Result [facility] [place] [address] * COLONOSCOPY (07/26/2023 10:10 AM SCREW CUTTER) Anatomical Region Laterality Modality Other Narrative Procedure Note Jennie Murguia MD - 07/26/2023 10:10 AM CST ENDOSCOPY LAB Patient Name: Arpit Lechuga Procedure Date: 07/26/2023 10:10 AM Date of : 1960 Admit Type: Outpatient Age: 62 Gender: Female Attending MD: Jennie Murguia M.D. Room: [facility] ENDOSCOPY ROOM 02 Note Status: Finalized Procedure: Colonoscopy Indications: Rectal bleeding, , Colovesical fistula Concern for colovaginal or rectovaginal fistula; previoussigmoid colectomy for diverticulitis Providers: Jennie Murguia M.D. Referring MD: Thad Carney M.D. Medicines: See the Anesthesia note for documentation of the administered medications Complications: No immediate complications. Estimated Blood Loss: Estimated blood loss: none. Procedure: Pre-Anesthesia Assessment: - Prior to the procedure, a History and Physicalwas performed, and patient medications and allergieswere reviewed. The risks and benefits of the procedureand the sedation options and risks were discussed withthe patient. All questions were answered and informed consent was obtained. Patient identification and proposed procedure were verified. Prophylactic Antibiotics: The patient does not requireprophylactic antibiotics. Prior Anticoagulants: The patient has taken no anticoagulant or antiplatelet agents. ASA Grade Assessment: III - A patient with severesystemic disease. After reviewing the risks and benefits,the patient was deemed in satisfactory condition to undergo the procedure. The anesthesia plan was touse monitored anesthesia care (MAC). Immediately priorto administration of medications, the patient was re-assessed for adequacy to receive sedatives. The heart rate, respiratory rate, oxygen saturations, blood pressure, adequacy of pulmonary ventilation,and response to care were monitored throughout the procedure. The physical status of the patient was re-assessed after the procedure. The benefits, risks and alternatives of theprocedure and sedation were discussed and informed consentwas obtained. All questions were answered. Please referto the signed informed consent document in the medical record. The scope was passed under direct vision.The [id number] was introduced through the anusand advanced to the cecum, identified by appendiceal orifice and ileocecal valve. The colonoscopy was performed with moderate difficulty due to poorbowel prep. Successful completion of the procedure wasaided by lavage. The patient tolerated the procedurewell. The quality of the bowel preparation was evaluated using the BBPS (Petroleum Bowel Preparation Scale)with scores of: Right Colon = 2 (minor amount ofresidual staining, small fragments of stool and/or opaque liquid, but mucosa seen well), Transverse Colon = 2 (minor amount of residual staining, small fragmentsof stool and/or opaque liquid, but mucosa seen well)and Left Colon = 2 (minor amount of residual staining, small fragments of stool and/or opaque liquid, but mucosa seen well). The total BBPS score equals 6.The quality of the bowel preparation was fair. Bowelprep was administered using a split dose. Findings: The perianal and digital rectal examinations were normal. A few small localized angioectasias without bleeding were found inthe transverse colon. A 3 mm polyp was found in the transverse colon. The polyp wassessile. The polyp was removed with a cold snare. Resection and retrieval were complete. Verification of patient identification for the specimen was done. Estimated blood loss was minimal. There was evidence of a prior end-to-end colo-rectal anastomosis inthe rectum. This was patent and was characterized by healthy appearing mucosa and an intact staple line. The anastomosis was traversed. The retroflexed view of the distal rectum and anal verge was normaland showed no anal or rectal abnormalities. Impression: - Preparation of the colon was fair. - A few non-bleeding colonic angioectasias. - One 3 mm polyp in the transverse colon, removedwith a cold snare. Resected and retrieved. - Patent end-to-end colo-rectal anastomosis, characterized by healthy appearing mucosa and an intact staple line. Small diverticula atanastomosis but mucosa appeared normal with no erythema or friability. - No discrete fistula identified. - The distal rectum and anal verge are normal on retroflexion view. Recommendation: - Discharge patient to home. - Resume previous diet. - Continue present medications. - Await pathology results. - Repeat colonoscopy in 5-10 years for screening purposes. - Return to referring physician as previously scheduled. - Contact Information: During normal business hours (8AM-4PM) - Pleasecall the Nurse Coordinator: [phone]. train caller physician after hours, weekends andholidays: [phone] and asked for the [facility]-Rectalphysician telephone coin box collector. - . Jennie Murguia M.D. 07/26/2023 11:13:06 AM Number of Addenda: 0 Note Initiated On: 07/26/2023 10:10 AM Jennie Murguia MD ENDOSCOPY PROCEDURES Final R esult * Pap and High Risk HPV, reflex to Genotyping (09/22/2021 4:05 PM CDT) Thin prep (Pap test) 09/22/2021 4:05 PM CDT 09/22/2021 7:15 PM CDT Narrative PATHOLOGY [facility] - 09/29/2021 2:18 PM CDT EPIC results best viewed via link to PDF [facility] [place] [address] Note to Patients: This report may contain a detailed description of human tissue sent by a health care provider to the laboratory for pathologic evaluation. The content of this report is essential for diagnosis and may provide important critical findings. This information may be unfamiliar to patients to review without a medical professional present. It is advised that the patient review this report in the presence of a health care provider who can answer questions and explain the details. 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 Ref Lab Taken: 09/22/2021 Received: 09/22/2021 Accessioned: 09/23/2021 Reported: 09/29/2021 Physician(s): Edy Metzger M.D. FINAL INTERPRETATION SOURCE OF SPECIMEN: Liquid based Thin Prep pap with HPV STATEMENT OF ADEQUACY: - Satisfactory for evaluation, vaginal smear GENERAL CATEGORY: - Negative for squamous intraepithelial lesion or malignancy Comments HPV Result: NEGATIVE for high risk types of Human Papilloma Virus (HPV) RNA This probe detects the presence of HPV types: 16, 18, 31, 33, 35, 39, 45, 51, 52, 56, 58, 59, 66 and 68. This HPV test was performed at [facility] in [place], [place] utilizing the Gen-Probe Aptima assay. [facility]/09/29/2021 14:18 KALI Higgins(ASCP), CFIAC Report Electronically Reviewed and Signed Out By KALI Higgins(ASCP), [facility] 09/29/2021 14:18:08 Cervicovaginal Cytology (Pap Test) Disclaimer: The Pap test is a screening test used to detect cervical cancer and its precursors; it is not a diagnostic procedure. False negative and false positive results do occur. Pap test results should be interpreted in the context of pertinent clinical information and biopsy results as indicated. Gross Description A. Liquid based Thin Prep pap with HPV: Vaginal - Screening ThinPrep Clinical Diagnosis and History Last Menstrual Period: 12 years ago The patient is a 60 year old woman with history of endometrial cancer. The HPV test was performed by [facility], [address] [place] [address]. Report Images and scanned documents, if included only viewable in PDF version The performance characteristics of some immunohistochemical stains, in-situ hybridization and fluorescence in-situ hybridization tests and immunophenotyping by flow cytometry cited in this report (if any) were determined by the Surgical Pathology Department at [facility] as part of an ongoing quality assurance specialist program and in compliance with federally mandated regulations drawn from the Clinical Laboratory Improvement Act of 1988 (CLIA '88). Some of these tests rely on the use of analyte specific reagents and are subject to specific labeling requirements by the US Food and Drug Administration. Such diagnostic tests may only be performed in a facility that is certified by the Department of Health and Human Services as a high complexity laboratory under CLIA '88. The FDA has determined that such clearance or approval is not necessary. This test is used for clinical purposes. It should not be regarded as investigational or for research. Nevertheless, federal rules concerning the medical use of analyte specific reagents require that the following disclaimer be attached to the report: This test was developed and its performance characteristics determined by the Surgical Pathology Department of [facility]. It has not been cleared or approved by the U. S. Food and Drug Administration. us Edy Metzger MD LAB CYTOLOGY ORDERABLES Final Result PATHOLOGY [facility] 3rd Floor [place], [place] [phone] * Serum Hepatitis C ab (04/23/2015 8:13 AM CDT) HCV ab Negative NEG HISTORICAL RESULTS Serum 04/23/2015 8:13 AM CDT Narrative HISTORICAL RESULTS - 04/24/2015 8:20 AM CDT Client / Account bill? No Client Account Number and Description: Interpretive Data If confirmation is required, call Laboratory Customer Service to request sample to be sent to [facility] for Hepatitis C Virus (HCV) RNA Detection and Quantitation by Real-Time Reverse Pumper Helper-PCR (RT-PCR). Current interpretive data was last revised on 2011 Katrina Wong MD LAB BLOOD ORDERABLES Final Result HISTORICAL RESULTS from Last 3 Months or Most Recently Relevant to Health Maintenance Insurance MEDICARE IDPA HUMANA CHOICE MEDICARE PPO HU[employer] MEDICARE HMO Advance Directives For more information, please contact: [phone] * Full Code (Latest Code Status on File) Date Activated Date Inactivated Comments 11/15/2023 5:35 AM 11/25/2023 7:16 PM * Full Code Date Activated Date Inactivated Comments 07/26/2023 9:13 AM 07/26/2023 4:33 PM Care Teams Materials Handler Relationship Specialty Start Date End Date Thad Carney MD [address] [place] [address] PCP - General Family Medicine 05/07/20 Zaid Jose MD [address] [facility] [address] Referring Physician Obstetrics and Gynecology 11/26/20 Ezekiel Samano MD [address] [phone] [place] [address] Surgeon Colon and Rectal Surgery 06/28/23
--- OUTSIDE RECORDS SUMMARY | 2025-05-23 16:59 | XMS_ITS | Clinical Summary ---
Author Organization [facility] Address [address] [place] [address] Care Team Providers Care Quantitative Equity Head Name Role Phone Provider, Abstract Primary Care Provider Unavail able Allergies Active Allergy Reactions Criticality Noted Date Comments Alprazolam Hives High 10/24/2017 Benzodiazepines Unknown 10/06/2023 Levofloxacin Hives High 10/24/2017 Quinolones Hives High 10/24/2017 Varenicline Other (See Comments) 05/24/2018 Suicidal ideations Medications aspirin (ECOTRIN EC) 81 mg Tablet, Delayed Release (E.C.) Take 81 mg by mouth daily. Active meloxicam 15 mg tablet (MOBIC) Take 15 mg by mouth daily. Active gabapentin (NEURONTIN) 300 mg capsule Take 300 mg by mouth 3 times daily. Active fenofibrate (FENOGLIDE) 40 mg Tablet Take 54 mg by mouth daily. Active metFORMIN (GLUCOPHAGE) 500 mg tablet Take 1,000 mg by mouth 2 times daily with meals. Active potassium citrate (UROCIT-K) 10 mEq (1,080 mg) Extended Release tablet Take 10 mEq by mouth 3 times daily. Active mirtazapine (REMERON) 30 mg tablet Take 30 mg by mouth daily at bedtime. Active ergocalciferol (VITAMIN D2) 50,000 unit capsule Take 50,000 Units by mouth every 7 days. Mondays Active albuterol HFA 90 mcg inhaler Take 2 Puffs by inhalation every 6 hours as needed for Shortness of Breath. Active busPIRone (BUSPAR) 5 mg tablet Take 5 mg by mouth 3 times daily. Active nitroglycerin (NITROSTAT) 0.4 mg Tablet, Sublingual Place 0.4 mg under tongue every 5 minutes as needed for Chest Pain. Active metoprolol succinate (TOPROL XL) 25 mg Extended Release 24 hour tablet Take 25 mg by mouth daily. Active isosorbide mononitrate (IMDUR) 60 mg Extended Release 24 hour tablet Take 60 mg by mouth daily tire fabricator. Active losartan-hydroC HLOROthiazide (HYZAAR) 50-12.5 mg tablet Take 1 Tablet by mouth daily. Active estradiol (ESTRACE) 1 mg tablet Take 1 mg by mouth daily. Active DropSafe Alcohol Prep Pads Pads, Medicated 4 Active allopurinoL (ZYLOPRIM) 100 mg tablet Take 100 mg by mouth daily. 4 Active atorvastatin (LIPITOR) 40 mg tablet Take 40 mg by mouth daily at bedtime. 4 Active Accu-Chek Guide test strips Strip 4 Active clobetasoL (TEMOVATE) 0.05 % Cream 4 Active cyclobenzaprine (FLEXERIL) 10 mg tablet Take 10 mg by mouth daily. 4 Active escitalopram oxalate (LEXAPRO) 20 mg tablet Take 40 mg by mouth daily. 4 Active fluticasone propionate (FLONASE) 50 mcg/spray [place], Suspension nasal inhaler Administer 2 Sprays in each nostril daily. 4 Active Toujeo Max U-300 SoloStar 300 unit/mL (3 mL) Insulin Pen Inject 72 Units by subcutaneous injection daily at bedtime. 4 Active Accu-Chek Softclix Lancets 4 Active metoclopramide HCl (REGLAN) 5 mg tablet Take 5 mg by mouth 3 times daily before meals. 4 Active nystatin (MYCOSTATIN) 100,000 unit/gram Cream 4 Active oxyBUTYnin (DITROPAN XL) 10 mg Extended Release 24 hour tablet 10 mg daily. 4 Active sodium, potassium and magnesium sulfates (SUPREP) 17.5-3.13-1.6 gram Recon Soln DRINK FIRST HALF OF PREP AT 6:00PM THE NIGHT BEFORE PROCEDURE AND DRINK SECOND HALF 4 HOURS PRIOR TO LEAVING HOME FOR PROCEDURE 4 Active sucralfate (CARAFATE) 1 gram tablet Take 1 Gram by mouth 4 times daily before meals and at bedtime. 4 Active traZODone (DESYREL) 50 mg tablet Take 50 mg by mouth daily at bedtime. 4 Active alendronate (FOSAMAX) 70 mg tablet Take 70 mg by mouth every 7 days. empty stomach before other meds,with 8oz of water, stay upright 30 min Active polycarbophil calcium (FIBERCON) 625 mg tablet Take 625 mg by mouth daily. Active cilostazoL (PLETAL) 100 mg Tablet Take 100 mg by mouth 2 times daily before meals. Active diclofenac sodium (VOLTAREN) 1 % gel Apply to affected area 4 times daily. Active diphenoxylate-a tropine 2.5 mg-0.025 mg tablet Take 1 Tablet by mouth 4 times daily as needed for Diarrhea/Loose Stools. Active dapagliflozin propanediol (Farxiga) 10 mg Tablet Take by mouth daily. Active fluconazole (DIFLUCAN) 150 mg tablet Take 150 mg by mouth daily. Active HYDROcodone-bharat taminophen (NORCO) 5-325 mg tablet Take 1 Tablet by mouth every 4 hours as needed for Pain, Moderate. Active hydrOXYzine HCL (ATARAX) 25 mg tablet Take 25 mg by mouth 3 times daily as needed for Itching. Active hyoscyamine sulfate 0.125 mg tablet Take 0.125 mg by mouth every 4 hours as needed for Spasm. Active SITagliptin phosphate (JANUVIA) 50 mg Tablet Take 50 mg by mouth daily with breakfast. Active lidocaine (LIDODERM) 5 % Adhesive Patch, Medicated Apply 1 Patch to affected area every 24 hours. Active insulin aspart U-100 (NovoLOG ECHO PENFILL) 100 unit/mL cartridge Inject 15 Units by subcutaneous injection 3 times daily with meals. Active semaglutide (Ozempic) 0.25 mg or 0.5 mg(2 mg/1.5 mL) Pen Injector Inject by subcutaneous injection. Active pantoprazole (PROTONIX) 40 mg Tablet, Delayed Release (E.C.) Take 40 mg by mouth daily. Active spironolactone (ALDACTONE) 25 mg tablet Take 25 mg by mouth daily. Active budesonide-form oteroL (SYMBICORT) 160-4.5 mcg/actuation HFA Aerosol Inhaler Take 2 Puffs by inhalation 2 times daily. Active citalopram (CeleXA) 40 mg tablet Take 40 mg by mouth daily in the morning. Active CYANOCOBALAMIN, VITAMIN B-12, ORAL Take 500 mg by mouth daily. Active famotidine (PEPCID) 20 mg tablet Take 20 mg by mouth daily. Active glipiZIDE (GLUCOTROL) 5 mg tablet Take 5 mg by mouth daily with breakfast. Active linaGLIPtin (TRADJENTA) 5 mg Tablet Take 5 mg by mouth daily. Active rosuvastatin (CRESTOR) 20 mg tablet Take 20 mg by mouth daily. Active vitamin E 1,000 unit Capsule Take 1,000 Units by mouth daily. Active Active Problems Problem Noted Date Diagnosed Date Fibrocystic change of breast, left 11/17/2018 Macromastia 05/24/2018 Chronic pain of both shoulders 05/24/2018 Tear of right rotator cuff 05/24/2018 History of tobacco abuse 05/24/2018 Exposure to secondhand smoke 05/24/2018 DM (diabetes mellitus) 10/24/2017 HTN (hypertension), benign 10/24/2017 High cholesterol 10/24/2017 Heart abnormality 10/24/2017 Leukemoid reaction 10/24/2017 Resolved Problems Problem Noted Date Diagnosed Date Resolved Date Sign and symptom in breast 08/10/2018 0 08/22/2018 Abnormal mammogram 08/10/2018 9 Abnormal ultrasound of breast 08/10/2018 08/22/2018 Tobacco use 10/24/2017 10/03/2018 Family History Medical History Relation Name Comments Colon Cancer Father Osteoporosis Father Anemia Mother Asthma Mother Depression Mother Diabetes Mother Heart Disease Mother High Cholesterol Mother Kidney Disease Mother Liver Disease Mother Lung Cancer Mother Respiratory Disease Mother Stroke Mother Relation Name Status Comments Father Mother Social History Tobacco Use Types Packs/Day Years Used Date Smoking Tobacco: Former Cigarettes 0.5 30 0 04/05/1988 - 04/05/2018 Smokeless Tobacco: Never Tobacco Cessation:Counseling Given: Not Answered Alcohol Use Standard Drinks/Week Comments No 0 (1 standard drink = 0.6 oz pur e alcohol) Feeling Safe Answer Date Recorded Are you in a relationship wi th someone who hurts you emotionally and/or physically? No 10/06/2023 Comments No Sex and Gender Information Value Date Recorded Sex Assigned at Not on file Legal Sex Female 3:35 PM CDT Gender Identity Not on file Sexual Orientation Not on file Last Filed Vital Signs Vital Sign Reading Time Taken Comments Blood Pressure 101/46 10/17/2023 6:16 AM CDT Pulse 77 10/17/2023 6:15 AM CDT Temperature 36.1 C (96.9 F) 10/17/2023 6:15 AM CDT Respiratory Rate 18 10/17/2023 6:15 AM CDT Oxygen Saturation 94% 10/17/2023 6:15 AM CDT Inhaled Oxygen Concentration - - Weight 69.4 kg (153 lb) 10/17/2023 6:15 AM CDT Height 168.9 cm (5' 6.5) 10/06/2023 11:32 AM CD T Body Mass Index 24.32 10/06/2023 11:32 AM CDT Plan of Treatment Health Maintenance Due Date Last Done Comments DIABETES ANNUAL FOOT EXAM 1976 DIABETES MICROALBUMIN ANNUAL SCREEN 1976 LDL CHOLESTEROL ANNUAL 1976 FIT-DNA Q 3 years 12/07/2003 FIT/FOBT Q 1 year 12/07/2003 Flex Sig/CT Colonography Q 5 years 12/07/2003 RSV VACCINE (60+ or ) (1 - Risk 50-74 years 1-dose series) 2008 ZOSTER VACCINE (1 of 2) 2008 BREAST CANCER SCREENING 05/08/2021 05/08/20 20, 05/08/2020, 07/10/2019, Additional history exists DIABETES HBA1C Q 6 MONTHS 01/23/20242023, 01/09/2019, 06/20/2018, Additional history exists DIABETES ANNUAL RETINAL EXAM 04/18/202403/2023, 01/05/2019, 05/18/2018, Additional history exists OSTEOPOROSIS SCREENING 01/28/2025 01/29/2020, 2014 INFLUENZA VACCINE (#1) 2025 , 04/05/2022, 04/17/2021, Additional history exists COVID-19 Vaccine (3 - 2024-2 6 season) 2025 11/06/2020, 10/09/2020 DTAP/TDAP/TD VACCINES (2 - T d or Tdap) 06/05/2026 06/05/2016 COLORECTAL SCREENING 07/26/2033 07/26/2023, 07/26/2023, 09/01/2018, Additional history exists Colorectal Cancer Screening 07/26/2033 PNEUMOCOCCAL VACCINE 50+ YEARS Completed 03/02/2022 Procedures Procedure Name Priority Date/Time Associated Diagnosis Comments MAMMO BILAT DIAGNOSTIC Routine 07/10/2019 from Last 3 Months or Most Recently Relevant to Health Maintenance Results * MAMMO BILAT DIAGNOSTIC (07/10/2019) Anatomical Region Laterality Modality Breast Bilateral Mammography Merry Larios DO MAMMO ORDERABLES Final Resu lt from Last 3 Months or Most Recently Relevant to Health Maintenance Insurance MEDICARE PART A AND B [employer] [facility] Address: [address] [address] Advance Directives For more information, please contact: [phone] * Full Code (Latest Code Status on File) Date Activated Date Inactivated Comments 10/17/2023 6:00 AM 10/17/2023 10:15 AM Care Teams Quantitative Equity Head Relationship Specialty Start Date End Date Provider, Abstract NO ADDRESS ON FILE PCP - General 05/24/18
--- OUTSIDE RECORDS SUMMARY | 2025-05-23 16:59 | XMS_ITS ---
Author Organization [facility] Address [address] [place] [address] Phone Care Team Providers Care Cut Roll Machine Offbearer Name Role Phone Anthony uGzman MD Unavailable [phone] Cuca Landaverde DO Primary Care Provider [phone] Scott Tavera MD Unavailable Evette Parry RN Unavailable Unavailable Ambulatory Complex Care Management Status:Enrolled (Active) Start date:01/01/2025 Enrollment date:01/15/2025 Enrollment reason:Identified as high-risk Current support & services provided:RN Care Managed Related social drivers of health:Social Connections, Tobacco Use, Physical Activity Overview Complex Care Management Program Case Team Name Relationship Phone Evette Parry RN(Responsible Staff) Nurse Communications Scientist Continued Care and Services Coordination
--- OUTSIDE RECORDS SUMMARY | 2025-05-23 16:59 | XMS_ITS | Encounter Summary ---
Author Organization [facility] Address [address] [place] [address] Phone Care Team Providers Care Steam Frame Operator Name Role Phone Thad Carney MD Primary Care Provider [phone] Evette Parry RN Unavailable Unavailable Anthony Guzman MD Unavailable [phone] Evette Parry RN Unavailable Unavailable Cuca Landaverde DO Primary Care Provider [phone] Suzie Mulligan INSTRUMENT DESIGNER Unavailable Unavailable Alicia Foreman FLOOR INSPECTOR Unavailable Unavailab Scott Means MD Unavailable Evette Parry RN Unavailable Unavailable Reason for Visit * Reason Comments Medication Refill Encounter Details Date Type Department Care Team (Late st Contact Info) Description 05/02/2021 Refill [facility] [address] [place] [address] Thad Carney MD [address] [place] [address] Medication Refill Social History Tobacco Use Types [...] have Coronavirus / COVID-19? No / Unsure 05/04/2021 11:11 AM CDT documented as of this encounter Miscellaneous Notes * Telephone Encounter - Nichole Marcano RN - 05/04/2021 3:54 PM CDT Medication failed the protocol, provider to review and approve the medication order if appropriate. Requested Prescriptions Pending Prescriptions Disp Refills methotrexate 2.5 MG Tablet [Pharmacy Med Name: METHOTREXATE SODIUM 2.5 MG Tablet] 48 Tablet Sig: TAKE 4 TABLETS BY MOUTH EVERY 7 DAYS [facility] Off-Protocol Failed - 05/02/2021 4:27 PM Failed - Medication not assigned to a protocol, review manually. Passed - Valid encounter within last 12 months Past Office Visits Recent Outpatient Visits Today Pain in both feet [facility] - Thad Mercado MD 1 week ago Mixed hyperlipidemia [facility] Family Medicine Thad Begum MD 2 weeks ago Closed fracture of one rib of left side with routine healing, subsequent encounter [facility] Thad Begum MD 4 months ago Type 2 diabetes mellitus with diabetic neuropathy, without long- term current use of insulin (HCC) [facility] Thad Khan MD 6 months ago Type 2 diabetes mellitus with diabetic neuropathy, without long- term current use of insulin (HCC) [facility] Thad Begum MD Upcoming Appointments Future Appointments In 2 weeks Yamilet Harper Kalpana, PAC [facility] - Gastroenter[facility] In 3 months Thad Carney MD [facility] SERVICE CENTER TECHNICIAN - Recent and Past Visits Recent Visits Date Type Provider Dept 04/24/21 Office Visit Thad Carney, MD [facility] 04/17/21 Office Visit Thad Carney, MD [facility] 12/25/20 Office Visit Thad Carney MD [facility] 10/28/20 Office Visit Thad Carney, MD [facility] 08/13/20 Office Visit Thad Carney MD [facility] 07/09/20 Telemedicine Thad Carney MD [facility] 07/01/20 Telemedicine Jyotsna Costa APN, CNP [facility] 04/29/20 Office Visit Thad Carney, MD [facility] 04/01/20 Office Visit Thad Carney MD [facility] 03/06/20 Office Visit Thad Carney, [facility] Showing recent visits within past 460 days with a meds authorizing provider and meeting all other requirements Today's Visits Date Type Provider Dept 05/04/21 Office Visit Thad Carney, MD [facility] Showing today's visits with a meds authorizing provider and meeting all other requirements Future Appointments No visits were found meeting these conditions. Showing future appointments within next 90 days with a meds authorizing provider and meeting all other requirements documented in this encounter Plan of Treatment Upcoming Encounters Date Type Department Care Team (Late st Contact Info) Description 05/24/2025 9:00 AM [employer] Office Visit [facility] [address] [place] [address] Katrin Figueroa APRN, FOREST FIREFIGHTER [address] [facility] [place] [address] 06/05/2025 8:45 AM [employer] [facility]ment [facility] [address] [facility] [place] [address] Cuca Landaverde, [address] [address] Discharge Disposition: Discharged to home or Selfcare 08/15/2025 8:00 AM [employer] Office Visit [facility] - Endocrinology - [place] [address] [place] [address] Scott Tavera MD [address] [address] 09/13/2025 8:00 AM [employer] Office Visit [facility] - Family Medicine [facility] [address] [place] [address] Cuca Landaverde, DO [address] [address] documented as of this encounter Visit Diagnoses Diagnosis Pain of both hip joints documented in this encounter Additional Health Concerns Assessment Noted Time PHQ-9 Depression Total Score: 17 020 9:01 AM CDT documented as of this encounter Care Teams Steam Frame Operator Relationship Specialty Start Date End Date Thad Carney MD PCP - General Family Medicine 12/20/19 12/26/23 Cuca Landaverde DO [address] [address] PCP - General Family Medicine 12/27/23 Evette Parry RN [place] Real Estate Services Coordinator 06/01/22 05/04/23 Anthony Guzman MD [address] [place] [address] Consulting Physician Gastroenterology 03/18/22 Evette Parry, [place] Nurse Real Estate Services Coordinator 12/27/23 12/27/[address] [facility] Standards Engineer 04/20/24 04/20/24 Alicia Foreman LSW [place] Endless Track Vehicle Supervisor Real Estate Services Coordinator 04/20/24 Scott Tavera MD [address] [address] Consulting Physician Endocrinology 11/06/24 Evette Parry RN [place] Nurse Real Estate Services Coordinator 01/01/25 documented as of this encounter
--- OUTSIDE RECORDS SUMMARY | 2025-05-23 16:59 | XMS_ITS | Encounter Summary ---
Author Organization [facility] Address [address] [place] [address] Phone Care Team Providers Care Clinical Program Director Name Role Phone Thad Carney MD Primary Care Provider [phone] Anthony Guzman MD Unavailable [phone] Evette Parry RN Unavailable Unavailable Cuca Landaverde DO Primary Care Provider [phone] Suzie Mulligan BACK FEEDER [employer] LAYUP LINE Unavailable Unavailable Alicia Foreman PRODUCT CONSULTANT Unavailable Unavailab Scott Means MD Unavailable Evette Parry RN Unavailable Unavailable Reason for Visit * Reason Comments Medication Refill Encounter Details Date Type Department Care Team (Late st Contact Info) Description 07/28/2023 Refill [facility] [address] [place] [address] Thad Carney MD [address] [place], [place] [id number] Medication Refill Social History Tobacco Use Types [...] Telephone Encounter - Nichole Marcano RN - 07/28/2023 11:51 AM CST Medication failed the protocol, provider to review and approve the medication order if appropriate. Requested Prescriptions Pending Prescriptions Disp Refills lidocaine (LIDODERM) 5 % Patch [Pharmacy Med Name: LIDOCAINE 5 % Patch] 90 Patch 0 Sig: APPLY 1 PATCH TOPICALLY EVERY 24 HOURS . ALLOW PATCH TO REMAIN ON AREA FOR UP TO 12 HOURS IN A24 HOUR PERIOD. Not Delegated - Topical Anesthetics Protocol Failed - 07/28/2023 10:32 AM Failed - This refill cannot be delegated Passed - Visit with relevant provider in past 12 months or upcoming 90 days Recent Visits Date Type Provider Dept 07/25/23 Office Visit Carmelina Miller APRN, [facility] 03/22/23 Office Visit Thad Carney MD [facility] 01/06/23 Office Visit Thad Carney MD [facility] 11/16/22 Office Visit Thad Carney MD [facility] 11/03/22 Office Visit Tariq Gamez APRN, [facility] 08/19/22 Office Visit [facility]ad Car[facility] MD [facility] Showing recent visits within past 365 days and meeting all other requirements Future Appointments No visits were found meeting these conditions. Showing future appointments within next 90 days and meeting all other requirements Refused Prescriptions Disp Refills alendronate (FOSAMAX) 70 MG Tablet [Pharmacy Med Name: ALENDRONATE SODIUM 70 MG Tablet] 12 Tablet 3 Sig: TAKE 1 TABLET EVERY 7 DAYS Bone Density Regulators Protocol Failed - 07/28/2023 10:32 AM Failed - Active on medication list Passed - Visit with relevant provider in past 12 months or upcoming 90 days Recent Visits Date Type Provider Dept 07/25/23 Office Visit [facility]el[facility], [facility] 03/22/23 Office Visit Thad Carney MD [facility] 01/06/23 Office Visit Thad Carney MD [facility] 11/16/22 Office Visit Thad Carney MD [facility] 11/03/22 Office Visit Tariq Gamez APRN, [facility] 08/19/22 Office Visit Thad Carney MD [facility] Showing recent visits within past 365 days and meeting all other requirements Future Appointments No visits were found meeting these conditions. Showing future appointments within next 90 days and meeting all other requirements Passed - Serum creatinine on record in past 12 months CREATININE, BLOOD Date Value Ref Range Status 01/03/2023 1.08 0.60 - 1.10 mg/dL Final Passed - Serum calcium on record in past 12 months CALCIUM Date Value Ref Range Status 01/03/2023 9.3 8.9 - 10.3 mg/dL Final SSMENT DIRECTOR * Telephone Encounter - Nichole Marcano RN - 07/28/2023 11:50 AM CST Name from pharmacy: ALENDRONATE SODIUM 70 MG Tablet Will file in chart as: alendronate (FOSAMAX) 70 MG Tablet The original prescription was discontinued on 11/16/2022 by Thad Carney MD SSMENT DIRECTOR documented in this encounter Plan of Treatment Upcoming Encounters Date Type Department Care Team (Late st Contact Info) Description 05/24/2025 9:00 AM ASSESSMENT DIRECTOR Office Visit [facility] - Family Medicine - [place] [address] [place] [address] Katrin Figueroa APRN, MUSHROOM LABORER [address] [place] [address] 06/05/2025 8:45 AM ASSESSMENT DIRECTOR Appointment [facility] Mammography [address] [place] [address] Cuca Landaverde, DO [address] [facility] [address] [place] [address] Discharge Disposition: Discharged to home or Selfcare 08/15/2025 8:00 AM ASSESSMENT DIRECTOR Office Visit [facility] - Endocrinology - [place] [address] [facility] [place] [address] Scott Tavera MD [address] [place] [address] [address] 09/13/2025 8:00 AM ASSESSMENT DIRECTOR Office Visit [facility] - Family Medicine - [place] [address] [place] [address] Cuca Landaverde, DO [address] [facility] [address] [place] [address] documented as of this encounter Goals Goal Patient Goal Type Associated Problems Recent Progress Patient-Stated? Author Behavioral Health Behavioral Health On track(2024 8:43 AM ASSESSMENT DIRECTOR) Yes Johnny Champion, INSTRUCTOR BRIDGE Note: I need to be able to cope better with all my stress Goal/Objective: Increase coping skills for stress. Anticipated Time Frame for Goal Completion: 6 months Goal Reviewed with: patient Readiness to change: Ready to change Department associated with goal: [facility] Steps to [...] as of this encounter Visit Diagnoses Diagnosis Osteoporosis without current pathological fracture, unspecified osteoporosis type documented in this encounter Additional Health Concerns Assessment Noted Time PHQ-9 Depression Total Score: 0 03/22/20 23 6:54 AM CDT documented as of this encounter Care Teams Clinical Program Director Relationship Specialty Start Date End Date Thad Carney MD PCP - General Family Medicine 12/20/19 12/26/23 Cuca Landaverde DO [address] [address] PCP - General Family Medicine 12/27/23 Anthony Guzman MD [address] [place] [address] Consulting Physician Gastroenterology 03/18/22 Evette Parry RN [place] Nurse Brush Stainer 12/27/23 12/27/23 Suzie Mulligan LPN [facility] Neurologist 04/20/24 04/20/24 Alicia Foreman LSW [place] Blood Typer Brush [place] 04/20/24 Scott Tavera MD #[address] [address] Consulting Physician Endocrinology 11/06/24 Evette Parry RN [place] Nurse Brush [place] 01/01/25 documented as of this encounter
--- OUTSIDE RECORDS SUMMARY | 2025-05-23 16:59 | XMS_ITS | Encounter Summary ---
Author Organization [facility] Address [address] [place] [address] Phone Care Team Providers Care Home Care Liaison Name Role Phone Thad Carney MD Primary Care Provider [phone] Evette Parry RN Unavailable Unavailable Anthony Guzman MD Unavailable [phone] Evette Parry RN Unavailable Unavailable Cuca Landaverde DO Primary Care Provider [phone] Suzie Mulligan LAB SUPPORT TECH Unavailable Unavailable Alicia Foreman FIRST CRUSHER Unavailable Unavailab Scott Means MD Unavailable Evette Parry RN Unavailable Unavailable Reason for Visit * Reason Onset Date Comments Medication Refill 12/01/2020 Encounter Details Date Type Department Care Team (Late st Contact Info) Description 12/01/2020 Refill [facility] [address] [place] [address] Thad Carney MD [address] [place] [address] Medication Refill Social History Tobacco Use Types [...] degree you have received? GED or equivalent Comments No Sex and Gender Information Value [...] have Coronavirus / COVID-19? No / Unsure 11/20/2020 10:03 AM CDT documented as of this encounter Miscellaneous Notes * Telephone Encounter - Beckie Potts RN - 12/01/2020 5:15 PM CDT [place] last fill date 11/05/20 Medication failed the protocol, provider to review and approve the medication order if appropriate. Requested Prescriptions Pending Prescriptions Disp Refills gabapentin (NEURONTIN) 300 MG Capsule 270 Capsule Sig: Take 3 Capsules by mouth 3 times daily. [facility]: Anticonvulsants Passed - 12/01/2020 5:15 PM Passed - Valid encounter within last 12 months Past Office Visits Recent Outpatient Visits 1 month ago Type 2 diabetes mellitus with diabetic neuropathy, without long-term current use of insulin (HCC) [facility] Thad Begum MD 3 months ago HTN (hypertension), benign [facility] - Thad Mercado MD 4 months ago Bronchitis [facility] Thad Begum MD 5 months ago Sore throat [facility] Jyotsna Mccarty APN, [facility] 7 months ago Breast cancer screening by mammogram [facility] Thad Begum MD Upcoming Appointments Future Appointments In 2 weeks Thad Carney MD [facility] CIVIL ENGINEERING MANAGER - Recent and Past Visits Recent Visits Date Type Provider Dept 10/28/20 Office Visit Thad Carney MD [facility] 08/13/20 Office Visit Thad Carney, [facility] 07/09/20 Telemedicine Thad Carney MD [facility] 07/01/20 Telemedicine Jyotsna Costa APN, [facility] 04/29/20 Office Visit Thad Carney MD [facility] 04/01/20 Office Visit Thad Carney MD [facility] 03/06/20 Office Visit Thad Carney MD [facility] 12/20/19 [facility] Showing recent visits within past 460 days with a meds authorizing provider and meeting all other requirements Future Appointments Date Type Provider Dept 12/17/20 Appointment Thad Carney MD [facility] Showing future appointments within next 90 days with a meds authorizing provider and meeting all other requirements * Telephone Encounter - Karla Webster - 12/01/2020 10:21 AM CDT Received a faxed Rx request from pharmacy. Reordered refill medication(s) requested and pended for nurse and physician/ADOLFO review. Refill encounter routed to nurse Palrikaylynn's pool for processing. documented in this encounter Plan of Treatment Upcoming Encounters Date Type Department Care Team (Late st Contact Info) Description 05/24/2025 9:00 AM PHYSICIAN'S ASSISTANT Office Visit [facility] - [place] [address] [place] [address] Katrin Figueroa, ASSEMBLER SEMICONDUCTOR, [facility] [address] [place] [address] 06/05/2025 8:45 AM PHYSICIAN'S ASSISTANT [facility] [address] [place] [address] Cuca Landaverde DO [address] [address] Discharge Disposition: Discharged to home or Selfcare 08/15/2025 8:00 AM PHYSICIAN'S ASSISTANT Office Visit [facility] - Endocrinology [facility] #2 [facility] [place] [address] Scott Tavera MD #[address] [address] 09/13/2025 8:00 AM PHYSICIAN'S ASSISTANT Office Visit [facility] Family Medicine [facility] [address] [place] [address] Cuca Landaverde, DO [address] [address] documented as of this encounter Visit Diagnoses Diagnosis Neuropathy Mononeuritis of unspecified site documented in this encounter Additional Health Concerns Assessment Noted Time PHQ-9 Depression Total Score: 17 020 9:01 AM CDT documented as of this encounter Care Teams Home Care Liaison Relationship Specialty Start Date End Date Thad Carney MD PCP - General Family Medicine 12/20/19 12/26/23 Cuca Landaverde DO [address] [address] PCP - General Family Medicine 12/27/23 Evette Parry RN [place] Medical Staff Services Coordinator 06/01/22 05/04/23 Anthony Guzman MD [address] [place] [address] Consulting Physician Gastroenterology 03/18/22 Evette Parry, [place] Nurse Medical Staff Services Coordinator 12/27/23 12/27/23 Suzie Mulligan LPN [facility] Automotive Mechanic 04/20/24 04/20/24 Alicia Foreman LSW [place] [employer] Medical Staff Services Coordinator 04/20/24 Scott Tavera MD #[address] [address] Consulting Physician Endocrinology 11/06/24 Evette Parry RN [place] Nurse Medical Staff Services Coordinator 01/01/25 documented as of this encounter
--- OUTSIDE RECORDS SUMMARY | 2025-05-23 16:59 | XMS_ITS | Encounter Summary ---
Author Organization [facility] Address [address] [place] [address] Phone Care Team Providers Care Fermenting Cellars Receiver Name Role Phone Thad Carney MD Primary Care Provider [phone] Anthony Guzman MD Unavailable [phone] Evette Parry RN Unavailable Unavailable Cuca Landaverde DO Primary Care Provider [phone] Suzie Mulligan EYE CARE PROFESSIONAL Unavailable Unavailable Alicia Foreman WALL AND FLOOR TILER Unavailable Unavailab Scott Means MD Unavailable Evette Parry RN Unavailable Unavailable Reason for Visit * Reason Comments Medication Refill Encounter Details Date Type Department Care Team (Late st Contact Info) Description 06/07/2023 Refill [facility] [address] [place] [address] Thad Carney MD [address] [place], [place] [id number] Medication Refill Social History Tobacco Use Types [...] Telephone Encounter - Nichole Marcano RN - 06/07/2023 4:34 PM CST Medication failed the protocol, provider to review and approve the medication order if appropriate. Requested Prescriptions Pending Prescriptions Disp Refills Alcohol Swabs (DropSafe Alcohol Prep) 70 % Pads [Pharmacy Med Name: DROPSAFE ALCOHOL PREP PADS 70 %Pad] 100 Each 3 Sig: USE TO CLEAN SKIN PRIOR TO INSULIN INJECTION EVERY DAY Not Delegated - Off Protocol Failed - 06/07/2023 12:49 PM Failed - This refill cannot be delegated Passed - Visit with relevant provider in past 12 months or upcoming 90 days Recent Visits Date Type Provider Dept 03/22/23 Office Visit Thad Carney MD [facility] 01/06/23 Office Visit Thad Carney MD [facility] 11/16/22 Office Visit Thad Carney MD [facility] 11/03/22 Office Visit Tariq Gamez APRN, [facility] 08/19/22 Office Visit Thad Carney MD [facility] 06/17/22 Office Visit Thad Carney MD [facility] Showing recent visits within past 365 days and meeting all other requirements Future Appointments Date Type Provider Dept 07/22/23 Appointment Thad Carney MD [facility] Showing future appointments within next 90 days and meeting all other requirements NING AND DEVELOPMENT MANAGER documented in this encounter Plan of Treatment Upcoming Encounters Date Type Department Care Team (Late st Contact Info) Description 05/24/2025 9:00 AM TRAINING AND DEVELOPMENT MANAGER Office [facility] [place] [facility] [place] [address] Katrin Figueora, ELECTRONIC PAGE MAKEUP SYSTEM OPERATOR, IRONWORKER 2 [place] [address] 06/05/2025 8:45 AM TRAINING AND DEVELOPMENT MANAGER [facility] 1 [facility] [place] [address] Cuca Landaverde, DO 2 [facility] [address] [place] [address] Discharge Disposition: Discharged to home or Selfcare 08/15/2025 8:00 AM TRAINING AND DEVELOPMENT MANAGER Office Visit [facility] Endocrinology - [place] #2 [place] [address] Scott Tavera MD #[address] [place] [address] 09/13/2025 8:00 AM TRAINING AND DEVELOPMENT MANAGER Office Visit [facility] #2 [place] [address] Cuca Landaverde, DO 2 [facility] [address] [place] [address] documented as of this encounter Goals Goal Patient Goal Type Associated Problems Recent Progress Patient-Stated? Author Behavioral Health Behavioral Health On track(2024 8:43 AM TRAINING AND DEVELOPMENT MANAGER) Yes Johnny Champion, CELLOPHANE CASTING MACHINE REPAIRER Note: I need to be able to cope better with all my stress Goal/Objective: Increase coping skills for stress. Anticipated Time Frame for Goal Completion: 6 months Goal Reviewed with: patient Readiness to change: Ready to change Department associated with goal: [facility] Steps to achieve [...] documented as of this encounter Care Teams Fermenting Cellars Receiver Relationship Specialty Start Date End Date Thad Carney MD PCP - General Family Medicine 12/20/19 12/26/23 Cuca Landaverde DO 2 [facility] [address] [place] [address] PCP - General Family Medicine 12/27/23 Anthony Guzman MD [address] [place] [address] Consulting Physician Gastroenterology 03/18/22 Evette Parry RN [place] Nurse Data Management Manager 12/27/23 12/27/23 Suzie Mulligan LPN [place] Health Hair Blender 04/20/24 04/20/24 Alicia Foreman LSW [place] Clinical Statistical Programmer Data Management Manager 04/20/24 Scott Tavera MD #[address] [address] Consulting Physician Endocrinology 11/06/24 Parry, Evette M, RN [place] Nurse Data Management Manager 01/01/25 documented as of this encounter
--- OUTSIDE RECORDS SUMMARY | 2025-05-23 16:59 | XMS_ITS | Encounter Summary ---
Author Organization [facility] Address [address] [place] [address] Phone Care Team Providers Care Outlet Manager Name Role Phone Thad Carney MD Primary Care Provider [phone] Anthony Guzman MD Unavailable [phone] Evette Parry RN Unavailable Unavailable Cuca Landaverde DO Primary Care Provider [phone] Suzie Mulligan PLASTIC JIG AND FIXTURE BUILDER Unavailable Unavailable Alicia Foreman CIVIL PREPAREDNESS COORDINATOR Unavailable Unavailab Scott Means MD Unavailable Evette Parry RN Unavailable Unavailable Reason for Visit * Reason Comments Medication Refill Encounter Details Date Type Department Care Team (Late st Contact Info) Description 06/05/2023 Refill [facility] #[address] [place] [address] Thad Carney MD [address] [place], [place] [id number] Medication Refill Social History Tobacco Use Types [...] encounter Miscellaneous Notes * Telephone Encounter - Cori Webb RN - 06/06/2023 9:19 AM NUCLEAR FUEL ENRICHMENT TECHNICIAN Medication failed the protocol, provider to review and approve the medication order if appropriate. Requested Prescriptions Pending Prescriptions Disp Refills cyclobenzaprine (FLEXERIL) 10 MG Tablet [Pharmacy Med Name: CYCLOBENZAPRINE HYDROCHLORIDE 10 MG Tablet] 270 Tablet 3 Sig: TAKE 1 TABLET THREE TIMES DAILY NEEDED FOR MUSCLE SPASM(S) Not Delegated - Muscle Relaxants Protocol Failed - 06/05/2023 4:16 AM Failed - This refill cannot be [...] 90 days and meeting all other requirements EAR FUEL ENRICHMENT TECHNICIAN documented in this encounter Plan of Treatment Upcoming Encounters Date Type Department Care Team (Late st Contact Info) Description 05/24/2025 9:00 AM NUCLEAR FUEL ENRICHMENT TECHNICIAN [facility]2 [facility] [place] [address] Katrin Figueroa, CHOCOLATE DIPPER, PRECINCT POLICE CAPTAIN 2 [facility] [place] [address] 06/05/2025 8:45 AM NUCLEAR FUEL ENRICHMENT TECHNICIAN [facility] 1 [place] [phone] Cuca Landaverde, DO 2 [facility] [address] [place] [address] Discharge Disposition: Discharged to home or Selfcare 08/15/2025 8:00 AM NUCLEAR FUEL ENRICHMENT TECHNICIAN [facility] [place] [facility]2 [place] [address] Scott Tavera MD #[address] [place] [address] 09/13/2025 8:00 AM NUCLEAR FUEL ENRICHMENT TECHNICIAN [facility]2 [facility] [place] [address] Cuca Landaverde, DO 2 [facility] [address] [place] [address] documented as of this encounter Goals Goal Patient Goal Type Associated Problems Recent Progress Patient-Stated? Author Behavioral Health Behavioral Health On track(2024 8:43 AM NUCLEAR FUEL ENRICHMENT TECHNICIAN) Yes Johnny Champion, VICE PRESIDENT AND PORTFOLIO MANAGER Note: I need to be able to cope better with all my stress Goal/Objective: Increase coping skills for stress. Anticipated Time Frame for Goal Completion: 6 months Goal Reviewed with: patient Readiness to change: Ready to change Department associated with goal: [facility] Steps to achieve [...] as of this encounter Visit Diagnoses Diagnosis Chronic right shoulder pain Pain in joint, shoulder region documented in this encounter Additional Health Concerns Assessment Noted Time PHQ-9 Depression Total Score: 0 03/22/20 23 6:54 AM CDT documented as of this encounter Care Teams Outlet Manager Relationship Specialty Start Date End Date Thad Carney MD PCP - General Family Medicine 12/20/19 12/26/23 Cuca Landaverde DO 2 [facility] [address] [place] [address] PCP - General Family Medicine 12/27/23 Anthony Guzman MD #2 [place] [address] Consulting Physician Gastroenterology 03/18/22 Evette Parry RN [place] Nurse Solid Waste Manager 12/27/23 12/27/23 Suzie Mulligan LPN [place] Health Latex Dipper 04/20/24 04/20/24 Alicia Foreman LSW [place] Furnace Combination Analyst Solid Waste Manager 04/20/24 Scott Tavera MD #[address] [address] Consulting Physician Endocrinology 11/06/24 Parry, Evette M, RN [place] Nurse Solid Waste Manager 01/01/25 documented as of this encounter
--- OUTSIDE RECORDS SUMMARY | 2025-05-23 16:59 | XMS_ITS | Data Portability ---
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 Patient will come back in a year unless there are new symptoms. Not available 06/14/2023 11:27:07 Plan of Treatment Reminders Order Date Submit Date Provider Last Modified By Organization Details Last Modified Time Details Appointments None recorded. Lab None recorded. Referral None recorded. Procedures None recorded. Surgeries None recorded. Imaging US, transvagina l 2022 023 [email or web address] [place] [facility] [address], [place], [address], 3 20:16:13 Medication Orders metronidazo le 0.75 % (37.5 mg/5 gram) vaginal gel 2022 023 [facility] [address] [place], [address], 3 11:46:38 Patient TargetsNo targets recorded. Patient InstructionsNo instructions recorded. Reason for Referral None Reported. Results Created Date Observation Date Name Description Value Unit Range Abnormal Flag Note LastModifiedBy Organization Detail LastModifiedTime 06/02/20 21 06/02/2021 IMAGE GUIDE D PAP AND HPV REGAR DLESS image guided Pap, HPV regardless of Pap result SEE RESULT S BELOW CASE REPOR T: Cytol ogy Gynec ologi rosalba Repor t Case: [id number] Autho jair pierce Provi lilibeth: Miguel A Jose MD Colle cted: 06/02 1601 Order ing Locat ion: [place] Patho logy Recei carl: 06/03 0028 First Scree n: Harjeet r, Nancy , CT Rescr een: Yasmin Cunningham, CT Speci men: Jimbo dao Pap - Image d, Vagin a STATE MENT OF ADEQU ACY: Satis facto ry for evalu ation FINAL DIAGN OSIS: Negat samy for Intra epith elial Lesio n or Andrea gomez (NIL) . Funga l organ isms morph ologi brian consi stent with Nayely da spp. Elect meir guadarrama christine d by Yasmin Cunningham, CT on 2020 at 7:47 AM ----- ----- ----- ----- ----- ----- ----- ----- ----- ----- ----- ----- ----- ----- ----- ----- ----- ---- HPV RESUL TS: HPV mRNA E6/E7 : No HPV mRNA Detec lv NOTE: This high risk HPV mRNA assay detec ts fourt een high- risk HPV types (16, 18, 31, 33, 35, 39, 45, 51, 52, 56, 58, 59, 66, 68) witho ut diffe renti ation . COMME NT: Note: This speci men was revie wed by a Cytot echno logis t and/o r Patho logis t (as indic ated in this repor t) after evalu ation using the Thinp rep Imagi ng Syste m. CLINI ROSALBA INFOR MATIO N: Menst rual Statu s: LMP (if appli cable ): Clini rosalba Histo ry/Pr eviou s Pap: Type of Neopl hannah (if appli cable ): Signi fican t Clini rosalba Findi ngs: Other Histo ry: Hormo desmond (if appli cable ): PAP EDUCA MELISSA L NOTE: The Pap Test is a scree sylwia test with an inher ent false negat samy rate. Liqui d-bas e sampl ing may decre ase, but will not elimi rabia, false negat samy resul ts. A negat samy resul t does not precl ude the prese nce and/o r devel opmen t of disea se, since the prese nce of abnor mal cells in the sampl e depen ds on the locat ion of the lesio n and sampl ing techn ique. Aleta nued regul ar scree sylwia is the best metho d of cance r preve ntion . If repor lv cytol ogic findi ng do not corre late with physi rosalba and/o r histo rical findi ngs, furth er inves tigat ion is recom cher d, as clini brian barahona nted. Not Available [facility] (Lab) [address], [place], [address], 06/12/2021 08:49:55 06/12/20 21 06/12/2021 CBC W/DIF F WBC 8.4 10'3/ uL 3.6-10 .2 Not Available [facility] (Lab) [address] [place], [address], 06/13/2021 06:10:19 06/12/20 21 06/12/2021 CBC W/DIF F RBC 4.20 10'6/ uL (based on docume nted legal sex) 4.10-5 .30 Not Available [facility] (Lab) [address] [place], [address], 06/13/2021 06:10:19 06/12/20 21 06/12/2021 CBC W/DIF F HGB 10.0 g/dL (based on docume nted legal sex) 11.9-1 5.8 low Not Available [facility] (Lab) [address] [place], [address], 06/13/2021 06:10:19 06/12/20 21 06/12/2021 CBC W/DIF F HCT 34.1 % (based on docume nted legal sex) 37.4-4 8.3 low Not Available [facility] (Lab) [address], [place], [address], 06/13/2021 06:10:19 06/12/20 21 06/12/2021 CBC W/DIF F MCV 81.0 fL 82.0-9 9.0 low Not Available [facility] (Lab) [address], [place], [address], 06/13/2021 06:10:19 06/12/20 21 06/12/2021 CBC W/DIF F MCH 24.0 pg 27.0-3 3.0 low Not Available [facility] (Lab) [address], [place], [address], 06/13/2021 06:10:19 06/12/20 21 06/12/2021 CBC W/DIF F MCHC 29.0 g/dL 32.0-3 6.0 low Not Available [facility] ([facility]) [address], [place], [address], 06/13/2021 06:10:19 06/12/20 21 06/12/2021 CBC W/DIF F RDW 19.0 % 11.0-1 5.0 high Not Available [facility] ([facility]) [address], [place], [address], 06/13/2021 06:10:19 06/12/20 21 06/12/2021 CBC W/DIF F plt 235 10'3/ uL 150-45 0 Not Available [facility] ([facility]) [address], [place], [address], 06/13/2021 06:10:19 06/12/20 21 06/12/2021 CBC W/DIF F MPV 11.4 fL 9.8-12 .7 Not Available [facility] ([facility]) [address], [place], [address], 06/13/2021 06:10:19 06/12/20 21 06/12/2021 CBC W/DIF F NRBC's 0.00 % 0 Not Available [facility] ([facility]) [address], [place], [address], 06/13/2021 06:10:19 06/12/20 21 06/12/2021 CBC W/DIF F absolute NRBCs 0.0 10'3/ uL 0 Not Available [facility] ([facility]) [address], [place], [address], 06/13/2021 06:10:19 06/12/20 21 06/12/2021 CBC W/DIF F neutrophils 68.0 % 37.0-7 2.0 Not Available [facility] ([facility]) [address], [place], [address], 06/13/2021 06:10:19 06/12/20 21 06/12/2021 CBC W/DIF F lymphocytes 24.0 % 16.0-4 8.0 Not Available [facility] ([facility]) [address], [place], [address], 06/13/2021 06:10:19 06/12/20 21 06/12/2021 CBC W/DIF F monocytes 7.0 % 4.0-14 .0 Not Available [facility] ([facility]) [address], [place], [address], 06/13/2021 06:10:19 06/12/20 21 06/12/2021 CBC W/DIF F eosinophils 1.0 % 0.0-9. 0 Not Available [facility] ([facility]) [address], [place], [address], 06/13/2021 06:10:19 06/12/20 21 06/12/2021 CBC W/DIF F basophils 0.0 % 0.0-2. 0 Not Available [facility] ([facility]) [address], [place], [address], 06/13/2021 06:10:19 06/12/20 21 06/12/2021 CBC W/DIF F immature granulocytes 0.0 % no define d refere nce range Not Available [facility] ([facility]) [address], [place], [address], 06/13/2021 06:10:19 06/12/20 21 06/12/2021 CBC W/DIF F absolute neutrophils 5.7 10'3/ uL 1.1-6. 0 Not Available [facility] ([facility]) [address], [place], [address], 06/13/2021 06:10:19 06/12/20 21 06/12/2021 CBC W/DIF F absolute lymphocytes 2.1 10'3/ uL 0.7-3. 4 Not Available [facility] ([facility]) [address], [place], [address], 06/13/2021 06:10:19 06/12/20 21 06/12/2021 CBC W/DIF F absolute monocytes 0.6 10'3/ uL 0.3-1. 0 Not Available [facility] ([facility]) [address], [place], [address], 06/13/2021 06:10:19 06/12/20 21 06/12/2021 CBC W/DIF F absolute eosinophils 0.1 10'3/ uL 0.0-0. 6 Not Available [facility] ([facility]) [address], [place], [address], 06/13/2021 06:10:19 06/12/20 21 06/12/2021 CBC W/DIF F absolute basophils 0.0 10'3/ uL 0.0-0. 1 Not Available [facility] ([facility]) [address] [place], [address], 06/13/2021 06:10:19 06/12/20 21 06/12/2021 CBC W/DIF F absolute immature granulocytes 0.00 10'3/ uL 0.00-0 .10 2020 4:04 AM: P indic ates parti al resul ts on a panel have been relea sed. Addit ional resul ts will follo w. 2020 4:04 AM: This resul t has been final verif ied. No addit ional or martin ed resul ts are expec lv. Not Available [facility] ([facility]) [address], [place], [address], 06/13/2021 06:10:19 06/12/20 21 06/12/2021 PHOSP HORUS phosphorus 3.5 mg/dL 2.5-5. 0 Not Available [facility] ([facility]) [address], [place], [address], 06/13/2021 06:10:21 06/12/20 21 06/12/2021 CMP(C OMPRE HENSI VE METAB OLIC PANEL ) sodium 132 mmol/ L 133-14 6 low Not Available [facility] ([facility]) [address], [place], [address], 06/13/2021 06:10:22 06/12/20 21 06/12/2021 CMP(C OMPRE HENSI VE METAB OLIC PANEL ) potassium 4.3 mmol/ L 3.5-5. 1 Not Available [facility] ([facility]) [address], [place], [address], 06/13/2021 06:10:22 06/12/20 21 06/12/2021 CMP(C OMPRE HENSI VE METAB OLIC PANEL ) chloride 98 mmol/ L 98-107 Not Available [facility] ([facility]) [address], [place], [address], 06/13/2021 06:10:22 06/12/20 21 06/12/2021 CMP(C OMPRE HENSI VE METAB OLIC PANEL ) carbon dioxide 28 mmol/ L 21-31 Not Available [facility] ([facility]) [address], [place], [address], 06/13/2021 06:10:22 06/12/20 21 06/12/2021 CMP(C OMPRE HENSI VE METAB OLIC PANEL ) anion gap 6 mmol/ L 4-13 Not Available [facility] ([facility]) [address], [place], [address], 06/13/2021 06:10:22 06/12/20 21 06/12/2021 CMP(C OMPRE HENSI VE METAB OLIC PANEL ) blood urea nitrogen 14 mg/dL 7-[address] [facility] (Lab) [address], [place], [address], 06/13/2021 06:10:22 06/12/20 21 06/12/2021 CMP(C OMPRE HENSI VE METAB OLIC PANEL ) creatinine 1.32 mg/dL 0.60-1 .30 high Not Available [facility] ([facility]) [address], [place], [address], 06/13/2021 06:10:22 06/12/20 21 06/12/2021 CMP(C OMPRE HENSI VE METAB OLIC PANEL ) egfrcr (CKD-epi 2020) 46 mL/mi n/1.7 3_m2 >=60 low Not Available [facility] ([facility]) [address], [place], [address], 06/13/2021 06:10:22 06/12/20 21 06/12/2021 CMP(C OMPRE HENSI VE METAB OLIC PANEL ) calcium 9.1 mg/dL 8.3-10 .5 Not Available [facility] ([facility]) [address], [place], [address], 06/13/2021 06:10:22 06/12/20 21 06/12/2021 CMP(C OMPRE HENSI VE METAB OLIC PANEL ) glucose 285 mg/dL 70-100 high Not Available [facility] ([facility]) [address], [place], [address], 06/13/2021 06:10:22 06/12/20 21 06/12/2021 CMP(C OMPRE HENSI VE METAB OLIC PANEL ) protein, total 6.6 g/dL 6.4-8. 3 Not Available [facility] ([facility]) [address], [place], [address], 06/13/2021 06:10:22 06/12/20 21 06/12/2021 CMP(C OMPRE HENSI VE METAB OLIC PANEL ) albumin 3.8 g/dL 3.5-5. 0 Not Available [facility] ([facility]) [address], [place], [address], 06/13/2021 06:10:22 06/12/20 21 06/12/2021 CMP(C OMPRE HENSI VE METAB OLIC PANEL ) ALT 26 units /L 9-43 Not Available [facility] ([facility]) [address], [place], [address], 06/13/2021 06:10:22 06/12/20 21 06/12/2021 CMP(C OMPRE HENSI VE METAB OLIC PANEL ) alkaline phosphatase 107 units /L 34-104 high Not Available [facility] ([facility]) [address], [place], [address], 06/13/2021 06:10:22 06/12/20 21 06/12/2021 CMP(C OMPRE HENSI VE METAB OLIC PANEL ) AST 23 units /L 13-39 Not Available [facility] ([facility]) [address], [place], [address], 06/13/2021 06:10:22 06/12/20 21 06/12/2021 CMP(C OMPRE HENSI VE METAB OLIC PANEL ) bilirubin, total 0.5 mg/dL 0.2-1. 2 Not Available [facility] ([facility]) [address], [place], [address], 06/13/2021 06:10:22 06/12/20 21 06/12/2021 TSH, REFLE X FREE T4 TSH 0.97 uIU/m L 0.30-5 .33 Not Available [facility] ([facility]) [address], [place], [address], 06/13/2021 06:10:23 06/12/20 21 06/12/2021 VITAM IN D, 25-OH (TOTA L D2/D3 ) vitamin D, 25-hydroxy, total 51.5 NG/mL 30-80 NOTE: Defic iency : <20 ng/mL Insuf ficie ncy: 20-29 ng/mL Optim um Level : 30-80 ng/mL Possi ble Toxic ity: >80 ng/mL Most patie nts with toxic ity have level s >150 ng/mL . Not Available [facility] (Lab) [address], [place], [address], 06/13/2021 06:10:25 06/14/20 23 06/14/2023 IMAGE GUIDE D PAP AND HPV REGAR DLESS image guided Pap, HPV regardless of Pap result SEE RESULT S BELOW CASE REPOR T: Cytol ogy Gynec ologi rosalba Repor t Case: [id number] Autho jair g Provi lilibeth: Miguel A Jose MD Colle cted: 06/14 1321 Order ing Locat ion: [place] Patho logy Recei carl: 06/15 0221 First Scree n: Caitlin Resendiz Speci men: Scree sylwia Pap - Image d, Vagin a STATE MENT OF ADEQU ACY: Satis facto ry for evalu ation Parti ally obscu ring infla mmati on prese nt. FINAL DIAGN OSIS: Negat samy for Intra epith elial Gena n or Andrea gomez (NIL) . Elect meir guadarrama christine d by Caitlin Resendiz ica on 2022 at 1:48 PM ----- ----- ----- ----- ----- ----- ----- ----- ----- ----- ----- ----- ----- ----- ----- ----- ----- ---- HPV RESUL TS: HPV mRNA E6/E7 : No HPV mRNA Detec lv NOTE: This high risk HPV mRNA assay detec ts fourt een high- risk HPV types (16, 18, 31, 33, 35, 39, 45, 51, 52, 56, 58, 59, 66, 68) witho ut diffe renti ation . COMME NT: Slide scree dez alec wolff due to rejec tion by the Thinp rep Imagi ng Syste m. CLINI ROSALBA INFOR MATIO N: Menst rual Statu s: LMP (if appli cable ): Clini rosalba Histo ry/Pr eviou s Pap: Type of Neopl hannah (if appli cable ): Signi fican t Clini rosalba Findi ngs: Other Histo ry: Hormo desmond (if appli cable ): PAP EDUCA MELISSA L NOTE: The Pap Test is a scree sylwia test with an inher ent false negat samy rate. Liqui d-bas ed sampl ing may decre ase, but will not elimi rabia, false negat samy resul ts. A negat samy resul t does not precl ude the prese nce and/o r devel opmen t of disea se, since the prese nce of abnor mal cells in the sampl e depen ds on the locat ion of the lesio n and sampl ing techn ique. Aleta nued regul ar scree sylwia is the best metho d of cance r preve ntion . If repor lv cytol ogic findi ng do not corre late with physi rosalba and/o r histo rical findi ngs, furth er inves tigat ion is recom cher d, as andreai brian barahona nted. Not Available [facility] (Lab) [address], [place], [address], 06/16/2023 14:51:52 06/10/20 21 06/08/2021 DEXA No observ ation record ed. [email or web address] [address], [place], [address], 06/11/2021 13:47:22 07/23/19 22 07/23/2021 [email or web address] , scree sylwia, bilat eral No observ ation record ed. [facility] [address], [place], [address], 07/24/2021 09:38:34 07/23/19 22 07/23/2021 MAMMO , scree sylwia, bilat eral No observ ation record ed. [facility] [address], [place], [address], 07/24/2021 09:39:21 04/27/20 23 04/27/2023 , trans vagin al No observ ation record ed. [email or web address] [place] [address], [place], [address], 04/27/2023 12:28:53 04/27/2004/27/2023 , trans vagin al No observ ation record ed. [email or web address] [facility] [address] [address], [place], [address], 04/27/2023 12:37:53 05/05/20 , trans vagin al No observ ation record ed. [email or web address] [place] [address], [place], [address], 05/05/2023 15:55:06 Result Notes None recorded. Problems Name Problem SNOMED Code Status Onset Date Resolution Date Notes Provider Name and Address Organization Details Recorded Time Finding of trunk structure Active 2015 Generalize d intra-abd and pelvic swelling, mass and lump;Pract ice ID: 0001 Not Available [facility] 0 16:29:46 Cyst of ovary 06980242 Active 2015 Unspecifie d ovarian cyst, left side;Pract ice ID: 0001 Not Available [facility] 0 16:29:46 Imaging of abdomen abnormal 262406372 Active 2015 Abn findings on dx imaging of abd regions, inc retroperit on;Practic e ID: 0001 Not Available [facility] 0 16:29:46 Lesion of ovary Active 2016 Other ovarian cyst, left side;Pract ice ID: 0001 Not Available [facility] 0 16:29:46 Abdominal pain 61638201 Active 2016 Unspecifie d abdominal pain;Pract ice ID: 0001 Not Available [facility] 0 16:29:47 Acute vaginitis 40918536 Active 2017 Acute vaginitis; Practice ID: 0001 Not Available [facility] 0 16:29:47 Vaginolab ial hernia Active 2017 Other specified noninflamm atory disorders of vagina;Rec orded Elsewhere: No Locatio n: [facility] Jennifer rce: EHR Chroni c: N Practice ID: 0001 Billa ble Time: 02:45:00 PM Not Available [facility] 0 16:29:53 Pelvic and perineal pain 002532570 Active 2017 Pelvic and perineal pain;Pract ice ID: 0001 Not Available [facility] 0 16:29:45 Cyst of ovary Active 2017 Unspecifie d ovarian cyst, unspecifie d side;Pract ice ID: 0001 Not Available [facility] 0 16:29:45 Diverticu lar disease of colon 538543291 Active 2017 Dvrtclos of lg int w/o perforatio n or abscess w/o bleeding;P ractice ID: 0001 Not Available [facility] 0 16:29:45 Accidenta l puncture during a procedure 983720207 Active 2017 Acc pnctr & lac of a dgstv sys org during oth procedure; Practice ID: 0001 Not Available [facility] 0 16:29:46 Accidenta l laceratio n during a procedure 769283585 Active 2017 Acc pnctr & lac of a dgstv sys org during oth procedure; Practice ID: 0001 Not Available [facility] 0 16:29:46 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 71999913 Active 2017 Female pelvic peritoneal adhesions (postinfec tive);Prac bong ID: 0001 Not Available [facility] 0 16:29:46 Procedure on genitouri nary system Active 2017 Encounter for surgical aftcr following surgery on the sys;Practi ce ID: 0001 Not Available [facility] 0 16:29:45 Postopera tive care Active 2017 Encounter for surgical aftcr following surgery on the sys;Practi ce ID: 0001 Not Available [facility] 0 16:29:45 Evaluatio n finding Active 2017 Hematuria, unspecifie d;Practice ID: 0001 Not Available [facility] 0 16:29:[address] Concept Active 2017 Encntr for general adult medical exam w/o abnormal findings;R ecorded Elsewhere: No Locatio n: [facility] rce: EHR Chroni c: N Practice ID: 0001 Billa ble Time: 01:00:00 PM Not Available [facility] 0 16:29:52 Urinary tract infectiou s disease 43568721 Active 2018 Urinary tract infection, site not specified; Recorded Elsewhere: No Locatio n: [facility] Jennfier rce: EHR Chroni c: N Practice ID: 0001 Billa ble Time: 09:15:00 AM Not Available [facility] 0 16:29:48 Diverticu litis of large intestine without complicat ion 627345921 Active 2018 Diverticul itis of large intestine without abscess without hemorrhage ;Recorded Elsewhere: No Locatio n: [facility] Jennifer rce: EHR Chroni c: N Practice ID: 0001 Billa ble Time: 09:30:00 AM Not Available [facility] 0 16:29:49 Finding of defecatio n Active 2019 Constipati on, unspecifie d;Practice ID: 0001 Not Available [facility] 16:29:50 Problem Notes None recorded. Procedures Surgical History Date Name Laterality Status Provider Name and Address Organization Details Recorded Time 06/14/20 Date of Last Pap Smear completed [facility] 06/14/2023 13:00:18 07/23/19 Date of Last Mammogram completed [facility] 06/14/2023 11:36:08 endoscopy completed [facility] 06/02/2021 14:46:41 Total hysterectomy completed [facility] 06/02/2021 14:47:28 insertion of single incision mid-urethral mini-sling completed [facility] 06/02/2021 14:47:52 cardiac catheterization completed [facility] 04/08/2020 16:48:41 cataract surgery completed [facility] 04/08/2020 16:48:57 Cholecystectomy completed [facility] 04/08/2020 16:49:06 Colonoscopy completed [facility] 04/08/2020 16:49:15 diagnostic laparoscopy completed [facility] 04/08/2020 16:50:32 Tonsillectomy completed [facility] 04/08/2020 17:22:36 gastrointestinal tract endoscopy completed [facility] 04/10/2020 15:39:11 cystoscopy completed [facility] 04/10/2020 15:45:02 Imaging Results None recorded. Procedure Notes None recorded. Medical Equipment None Reported. Allergies Allergen ID Allergen Name Allergen Category Reaction Reaction Severity Criticality Documentation Date Start Date Code Code System Note Provider Name and Address Organization Details Recorded Time 2201 alprazola m medicatio n Not available Not available Not available 04/08/2020 596 RxNorm Maria D Vicente [facility], [facility] 0 16:29:20 2203 ciproflox acin medicatio n Not available Not available Not available 04/08/2020 2551 RxNorm Maria D dowling, [facility] 0 16:29:31 2204 levofloxa riley medicatio n Not available Not available Not available 04/08/2020 81448 RxNorm Maria D Vicente [facility], [facility] 0 16:29:41 Medications Name Sig Start Date Stop Date Status Note LastModified by Organization Details LastModified Time cyclobenz aprine 10 mg tablet active Not Available Not Available No t Available Levaquin 250 mg tablet take 1 tablet by oral route every day for 3 days 09/26 completed Prescrib ed Elsewher e: No Locat ion: [facility] odify By: aaron Bueno r DateTime : 01/20/20 16 12:52:02 PM Not Available Not Available Not Available atorvasta tin 40 mg tablet active Not Available Not Available Not Available buspirone 5 mg tablet take 1 tablet by oral route 3 times every day 04/08 completed Not Available Not Available Not Available metformin 500 mg tablet take 1 tablet by oral route 2 times every day with morning and evening meals active Not Available Not Available No t Available cilostazo l 100 mg tablet active Not Available Not Available Not Available Xanax 0.5 mg tablet take 1 tablet by oral route 3 times every day 09/26 completed Prescrib ed Elsewher e: Yes Loca tion: [facility] M odify By: aaron Bueno r DateTime : 01/19/20 16 10:30:00 AM Not Available Not Available Not Available nystatin 100,000 unit/mL oral suspensio n TAKE 5 ML BY MOUTH 4 TIMES DAILY, RETAIN LONG POSSIBLE BEFORE SPITTING . active Not Available Not Available No t Available gabapenti n 600 mg tablet active Not Available Not Available Not Available citalopra m 40 mg tablet active Not Available Not Available Not Available trazodone 50 mg tablet active Not Available Not Available Not Available oxybutyni n chloride ER 10 mg tablet,ex tended release 24 hr active Not Available Not Available Not Available azithromy riley 250 mg tablet 06/02 completed Not Available Not Available Not Available cilostazo l 50 mg tablet take 1 tablet by oral route 2 times every day 1/2 hour before or 2 hours after breakfas t and dinner 06/02 completed Prescrib ed Elsewher e: Yes Loca tion: [facility] odify By: damián Mcnamara ncounter DateTime : 01/19/20 16 10:30:00 AM Not Available Not Available Not Available fluconazo le 150 mg tablet take 1 tablet by oral route once and then 1 tablet 48 hours later active Not Available Not Available No t Available citalopra m 10 mg tablet take 1 tablet by oral route every day 06/02 completed Prescrib ed Elsewher e: Yes [facility] odify By: ammassimo Mcnamara ncounter DateTime : 01/19/20 16 10:30:00 AM Not Available Not Available Not Available hydrocodo ne 5 mg-acetam inophen 325 mg tablet Take 1 tablet every 6 hours by oral route. active Not Available Not Available No t Available fluticaso ne propionat e 0.05 % topical cream active Not Available Not Available Not Available meloxicam 15 mg tablet active Not Available Not Available Not Available sucralfat e 1 gram tablet active Not Available Not Available Not Available metronida zole 0.75 % (37.5 mg/5 gram) vaginal gel INSERT 1 APPLICAT ORFUL VAGINALL Y ONCE DAILY AT BEDTIME active Not Available Not Available No t Available alendrona te 70 mg tablet active Not Available Not Available Not Available clobetaso l 0.05 % topical cream active Not Available Not Available Not Available Accu-Chek Softclix Lancets active Not Available Not Available Not Available diphenoxy late-atro pine 2.5 mg-0.025 mg tablet active Not Available Not Available No t Available allopurin ol 100 mg tablet active Not Available Not Available Not Available sulfameth oxazole 800 mg-trimet hoprim 160 mg tablet take 1 tablet by oral route every 12 hours 06/02 completed Not Available Not Available Not Available aspirin 81 mg tablet,de layed release take 1 tablet by oral route every day 2015 active Prescrib ed Elsewher e: Yes Loca tion: Shayne mcnamara [facility] odify By: damián fletcheruntariel DateTime : 01/19/20 16 10:30:00 AM Not Available Not Available Not Available tramadol 50 mg tablet active Not Available Not Available Not Available spironola ctone 25 mg tablet active Not Available Not Available No t Available amoxicill in 500 mg tablet take 1 tablet by oral route 3 times every day 06/05 completed Prescrib ed Elsewher e: No Locat ion: Shayne mcnamara [facility] odify By: brina fletcheruntariel DateTime : 05/29/20 18 01:00:00 PM Not Available Not Available Not Available pantopraz ole 20 mg tablet,de layed release take 2 tablet by oral route every day 06/02 completed Prescrib ed Elsewher e: Yes Loca tion: Shayne mcnamara [facility] odify By: damián fletcherunter DateTime : 01/19/20 16 10:30:00 AM Not Available Not Available Not Available Macrobid 100 mg capsule take 1 capsule by oral route every 12 hours with food 06/02 completed Prescrib ed Elsewher e: No Locat ion: [facility] odify By: [email or web address] n Lois brian DateTime : 11/15/19 09:22:53 AM Not Available Not Available Not Available Vitamin B-12 50 mcg tablet 2015 active Prescrib ed Elsewher e: Yes Loca tion: [facility] odify By: [email or web address] Mcnamara ncounter DateTime : 01/19/20 16 10:30:00 AM Not Available Not Available Not Available ciclopiro x 8 % topical solution active Not Available Not Available Not Available meloxicam 7.5 mg tablet take 1 tablet by oral route every day 04/08 completed Not Available Not Available Not Available oxycodone -acetamin ophen 5 mg-325 mg tablet take 1 tablet by oral route every 6 hours as needed 06/02 completed Prescrib ed Elsewher e: No Locat ion: [facility] odify By: [email or web address] Encounte r DateTime : 09/26/19 09:30:00 AM Not Available Not Available Not Available isosorbid e mononitra te ER 60 mg tablet,ex tended release 24 hr active Not Available Not Available Not Available famotidin e 20 mg tablet 06/02 completed Not Available Not Available Not Available metoclopr amide 5 mg tablet active Not Available Not Available No t Available estradiol 1 mg tablet take 1 tablet by oral route every day 06/02 completed Prescrib ed Elsewher e: No Locat ion: [facility] odify By: cl Abreu ter DateTime : 04/19/20 02:23:46 PM Not Available Not Available Not Available methotrex ate sodium 2.5 mg tablet active Not Available Not Available Not Available potassium citrate ER 10 mEq (1,080 mg) tablet,ex tended release take 1 tablet by oral route 3 times every day active Not Available Not Available No t Available cephalexi n 500 mg capsule 06/02 completed Not Available Not Available Not Available pantopraz ole 40 mg tablet,de layed release active Not Available Not Available Not Available hyoscyami ne sulfate 0.125 mg tablet 06/02 completed Not Available Not Available Not Available metformin 1,000 mg tablet active Not Available Not Available Not Available esomepraz ole magnesium 40 mg capsule,d elayed release active Not Available Not Available Not Available Cipro 500 mg tablet take 1 tablet by oral route every 12 hours 02/06 completed Prescrib ed Elsewher e: No Locat ion: [facility] odify By: cl Abreu ter DateTime : 02/07/20 10:45:00 AM Not Available Not Available Not Available nystatin 100,000 unit/gram topical cream active Not Available Not Available Not Available dexametha sone 4 mg tablet 06/02 completed Not Available Not Available Not Available buspirone 10 mg tablet 06/02 completed Not Available Not Available Not Available lidocaine 5 % topical patch active Not Available Not Available Not Available losartan 25 mg tablet 06/02 completed Not Available Not Available Not Available hydrochlo rothiazid e 12.5 mg capsule active Not Available Not Available Not Available nitroglyc mimi 0.4 mg sublingua l tablet 06/02 completed Not Available Not Available Not Available gabapenti n 300 mg capsule active Not Available Not Available Not Available mirtazapi ne 45 mg tablet 04/08 completed Not Available Not Available Not Available folic acid 1 mg tablet active Not Available Not Available Not Available hydroxyzi ne HCl 25 mg tablet active Not Available Not Available No t Available isosorbid e mononitra te 10 mg tablet take 1 tablet by oral route 2 times every day given 7 hours apart 06/02 completed Prescrib ed Elsewher e: Yes Loca tion: [facility] odify By: damián fletcherunter DateTime : 01/19/20 16 10:30:00 AM Not Available Not Available Not Available Nitrostat 0.3 mg sublingua l tablet place 1 tablet by sublingu al route at the first sign of an attack; no more than 3 tabs are recommen ded within a 15 minute period. 06/02 completed Prescrib ed Elsewher e: Yes Loca tion: [facility] odify By: damián erickson DateTime : 01/19/20 16 10:30:00 AM Not Available Not Available Not Available mirtazapi ne 15 mg tablet take 1 tablet by oral route every day before bedtime active Not Available Not Available No t Available gabapenti n 100 mg capsule take 3 capsule by oral route 3 times every day 06/02 completed Prescrib ed Elsewher e: Yes Loca tion: [facility] odify By: damián fletcherunter DateTime : 04/20/20 16 11:00:00 AM Not Available Not Available Not Available metoprolo l succinate ER 25 mg tablet,ex tended release 24 hr take 1 tablet by oral route every day active Not Available Not Available No t Available ergocalci ferol (vitamin D2) 1,250 mcg (50,000 unit) capsule take 1 capsule by oral route every week active Not Available Not Available No t Available ibuprofen 600 mg tablet 06/02 completed Not Available Not Available Not Available cefuroxim e axetil 500 mg tablet 06/02 completed Not Available Not Available Not Available albuterol sulfate HFA 90 mcg/actua tion aerosol inhaler inhale 2 puff by inhalati on route every 4 - 6 hours as needed active Not Available Not Available No t Available losartan 50 mg-hydroc hlorothia zide 12.5 mg tablet active Not Available Not Available No t Available cefdinir 300 mg capsule active Not Available Not Available Not Available Lipitor 10 mg tablet take 1 tablet by oral route every day 06/02 completed Prescrib ed Elsewher e: Yes Loca tion: Shayne mcnamara [facility] odify By: damián erickson DateTime : 01/19/20 16 10:30:00 AM Not Available Not Available Not Available fluticaso ne propionat e 50 mcg/actua tion nasal spray,baltazar pension active Not Available Not Available Not Available glipizide 5 mg tablet take 1 tablet by oral route 2 times every day before meals 06/02 completed Not Available Not Available Not Available amoxicill in 875 mg-potass ium clavulana te 125 mg tablet TAKE 1 TABLET BY MOUTH EVERY 12 HOURS FOR 10 DAYS 06/14 completed Not Available Not Available Not Available amoxicill in 500 mg-potass ium clavulana te 125 mg tablet 06/02 completed Not Available Not Available Not Available buspirone 15 mg tablet active Not Available Not Available Not Available escitalop basilio 20 mg tablet active Not Available Not Available Not Available Novolog FlexPen U-100 Insulin aspart 100 unit/mL (3 mL) subcutane ous active Not Available Not Available Not Available cyclobenz aprine 5 mg tablet take 1 tablet by oral route 3 times every day 06/02 completed Prescrib ed Elsewher e: Yes Loca tion: Shayne mcnamara [facility] odify By: damián erickson DateTime : 01/19/20 16 10:30:00 AM Not Available Not Available Not Available Fiber Therapy (methylce llulose) 500 mg tablet 06/02 completed Prescrib ed Elsewher e: Yes [facility] By: damián Mcnamara ncounter DateTime : 01/19/20 16 10:30:00 AM Not Available Not Available Not Available Accu-Chek Gretel Control Soln solution active Not Available Not Available Not Available losartan 100 mg-hydroc hlorothia zide 12.5 mg tablet take 1 tablet by oral route every day 06/02 completed Prescrib ed Elsewher e: Yes [facility] By: damián Mcnamara ncounter DateTime : 01/19/20 16 10:30:00 AM Not Available Not Available Not Available magnesium active Not Available Not Shea ilable Not Available vitamin E active Not Available Not Shea ilable Not Available guaifenes in active Not Available Not Available Not Available Fish Oil active Not Available Not Avai lable Not Available hydrocort isone active Not Available Not Available Not Available Miralax active Not Available Not Avail able Not Available Januvia 50 mg tablet 2020 active Not Available Not Available Not Avai lable Januvia 100 mg tablet 06/02 completed Not Available Not Available Not Available Symbicort 160 mcg-4.5 mcg/actua tion HFA aerosol inhaler 06/02 completed Not Available Not Available Not Available FeroSul 325 mg (65 mg iron) tablet 06/02 completed Not Available Not Available Not Available Cholestyr amine Light 4 gram oral powder active Not Available Not Available Not Available diclofena c 1 % topical gel 06/02 completed Not Available Not Available Not Available fenofibra te 54 mg tablet active Not Available Not Available Not Available Probiotic active Not Available Not Shea ilable Not Available polycarbo ambika active Not Available Not Available Not Available Tradjenta 5 mg tablet take 1 tablet by oral route every day 06/02 completed Prescrib ed Elsewher e: Yes [facility] By: damián Mcnamara ncoer DateTime : 01/19/20 16 10:30:00 AM Not Available Not Available Not Available Virtussin AC 10 mg-100 mg/5 mL oral liquid 06/02 completed Not Available Not Available Not Available Farxiga 10 mg tablet TAKE 1 TABLET BY MOUTH ONCE DAILY active Not Available Not Available No t Available Droplet Pen Needle 31 gauge x 5/16 active Not Available Not Available Not Available Accu-Chek Guide test strips active Not Available Not Available Not Available Accu-Chek Guide Glucose Meter active Not Available Not Available Not Available Ozempic 0.25 mg or 0.5 mg (2 mg/1.5 mL) subcutane ous pen injector active Not Available Not Available Not Available Toujeo Max U-300 SoloStar 300 unit/mL (3 mL) subcutane ous insulin pen active Not Available Not Available Not Available OneTouch Delica Plus Lancet 33 gauge active Not Available Not Available Not Available DropSafe Alcohol Prep Pads active Not Available Not Available No t Available Ozempic 2 mg/dose (8 mg/3 mL) subcutane ous pen injector active Not Available Not Available Not Available Ozempic 0.25 mg or 0.5 mg (2 mg/3 mL) subcutane ous pen injector active Not Available Not Available Not Available Vitals Date Recorded Body height Body mass index (BMI) Body weight Systolic And Diastolic Provider Name and Address Organization Details Last Updated DateTime 04/25/2023 162.56 cm 28.3 kg/m2 04779.74 g 123/68 mm[Hg] [facility] 04/25/2023 09:43:37 Date Recorded Body height Body mass index (BMI) Body weight Systolic And Diastolic Provider Name and Address Organization Details Last Updated DateTime 05/06/2023 162.56 cm 28.3 kg/m2 77913.74 g 107/65 mm[Hg] [facility] 05/06/2023 12:12:34 Date Recorded Body height Body mass index (BMI) Body weight Systolic And Diastolic Provider Name and Address Organization Details Last Updated DateTime 06/14/2023 162.56 cm 28 kg/m2 45443.56 g 93/56 mm[Hg] [facility] 06/14/2023 11:34:04 Date Recorded Body height Body mass index (BMI) Body weight Systolic And Diastolic Provider Name and Address Organization Details Last Updated DateTime 06/20/2021 162.56 cm 28.7 kg/m2 05235.93 g 124/66 mm[Hg] Maria D Vicente [facility] 06/20/2021 11:17:39 Social History None recorded. Functional Status None recorded. Mental Status None recorded. Family History Relationship Description Onset Age of this Age Resolved Age Notes LastModified by Organization Details LastModified Time Mother Disorder of cardiovascul ar system [email or web address] Not available 2019 16:41:59 Mother Diabetes mellitus [email or web address] Not available 2019 16:42:43 Mother Hyperlipidem ia [email or web address] Not available 2019 16:43:20 Mother Malignant neoplasm of lung [email or web address] Not available 2019 16:45:35 Mother Mental disorder [email or web address] Not available 2019 16:46:17 Mother Hypertensive disorder [email or web address] Not available 2019 16:46:47 Father Disorder of cardiovascul ar system [email or web address] Not available 2019 16:41:59 Father Diabetes mellitus [email or web address] Not available 2019 16:42:43 Father Hyperlipidem ia [email or web address] Not available 2019 16:43:20 Father Mental disorder [email or web address] Not available 2019 16:46:17 Father Hypertensive disorder [email or web address] Not available 2019 16:46:47 Father Malignant neoplasm of colon [email or web address] Not available 2019 16:47:14 Sister Disorder of cardiovascul ar system [email or web address] Not available 2019 16:41:59 Sister Diabetes mellitus [email or web address] Not available 2019 16:42:43 Sister Mental disorder [email or web address] Not available 2019 16:46:17 Sister Leukemia Not availabl e 06/02/2021 14:42:31 Maternal Grandmother Disorder of cardiovascul ar system [email or web address] Not available 2019 16:41:59 Maternal Grandmother Diabetes mellitus [email or web address] Not available 2019 16:42:43 Maternal Grandmother Malignant neoplasm of lung [email or web address] Not available 2019 16:45:35 Maternal Grandfather Disorder of cardiovascul ar system [email or web address] Not available 2019 16:41:59 Maternal Grandfather Diabetes mellitus [email or web address] Not available 2019 16:42:43 Maternal Grandfather Hyperlipidem ia [email or web address] Not available 2019 16:43:20 Maternal Grandfather Hypertensive disorder [email or web address] Not available 2019 16:46:47 Maternal Grandfather Malignant neoplasm of colon [email or web address] Not available 2019 16:47:14 Maternal Grandfather Malignant neoplasm of lung [email or web address] Not available 2019 16:47:27 Medical History Condition Response Diabetes Y Other Y GI Problems Y High Cholesterol Y Heart Disease Y Gynecological History Statement/Question Response Date of Last Pap Smear 06/14/2023 Current Control Method Hysterectom y Date of Last Mammogram 07/23/2021 Obstetrics History GPAL:G 3 P 0 0 1 2 Type Value Spontaneous 1 Living 2 Total 3 Past Encounters Encounter ID Performer Location Encounter Start Date Encounter Closed Date Diagnosis/Indication Diagnosis SNOMED-CT Code Diagnosis ICD10 Code Diagnosis IMO Codes Diagnosis Note [id number] Zaid Jose MD [place] [address] [address] 04/08/2020 16:20:15 04/08/2020 17:42:13 Pain in pelvis 01451023 R10.2 this patient is a 59-year-ol d female who is known to have a left-sided ovarian cyst. A previous attempt was made to remove the cyst laparoscop ically. There was too much scar tissue at that time to safely remove the ovary. This surgery was discontinu ed. And later general surgery removed a portion of the patient's colon. Her pain is began again. She is having problems in this same area. She believes it is due to her cyst. We have agreed to revisit the issue. We are going to obtain a pelvic ultrasound . Is going to return Mirena discuss a treatment plan. [id number] Zaid Jose MD [place] [address] [address] 04/22/2020 13:50:07 04/22/2020 15:20:56 Pain in pelvis 56204260 R10.2 Cyst of ovary 63256607 N 83.209 This patient is a 59-year-ol d female who presents for pelvic pain and ovarian cyst. She has longstandi ng pelvic pain. The ovarian cyst has been there for about 2 and half years. I operated on her laparoscop ically and found extensive adhesions around thedescend ing colon and sigmoid colon. The patient had extensived iverticulo sis . She later had a partial colon resection for diverticul itis. She continued to have pain. The ovarian cyst continued to be present. It is present now no yet smaller. The patient feels that this is the etiology of her pelvic pain. Her pelvic pain affects her quality of life and activities of daily living. I believe her case is beyond the scope of what I do. We will look to refer her to either Gyne Onc or pelvic pain expert. there was a time when she thought her ovaries were removed with her uterus. An ovary has been seen on ultrasound . [id number] Zaid Jose MD [place] [address] [address] 04/22/2020 13:51:18 04/22/2020 15:47:19 Cyst of uterine adnexa [id number] 9100 N85.8 [id number] Zaid Jose MD [place] [address] [address] 06/02/2021 12:48:53 06/02/2021 13:42:40 Bacterial vaginosis 697815627 N76.0 Abdominal pain 05790424 R10.9 Gynecologi c examination 94727000 Z01.419 This patient is here for her annual exam. A thorough history was taken. A physical exam was performed. Age appropriat e routine health screening was ordered, performed, and discussed. Recommende d testing was ordered. She was asked to follow up in one year. She will be informed of any test results. Mammogram - ordered Colonoscop y - referral to GI Bone Density - DEXA Cholestero l - done Pap - today patient continues to have abdominal pain the left lower quadrant. Patient has diverticul osis. To see Dr. pelletier in general surgery, needs colonoscop y for colon cancer screening. DEXA scan ordered, BV treated. [id number] Zaid Jose MD [place] [address] [address] 06/20/2021 11:12:57 06/20/2021 11:57:16 Cyst of ovary 05169872 N83.209 this patient is a 60-year-ol d female presents for follow-up on ovarian cyst. We repeated ultrasound to look at her ovarian cyst. The ovarian cyst in left lower quadrant is smaller now. We discussed her DEXA scan results. She has osteoporos is at left femoral neck and advanced osteopenia at the other femoral neck. Patient has peptic ulcer by her account. She has some Epigastric pain. Bisphospho nates are not likely possible on this patient. I suggested she contact her primary care doctor. He may be more confident in using other medication s. If her primary care doctor is not interested in treating her osteoporos is I offered a Endocrinol ogy consult. She will contact us if she needs Endocrinol ogy consult. She has been seeing general surgery for the left lower quadrant pain. She is going to have a colonoscop y. She is known to have diverticul osis and scar tissue in the left lower quadrant. She is eager to have surgical Treatment of this left lower quadrant pain. Spent over 15 minutes face-to-fa ce. We agreed to follow-up as needed. [id number] Zaid Jose MD [place] [address] [address] 06/14/2023 11:18:39 06/14/2023 11:55:44 Bacterial vaginosis [id number] N76.0 Gynecologi c examination 81697319 Z01.419 Z11.51 This patient is here for her annual exam. A thorough history was taken. A physical exam was performed. Age appropriat e routine health screening was ordered, performed, and discussed. Recommende d testing was ordered. She was asked to follow up in one year. She will be informed of any test results. Mammogram - ordered Colonoscop y - referral to GI Bone Density - DEXA Cholestero l - done Pap - today [id number] Zaid Jose MD [place] [address] [address] 04/25/2023 09:11:52 04/25/2023 10:42:24 Pain in pelvis 76664757 R10.2 This patient is a 62-year-ol d female presents for pelvic pain. She was seen over 3 years ago for pelvic pain. At that time was believed to be ovarian cyst pain on the left side. She had a complex ovarian cyst. The cyst became smaller. She also in the interim had a partial colectomy for diverticul osis. The patient now currently complains of air coming through the urethra while voiding. It is unknown to have odor. She also has recurrent urinary tract infections . She denies any urine from the vagina. She does not leak urine only extreme circumstan ami. Forceful cough or laughter. Rectovagin al fistula should be evaluated. We will send her to Urology for Consultati on. We will follow-up on ovarian cyst. To have pelvic ultrasound follow-up visit. We spent 20 minutes face-to-fa ce. More than 50% was counseling . Her pelvic pain now is midline. This may be recurrent urinary tract infection and bladder inflammati on. [id number] Zaid Jose MD [place] [address] [address] 04/27/2023 10:46:59 04/27/2023 11:47:36 Pelvic mass 48874885 R19.00 [id number] Zaid Jose MD [place] [address] [address] 05/06/2023 11:49:28 05/09/2023 10:37:47 Pain in pelvis 00126755 R10.2 62-year-ol d female presents for follow-up on ultrasound . We talked about her ultrasound results. She is a cystic structure on her left side. It is unchanged from all the previous imaging that was done over the years. she is going to pursue other areas that may be response for the pain including her urinary tract and GI tract. She has appointmen ts with both Urology and GI. She will follow up with us as needed. Health Concerns Section Related Observation LastModified by Organization Alec ls LastModified Time None Recorded Concern Status LastModified by Organization Details LastModified Time None Recorded Advance Directives Directive None Recorded Payers Insurance Date Sequence Insurance Name Policy Number Policy Dawkins Covered Member ID Dawkins Member ID Guarantor Name 03/26/2025 1 [employer] (MEDICARE REPLACEMENT/ ADVANTAGE - HMO) Valentina Padgett [id number] Valentina Padgett Notes Date Note Type Note Provider Name and Address Organization Details Recorded Time 06/20/20 21 text/htm l this patient is a 60-year-old female presents for follow-up on ovarian cyst. We repeated ultrasound to look at her ovarian cyst. The ovarian cyst in left lower quadrant is smaller now. We discussed her DEXA scan results. She has osteoporosis at left femoral neck and advanced osteopenia at the other femoral neck. Patient has peptic ulcer by her account. She has some Epigastric pain. Bisphosphonates are not likely possible on this patient. I suggested she contact her primary care doctor. He may be more confident in using other medications. If her primary care doctor is not interested in treating her osteoporosis I offered a Endocrinology consult. She will contact us if she needs Endocrinology consult. She has been seeing general surgery for the left lower quadrant pain. She is going to have a colonoscopy. She is known to have diverticulosis and scar tissue in the left lower quadrant. She is eager to have surgical Treatment of this left lower quadrant pain. Spent over 15 minutes [id number]. We agreed to follow-up as needed. Zaid Jose MD [address], [place], [address], [facility] 06/20/2021 11:49:11 04/25/20 23 text/htm l This patient is a 62-year-old female presents for pelvic pain. She was seen over 3 years ago for pelvic pain. At that time was believed to be ovarian cyst pain on the left side. She had a complex ovarian cyst. The cyst became smaller. She also in the interim had a partial colectomy for diverticulosis. The patient now currently complains of air coming through the urethra while voiding. It is unknown to have odor. She also has recurrent urinary tract infections. She denies any urine from the vagina. She does not leak urine only extreme circumstances. Forceful cough or laughter. Rectovaginal fistula should be evaluated. We will send her to Urology for Consultation. We will follow-up on ovarian cyst. To have pelvic ultrasound follow-up visit. We spent 20 minutes [id number]. More than 50% was counseling. Her pelvic pain now is midline. This may be recurrent urinary tract infection and bladder inflammation. Zaid Jose MD [address], [place], [address], [facility] 04/25/2023 10:35:13 05/06/20 23 text/htm l 62-year-old female presents for follow-up on ultrasound. We talked about her ultrasound results. She is a cystic structure on her left side. It is unchanged from all the previous imaging that was done over the years. she is going to pursue other areas that may be response for the pain including her urinary tract and GI tract. She has appointments with both Urology and GI. She will follow up with us as needed. Zaid Jose MD [address], [place], [address], [facility] 05/06/2023 17:25:51 06/14/20 23 text/htm l Annual GYNReported by PatientHistoryFor history, patient reportsno gynecologic complaints.Genitourinary symptomsFor vagina, patient reportsfoul-smelling. For urinary symptoms, patient reportsno hematuriaandno incontinence. For vulva, patient reportsno genital lesion.Breast symptomsFor breast, patient reportsno breast painandno breast lump.Endocrine symptomsFor menopausal symptoms, patient reportsno menopausal symptoms.Psychological symptomsFor psychological symptoms, patient reportsdepressionandanxiety (txed).Preventative measuresFor preventive measures, patient reportsencourage self breast examinationandencourage regular exercise. Zaid Jose MD [address], [place], [address], [facility] 06/14/2023 11:53:51 OBGyn Episode Ob Episode Information Episode Created Date Number of Fetuses Patient Bloodtype Patient rh Status Prepregnancy Weight lbs Domestic Partner Domestic Partner Phone Father Name Recycling Attendant Status 04/08/20 20 1 CLOSED Fetus Data First Name Last Name Admitted to NICU Weight (g) Sex Living Outcome Pediatric Complications Fetus ID Race Codes Race Delivery Type 1899.18 [id number] M [id number] Primary Jaron Calculation Initial Jaron Date Initial Exam Date Initial Exam Provider Initial Ultrasound Date Last Menstrual Period Date Ultra Sound Weeks Gestation 0 Eighteen To Twenty Week Jaron Update Ultra Sound Date Fundal Height At Umbil Quickening Date Ultra Sound Latest Weeks Gestation Final Jaron Confirmed By Final Jaron Confirmed Date Final Jaron Date Ultra Sound Latest Days Gestation 0 0 Menstrual History Last Menstrual Date Menses Monthly On Bcp Conception Prior Menses Frequency Hcg Plus Date Menarche Onset Age Delivery Information Delivery Date Delivery Type Labor Anesthesia Weeks Gestation Incision Type Labor Labor Length Hrs Delivered By Post Complications Tubal Sterilization Discharge Date Comments 4 Discharge Information Feeding Method Contraceptive Method Maternal HG B and HCT Levels Ob Episode Information Episode Created Date Number of Fetuses Patient Bloodtype Patient rh Status Prepregnancy Weight lbs Domestic Partner Domestic Partner Phone Father Name Recycling Attendant Status 04/08/20 20 1 CLOSED Fetus Data First Name Last Name Admitted to NICU Weight (g) Sex Living Outcome Pediatric Complications Fetus ID Race Codes Race Delivery Type , Spontane ous [id number] Jaron Calculation Initial Jaron Date Initial Exam Date Initial Exam Provider Initial Ultrasound Date Last Menstrual Period Date Ultra Sound Weeks Gestation 0 Eighteen To Twenty Week Jaron Update Ultra Sound Date Fundal Height At Umbil Quickening Date Ultra Sound Latest Weeks Gestation Final Jaron Confirmed By Final Jaron Confirmed Date Final Jaron Date Ultra Sound Latest Days Gestation 0 0 Menstrual History Last Menstrual Date Menses Monthly On Bcp Conception Prior Menses Frequency Hcg Plus Date Menarche Onset Age Delivery Information Delivery Date Delivery Type Labor Anesthesia Weeks Gestation Incision Type Labor Labor Length Hrs Delivered By Post Complications Tubal Sterilization Discharge Date Comments 0 Discharge Information Feeding Method Contraceptive Method Maternal HG B and HCT Levels Ob Episode Information Episode Created Date Number of Fetuses Patient Bloodtype Patient rh Status Prepregnancy Weight lbs Domestic Partner Domestic Partner Phone Father Name Recycling Attendant Status 04/08/20 20 1 CLOSED Fetus Data First Name Last Name Admitted to NICU Weight (g) Sex Living Outcome Pediatric Complications Fetus ID Race Codes Race Delivery Type 2069.28 [id number] M [id number] Vaginal Delivery Jaron Calculation Initial Jaron Date Initial Exam Date Initial Exam Provider Initial Ultrasound Date Last Menstrual Period Date Ultra Sound Weeks Gestation 0 Eighteen To Twenty Week Jaron Update Ultra Sound Date Fundal Height At Umbil Quickening Date Ultra Sound Latest Weeks Gestation Final Jaron Confirmed By Final Jaron Confirmed Date Final Jaron Date Ultra Sound Latest Days Gestation 0 0 Menstrual History Last Menstrual Date Menses Monthly On Bcp Conception Prior Menses Frequency Hcg Plus Date Menarche Onset Age Delivery Information Delivery Date Delivery Type Labor Anesthesia Weeks Gestation Incision Type Labor Labor Length Hrs Delivered By Post Complications Tubal Sterilization Discharge Date Comments 8 Discharge Information Feeding Method Contraceptive Method Maternal HG B and HCT Levels
--- OUTSIDE RECORDS SUMMARY | 2025-05-23 16:59 | XMS_ITS | Encounter Summary ---
Author Organization [facility] Address [address] [place] [address] Phone Care Team Providers Care Saw Maker Name Role Phone Thad Carney MD Primary Care Provider [phone] Anthony Guzman MD Unavailable Evette Parry RN Unavailable Unavailable Cuca Landaverde DO Primary Care Provider [phone] Suzie Mulligan INSERTER OPERATOR Unavailable Unavailable Alicia Foreman SOLID WASTE MANAGER Unavailable Unavailab Scott Means MD Unavailable Evette Parry RN Unavailable Unavailable Reason for Visit * Reason Comments Medication Refill Encounter Details Date Type Department Care Team (Late st Contact Info) Description 11/02/2023 Refill [facility] [address] [place] [address] Thad Carney MD [address] [place], [place] [id number] Medication Refill Social History Tobacco Use Types [...] Telephone Encounter - Nichole Marcano RN - 11/02/2023 9:09 AM CDT Medication failed the protocol, provider to review and approve the medication order if appropriate. Requested Prescriptions Pending Prescriptions Disp Refills atorvastatin (LIPITOR) 40 MG Tablet [Pharmacy Med Name: ATORVASTATIN CALCIUM 40 MG Tablet] 90 Tablet 3 Sig: TAKE 1 TABLET EVERY NIGHT Hmg CoA Reductase Inhibitors Protocol Passed - 11/02/2023 2:52 AM Passed - Visit with relevant provider in past 12 months or upcoming 90 days Recent Visits Date Type Provider Dept 10/07/23 Office Visit Jyotsna Costa APRN, FERRYBOAT HELPER [facility] 07/25/23 Office Visit Carmelina Miller APRN, FERRYBOAT HELPER [facility] 03/22/23 Office Visit Thad Carney MD [facility] 01/06/23 Office Visit Thad Carney MD [facility] 11/16/22 Office Visit Thad Carney MD [facility] 11/03/22 Office Visit Tariq Gamez APRN, [facility] Showing recent visits within past 365 days and meeting all other requirements Future Appointments Date Type Provider Dept 11/24/23 Appointment Thad Carney MD [facility] Showing [...] Range Status 07/28/2023 84 <130 mg/dL Final Passed - CMP in past 12 months SODIUM Date Value Ref Range Status 07/28/2023 142 136 - 145 mmol/L Final POTASSIUM Date Value Ref Range Status 07/28/2023 3.8 3.5 - 5.1 mmol/L Final CHLORIDE Date Value Ref Range Status 07/28/2023 108 (H) 98 - 107 mmol/L Final CO2, VENOUS Date Value Ref Range Status 07/28/2023 22 22 - 30 mmol/L Final ANION GAP Date Value Ref Range Status 07/28/2023 15.8 <18.0 mmol/L Final GLUCOSE Date Value Ref Range Status 07/28/2023 137 (H) 70 - 99 mg/dL Final BUN Date Value Ref Range Status 07/28/2023 11 10 - 20 mg/dL Final CREATININE, BLOOD Date Value Ref Range Status 07/28/2023 1.01 (H) 0.60 - 1.00 mg/dL Final BUN/CREATININE RATIO Date Value Ref Range Status 07/28/2023 11 (L) 12 - 20 ratio Final TOTAL PROTEIN Date Value Ref Range Status 07/28/2023 7.4 6.3 - 8.2 g/dL Final ALBUMIN Date Value Ref Range Status 07/28/2023 4.1 3.5 - 5.0 g/dL Final A/G RATIO Date Value Ref Range Status 07/28/2023 1.2 1.0 - 2.2 Final CALCIUM Date Value Ref Range Status 07/28/2023 9.5 8.7 - 10.5 mg/dL Final T BILI Date Value Ref Range Status 07/28/2023 0.5 0.2 - 1.2 mg/dL Final SGOT (AST) Date Value Ref Range Status 07/28/2023 37 (H) 5 - 34 U/L Final SGPT (ALT) Date Value Ref Range Status 07/28/2023 39 0 - 55 U/L Final ALKALINE PHOSPHATASE Date Value Ref Range Status 07/28/2023 60 40 - 150 U/L Final GFR, EST. NONAFRICAN Date Value Ref Range Status 07/28/2023 55 (L) >=60 Final GFR, EST. Date Value Ref Range Status 07/28/2023 >60 >=60 Final GFR, ESTIMATED Date Value Ref Range Status 07/28/2023 >60 >=60 Final Comment: Creatinine Clearance is the preferred criteria for selecting drug dose adjustments in renally impaired patients. The GFR is provided as additional pertinent clinical information. GFR is reported in mL/min/1.73 sq m. Calculation based on the Chronic Kidney Disease Epidemiology Collaboration (CKD- EPI) equation refitwithout adjustment for race. IS THE PATIENT REQUIRED TO BE FASTING? Date Value Ref Range Status 07/28/2023 No Final escitalopram (LEXAPRO) 20 MG Tablet [Pharmacy Med Name: ESCITALOPRAM OXALATE 20 MG Tablet] 90 Tablet 3 Sig: TAKE 1 TABLET EVERY DAY SSRI (6 Month Refill Only) Protocol Failed - 11/02/2023 2:52 AM Failed - Has an encounter in the past 6 months with a depression, anxiety, adjustment disorder, OCD, or PTSD visit diagnosis Passed - Visit with relevant provider in past 6 months or upcoming 90 days Recent Visits Date Type Provider Dept 10/07/23 Office Visit Jyotsna Costa APRN, [facility] 07/25/23 Office Visit Carmelina Miller APRN, [facility] Showing recent visits within past 182 days and meeting all other requirements Future Appointments Date Type Provider Dept 11/24/23 Appointment Thad Carney MD [facility] Showing future appointments within next 90 days and meeting all other requirements Passed - Patient has established therapy with SSRI for at least 6 months busPIRone (BUSPAR) 15 MG Tablet [Pharmacy Med Name: BUSPIRONE HYDROCHLORIDE 15 MG Tablet] 270 Tablet 3 Sig: TAKE 1 TABLET THREE TIMES DAILY Buspirone (6 Month Refill Only) Protocol Failed - 11/02/2023 2:52 AM Failed - Has an encounter in the past 6 months with a depression or anxiety visit diagnosis Passed - Visit with relevant provider in past 6 months or upcoming 90 days Recent Visits Date Type Provider Dept 10/07/23 Office Visit Jyotsna Costa APRN, [facility] 07/25/23 Office Visit Carmelina Miller, INDEPENDENT CONTRACTOR, FERRYBOAT HELPER [facility] Showing recent visits within past 182 days and meeting all other requirements Future Appointments Date Type Provider Dept 11/24/23 Appointment Thad Carney MD [facility] Showing future appointments within next 90 days and meeting all other requirements Passed - Patient has established therapy with Buspirone for at least 6 months documented in this encounter Plan of Treatment Upcoming Encounters Date Type Department Care Team (Late st Contact Info) Description 05/24/2025 9:00 AM FOOT GATHERER Office Visit [facility] Family [facility] [address] [place] [address] Katrin Figueroa APRN, FERRYBOAT HELPER 2 [facility] [address] 06/05/2025 8:45 AM FOOT GATHERER [facility] 1 [place] [address] Cuca Landaverde, DO [address] [address] Discharge Disposition: Discharged to home or Selfcare 08/15/2025 8:00 AM FOOT GATHERER [facility] [place] [address]2 [facility] [place] [address] Scott Tavera MD #[address] [place] [address] 09/13/2025 8:00 AM FOOT GATHERER [facility] [place] [address] [place] [address] Cuca Landaverde, DO 2 [facility] [address] [place] [address] documented as of this encounter Goals Goal Patient Goal Type Associated Problems Recent Progress Patient-Stated? Author Behavioral Health Behavioral Health On track(2024 8:43 AM FOOT GATHERER) Yes Johnny Champion, MYSTERY SHOPPER Note: I need to be able to [...] Diagnoses Diagnosis Dyslipidemia Other and unspecified hyperlipidemia Anxiety Anxiety state, unspecified Depressive disorder Depressive disorder, not elsewhere classified documented in this encounter Additional Health Concerns Assessment Noted Time PHQ-9 Depression Total Score: 0 03/22/20 23 6:54 AM CDT documented as of this encounter Care Teams Saw Maker Relationship Specialty Start Date End Date Thad Carney MD PCP - General Family Medicine 12/20/19 12/26/23 Cuca Landaverde DO 2 [facility] [address] [address] PCP - General Family Medicine 12/27/23 Anthony Guzman MD [address] [place] [address] Consulting Physician Gastroenterology 03/18/22 Evette Parry RN [place] Nurse Pediatric Dental Assistant 12/27/23 12/27/23 Suzie Mulligan LPN [place] Health Director Of Collections 04/20/24 04/20/24 Alicia Foreman LSW [place] Earth Moving Machine Operator Pediatric Dental Assistant 04/20/24 Scott Tavera MD #[address] [id number] Consulting Physician Endocrinology 11/06/24 Evette Parry RN [place] Nurse Pediatric Dental Assistant 01/01/25 documented as of this encounter
--- OUTSIDE RECORDS SUMMARY | 2025-05-23 16:59 | XMS_ITS | Encounter Summary ---
Author Organization [facility] Address [address] [place] [address] Phone Care Team Providers Care Project Surveyor Name Role Phone Thad Carney MD Primary Care Provider [phone] Evette Parry RN Unavailable Unavailable Anthony Guzman MD Unavailable [phone] Evette Parry RN Unavailable Unavailable Cuca Landaverde DO Primary Care Provider [phone] Suzie Mulligan NITROGLYCERIN DISTRIBUTOR Unavailable Unavailable Alicia Foreman VISION IMPAIRED TEACHER Unavailable Unavailab Scott Means MD Unavailable Evette Parry RN Unavailable Unavailable Reason for Visit * Reason Comments Medication Refill Encounter Details Date Type Department Care Team (Late st Contact Info) Description 07/21/2022 Refill [facility] [address] [place] [address] Thad Carney MD [address] [place] [address] Medication Refill Social History Tobacco Use Types [...] encounter Miscellaneous Notes * Telephone Encounter - Radha Samuel RN - 07/21/2022 9:12 AM CST Medication failed the protocol, provider to review and approve the medication order if appropriate. Requested Prescriptions Pending Prescriptions Disp Refills traZODone (DESYREL) 50 MG Tablet [Pharmacy Med Name: TRAZODONE HYDROCHLORIDE 50 MG Tablet] 90 Tablet 3 Sig: TAKE 1 TABLET NIGHTLY NEEDED FOR SLEEP Serotonin Modulators (6 Month Refill Only) Protocol Failed - 07/21/2022 2:23 AM Failed - Has an encounter in the past 6 months with a depression or anxiety visit diagnosis Passed - Visit with relevant provider in past 6 months or upcoming 90 days Recent Visits Date Type Provider Dept 06/17/22 Office Visit Thad Carney MD [facility] 05/18/22 Office Visit Thad Carney MD [facility] 04/20/22 Office Visit Thad Carney MD [facility] 04/05/22 Office Visit Thad Carney MD [facility] 03/02/22 Office Visit Thad Carney MD [facility] Showing recent visits within past 182 days and meeting all other requirements Future Appointments Date Type Provider Dept 08/19/22 Appointment Thad Carney MD [facility] Showing future appointments within next 90 days and meeting all other requirements Passed - No PRN Use for Trazodone Passed - Patient has established therapy with Serotonin Modulators for at least 6 months ALS REPRESENTATIVE documented in this encounter Plan of Treatment Upcoming Encounters Date Type Department Care Team (Late st Contact Info) Description 05/24/2025 9:00 AM APPEALS REPRESENTATIVE [facility]2 [facility] [address] Katrin Figueroa, TRAVELING SALES REPRESENTATIVE, MARKET STALL VENDOR 2 [place] [address] 06/05/2025 8:45 AM APPEALS REPRESENTATIVE [facility] 1 [place] [address] Cuca Landaverde, DO 2 [facility] [address] [place] [address] Discharge Disposition: Discharged to home or Selfcare 08/15/2025 8:00 AM APPEALS REPRESENTATIVE [facility] #2 [place] [address] Scott Tavera MD #[address] [address] 09/13/2025 8:00 AM APPEALS REPRESENTATIVE [facility] [place] [facility] [place] [address] Cuca Landaverde, DO 2 [facility] [address] [place] [address] documented as of this encounter Visit Diagnoses Diagnosis Insomnia, unspecified type Urge incontinence documented in this encounter Additional Health Concerns Assessment Noted Time PHQ-9 Depression Total Score: 14 022 2:28 PM APPEALS REPRESENTATIVE documented as of this encounter Care Teams Project Surveyor Relationship Specialty Start Date End Date Thad Carney MD PCP - General Family Medicine 12/20/19 12/26/23 Cuca Landaverde DO [address] [address] PCP - General Family Medicine 12/27/23 Evette Parry, RN [place] Architecture Technician 06/01/22 05/04/23 Anthony Guzman MD [address] [place] [address] Consulting Physician Gastroenterology 03/18/22 Evette Parry, RN [place] Nurse Architecture Technician 12/27/23 12/27/23 Suzie Mulligan LPN [place] Health Photo Mask Inspector 04/20/24 04/20/24 Alicia Foreman, VISION IMPAIRED TEACHER [place] Paving Inspector Architecture Technician 04/20/24 Scott Tavera MD #[address] [address] Consulting Physician Endocrinology 11/06/24 Evette Parry, RN [place] Nurse Architecture Technician 01/01/25 documented as of this encounter
--- OUTSIDE RECORDS SUMMARY | 2025-05-23 16:59 | XMS_ITS | Encounter Summary ---
Author Organization [facility] Address [address] [place] [address] Phone Care Team Providers Care Maintenance Groundskeeper Name Role Phone Thad Carney MD Primary Care Provider [phone] Evette Parry RN Unavailable Unavailable Anthony Guzman MD Unavailable [phone] Evette Parry RN Unavailable Unavailable Cuca Landaverde DO Primary Care Provider Suzie Mulligan AUTO EMISSIONS TECHNICIAN Unavailable Unavailable Alicia Foreman MACHINE BINDING FOLDER Unavailable Unavailab Scott Maens MD Unavailable Evette Parry RN Unavailable Unavailable Reason for Visit * Reason Comments Medication Refill Encounter Details Date Type Department Care Team (Late st Contact Info) Description 07/09/2022 Refill [facility] #2 [place] [address] Thad Carney MD [address] [place] [address] Medication Refill Social History Tobacco Use Types [...] suspected to have Coronavirus/COVID-19? No / Unsure 06/17/2022 2:24 PM ACCOUNT LEADER documented as of this encounter Miscellaneous Notes * Telephone Encounter - Nichole Marcano RN - 07/13/2022 7:23 AM CST Current medication list shows pt to take 500 mg BID Medication failed the protocol, provider to review and approve the medication order if appropriate. Requested Prescriptions Pending Prescriptions Disp Refills metFORMIN (GLUCOPHAGE) 1000 MG Tablet [Pharmacy Med Name: METFORMIN HYDROCHLORIDE 1000 MG Tablet] 180 Tablet 3 Sig: TAKE 1 TABLET TWICE DAILY Biguanides Protocol Failed - 07/09/2022 5:22 PM Failed - GFR on record in past 6 months GFR, EST. NONAFRICAN Date Value Ref Range Status 11/23/2021 48 (L) >=60 Final Passed - Visit with relevant provider in [...] and meeting all other requirements Passed - HgA1C on record in past 6 months HGB-A1C Date Value Ref Range Status 06/17/2022 6.5 (A) 4 - 6 Final UNT LEADER documented in this encounter Plan of Treatment Upcoming Encounters Date Type Department Care Team (Late st Contact Info) Description 05/24/2025 9:00 AM ACCOUNT LEADER [facility] #2 [place] [address] Katrin Figueroa, MARKETING MGR, KETTLE ROOM HELPER [address] [place] [address] 06/05/2025 8:45 AM ACCOUNT LEADER [facility] 1 [place] [address] Cuca Landaverde, DO 2 [facility] [address] [place] [address] Discharge Disposition: Discharged to home or Selfcare 08/15/2025 8:00 AM ACCOUNT LEADER Office Visit [facility] - Endocrinology [facility] #2 [place] [address] Scott Tavera MD #[address] [address] 09/13/2025 8:00 AM ACCOUNT LEADER Office Visit [facility] Family [facility] #2 [place] [address] Cuca Landaverde, DO 2 [facility] [address] [place] [address] documented as of this encounter Visit Diagnoses Not on filedocumented in this encounter Additional Health Concerns Assessment Noted Time PHQ-9 Depression Total Score: 14 022 2:28 PM ACCOUNT LEADER documented as of this encounter Care Teams Maintenance Groundskeeper Relationship Specialty Start Date End Date Thad Carney MD PCP - General Family Medicine 12/20/19 12/26/23 Cuca Landaverde DO 2 [facility] [address] [place] [address] PCP - General Family Medicine 12/27/23 Evette Parry, RN [place] Secretary Office Clerk 06/01/22 05/04/23 Anthony Guzman MD #[address] [place] [address] Consulting Physician Gastroenterology 03/18/22 Evette Parry, RN [place] Nurse Secretary Office Clerk 12/27/23 12/27/23 Suzie Mulligan LPN [place] Health Radiation Technician 04/20/24 04/20/24 Alicia Foreman, MACHINE BINDING FOLDER [place] Material Handling Technician Secretary Office Clerk 04/20/24 Scott Tavera MD #[address] [address] Consulting Physician Endocrinology 11/06/24 Evette Parry, RN [place] Nurse Secretary Office Clerk 01/01/25 documented as of this encounter
--- OUTSIDE RECORDS SUMMARY | 2025-05-23 16:59 | XMS_ITS | Encounter Summary ---
Author Organization [facility] Address [address] [place] [address] Phone Care Team Providers Care Burlap Worker Name Role Phone Thad Carney MD Primary Care Provider [phone] Zaid Jose MD Unavailable [phone] Ezekiel Samano MD Unavailable [phone] Encounter Details Date Type Department Care Team (Late st Contact Info) Description 10/10/2023 Conference of Physicians/Providers [facility] Department of Surgery, Section of Colon and Rectal Surgery [address] [facility] Advanced Medicine 12th Floor, [place] [address] Ezekiel Samano MD [address] [facility] [phone] [place] [address] Social History Tobacco Use Types Packs/Day Years Used Date Smoking Tobacco: Every Day Cigarettes Smokeless Tobacco: Never Alcohol Use Standard Drinks/Week Comments Never 0 (1 standard drink = 0.6 oz pur e alcohol) AUDIT-C Answer Date Recorded Q1: How often do you have a drink containing alcohol? Never 08/26/2023 Q2: How many drinks containi ng alcohol do you have on a typical day when you are drinking? Patient does not drink Q3: How often do you have si x or more drinks on one occasion? Never 08/26/2023 Personal Safety Answer Date Recorded Have you ever been in or are you currently in a harmful physical or emotional relationship or is someone making you feel afraid or unsafe? 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 Treatment Team: Ezekiel Samano M.D. Reason for Presentation: Is this an anovaginal fistula or a fistula from the anastomosis to the vagina? Items to be reviewed: Radiology: MRI (09/30/23), Hypaque enema (08/10/2023) Pathology: n/a Other: Treatment Recommendations: Unclear anatomy of fistula. Recommend vaginogram. documented in this encounter Plan of Treatment Not on file documented as of this encounter Visit Diagnoses Not on filedocumented in this encounter Care Teams Burlap Worker Relationship Specialty Start Date End Date Thad Carney MD [address] [address] PCP - General Family Medicine 05/07/20 Zaid Jose MD [address] [place] [address] Referring Physician Obstetrics and Gynecology 11/26/20 Ezekiel Samano MD [address] [facility] [phone] [place] [address] Surgeon Colon and Rectal Surgery 06/28/23 documented as of this encounter
--- OUTSIDE RECORDS SUMMARY | 2025-05-23 17:00 | XMS_ITS | Encounter Summary ---
Author Organization [facility] Address [address] [place] [address] Phone Care Team Providers Care Developing Machine Tender Name Role Phone Thad Carney MD Primary Care Provider [phone] Evette Parry RN Unavailable Unavailable Anthony Guzman MD Unavailable [phone] Evette Parry RN Unavailable Unavailable Cuca Landaverde DO Primary Care Provider [phone] Suzie Mulligan SUMATRA OPENER Unavailable Unavailable Alicia Foreman SECURITY INVESTIGATOR Unavailable Unavailab Scott Means MD Unavailable Evette Parry RN Unavailable Unavailable Reason for Visit * Reason Comments Medication Refill Encounter Details Date Type Department Care Team (Late st Contact Info) Description 12/14/2022 [facility]ill [facility] [address] [place] [address] Thad Carney MD [address] [place] [address] Medication Refill Social History Tobacco Use Types Packs/Day Years Used Date Smoking Tobacco: Every Day Cigarettes 0.5 30 Smokeless Tobacco: Never Alcohol Use Standard Drinks/Week Comments No 0 (1 standard drink = 0.6 oz pur e alcohol) PHQ-2 Answer Date Recorded Total Score - Questions 1-9 8 07/2022 Education Answer Date Recorded What is the [...] suspected to have Coronavirus/COVID-19? No / Unsure 12/09/2022 8:46 AM CDT documented as of this encounter Miscellaneous Notes * Telephone Encounter - Nichole Marcano RN - 12/16/2022 10:28 AM CDT Spoke with patient, she feels she would benefit from an increase in dose. * Telephone Encounter - Thad Carney MD - 12/15/2022 4:37 PM CDT Can we check with pt and see if she wants to go up on the dose? It would be to 1 mg I believe. * Telephone Encounter - Radha Samuel RN - 12/15/2022 8:04 AM CDT Medication failed the protocol, provider to review and approve the medication order if appropriate. Does she need to increase dose? Requested Prescriptions Pending Prescriptions Disp Refills Ozempic, 0.25 or 0.5 MG/DOSE, 2 MG/3ML Solution Pen-injector [Pharmacy Med Name: OZEMPIC 2 MG/3ML Solution Pen-injector] Sig: INJECT 0.5MG UNDER THE SKIN ONE TIME WEEKLY, AFTER ONE MONTH CALL FOR NEW DOSE. GLP-1 Agonists Protocol Passed - 12/14/2022 7:27 PM Passed - Lipid panel result on file in past 12 months LDL Date Value Ref Range Status 08/19/2022 33 5 - 130 mg/dL Final HDL CHOLESTEROL Date Value Ref Range Status 08/19/2022 27.0 (L) >40 mg/dL Final CHOLESTEROL Date Value Ref Range Status 08/19/2022 91 <=200 mg/dL Final TRIGLYCERIDES Date Value Ref Range Status 08/19/2022 155 (H) <150 mg/dL Final VLDL Date Value Ref Range Status 08/19/2022 31 5 - 55 mg/dL Final CHOL/HDL RATIO Date Value Ref Range Status 08/19/2022 3.4 0.0 - 4.4 Final NON-HDL CHOLESTEROL Date Value Ref Range Status 08/19/2022 64 <130 mg/dL Final Passed - Visit with relevant provider in past 6 months or upcoming 90 days Recent Visits Date Type Provider Dept 11/16/22 Office Visit Thad Carney MD [facility] 11/03/22 Office Visit Tariq aGmez APRN, VENDING ROUTE SERVICER [facility] 08/19/22 Office Visit Thad Carney MD [facility] 06/17/22 Office Visit Thad Carney MD [facility] Showing recent visits within past 182 days and meeting all other requirements Future Appointments No visits were found meeting these conditions. Showing future appointments within next 90 days and meeting all other requirements Passed - HgA1C result on record in past 6 months HGB-A1C Date Value Ref Range Status 11/16/2022 6.5 (A) 4 - 6 % Final Passed - GFR on record in past 6 months GFR, EST. NONAFRICAN Date Value Ref Range Status 08/19/2022 42 (L) >=60 Final documented in this encounter Plan of Treatment Upcoming Encounters Date Type Department Care Team (Late st Contact Info) Description 05/24/2025 9:00 AM FAMILY SOCIOLOGIST [facility] - [place] [address] [place] [address] Katrin Figueroa, MATERIALS HANDLING EQUIPMENT OPERATOR, VENDING ROUTE SERVICER [facility] [place] [address] 06/05/2025 8:45 AM FAMILY SOCIOLOGIST Appointment [facility] Mammography 1 [facility] [place] [address] Cuca Landaverde, DO 2 [facility] [address] [place] [address] Discharge Disposition: Discharged to home or Selfcare 08/15/2025 8:00 AM FAMILY SOCIOLOGIST Office Visit [facility] Medical [facility] - Endocrinology - [place] [address] [place] [address] Scott Tavera MD [address] [place] [address] 09/13/2025 8:00 AM FAMILY SOCIOLOGIST Office Visit [facility] Medical [facility] - Family Medicine - [place] [address] [place] [address] Cuca Landaverde, DO 2 [facility] [address] [place] [address] documented as of this encounter Goals Goal Patient Goal Type Associated Problems Recent Progress Patient-Stated? Author Behavioral Health Behavioral Health On track(2024 8:43 AM FAMILY SOCIOLOGIST) Yes Johnny Champion, BISQUE WARE DIPPER Note: I need to be able to cope better with all my stress Goal/Objective: Increase coping skills for stress. Anticipated Time Frame for Goal Completion: 6 months Goal Reviewed with: patient Readiness to change: Ready to change Department associated with goal: [facility] Steps to achieve goal: [...] Assessment Noted Time PHQ-9 Depression Total Score: 8 12/10/19 23 9:00 AM CDT documented as of this encounter Care Teams Developing Machine Tender Relationship Specialty Start Date End Date Thad Carney MD PCP - General Family Medicine 12/20/19 12/26/23 Cuca Landaverde DO [address] [address] PCP - General Family Medicine 12/27/23 Evette [place]ry, RN [place] Kelp Gatherer 06/01/22 05/04/23 Anthony Guzman MD [address] [place] [address] Consulting Physician Gastroenterology 03/18/22 Evette [place], RN [place] Nurse Kelp Gatherer 12/27/23 12/27/23 Suzie Mulligan LPN [place] Health Refrigeration Service Technician 04/20/24 04/20/24 Alicia Foreman LSW [place] Warehouse Incentive Selector Kelp Gatherer 04/20/24 Scott Tavera MD #[address] [address] Consulting Physician Endocrinology 11/06/24 Evette [place], RN [place] Nurse Kelp Gatherer 01/01/25 documented as of this encounter
--- OUTSIDE RECORDS SUMMARY | 2025-05-23 17:00 | XMS_ITS | Encounter Summary ---
Author Organization [facility] Address [address] [place] [address] Phone Care Team Providers Care Flight Follower Name Role Phone Thad Carney MD Primary Care Provider Evette Parry RN Unavailable Unavailable Anthony Guzman MD Unavailable [phone] Evette Parry RN Unavailable Unavailable Cuca Landaverde DO Primary Care Provider [phone] Suzie Mulligan TIRE RETREADER Unavailable Unavailable Alicia Foreman TOBACCO SAMPLE PULLER Unavailable Unavailab Scott Means MD Unavailable Evette [place]ry RN Unavailable Unavailable Reason for Visit * Reason Comments Medication Refill Encounter Details Date Type Department Care Team (Late st Contact Info) Description 10/29/2021 Refill [facility] Medicine [facility] [address] [place] [address] Thad Carney MD [address] [place] [address] Medication Refill Social History Tobacco Use Types [...] suspected to have Coronavirus/COVID-19? No / Unsure 10/22/2021 7:40 AM CDT documented as of this encounter Miscellaneous Notes * Telephone Encounter - Nichole Marcano RN - 10/29/2021 10:57 AM CDT Per nursing clinical judgement, provider to review and approve the medication(s) order(s) if appropriate. Requested Prescriptions Pending Prescriptions Disp Refills ergocalciferol (VITAMIN D) 06970 UNIT Capsule [Pharmacy Med Name: VITAMIN D 1.25 MG (82607 UT) Capsule] 12 Capsule 0 Sig: TAKE 1 CAPSULE BY MOUTH ONCE A WEEK. Vitamin Supplements (Adult) Protocol Passed - 10/29/2021 5:08 AM Passed - Visit with relevant provider in past 12 months or upcoming 90 days Recent Visits Date Type Provider Dept 10/22/21 Office Visit Jyotsna Costa APRN, ZOHAIB [facility] 08/25/21 Office Visit Thad Carney MD [facility] 08/06/21 Office Visit Thad Carney MD [facility] 07/31/21 Office Visit Thad Carney MD [facility] 07/20/21 Office Visit Thad Carney MD [facility] 05/04/21 Office Visit Thad Carney MD [facility] 04/24/21 Office Visit Thad Carney MD [facility] 04/17/21 Office Visit Thad Carney MD [facility] 12/25/20 Office Visit Thad Carney MD [facility] Showing recent visits within past 365 days and meeting all other requirements Future Appointments Date Type Provider Dept 11/24/21 Appointment Thad Carney MD [facility] Showing future appointments within next 90 days and meeting all other requirements Passed - Vitamin D less than 1.25mg documented in this encounter Plan of Treatment Upcoming Encounters Date Type Department Care Team (Late st Contact Info) Description 05/24/2025 9:00 AM INDUCTION BRAZER [facility] - [facility] #2 [place] [address] Katrin Figueroa APRN, SUPERVISOR DRYING [address] [place] [address] 06/05/2025 8:45 AM INDUCTION BRAZER [facility] 1 [place] [address] Cuca Landaverde, DO [address] [address] Discharge Disposition: Discharged to home or Selfcare 08/15/2025 8:00 AM INDUCTION BRAZER [facility]2 [place] [address] Scott Tavera MD #[address] [place] [address] 09/13/2025 8:00 AM INDUCTION BRAZER [facility] [address]2 [place] [address] Cuca Landaverde, DO 2 [facility] [address] [place] [address] documented as of this encounter Visit Diagnoses Diagnosis Vitamin D deficiency Unspecified vitamin D deficiency documented in this encounter Additional Health Concerns Assessment Noted Time PHQ-9 Depression Total Score: 17 020 9:01 AM CDT documented as of this encounter Care Teams Flight Follower Relationship Specialty Start Date End Date Thad Carney MD PCP - General Family Medicine 12/20/19 12/26/23 Cuca Landaverde DO 2 [facility] [address] [place] [address] PCP - General Family Medicine 12/27/23 Evette Parry, LOUISA [place] Coater Carbon Paper 06/01/22 05/04/23 Anthony Guzman MD [address] [place] [address] Consulting Physician Gastroenterology 03/18/22 Evette [place]ry, RN [place] Nurse Coater [employer] Paper 12/27/23 12/27/23 Suzie Mulligan LPN [place] Health Portrait Studio Photographer 04/20/24 04/20/24 Alicia Foreman LSW [place] Noc Technician [employer] 04/20/24 Scott Tavera MD #[address] [address] Consulting Physician Endocrinology 11/06/24 Evette [place]ry, RN [place] Nurse Coater [employer] 01/01/25 documented as of this encounter
--- OUTSIDE RECORDS SUMMARY | 2025-05-23 17:00 | XMS_ITS | Encounter Summary ---
Author Organization [facility] Address [address] [place] [address] Phone Care Team Providers Care High Risk Ob Name Role Phone Thad Carney MD Primary Care Provider [phone] Evette Parry RN Unavailable Unavailable Anthony Guzman MD Unavailable [phone] Evette Parry RN Unavailable Unavailable Cuca Landaverde DO Primary Care Provider [phone] Suzie Mulligan PUBLIC SCHOOL TEACHER Unavailable Unavailable Alicia Foreman EXTERMINATION INSPECTOR Unavailable Unavailab Scott Means MD Unavailable Evette Parry RN Unavailable Unavailable Reason for Visit * Reason Comments Medication Refill Encounter Details Date Type Department Care Team (Late st Contact Info) Description 11/25/2022 Refill [facility] [address] [place] [address] Thad Carney MD [address] [place] [address] Medication Refill Social History Tobacco Use Types Packs/Day Years Used Date Smoking Tobacco: Every Day Cigarettes 0.5 30 Smokeless Tobacco: Never Alcohol Use Standard Drinks/Week Comments No 0 (1 standard drink = 0.6 oz pur e alcohol) PHQ-2 Answer Date Recorded Total Score - Questions 1-9 11 05/0 02/2023 Education Answer Date Recorded What is the [...] suspected to have Coronavirus/COVID-19? No / Unsure 11/16/2022 7:43 AM CDT documented as of this encounter Plan of Treatment Upcoming Encounters Date Type Department Care Team (Late st Contact Info) Description 05/24/2025 9:00 AM ACCOUNT SERVICE REPRESENTATIVE Office Visit [facility] [address] [place] [address] Katrin Figueroa, JUMPBASTING CANVAS BASTER, FACILITY EXAMINER 2 [place] [address] 06/05/2025 8:45 AM ACCOUNT SERVICE REPRESENTATIVE [facility] 1 [place] [phone] Cuca Landaverde, DO [address] [address] Discharge Disposition: Discharged to home or Selfcare 08/15/2025 8:00 AM ACCOUNT SERVICE REPRESENTATIVE [facility] Visit [facility] - Endocrinology [facility] #2 [place] [address] Scott Tavera MD #[address] [address] 09/13/2025 8:00 AM ACCOUNT SERVICE REPRESENTATIVE Office Visit [facility] - Family [facility] #2 [place] [address] Cuca Landaverde DO 2 [facility] [address] [place] [address] documented as of this encounter Visit Diagnoses Not on filedocumented in this encounter Additional Health Concerns Assessment Noted Time PHQ-9 Depression Total Score: 11 023 1:05 PM CDT documented as of this encounter Care Teams High Risk Ob Relationship Specialty Start Date End Date Thad Carney MD PCP - General Family Medicine 12/20/19 12/26/23 Cuca Landaverde DO [address] [address] PCP - General Family Medicine 12/27/23 Evette Parry RN [place] Internship Coordinator 06/01/22 05/04/23 Anthony Guzman MD #[address] [place] [address] Consulting Physician Gastroenterology 03/18/22 Evette Parry, RN [place] Nurse Internship Coordinator 12/27/23 12/27/23 Suzie Mulligan LPN [place] Health Office Services Representative 04/20/24 04/20/24 Alicia Foreman LSW [place] Cuff Setter Internship Coordinator 04/20/24 Scott Tavera MD #[address] [address] Consulting Physician Endocrinology 11/06/24 Evette Parry, RN [place] Nurse Internship Coordinator 01/01/25 documented as of this encounter
--- OUTSIDE RECORDS SUMMARY | 2025-05-23 17:00 | XMS_ITS | Encounter Summary ---
Author Organization [facility] Address [address] [place] [address] Phone Care Team Providers Care Certified Art Therapist Name Role Phone Thad Carney MD Primary Care Provider [phone] Evette Parry RN Unavailable Unavailable Anthony Guzman MD Unavailable [phone] Evette Parry RN Unavailable Unavailable Cuca Landaverde DO Primary Care Provider Suzie Mulligan AURICULAR THERAPIST Unavailable Unavailable Alicia Foreman MUSIC PUBLICIST Unavailable Unavailab Scott Means MD Unavailable Evette Parry RN Unavailable Unavailable Reason for Visit * Reason Comments Medication Refill Encounter Details Date Type Department Care Team (Late st Contact Info) Description 07/23/2022 Refill [facility] Medicine [facility] #[address] [place] [address] Thad Carney MD [address] [place] [address] Medication Refill Social History Tobacco Use Types [...] Telephone Encounter - Nichole Marcano RN - 07/26/2022 7:30 AM CST Medication failed the protocol, provider to review and approve the medication order if appropriate. Requested Prescriptions Pending Prescriptions Disp Refills fenofibrate (LOFIBRA) 54 MG Tablet [Pharmacy Med Name: FENOFIBRATE 54 MG Tablet] 90 Tablet 3 Sig: TAKE 1 TABLET EVERY DAY Fibrates Protocol Failed - 07/23/2022 5:26 PM Failed - Lipid panel in past 12 months LDL Date Value Ref Range Status 08/15/2020 46 5 - 130 mg/dL Final HDL CHOLESTEROL Date Value Ref Range Status 08/15/2020 29.7 (L) >40 mg/dL Final CHOLESTEROL Date Value Ref Range Status 08/15/2020 106 <=200 mg/dL Final TRIGLYCERIDES Date Value Ref Range Status 08/15/2020 153 (H) <150 mg/dL Final VLDL Date Value Ref Range Status 08/15/2020 31 5 - 55 mg/dL Final CHOL/HDL RATIO Date Value Ref Range Status 08/15/2020 3.6 0.0 - 4.4 Final NON-HDL CHOLESTEROL Date Value Ref Range Status 08/15/2020 76.3 <130 mg/dL Final Passed - Visit with [...] 10/22/21 Office Visit Jyotsna Costa APRN, ZOHAIB [facility] 08/25/21 Office Visit Thad Carney MD [facility] 08/06/21 Office Visit Thad Carney MD [facility] Showing recent visits within past 365 days and meeting all other requirements Future Appointments Date Type Provider Dept 08/19/22 Appointment Thad Carney MD [facility] Showing future appointments within next 90 days and meeting all other requirements mirtazapine (REMERON) 15 MG Tablet [Pharmacy Med Name: MIRTAZAPINE 15 MG Tablet] 90 Tablet 3 Sig: TAKE 1 TABLET EVERY NIGHT Alpha-2 Receptor Antagonists (6 Month Refill Only) Protocol Failed - 07/23/2022 5:26 PM Failed - Has an encounter in the [...] Receptor Antagonists for at least 6 months ICRAFTS TEACHER documented in this encounter Plan of Treatment Upcoming Encounters Date Type Department Care Team (Late st Contact Info) Description 05/24/2025 9:00 AM HANDICRAFTS TEACHER [facility] [place] [address]2 [place] [address] Katrin Figueroa, SAIL LAY OUT WORKER, AUTOMOTIVE LEASING SALES REPRESENTATIVE 2 [place] [address] 06/05/2025 8:45 AM HANDICRAFTS TEACHER [facility] 1 [place] [address] Cuca Landaverde, DO 2 [facility] [address] [place] [address] Discharge Disposition: Discharged to home or Selfcare 08/15/2025 8:00 AM HANDICRAFTS TEACHER [facility] [place] [facility]2 [facility] [place] [address] Scott Tavera MD #[address] [address] 09/13/2025 8:00 AM HANDICRAFTS TEACHER [facility] [place] [address] Cuca Landaverde, DO [address] [address] documented as of this encounter Visit Diagnoses Diagnosis Depressive disorder Depressive disorder, not elsewhere classified documented in this encounter Additional Health Concerns Assessment Noted Time PHQ-9 Depression Total Score: 14 022 2:28 PM HANDICRAFTS TEACHER documented as of this encounter Care Teams Certified Art Therapist Relationship Specialty Start Date End Date Thad Carney MD PCP - General Family Medicine 12/20/19 12/26/23 Cuca Landaverde DO [address] [address] PCP - General Family Medicine 12/27/23 Evette Parry, RN [place] Advance Agent 06/01/22 05/04/23 Anthony Guzman MD #[address] [place] [address] Consulting Physician Gastroenterology 03/18/22 Evette Parry, RN [place] Nurse Advance Agent 12/27/23 12/27/23 Suzie Mulligan LPN [place] Health Fish Machine Feeder 04/20/24 04/20/24 Alicia Foreman, MUSIC PUBLICIST [place] Slitter Creaser Slotter Operator Advance Agent 04/20/24 Scott Tavera MD #[address] [address] Consulting Physician Endocrinology 11/06/24 Evette Parry, RN [place] Nurse Advance Agent 01/01/25 documented as of this encounter
--- OUTSIDE RECORDS SUMMARY | 2025-05-23 17:00 | XMS_ITS ---
Care Plan Created on: May 23, 2025 Valentina Padgett : 1960 Sex: Female Author Organization [facility] Address [address] [place] [address] Phone Care Team Providers Care Turner Off Name Role Phone Anthony Guzman MD Unavailable [phone] Cuca Landaverde DO Primary Care Provider [phone] Scott Tavera MD Unavailable Evette Parry RN Unavailable Unavailable Active Problems Problem Noted Date Diagnosed Date Anxiety 2022 Chronic gout of multiple sites 2022 Functional diarrhea 2022 Chronic right shoulder pain 2022 Insomnia 2022 Urge incontinence 2022 Acute palmoplantar pustular psoriasis 2022 Peroneal tendinitis of right lower extremity 11/2022 Left sciatic nerve pain 05/24/2022 Brachial neuritis 09/22/2021 Cervical spondylosis without myelopathy 09/23/19 Spinal stenosis in cervical region 09/22/2021 Closed fracture of metatarsal bone 08/05/2021 Closed fracture of proximal phalanx of toe 08/05 Gastroparesis 04/30/2021 NSAID long-term use 04/30/2021 Esophageal dysmotility 04/30/2021 COPD (chronic obstructive pulmonary disease) 05/2020 Cirrhosis of liver 09/08/2019 History of tobacco abuse 05/24/2018 Iron deficiency 02/08/2017 Neuropathy 01/05/2017 Lung nodule 07/28/2016 Diastolic dysfunction 02/19/2016 Dyslipidemia 01/15/2016 Obstructive sleep apnea syndrome 12/12/2015 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 11/20/2015 Calculus of kidney 11/20/2015 Claudication, intermittent 11/20/2015 Elevated LFTs 11/20/2015 Family history of heart disease 11/20/2015 Hyperlipidemia 11/20/2015 Overweight 11/20/2015 Tobacco dependence syndrome 11/20/2015 Vitamin D deficiency 11/20/2015 Asthma 10/15/2015 Depressive disorder 10/15/2015 DM (diabetes mellitus) 10/15/2015 Gastroesophageal reflux disease 10/15/2015 Primary hypertension 10/15/2015 Overview (11/23/2021): CCM enroll CCM enroll Peripheral vascular disease 10/15/2015 Metabolic syndrome X 10/15/2015 Nonalcoholic fatty liver disease 10/15/2015 Psoriasis 10/15/2015 Mitral valve prolapse 10/15/2015 History of transient ischemic attack 10/15/2015 Allergic rhinitis 10/15/2015 Adhesive capsulitis of shoulder 07/22/2015 Rheumatoid arthritis 04/17/2014 CKD (chronic kidney disease) Resolved Problems Problem Noted Date Diagnosed Date Resolved Date Tinea corporis 2022 03/23/2023 Nausea & vomiting 04/30/2021 03/23/2023 Gastric ulcer 04/30/2021 03/23/2023 Diverticulitis 12/20/2019 12/20/2019 Duodenitis 10/31/2019 12/20/2019 Leukemoid reaction 10/24/2017 0 Abdominal mass 12/04/2015 12/25/2020 Additional Health Concerns Active Problems Noted Date Diagnosed Date Disease Progression (Hypertension) 01/15/2025 Goals Goal Patient Goal Type Associated Problems Recent Progress Patient-Stated? Author Behavioral Health Behavioral Health On track(2024 8:43 AM PRESS SETTER) Yes Johnny Champion, [employer] Note: I need to be able to cope better with all my stress Goal/Objective: Increase coping skills for stress. Anticipated Time Frame for Goal Completion: 6 months Goal Reviewed with: patient Readiness to change: Ready to change Department associated with goal: [facility] Steps to [...] and or cope with anxiety and depression. Track and Manage My Blood Pressure Patient Goals On track(2024 9:46 AM PRESS SETTER) Yes Evette Parry, RN Note: Follow Up Date 06/2025 - check blood pressure daily - choose a place to take my blood pressure (home, clinic or office, retail store) - write blood pressure results in a log or diary or enter in an maykel Why is this important? You may not be able to feel high blood pressure, but it can still hurt your body. High blood pressure can cause heart or kidney problems. It can also cause a stroke. Making lifestyle changes like losing a little weight or eating less salt will help. Checking your blood pressure at home and at different times of the day can help to control blood pressure. If the doctor prescribes medicine remember to take it the way the doctor ordered. Call the office if you cannot afford the medicine or if you have questions about it. Notes: Manage Pain Patient Goals On track(2024 9:46 AM PRESS SETTER) Yes Evette Parry, RN Note: Follow Up Date 06/2025 - bring pain diary to all appointments - call for medicine refill 2 or 3 days before it runs out - develop a personal pain management plan - keep track of prescription refills - plan exercise or activity when pain is best controlled - prioritize tasks for the day - start a pain diary - track times pain is worst and when it is best - track what makes the pain worse and what makes it better - use cold or heat for pain relief - work slower and less intensely when having pain Why is this important? Day-to-day life can be hard when you have chronic pain. Pain medicine is just one option to manage pain. You can try these action steps to help you manage your pain. Notes: Disease Progression Prevented or Minimized Care Plan Disease Progression (Hypertension) On track(2024 9:46 AM PRESS SETTER) Evette Best RN Note: Evidence-based guidance: Tailor lifestyle advice to individual; review progress regularly; give frequent encouragement and respond positively to incremental successes. Assess for and promote awareness of worsening disease or development of comorbidity. Prepare patient for use of pharmacologic therapy that may include diuretic, beta-guero, beta-guero/thiazide combination, angiotensin-converting enzyme inhibitor, renin-angiotensin guero or calcium-channel guero. Expect periodic adjustments to pharmacologic therapy; manage side effects. Promote DASH (dietary approaches to stop hypertension) diet, which is a diet that includes primarily plant-based foods and a moderate sodium restriction; plant- based foods include fruits, vegetables, whole grains, beans and legumes, low-fat dairy and lean meats. Consider moderate reduction in sodium intake by avoiding the addition of salt to prepared foods and limiting processed meats, canned soup, frozen meals and salty snacks. Promote a regular, daily exercise goal of 150 minutes per week of moderate exercise based on tolerance, ability and patient choice; consider referral to physical therapist, community wellness and/or activity program. Encourage limiting sedentary activity, such as recreational screen time, to no more than 2 hours per day. Promote tobacco cessation and smoke-free environment. Review sources of stress; explore current coping strategies and encourage use of mindfulness, yoga, progressive relaxation, meditation or exercise to manage stress. Notes: Interventions Care Plan Interventions Intervention Entry Date Outcome Alleviate Barriers to Hypertension Treatment 01/15/2025 Note:Care Management Activities: t- difficulty of making life-long changes acknowledged - healthy diet promoted - healthy family lifestyle promoted - medication side effects managed - patient response to treatment assessed - quality of sleep assessed - reduction of dietary sodium encouraged - reduction in sedentary behavior encouraged - response to pharmacologic therapy monitored - sleep hygiene techniques encouraged Notes: 01/24/2025 She is taking medication as prescribed. She plans to start keeping record of blood pressure and follow up with the nurse clinic for continued blood pressure support. 02/08/2025 She is checking blood pressure and readings have improved. She is scheduled for appointment with the nurse clinic. She is taking medication as prescribed. 03/18/2025 She is taking medication as prescribed. Blood pressure has improved. No concerns at this time. 05/13/2025 Blood pressure has improved. She is taking amlodipine, metoprolol, and losartan as prescribed. Related Goals and Interventions Goal Associated Intervent ions Disease Progression Prevented or Minimiz ed Alleviate Barriers to Hypertension Treatment
--- OUTSIDE RECORDS SUMMARY | 2025-05-23 17:00 | XMS_ITS | Encounter Summary ---
Author Organization [facility] Address [address] [place] [address] Phone Care Team Providers Care Pathology Manager Name Role Phone Thad Carney MD Primary Care Provider [phone] Evette Parry RN Unavailable Unavailable Anthony Guzman MD Unavailable [phone] Evette Parry RN Unavailable Unavailable Cuca Landaverde DO Primary Care Provider [phone] Suzie Mulligan PIPED BUTTONHOLE MACHINE OPERATOR Unavailable Unavailable Alicia Foreman BASKETBALL REFEREE Unavailable Unavailab Scott Means MD Unavailable Evette Parry RN Unavailable Unavailable Reason for Visit * Reason Comments Medication Refill Encounter Details Date Type Department Care Team (Late st Contact Info) Description 01/02/2022 Refill [facility] [address] [place] [address] Thad Carney MD [address] [place] [address] Medication Refill Social History Tobacco Use Types [...] Telephone Encounter - Nichole Marcano RN - 01/04/2022 9:22 AM CDT Medication failed the protocol, provider to review and approve the medication order if appropriate. Requested Prescriptions Pending Prescriptions Disp Refills Toujeo Max SoloStar 300 UNIT/ML Solution Pen-injector [Pharmacy Med Name: TOUJEO MAX SOLOSTAR 300 UNIT/ML Solution Pen-injector] 18 mL 1 Sig: INJECT 60 UNITS SUBCUTANEOUSLY EVERY EVENING Not Delegated - Insulin Protocol Failed - 01/02/2022 2:42 AM Failed - This refill cannot be delegated Passed - Visit with relevant provider in past 12 months or upcoming 90 days Recent Visits Date Type Provider Dept 11/27/21 Office Visit Thad Carney MD [facility] 11/06/21 Office Visit Thad Carney MD [facility] 10/22/21 Office Visit Jyotsna Costa APRN, [facility] 08/25/21 Office Visit Thad Carney MD [facility] 08/06/21 Office Visit Thad Carney MD [facility] 07/31/21 Office Visit Thad Carney MD [facility] 07/20/21 Office Visit Thad Carney MD [facility] 05/04/21 Office Visit Thad Carnye MD [facility] 04/24/21 Office Visit Thad Carney MD [facility] 04/17/21 Office Visit Thad Carney MD [facility] Showing recent visits within past 365 days and meeting all other requirements Future Appointments No visits were found meeting these conditions. Showing future appointments within next 90 days and meeting all other requirements documented in this encounter Plan of Treatment Upcoming Encounters Date Type Department Care Team (Late st Contact Info) Description 05/24/2025 9:00 AM VERTICAL LATHE OPERATOR [facility] [address] [place] [address] Katrin Figueroa, RN FORENSIC, USER INTERFACE ENGINEER [address] [place] [address] 06/05/2025 8:45 AM VERTICAL LATHE OPERATOR [facility] [place] [address] Cuca Landaverde, DO [address] [address] Discharge Disposition: Discharged to home or Selfcare 08/15/2025 8:00 AM VERTICAL LATHE OPERATOR Office Visit [facility] - Endocrinology - [facility] [address] [place] [address] Scott Tavera MD [address] [address] 09/13/2025 8:00 AM VERTICAL LATHE OPERATOR [facility] [address] [place] [address] Cuca Landaverde, DO [address] [address] documented as of this encounter Visit Diagnoses Not on filedocumented in this encounter Additional Health Concerns Assessment Noted Time PHQ-9 Depression Total Score: 17 020 9:01 AM CDT documented as of this encounter Care Teams Pathology Manager Relationship Specialty Start Date End Date Thad Carney MD PCP - General Family Medicine 12/20/19 12/26/23 Cuca Landaverde DO 2 [facility] [address] [place] [address] PCP - General Family Medicine 12/27/23 Evette Parry, RN [place] Bag Filler Machine Operator 06/01/22 05/04/23 Anthony Guzman MD [address] [place] [address] Consulting Physician Gastroenterology 03/18/22 Evette Parry, RN [place] Nurse Bag Filler Machine Operator 12/27/23 12/27/23 Suzie Mulligan LPN [place] [facility] [employer] Machine Keyboard Operator 04/20/24 04/20/24 Alicia Foreman, BASKETBALL REFEREE [place] Bag Filler Machine Operator 04/20/24 Scott Tavera MD [address] [address] Consulting Physician Endocrinology 11/06/24 Evette Parry, RN [place] Nurse Bag Filler Machine Operator 01/01/25 documented as of this encounter
--- OUTSIDE RECORDS SUMMARY | 2025-05-23 17:00 | XMS_ITS | Data Portability ---
Author Organization [facility] OFFICE Address [address] [place] [address] Care Team Providers Care [employer] Name Role Phone DEMETRIO ALESSANDRO Primary Care Provider Assessment Encounter Date Assessment Date Assessment LastModified by Organization Details LastModified Time 07/18/2023 07/18/2023 Patient Examined by GEORGE Fields, Also Documentation reviewed and approved by supervising physician bonnie Not available 07/18/2023 14:36:17 09/29/2023 09/29/2023 Patient Examined by GEORGE Fields, Also Documentation reviewed and approved by supervising physician letty Not available 09/28/2023 12:46:12 Plan of Treatment Reminders Order Date Submit Date Provider Last Modified By Organization Details Last Modified Time Details Appointments ESTABLISH ED PATIENT DETAILED 2025 09:30A M Amanuel Mcqueen i, MD Not available Not available Not available Lab None recorded. Referral None recorded. Procedures None recorded. Surgeries None recorded. Imaging electroca rdiogram 2021 022 VENTURA Not available 12/02/2021 18:41:21 Medication Orders None recorded. Patient TargetsNo targets recorded. Patient Instructions Encounter Date Encounter Id Patient Instructions Last Modified By Organization Details Last Modified Time 12/01/2021 [id number] Advised against smoking Exercise advised Low cholesterol diet advised Low sodium diet advised. colby Not available 12/01/2021 17:49:40 07/18/2023 [id number] Advised against smoking Exercise advised Low cholesterol diet advised Low sodium diet advised. bonnie Not available 07/18/2023 14:39:45 09/29/2023 [id number] Low cholesterol diet advised Low sodium diet advised. eyassin Not available 09/29/2023 09:55:30 04/10/2024 [id number] Exercise advised Low cholesterol diet advised Low sodium diet advised. [email or web address] Not available 04/10/2024 12:14:12 01/26/2025 [id number] Exercise advised Low cholesterol diet advised Low sodium diet advised. [email or web address] Not available 01/26/2025 12:58:54 Reason for Referral None Reported. Results Created Date Observation Date Name Description Value Unit Range Abnormal Flag Note LastModifiedBy Organization Detail LastModifiedTime 12/29/1912/23/2021 , [employer] ardio gram No observ ation record ed. [email or web address] Not Available 2021 12:23:41 07/20/19 24 07/18/2023 [facility] rocar diogr am No observ ation record ed. [email or web address] Not Available 2023 14:33:33 09/14/19 24 09/03/2023 yolanda can cardi olite stres s test (PROC ) No observ ation record ed. [email or web address] Not Available 2023 10:13:11 09/14/19 24 08/23/2023 , carot id arter y No observ ation record ed. [email or web address] Not Available 2023 12:50:26 10/01/19 24 09/29/2023 elect rocar diogr am No observ ation record ed. [email or web address] Not Available 2023 12:59:15 04/11/20 24 04/10/2024 elect rocar diogr am No observ ation record ed. [email or web address] Not Available 2024 04:54:56 01/30/20 25 01/26/2025 elect rocar diogr am No observ ation record ed. [email or web address] Not Available 2024 14:29:39 02/08/20 25 01/30/2025 , echoc ardio gram No observ ation record ed. [email or web address] Not Available 2024 14:47:23 Result Notes None recorded. Problems Name Problem SNOMED Code Status Onset Date Resolution Date Notes Provider Name and Address Organization Details Recorded Time Peripheral vascular disease 306361716 Active 2015 Jami Shenwilman [place], [place] - [facility] 6 13:58:40 Benign hypertension 50913927 Active 2015 Jami Potts [place], [place] - [facility] 6 13:58:50 Diabetes mellitus 31641647 Active 2015 Jami Shenwilman [place], [place] - [facility] 6 13:59:00 Rheumatoid arthritis 76250747 Active 2015 Farrellharvey Potts [place], [place] - [facility] 6 13:59:15 Psoriasis 2172882 Active 2015 Farrell Hermelindawilman [place], [place] - [facility] 6 13:59:24 Mitral valve prolapse 966598150 Active 2015 Jami Shenwilman [place] - [facility] 6 13:59:32 History of transient ischemic attack 937075891 Active 2015 Farrell Hermelind[place]ilman [place] - [facility] 6 14:00:08 Metabolic syndrome X 206028128 Active 2015 Farrellharvey Potts [place] - [facility] 6 14:00:34 History of calculus of kidney 418871154 Active 2015 Farrell Meswilman [place] - [facility] 6 14:00:52 Non-alcoholic fatty liver 585783437 Active 2015 Farrell Hermelind[place]ilman [place] - [facility] 6 14:01:07 Asthma 893903732 Active 2015 Farrellharvey Potts [place], [place] - [facility] 6 14:01:18 Allergic rhinitis 13275542 Active 2015 Farrell Hermelindato [place] - [facility] 6 14:01:25 Gastroesophag eal reflux disease 350182382 Active 2015 Jami [place]wilman [place] - [facility] 6 14:01:35 Depressive disorder 27240055 Active 2015 Farrell Hermelindawilman [place] - [facility] 6 14:01:53 Tobacco dependence syndrome 80621595 Active 2015 Jami Potts [place] - [facility] 6 14:02:07 Obstructive sleep apnea syndrome 37395446 Active 2015 Karla Llanos [facility], [place] - [facility] 6 12:49:58 Dependence on continuous positive airway pressure ventilation 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 Active 2015 fabiola chawla [place] - [facility] 7 16:12:19 Dyslipidemia 748990348 Active 2015 Benjamin Linton [place], [place] - [facility] 6 04:14:42 Chest pain 23641929 Active 2015 Benjamin Linton [facility], [place] - [facility] 6 04:14:51 Tachycardia 5514463 Active 2017 Farrellharvey Potts [facility], [place] - [facility] 8 11:44:50 Cirrhosis of liver 90539815 Active 2019 SINCLAIRE LOUGHARY [facility], [place] - [facility] 0 13:15:54 Problem Notes None recorded. Procedures Surgical History Date Name Laterality Status Provider Name and Address Organization Details Recorded Time Breast reduction completed [facility] - [facility] 10/16/2021 16:04:00 Perq nl/pl lithotrp smpl<2cm completed Farrell [facility] - [facility] 10/15/2015 14:03:14 Cholecystectomy completed [facility] - [facility] 10/15/2015 14:03:52 Hysterectomy completed [facility] - [facility] 10/15/2015 14:04:17 Imaging Results None recorded. Procedure Notes None recorded. Medical Equipment None Reported. Allergies Allergen ID Allergen Name Allergen Category Reaction Reaction Severity Criticality Documentation Date Start Date Code Code System Note Provider Name and Address Organization Details Recorded Time 381 alprazola m medicatio n Not available Not available Not available 10/15/2015 596 RxNorm Jami Shen null, [place] - [facility] 6 14:13:03 382 Levaquin medicatio n Not available Not available Not available 10/15/2015 22870 2 RxNorm Jami Shen null, [place] - [facility] 6 14:13:17 Medications Name Sig Start Date Stop Date Status Note LastModified by Organization Details LastModified Time cyclobenza nick 10 mg tablet TAKE 1 TABLET BY MOUTH THREE TIMES DAILY NEEDED FOR MUSCLE SPASM active Not Available Not Available No t Available amoxicilli n 500 mg capsule 12/26 completed Not Available Not Available Not Available atorvastat in 40 mg tablet TAKE 1 TABLET BY MOUTH NIGHTLY active Not Available Not Available No t Available buspirone 5 mg tablet Take 3 times a day by oral route at bedtime. 04/14 completed Not Available Not Available Not Available metformin 500 mg tablet Take 1 tablet twice a day by oral route. 01/27 completed Not Available Not Available Not Available cilostazol 100 mg tablet TAKE 1 TABLET BY MOUTH TWICE DAILY active Not Available Not Available No t Available betamethas one valerate 0.1 % topical ointment 12/01 completed Not Available Not Available Not Available nystatin 100,000 unit/mL oral suspension TAKE 5 ML BY MOUTH 4 TIMES DAILY, RETAIN LONG POSSIBLE BEFORE SPITTING . active Not Available Not Available No t Available gabapentin 600 mg tablet 2024 active Not Available Not Available Not Avai lable doxycyclin e hyclate 100 mg capsule TAKE 1 CAPSULE BY MOUTH TWICE DAILY FOR 5 DAYS 01/26 completed Not Available Not Available Not Available cefuroxime axetil 250 mg tablet 04/14 completed Not Available Not Available Not Available atorvastat in 20 mg tablet Take 1 tablet every day by oral route. 08/05 completed Not Available Not Available Not Available nicotine 14 mg/24 hr daily transderma l patch Apply 1 patch every day by transder mal route. 12/01 completed Not Available Not Available Not Available erythromyc in 500 mg tablet 12/26 completed Not Available Not Available Not Available citalopram 40 mg tablet TAKE 1 TABLET BY MOUTH ONCE DAILY 12/01 completed pt no longer takes 021 nj Not Available Not Available Not Available trazodone 50 mg tablet TAKE 1 TABLET BY MOUTH NIGHTLY NEEDED FOR SLEEP active Not Available Not Available No t Available polyethyle ne glycol 3350 17 gram oral powder packet 12/27 completed Not Available Not Available Not Available oxybutynin chloride ER 10 mg tablet,ext ended release 24 hr TAKE 1 TABLET BY MOUTH ONCE DAILY active Not Available Not Available No t Available azithromyc in 250 mg tablet 10/13 completed pt not taking 10/13/20 Not Available Not Available Not Available fluconazol e 150 mg tablet TAKE 1 TABLET BY MOUTH THEN 1 TABLET 48 HOURS LATER active Not Available Not Available No t Available cephalexin 250 mg capsule TAKE 1 CAPSULE BY MOUTH EVERY 12 HOURS FOR 3 DAYS 12/01 completed Not Available Not Available Not Available hydrocodon e 5 mg-acetami nophen 325 mg tablet TAKE 1 TABLET BY MOUTH EVERY 8 HOURS NEEDED FOR MODERATE OR MORE SEVERE PAIN active Not Available Not Available No t Available Nystop 100,000 unit/gram topical powder 10/13 completed Not Available Not Available Not Available fluticason e propionate 0.05 % topical cream active Not Available Not Available Not Available meloxicam 15 mg tablet TAKE 1 TABLET BY MOUTH ONCE DAILY active Not Available Not Available No t Available sucralfate 1 gram tablet 1 TAB 2HR BEFORE MEALS AND AT BEDTIME. DO NOT TAKE WITHIN 30MINUTE S OF OTHER MEDICATI ONS. active Not Available Not Available No t Available metronidaz ole 0.75 % (37.5 mg/5 gram) vaginal gel INSERT 1 APPLICAT ORFUL VAGINALL Y ONCE DAILY AT BEDTIME active Not Available Not Available No t Available prednisone 20 mg tablet TAKE 3 TABLETS BY MOUTH DAILY FOR 3 DAYS THEN 2 TABLETS DAILY FOR 3 DAYS THEN1 TABLET DAILY FOR 3 DAYS 10/13 completed pt not taking 10/13/20 Not Available Not Available Not Available alendronat e 70 mg tablet 1 TAB WEEKKLY 04/10 completed Not Available Not Available Not Available clobetasol 0.05 % topical cream active Not Available Not Available Not Available Rhea Low Dose Aspirin 81 mg tablet,del ayed release Take 1 tablet every day by oral route. active Not Available Not Available No t Available Accu-Chek Softclix Lancets active Not Available Not Available Not Available diphenoxyl ate-atropi ne 2.5 mg-0.025 mg tablet 1 TAB 4TIMES DAILY NEED FOR DIARRHEA . active Not Available Not Available No t Available triamcinol one acetonide 0.5 % topical ointment 03/25 completed Not Available Not Available Not Available potassium chloride ER 10 mEq tablet,ext ended release 09/27 completed Not Available Not Available Not Available metronidaz ole 500 mg tablet 04/14 completed Not Available Not Available Not Available levofloxac in 250 mg tablet 05/06 completed Not Available Not Available Not Available allopurino l 100 mg tablet 1 tab daily active Not Available Not Available No t Available ciprofloxa riley 500 mg tablet 04/14 completed Not Available Not Available Not Available sulfametho xazole 800 mg-trimeth oprim 160 mg tablet 01/26 completed Not Available Not Available Not Available peg-electr olyte solution 420 gram oral solution 12/26 completed Not Available Not Available Not Available tramadol 50 mg tablet 12/01 completed Not Available Not Available Not Available spironolac tone 25 mg tablet 1 TAB DAILY 01/26 completed Not Available Not Available Not Available ciclopirox 8 % topical solution APPLY TOPICALL Y ON THE SKIN ONCE DAILY 12/01 completed Not Available Not Available Not Available meloxicam 7.5 mg tablet Take 1 tablet every day by oral route. 04/14 completed Not Available Not Available Not Available oxycodone- acetaminop hen 5 mg-325 mg tablet 12/26 completed Not Available Not Available Not Available isosorbide mononitrat e ER 60 mg tablet,ext ended release 24 hr TAKE 1 TABLET EVERY DAY active Not Available Not Available No t Available famotidine 20 mg tablet prn 12/01 completed pt no longer takes 021 nj Not Available Not Available Not Available metoclopra mide 5 mg tablet Take 1 tablet 4 times a day by oral route before meals. active Not Available Not Available No t Available estradiol 1 mg tablet 12/26 completed Not Available Not Available Not Available methotrexa te sodium 2.5 mg tablet TAKE 4 TABLETS BY MOUTH ONCE A WEEK 12/01 completed Not Available Not Available Not Available tamsulosin 0.4 mg capsule Take 1 capsule every day by oral route. 12/26 completed Not Available Not Available Not Available potassium citrate ER 10 mEq (1,080 mg) tablet,ext ended release TAKE 1 TABLETS BY MOUTH THREE TIMES DAILY active Not Available Not Available No t Available cephalexin 500 mg capsule 12/01 completed pt no longer takes 021 nj Not Available Not Available Not Available pantoprazo le 40 mg tablet,del ayed release TAKE 1 TABLET BY MOUTH ONCE DAILY 01/26 completed Not Available Not Available Not Available erythromyc in 5 mg/gram (0.5 %) eye ointment 05/06 completed Not Available Not Available Not Available hyoscyamin e sulfate 0.125 mg tablet TAKE 1 TABLET BY MOUTH EVERY 4 HOURS NEEDED FOR CRAMPING OR DIARRHEA active Not Available Not Available No t Available mirtazapin e 30 mg tablet 1 tab qd 03/25 completed Not Available Not Available Not Available metformin 1,000 mg tablet TAKE 1 TABLET BY MOUTH TWICE DAILY 01/26 completed Not Available Not Available Not Available esomeprazo le magnesium 40 mg capsule,de layed release 01/26 completed Not Available Not Available Not Available tobramycin 0.3 % eye drops 09/17 completed Not Available Not Available Not Available nystatin 100,000 unit/gram topical cream active Not Available Not Available Not Available dexamethas one 4 mg tablet TAKE THREE TABLETS BY MOUTH ONCE 10/13 completed Not Available Not Available Not Available buspirone 10 mg tablet TAKE 1 TABLET BY MOUTH THREE TIMES DAILY 10/13 completed Not Available Not Available Not Available clotrimazo le-betamet hasone 1 %-0.05 % topical cream 12/26 completed Not Available Not Available Not Available lidocaine 5 % topical patch 01/26 completed Not Available Not Available Not Available losartan 25 mg tablet TAKE 1 TABLET BY MOUTH ONCE DAILY 10/13 completed pt not taking 10/13/20 Not Available Not Available Not Available calcium polycarbop hil 625 mg tablet Take 1 tablet every day by oral route. active Not Available Not Available No t Available hydrochlor othiazide 12.5 mg capsule TAKE 1 CAPSULE BY MOUTH ONCE DAILY 12/01 completed Not Available Not Available Not Available nitroglyce rin 0.[address] 1 tablet by sublingu al route as needed. 12/01 completed Not Available Not Available Not Available gabapentin 300 mg capsule TAKE 3 CAPSULES BY MOUTH THREE TIMES DAILY active Not Available Not Available No t Available gentamicin 0.1 % topical cream 03/25 completed Not Available Not Available Not Available mirtazapin e 45 mg tablet 1 tab qd 04/14 completed Not Available Not Available Not Available fiber tablet Take 3 times a day by oral route. 12/01 completed Not Available Not Available Not Available hydrocorti sone 2.5 % topical cream 12/01 completed Not Available Not Available Not Available amoxicilli n 250 mg capsule 03/25 completed Not Available Not Available Not Available hydroxyzin e HCl 25 mg tablet 1 RAB EVERY 6HRS FOR ANXIETY active Not Available Not Available No t Available zolpidem 5 mg tablet Take 1 tablet every day by oral route as needed. 05/06 completed Not Available Not Available Not Available mirtazapin e 15 mg tablet TAKE 1 TABLET BY MOUTH NIGHTLY active Not Available Not Available No t Available gabapentin 100 mg capsule Take 1 capsule 3 times a day by oral route. 09/17 completed Not Available Not Available Not Available metoprolol succinate ER 25 mg tablet,ext ended release 24 hr TAKE 1 TABLET EVERY DAY active Not Available Not Available No t Available ergocalcif jeanna (vitamin D2) 1,250 mcg (50,000 unit) capsule Take 1 capsule every week by oral route as directed . active Not Available Not Available No t Available ibuprofen 600 mg tablet TAKE 1 TABLET BY MOUTH EVERY 6 HOURS NEEDED FOR PAIN 12/01 completed pt no longer takes 021 nj Not Available Not Available Not Available cefuroxime axetil 500 mg tablet 04/14 completed Not Available Not Available Not Available methylpred nisolone 4 mg tablets in a dose pack 12/01 completed Not Available Not Available Not Available neomycin 500 mg tablet 12/26 completed Not Available Not Available Not Available albuterol sulfate HFA 90 mcg/actuat ion aerosol inhaler INHALE 2 PUFFS BY MOUTH EVERY 4 HOURS NEEDED FOR WHEEZING OR COUGH active Not Available Not Available No t Available losartan 50 mg-hydroch lorothiazi de 12.5 mg tablet Take 1 tablet by mouth once daily active Not Available Not Available No t Available topiramate 100 mg tablet 03/25 completed Not Available Not Available Not Available fluticason e propionate 50 mcg/actuat ion nasal spray,susp ension USE 2 SPRAY(S) IN EACH NOSTRIL ONCE DAILY DIRECTED active Not Available Not Available No t Available metformin ER 500 mg tablet,ext ended release 24 hr 1 tab twice daily active Not Available Not Available No t Available glipizide 5 mg tablet TAKE 2 TABLETS BY MOUTH TWICE DAILY 12/01 completed pt no longer takes 021 nj Not Available Not Available Not Available naproxen 500 mg tablet TAKE 1 TABLET BY MOUTH EVERY 12 HOURS WITH FOOD active Not Available Not Available No t Available amoxicilli n 875 mg-potassi um clavulanat e 125 mg tablet TAKE 1 TABLET BY MOUTH TWICE DAILY FOR URINARY INFECTIO N FOR 7 DAYS 01/25 completed Not Available Not Available Not Available amoxicilli n 500 mg-potassi um clavulanat e 125 mg tablet TAKE 1 TABLET BY MOUTH EVERY 12 HOURS FOR 10 DAYS 12/01 completed pt no longer takes 021 nj Not Available Not Available Not Available buspirone 15 mg tablet 1 TAB 3TIMES DAILY active Not Available Not Available No t Available escitalopr am 20 mg tablet 1 TAB DAILY active Not Available Not Available No t Available Asprin Ec Low Dose 81 mg tablet,del ayed release Take 1 tablet every day by oral route. 12/01 completed Not Available Not Available Not Available Novolog FlexPen U-100 Insulin aspart 100 unit/mL (3 mL) subcutaneo us INJECT 5 THREE TIMES DAILY active Not Available Not Available No t Available rosuvastat in 20 mg tablet Take 1 tablet every day by oral route. 12/26 completed Not Available Not Available Not Available Crestor 10 mg tablet Take 1 tablet every day by oral route. 12/01 completed pt no longer takes 021 nj Not Available Not Available Not Available metoprolol tartrate 25 mg tablet Take 1 tablet every day by oral route. 03/01 completed Not Available Not Available Not Available topiramate 50 mg tablet 12/27 completed Not Available Not Available Not Available nitrofuran toin monohydrat e/macrocry stals 100 mg capsule 12/26 completed Not Available Not Available Not Available Accu-Chek Gretel Control Soln solution USE CALIBRAT E DEVICE active Not Available Not Available No t Available vitamin E 09/27 completed Not Available Not Available Not Available guaifenesi n 12/01 completed Not Available Not Available Not Available flaxseed oil 540 mg tid 04/14 completed pt. no longer takes 07/31/19 20 FH Not Available Not Available Not Available Nitro-Dur 04MG BY SUBLINGU AL 03/20 /2024 completed Not Available Not Available Not Available potassium citrate CR 1080mg tid 12/01 completed Not Available Not Available Not Available vitamin B14-ktkqd acid 500 mcg daily po 09/27 completed Not Available Not Available Not Available Chantix 1 mg tablet Take 1 tablet twice a day by oral route. 05/06 completed Not Available Not Available Not Available Januvia 50 mg tablet 01/26 completed Not Available Not Available Not Available Januvia 100 mg tablet Take 1 tablet every day by oral route. 12/01 completed pt no longer takes 021 nj Not Available Not Available Not Available Symbicort 160 mcg-4.5 mcg/actuat ion HFA aerosol inhaler 01/26 completed Not Available Not Available Not Available Symbicort 80 mcg-4.5 mcg/actuat ion HFA aerosol inhaler active Not Available Not Available Not Available FeroSul 325 mg (65 mg iron) tablet TAKE 1 TABLET BY MOUTH TWICE DAILY WITH MEALS active Not Available Not Available No t Available Cholestyra mine Light 4 gram oral powder 12/01 completed pt no longer takes 021 nj Not Available Not Available Not Available Protonix 40 mg granules delayed-re lease packet Take 1 packet every day by oral route. 03/25 completed Not Available Not Available Not Available diclofenac 1 % topical gel APPLY TO THE AFFECTED AREA(S) THREE TIMES DAILY active Not Available Not Available No t Available fenofibrat e 54 mg tablet TAKE 1 TABLET BY MOUTH ONCE DAILY active Not Available Not Available No t Available sodium,pot assium,mag sulfates 17.5 gram-3.13 gram-1.6 gram oral soln 01/26 completed Not Available Not Available Not Available Tradjenta 5 mg tablet 1 tab qd 12/01 completed Not Available Not Available Not Available Virtussin AC 10 mg-100 mg/5 mL oral liquid TAKE 5ML BY MOUTH EVERY 4 TO 6 HOURS NEEDED FOR COUGH 12/01 completed pt no longer takes 021 nj Not Available Not Available Not Available Farxiga 10 mg tablet TAKE 1 TABLET BY MOUTH ONCE DAILY active Not Available Not Available No t Available Droplet Pen Needle 31 gauge x 16 USE DIRECTED active Not Available Not Available No t Available Accu-Chek Guide test strips active Not Available Not Available Not Available Accu-Chek Guide Glucose Meter active Not Available Not Available Not Available Ozempic 0.25 mg or 0.5 mg (2 mg/1.5 mL) subcutaneo us pen injector 01/26 completed Not Available Not Available Not Available Shannono Max U-300 SoloStar 300 unit/mL (3 mL) subcutaneo us insulin pen 01/26 completed Not Available Not Available Not Available BD Gissell 2nd Gen Pen Needle 32 gauge x USE DIRECTED active Not Available Not Available No t Available OneTouch Delica Plus Lancet 33 gauge active Not Available Not Available Not Available FreeStyle Artur 2 Sensor 09/27 completed Not Available Not Available Not Available FreeStyle Artur 2 [place] 09/27 completed Not Available Not Available Not Available DropSafe Alcohol Prep Pads active Not Available Not Available No t Available Ozempic 2 mg/dose (8 mg/3 mL) subcutaneo us pen injector active Not Available Not Available Not Available Ozempic 0.25 mg or 0.5 mg (2 mg/3 mL) subcutaneo us pen injector INJECT 0.25 MG UNDER THE SKIN ONCE WEEKLY 01/26 completed Not Available Not Available Not Available Vitals Date Recorded Body weight Body mass index (BMI) Body height Heart rate Oxygen saturation Oxygen saturation in Arterial blood by Pulse oximetry Systolic And Diastolic Provider Name and Address Organization Details Last Updated DateTime 4 81952.7 4 g 26.6 kg/m2 167.64 cm 79 /min 98 % 98 % 119/68 mm[Hg] Thais Kenney [facility] 4 14:27:27 Date Recorded Body height Body mass index (BMI) Body weight Heart rate Oxygen saturation Oxygen saturation in Arterial blood by Pulse oximetry Systolic And Diastolic Provider Name and Address Organization Details Last Updated DateTime 4 167.64 cm 25.7 kg/m2 72168.6 2 g 82 /min 98 % 98 % 108/64 mm[Hg] Elvira Shaver [facility] 4 09:29:50 Date Recorded Body height Body mass index (BMI) Body weight Heart rate Oxygen saturation Oxygen saturation in Arterial blood by Pulse oximetry Systolic And Diastolic Provider Name and Address Organization Details Last Updated DateTime 2 167.64 cm 28.4 kg/m2 82220.5 4 g 83 /min 97 % 97 % 110/55 mm[Hg] Dorian Younger [facility] 2 17:31:48 Date Recorded Body height Body mass index (BMI) Body weight Heart rate Oxygen saturation Oxygen saturation in Arterial blood by Pulse oximetry Systolic And Diastolic Provider Name and Address Organization Details Last Updated DateTime 5 167.64 cm 25.7 kg/m2 43937.1 9 g 61 /min 93 % 93 % 144/74 mm[Hg] Loly [facility] 5 12:40:27 Date Recorded Body height Body mass index (BMI) Body weight Oxygen saturation Oxygen saturation in Arterial blood by Pulse oximetry Heart rate Systolic And Diastolic Provider Name and Address Organization Details Last Updated DateTime 4 167.64 cm 25.3 kg/m2 32220 g 92 % 92 % 75 /min 126/62 mm[Hg] [facility] 4 12:04:22 Social History Question Answer Notes LastModified by [employer] Details LastModified Time Tobacco Smoking Status Current [facility] 14:19:59 In The 14 Days Before Symptom Onset, Have You Had Close Contact With A Laboratory-confirm ed COVID-19 While That Case Was Ill? No Information n ot available 04/09/2024 In The 14 Days Before Symptom Onset, Have You Had Close Contact With A Person Who Is Under Investigation For COVID-19 While That Person Was Ill? No Information not available 04/09/2024 Have You Been To An Area Known To Be High Risk For COVID-19? No Information not available 04/09/2024 Have You Processed Blood Or Body Fluids From An Ebola Virus Disease Patient Without Appropriate PPE? No Information not available 04/09/2024 Do You Reside In Or Have You Traveled To An Area Where Ebola Virus Transmission Is Active? No Information not available 04/09/2024 What Was The Date Of Your Most Recent Tobacco Screening? 09/27/2017 Information not available 02/01/2019 Sex: Unknown Functional Status Question Answer Note LastModified by Organizat ion Details LastModified Time What is your level of alcohol consumption? None ddakers Information not available 10/16/2015 Do you or have you ever used e-cigarettes or vape? Never used electronic cigarettes Information not available 07/29/2019 Mental Status None recorded. Family History Relationship Description Onset Age of this Age Resolved Age Notes LastModified by Organization Details LastModified Time Mother Diabetes mellitus hmesto Not available 2015 14:15:10 Mother Malignant neoplasm of liver hmesto Not available 2015 14:15:24 Mother Heart disease hmesto Not available 2015 14:15:37 Mother Kidney disease hmesto Not available 2015 14:15:51 Father Diabetes mellitus hmesto Not available 2015 14:17:48 Father Malignant neoplasm of colon hmesto Not available 2015 14:18:11 Father Hypertensive disorder hmesto Not available 2015 14:18:35 Sister Leukemia 46 hmesto Not available 0 10/15/2015 14:19:15 Medical History Condition Response Diabetes Y Sleep Apnea Y GERD/Reflux Y Stroke Y Hypertension Y Depression Y Asthma Y Kidney Disease Y Gynecological HistoryNo gynecological history recorded. Obstetrics History GPAL:G 0 P 0 0 0 0 Past Encounters Encounter ID Performer Location Encounter Start Date Encounter Closed Date Diagnosis/Indication Diagnosis SNOMED-CT Code Diagnosis ICD10 Code Diagnosis IMO Codes Diagnosis Note [id number] Radha Krishnan MD [facility] [address] [place] [address] 10/16/2015 12:38:35 10/16/2015 13:27:50 Chest pain 56835343 R07.9 Unchanged, atypical, she has risk factors, however recent cath showed only minimal CAD. Continue on ASA, statin and bp control, Patient's symptoms are responsive to Nitrate, continue on Imdur and Sub lingual NTG Benign hypertension 1072 5009 I10 Controlled Dyslipidemia 560389405 E 78.5 Continue on statin. Last LDL 01/2015 was 114 not at goal [id number] MD [place] [facility] [address] [place] [address] 05/06/2016 14:36:45 05/07/2016 10:11:39 Obstructive sleep apnea syndrome 28698962 G47.33 Had SAUD fu today, her RESMED showed 80% compliance , she feels well with her CPap Peripheral arterial occlusive disease 319149669 I73.9 Chest pain 12216806 R07. 9 Dyspnea 406886211 R06.00 [id number] MD [place] [facility] [address] [place] [address] 05/06/2016 13:42:02 05/06/2016 14:35:37 Benign hypertension 97663940 I10 [id number] Amanuel Cerna MD [facility] e Office [address] [place] [address] 08/05/2016 13:30:18 08/09/2016 16:00:46 Obstructive sleep apnea syndrome 30145618 G47.33 Had SAUD fu today, her RESMED showed 80% compliance , she feels well with her CPap Peripheral arterial occlusive disease 642754103 I73.9 Duplex fu [id number] MD Annabel [facility] e Office [address] [place] [place] [address] 09/01/2016 13:42:05 09/02/2016 15:30:37 Obstructive sleep apnea syndrome 01465711 G47.33 Had SAUD fu today, her RESMED showed 80% compliance , she feels well with her CPap Peripheral arterial occlusive disease 899206075 I73.9 Duplex fu showed mild PVD Chest pain 15279929 R07. 9 Treadmill Myoview Stress test, has high [place] Risk score. Has Known CAD, or CAD risk equivalent . To look for any ischemia. Dyspnea 132372051 R06.00 Dependence on continuous positive airway pressure ventilation 709638182 Z99.11 Dyslipidemia 003470649 E 78.5 Needs to keep LDL less than 70, and HDL more than 40. Will change to Crestor [id number] Amanuel Cerna MD [facility] [address] [place] [address] 09/17/2016 09:46:52 09/17/2016 12:17:23 Benign hypertension 30089845 I10 Obstructiv e sleep apnea syndrome 89061425 G47.33 Had SAUD fu today, her RESMED showed 80% compliance , she feels well with her CPap Peripheral arterial occlusive disease 964571528 I73.9 Duplex fu showed mild PVD Chest pain 20139537 R07. 9 Treadmill Myoview Stress test was positive, The patient will be scheduled for left heart catheteriz ation, with coronary angiogram, and possible PTCA/Stent . The procedure was discussed with the patient, and risks, benefits, and alternativ e options were explained. The patient was given informatio n about heart catheteriz ation and interventi onal procedures . The patient agrees to proceed. Dyspnea 537368946 R06.00 Dependence on continuous positive airway pressure ventilation 590680168 Z99.11 Dyslipidemia 905191455 E 78.5 Needs to keep LDL less than 70, and HDL more than 40. [place] [id number] Amanuel Cerna MD [facility] [address] [address] 12/01/2016 14:17:09 12/01/2016 16:35:16 Chest pain 99824676 R07.9 recent cath showed no significan t CADcont medical management and risk factor modificati on Benign hypertension 1072 5009 I10 Patient's blood pressure is well-contr olled on present medical therapy. Patient is tolerating , without difficulty , the current medication s. I have not made changes to the current regimen. Patient is advised to maintain a blood pressure diary. Cont low Na diet. Obstructiv e sleep apnea syndrome 13021317 G47.33 Had SAUD We are sending pt for basic sleep study to re-evaluat e CPAP necessity per guidelines s Peripheral arterial occlusive disease 116215050 I73.9 Duplex fu showed mild PVD Dyspnea 001178329 R06.00 Dependence on continuous positive airway pressure ventilation 615245176 Z99.11 Dyslipidemia 978428216 E 78.5 Needs to keep LDL less than 70, and HDL more than 40. Will change Crestor time to PM Hyperlipidemia 19207059 E78.5 [id number] Amanuel Cerna MD [facility] [address] [place] [address] 03/25/2017 10:49:11 03/25/2017 12:29:13 Benign hypertension 83127999 I10 Chest pain 44334721 R07. 9 recent cath showed no significan t CADcont medical management and risk factor modificati on Obstructiv e sleep apnea syndrome 53310616 G47.33 Had SAUD We are sending pt for basic sleep study to re-evaluat e CPAP necessity per guidelines s Peripheral arterial occlusive disease 957483678 I73.9 Duplex fu showed mild PVD Dyspnea 010618709 R06.00 Dyslipidemia 719973686 E 78.5 Needs to keep LDL less than 70, and HDL more than 40Will get fating lipids for follow upWill change Crestor time to PM Hyperlipidemia 59984810 E78.5 History of transient ischemic attack 246189774 Z86.73 Mitral valve prolapse 40 3614578 I34.1 Diabetes mellitus 982039 09 E11.9 Tobacco de pendence syndrome 91242073 F17.200 Advised to quit, patient is trying [id number] Amanuel Cerna MD [facility] [address] [place] [address] 09/27/2017 14:18:59 10/05/2017 15:30:50 Chest pain 86036551 R07.9 recent cath 09/22/16 showed no significan t CADcont medical management and risk factor modificati on Obstructiv e sleep apnea syndrome 46673399 G47.33 SAUD on CPAP Peripheral arterial occlusive disease 997897606 I73.9 Duplex fu showed mild PVD on 08/19/16 Dyspnea 188513264 R06.00 Stable Dyslipidemia 815937965 E 78.5 Needs to keep LDL less than 70, and HDL more than 40 Will get fasting lipids for follow upWill change Crestor time to PM LDL 17: 34 History of transient ischemic attack 124367453 Z86.73 Needs to keep LDL less than 70, and HDL more than 40 Mitral valve prolapse 40 8265699 I34.1 Diabetes mellitus 658791 09 E11.9 Controlled by PCP Tobacco de pendence syndrome 57449206 F17.200 Advised to quit, patient is trying. Essential hypertension 41758403 I10 Controlled today. Stopped Losartan 25mg, continue taking Losartan 50mg- HCTZ 12.5mg daily.BP Diary Tachycardia 4565223 R00. 0 On Toprol, can not increase due to borderline BP Benign ess ential hypertension 5829948 I10 [id number] Amanuel Cerna MD [facility] [address] [place] [address] 12/27/2017 09:38:05 12/29/2017 19:02:02 Essential hypertension 16704729 I10 Controlled today. Chest pain 00074467 R07. 9 Resolved. Recent cath 09/22/16 showed no significan t CAD Cont medical management and risk factor modificati on Obstructiv e sleep apnea syndrome 85357081 G47.33 SAUD on CPAP Peripheral arterial occlusive disease 247836775 I73.9 Duplex f/u showed mild PVD on 08/19/16 Dyspnea 897853102 R06.00 Improved. Dyslipidemia 947776949 E 78.5 Needs to keep LDL less than 70, and HDL more than 40 02/21/17: LDL 34 History of transient ischemic attack 714510434 Z86.73 Needs to keep LDL less than 70, and HDL more than 40 Mitral valve prolapse 40 3015378 I34.1 Stable. Obtain echo to evaluate for structural /functiona l disease. Diabetes mellitus 043316 09 E11.9 Discussed importance of tight glycemic control to minimize cardiovasc ular disease progressio n. Tobacco de pendence syndrome 72245077 F17.200 Quit smoking cigarettes . Now has vape that she rarely uses. Tachycardia 1129618 R00. 0 On Toprol, can not increase due to borderline BP [id number] MD [place] [facility] [address] [place] [address] 02/02/2018 14:53:20 02/02/2018 15:55:09 Essential hypertension 48653810 I10 Patient's blood pressure is well-contr olled on present medical therapy. Patient is tolerating , without difficulty , the current medication s. I have not made changes to the current regimen. Patient is advised to maintain a blood pressure diary. Chest pain 47564544 R07. 9 Resolved. Recent cath 09/22/16 showed no significan t CAD. Had echo 01/04/18: chamber size is normal. LV wall thickness is mildly increased. LV systolic function is normal. There is normal global systolic function and contractil ity. The estimated left ventricle ejection fraction is 55-60%. There is impaired left ventricula r relaxation . Diastolic filling demonstrat es impaired relaxation . There is mild RV hypokinesi s. There is trace tricuspid regurgitat ion. Cont medical management and risk factor modificati on Obstructiv e sleep apnea syndrome 63342453 G47.33 Echo 12/2017: There is mild RV hypokinesi s. Has SAUD and may have COPD. Pt is on CPAP and is adequately compliant. Patient is benefittin g with CPAP therapy and will continue nightly use. Peripheral arterial occlusive disease 110174643 I73.9 Duplex f/u showed mild PVD on 08/19/16. Continue maximal medical treatment and risk factor modificati on Dyslipidemia 285894242 E 78.5 Patient's dyslipidem ia is well-contr olled on present medical therapy. Patient is tolerating , without difficulty , the current medication s. I have not made changes to the current regimen. Advised to follow a low fat/low cholestero l diet. LDL goal less than 70 and HDL more than 40.02/21/17 : LDL 34 Continue statin. Obtain FLP, CMP, Mg. History of transient ischemic attack 192200644 Z86.73 Continue maximal medical treatment and risk factor modificati on Mitral valve prolapse 40 2079856 I34.1 Regular exercise, caffeine reduction, and stress reduction advised. Diabetes mellitus 141622 09 E11.9 Treatment and evaluation by primary care doctor. Discussed importance of adequate glycemic control to minimize cardiovasc ular disease progressio n. A1C goal of < 7% for type 2 DM Tobacco de pendence syndrome 02962180 F17.200 Cessation highly advised. Patient is trying. Unable to tolerate Chantix. Tachycardia 9467053 R00. 0 Stable on Toprol. Continue. [id number] Amanuel Cerna MD [facility] [address] [place] [address] 06/27/2018 13:54:36 07/07/2018 10:21:39 Essential hypertension 51741726 I10 Well controlled . Chest pain 95536540 R07. 9 Resolved. Recent cath 09/22/16 showed no significan t CAD. Had echo 01/04/18: chamber size is normal. LV wall thickness is mildly increased. LV systolic function is normal. There is normal global systolic function and contractil ity. The estimated left ventricle ejection fraction is 55-60%. There is impaired left ventricula r relaxation . Diastolic filling demonstrat es impaired relaxation . There is mild RV hypokinesi s. There is trace tricuspid regurgitat ion. Cont medical management and risk factor modificati on Obstructiv e sleep apnea syndrome 74051570 G47.33 Echo 12/2017: There is mild RV hypokinesi s. Has SAUD and may have COPD. Pt is on CPAP and is adequately compliant. Patient is benefittin g with CPAP therapy and will continue nightly use. Peripheral arterial occlusive disease 236433820 I73.9 Duplex f/u showed mild PVD on 08/19/16. Continue maximal medical treatment and risk factor modificati on Dyslipidemia 426314601 E 78.5 Needs to keep LDL less than 70, and HDL more than 40 02/21/17: LDL 34 Continue statin. Will get repeat FLP. History of transient ischemic attack 967733234 Z86.73 Continue maximal medical treatment and risk factor modificati on Mitral valve prolapse 40 3077576 I34.1 Regular exercise, caffeine reduction, and stress reduction advised. Diabetes mellitus 413139 09 E11.9 Treatment and evaluation by primary care doctor. Discussed importance of adequate glycemic control to minimize cardiovasc ular disease progressio n. A1C goal of < 7% for type 2 DM Tobacco de pendence syndrome 12940367 F17.200 She quit 04/05/18 Tachycardia 2255709 R00. 0 Stable on Toprol. Continue. [id number] Amanuel Cerna MD [facility] [address] [place] [address] 12/26/2018 13:39:13 01/22/2019 15:23:48 Essential hypertension 21524739 I10 Well controlled . Chest pain 22547662 R07. 9 Resolved. LHC 09/22/16 showed no significan t CAD. Had echo 01/04/18: chamber size is normal. LV wall thickness is mildly increased. LV systolic function is normal. There is normal global systolic function and contractil ity. The estimated left ventricle ejection fraction is 55-60%. There is impaired left ventricula r relaxation . Diastolic filling demonstrat es impaired relaxation . There is mild RV hypokinesi s. There is trace tricuspid regurgitat ion. Cont medical management and risk factor modificati on Obstructiv e sleep apnea syndrome 96453102 G47.33 Echo 12/2017: There is mild RV hypokinesi s. Has SAUD and may have COPD. Pt is on CPAP and is adequately compliant. Patient is benefittin g with CPAP therapy and will continue nightly use. Peripheral arterial occlusive disease 566545130 I73.9 Duplex f/u showed mild PVD on 08/19/16. Continue maximal medical treatment and risk factor modificati on Dyslipidemia 311291238 E 78.5 Needs to keep LDL less than 70, and HDL more than 40 03/21/2018 LDL43. TR 215 Continue statin. decrease crestor to 10mg History of transient ischemic attack 634319079 Z86.73 Continue maximal medical treatment and risk factor modificati on Mitral valve prolapse 40 0938103 I34.1 Regular exercise, caffeine reduction, and stress reduction advised. Diabetes mellitus 081401 09 E11.9 Treatment and evaluation by primary care doctor. Discussed importance of adequate glycemic control to minimize cardiovasc ular disease progressio n. A1C goal of < 7% for type 2 DM Tobacco de pendence syndrome 31862056 F17.200 She quit 04/05/18 Tachycardia 4264178 R00. 0 Stable on Toprol. HR 90 [id number] Amanuel Cerna MD [facility] [place] [address] 07/31/2019 12:33:46 07/31/2019 14:25:01 Essential hypertension 84178439 I10 Well-contr olled. Continue current regimen. Chest pain 77052076 R07. 9 She complains of chest pain but not sure if its from anxiety. Patient states that she takes nitro with relief noted. Last event noted 07/30/19. She states that it can last 30 minutes to an hour. C 09/22/16 showed no significan t CAD. Had echo 01/04/18: chamber size is normal. LV wall thickness is mildly increased. LV systolic function is normal. There is normal global systolic function and contractil ity. The estimated left ventricle ejection fraction is 55-60%. There is impaired left ventricula r relaxation . Diastolic filling demonstrat es impaired relaxation . There is mild RV hypokinesi s. There is trace tricuspid regurgitat ion. Cont medical management and risk factor modificati on Treadmill Myoview Stress test, has high [place] Risk score. Has Known CAD, or CAD risk equivalent . To look for any ischemia. Obstructiv e sleep apnea syndrome 33653318 G47.33 Echo 12/2017: There is mild RV hypokinesi s. Has SAUD and may have COPD. Pt is on CPAP and is adequately compliant. Patient is benefittin g with CPAP therapy and will continue nightly use. Dyslipidemia 464124283 E 78.5 Needs to keep LDL less than 70, and HDL more than 40 03/21/2018 LDL43. TR 215 Continue statin. decrease crestor to 10mg Peripheral arterial occlusive disease 423440724 I73.9 Duplex f/u showed mild PVD on 08/19/16. Continue maximal medical treatment and risk factor modificati on History of transient ischemic attack 888522260 Z86.73 Continue maximal medical treatment and risk factor modificati on Mitral valve prolapse 40 2264346 I34.1 Regular exercise, caffeine reduction, and stress reduction advised. Diabetes mellitus 163243 09 E11.9 Treatment and evaluation by primary care doctor. Discussed importance of adequate glycemic control to minimize cardiovasc ular disease progressio n. A1C goal of < 7% for type 2 DM Tobacco de pendence syndrome 28028210 F17.200 She quit 04/05/18, but has restarted due to her mom passing away 4 months ago. encouraged to quit Tachycardia 1373397 R00. 0 Stable on Toprol. HR 90 [id number] Amanuel Cerna MD [facility] [address] [place] [address] 09/25/2019 09:49:04 09/26/2019 18:17:06 Essential hypertension 18931055 I10 Well-contr olled. Continue current regimen. Chest pain 52711693 R07. 9 She complains of chest pain but not sure if its from anxiety. Patient states that she takes nitro with relief noted. Last event noted 07/30/19. She states that it can last 30 minutes to an hour. Will arrange for cardiac CTA, he has high [place] Risk score. he would benefit from CT to look for any Coronary Artery Disease Obstructiv e sleep apnea syndrome 19002817 G47.33 Echo 12/2017: There is mild RV hypokinesi s. Has SAUD and may have COPD. Pt is on CPAP and is adequately compliant. Patient is benefittin g with CPAP therapy and will continue nightly use. Dyslipidemia 650329553 E 78.5 Needs to keep LDL less than 70, and HDL more than 40 03/21/2018 LDL43. TR 215 Continue statin. decrease crestor to 10mg Peripheral arterial occlusive disease 414164641 I73.9 Duplex f/u showed mild PVD on 08/19/16. Continue maximal medical treatment and risk factor modificati on History of transient ischemic attack 006277971 Z86.73 Continue maximal medical treatment and risk factor modificati on Mitral valve prolapse 40 7865235 I34.1 Regular exercise, caffeine reduction, and stress reduction advised. Diabetes mellitus 612829 E11.9 Treatment and evaluation by primary care doctor. Discussed importance of adequate glycemic control to minimize cardiovasc ular disease progressio n. A1C goal of < 7% for type 2 DM Tobacco de pendence syndrome 83450018 F17.200 She quit 04/05/18, but has restarted due to her mom passing away 4 months ago. encouraged to quit Tachycardia 5973453 R00. 0 Stable on Toprol. HR 90 [id number] Amanuel Cerna MD [facility] [address] [place] [address] 01/28/2020 13:33:01 01/28/2020 14:24:58 Essential hypertension 38757505 I10 Well controlled Chest pain 34391878 R07. 9 Continues to have occasional chest pain, may be r/t spasms d/t smoking. Obtain echo to evaluate for structural /functiona l disease Cardiac CTA 09/25/2019 showed no significan t CAD Obstructiv e sleep apnea syndrome 60262044 G47.33 Compliant with nightly CPAP use Dyslipidemia 524224773 E 78.5 Needs to keep LDL less than 70, and HDL more than 40. 04/14/2019 LDL 26Continue rosuvastat in Will get fasting lipids for follow-up Peripheral arterial occlusive disease 187930731 I73.9 Stable Continue maximal medical treatment and risk factor modificati on History of transient ischemic attack 792707121 Z86.73 Continue maximal medical treatment and risk factor modificati on Mitral valve prolapse 40 8083938 I34.1 Regular exercise, caffeine reduction, and stress reduction advised. Diabetes mellitus 299965 09 E11.9 Treatment and evaluation by primary care doctor. Discussed importance of adequate glycemic control to minimize cardiovasc ular disease progressio n. A1C goal of < 7% for type 2 DM Tobacco de pendence syndrome 09685983 F17.200 Cessation encouraged , will order nicotine patches. Tachycardia 8659083 R00. 0 Resolved [id number] MD [facility] [place] [address] 04/14/2020 13:56:34 04/14/2020 14:52:12 Essential hypertension 62877424 I10 Well controlled Chest pain 97302825 R07. 9 Continues to have occasional chest pain, may be r/t spasms d/t smoking. Continue SL NTG PRN. Cardiac CTA 09/25/2019: no significan t CAD Echo 03/18/2020 : Study quality: technicall y difficult. LV chamber size is normal. LV wall thickness is normal. There is normal global systolic function and contractil ity. The estimated left ventricle ejection fraction is 55-60% (normal). There is trace tricuspid regurgitat ion. There is mild pulmonary hypertensi on. Estimated RVSP systolic pressure is 48 mmHg. Obstructiv e sleep apnea syndrome 88643082 G47.33 Compliant with nightly CPAP use Dyslipidemia 738618020 E 78.5 Needs to keep LDL less than 70, and HDL more than 40. 04/14/2019 LDL 26Continue rosuvastat in 10mg Will get fasting lipids for follow-up Peripheral arterial occlusive disease 075633116 I73.9 Stable, pain is likely r/t neuropathy . Continue increased dose of gabapentin as per PCP.Mild PVD noted on angiogram 09/22/2016 Continue maximal medical treatment and risk factor modificati on History of transient ischemic attack 610717962 Z86.73 Continue maximal medical treatment and risk factor modificati on Mitral valve prolapse 40 8353148 I34.1 Regular exercise, caffeine reduction, and stress reduction advised. Diabetes mellitus 556100 09 E11.9 Treatment and evaluation by primary care doctor Discussed importance of adequate glycemic control to minimize cardiovasc ular disease progressio n, A1C goal of < 7% for type 2 DM. Tobacco de pendence syndrome 50642674 F17.200 Cessation highly advised to prevent progressio n of CAD Tachycardia 7000515 R00. 0 Resolved [id number] MD [facility] [address] [place] [address] 10/13/2020 14:26:04 10/13/2020 14:49:41 Essential hypertension 94131292 I10 Well controlled Chest pain 33744771 R07. 9 ResolvedCo ntinue SL NTG PRN Cardiac CTA 09/25/2019: no significan t CAD Echo 03/18/2020 : Study quality: technicall y difficult. LV chamber size is normal. LV wall thickness is normal. There is normal global systolic function and contractil ity. The estimated left ventricle ejection fraction is 55-60% (normal). There is trace tricuspid regurgitat ion. There is mild pulmonary hypertensi on. Estimated RVSP systolic pressure is 48 mmHg. Obstructiv e sleep apnea syndrome 22696645 G47.33 Compliant with nightly CPAP use Dyslipidemia 760865415 E 78.5 Needs to keep LDL less than 70, and HDL more than 40. 09/29/2020 LDL 42Continue rosuvastat in 10mg Will get fasting lipids for follow-up Peripheral arterial occlusive disease 770020339 I73.9 Stable, pain is likely r/t neuropathy . Continue increased dose of gabapentin as per PCP.Mild PVD noted on angiogram 09/22/2016 Continue maximal medical treatment and risk factor modificati on History of transient ischemic attack 227420316 Z86.73 Continue maximal medical treatment and risk factor modificati on Mitral valve prolapse 40 3960227 I34.1 Regular exercise, caffeine reduction, and stress reduction advised. Diabetes mellitus 971614 09 E11.9 Treatment and evaluation by primary care doctor Discussed importance of adequate glycemic control to minimize cardiovasc ular disease progressio n, A1C goal of < 7% for type 2 DM. Tobacco de pendence syndrome 20898745 F17.200 Cessation highly advised to prevent progressio n of CAD Tachycardia 8581712 R00. 0 Resolved [id number] Amanuel Cerna MD [facility] [address] [place] [address] 04/21/2021 08:50:58 04/21/2021 09:41:01 Essential hypertension 79783172 I10 Well controlled Chest pain 88539398 R07. 9 ResolvedCo ntinue SL NTG PRN Cardiac CTA 09/25/2019: no significan t CAD Echo 03/18/2020 : Study quality: technicall y difficult. LV chamber size is normal. LV wall thickness is normal. There is normal global systolic function and contractil ity. The estimated left ventricle ejection fraction is 55-60% (normal). There is trace tricuspid regurgitat ion. There is mild pulmonary hypertensi on. Estimated RVSP systolic pressure is 48 mmHg. Obstructiv e sleep apnea syndrome 12922041 G47.33 Compliant with nightly CPAP use Dyslipidemia 440976708 E 78.5 Needs to keep LDL less than 70, and HDL more than 40. 09/29/2020 LDL 42Continue rosuvastat in 10mg Will get fasting lipids for follow-up Peripheral arterial occlusive disease 333371772 I73.9 Will get arterial doppler, to evaluate severity of peripheral vascular disease History of transient ischemic attack 222406741 Z86.73 Continue maximal medical treatment and risk factor modificati on Mitral valve prolapse 40 6629059 I34.1 Regular exercise, caffeine reduction, and stress reduction advised. Diabetes mellitus 761717 09 E11.9 Treatment and evaluation by primary care doctor Discussed importance of adequate glycemic control to minimize cardiovasc ular disease progressio n, A1C goal of < 7% for type 2 DM. Tobacco de pendence syndrome 21282771 F17.200 Cessation highly advised to prevent progressio n of CAD Tachycardia 4109026 R00. 0 Resolved [id number] Amanuel Cerna MD [facility] [address] [place] [address] 12/01/2021 16:56:18 12/01/2021 17:53:13 Essential hypertension 80845413 I10 Well controlled Chest pain 74284315 R07. 9 ResolvedCo ntinue SL NTG PRN Cardiac CTA 09/25/2019: no significan t CAD Echo 03/18/2020 : Study quality: technicall y difficult. LV chamber size is normal. LV wall thickness is normal. There is normal global systolic function and contractil ity. The estimated left ventricle ejection fraction is 55-60% (normal). There is trace tricuspid regurgitat ion. There is mild pulmonary hypertensi on. Estimated RVSP systolic pressure is 48 mmHg. Obstructiv e sleep apnea syndrome 65968911 G47.33 Compliant with nightly CPAP use Dyslipidemia 072547190 E 78.5 Needs to keep LDL less than 70, and HDL more than 40. 09/29/2020 LDL 42Continue rosuvastat in 10mg Will get fasting lipids for follow-up Peripheral arterial occlusive disease 756731444 I73.9 Will get arterial doppler, to evaluate severity of peripheral vascular disease History of transient ischemic attack 554411253 Z86.73 Continue maximal medical treatment and risk factor modificati on Mitral valve prolapse 40 3657409 I34.1 Regular exercise, caffeine reduction, and stress reduction advised. Diabetes mellitus 103163 09 E11.9 Treatment and evaluation by primary care doctor Discussed importance of adequate glycemic control to minimize cardiovasc ular disease progressio n, A1C goal of < 7% for type 2 DM. Tobacco de pendence syndrome 73032656 F17.200 Cessation highly advised to prevent progressio n of CAD Tachycardia 5187504 R00. 0 Resolved 28714 Amanuel Cerna MD [facility] [address] [place] [address] 07/18/2023 14:15:23 07/18/2023 14:56:07 Essential hypertension 66633711 I10 Well controlled Obstructiv e sleep apnea syndrome 11098611 G47.33 Compliant with nightly CPAP use Dyslipidemia 919189227 E 78.5 Needs to keep LDL less than 70, and HDL more than 40.*Last LDL was 57 done on 05/05/22.P t takes atorvastat in 40 mg. Peripheral arterial occlusive disease 834892098 I73.9 stablemild PVD per her last angio 2017 History of transient ischemic attack 485521175 Z86.73 Continue maximal medical treatment and risk factor modificati on Mitral valve prolapse 40 9230883 I34.1 Regular exercise, caffeine reduction, and stress reduction advised. Diabetes mellitus 075614 09 E11.9 Treatment and evaluation by primary care doctor Discussed importance of adequate glycemic control to minimize cardiovasc ular disease progressio n, A1C goal of < 7% for type 2 DM. Tobacco de pendence syndrome 07544541 F17.200 Cessation highly advised to prevent progressio n of CAD Tachycardia 8841106 R00. 0 Resolved Atypical chest pain 1025 16251 R07.89 Treadmill Myoview Stress test, has high [place] Risk score. Has Known CAD, or CAD risk equivalent . To look for any ischemia. Dyspnea on exertion 6084 5006 R06.09 US, echocardio gram2021-ECHO. LV chamber size is normal. There is normal global systolic function and contractil ity. The estimated left ventricle ejection fraction is 55-60% (normal). Swelling o f bilateral lower limbs 336868733 M79.89 use compressio n socks for now Carotid bruit 809266210 R09.89 will do [place] [id number] Amanuel Cerna MD [facility] [address] [place] [address] 09/29/2023 09:23:40 09/29/2023 10:00:16 Essential hypertension 25013367 I10 Well controlled Obstructiv e sleep apnea syndrome 91736536 G47.33 Compliant with nightly CPAP use Dyslipidemia 142294609 E 78.5 Needs to keep LDL less than 70, and HDL more than 40.*Last LDL was 57 done on 05/05/22.P t takes atorvastat in 40 mg. Peripheral arterial occlusive disease 686299572 I73.9 stablemild PVD per her last angio 2017 History of transient ischemic attack 906501406 Z86.73 Continue maximal medical treatment and risk factor modificati on Mitral valve prolapse 40 9074912 I34.1 Regular exercise, caffeine reduction, and stress reduction advised. Diabetes mellitus 571717 09 E11.9 Treatment and evaluation by primary care doctor Discussed importance of adequate glycemic control to minimize cardiovasc ular disease progressio n, A1C goal of < 7% for type 2 DM. Tobacco de pendence syndrome 48942957 F17.200 Cessation highly advised to prevent progressio n of CAD Tachycardia 7300213 R00. 0 Resolved Swelling o f bilateral lower limbs 380419775 M79.89 use compressio n socks for now Carotid bruit 994011595 R09.89 US, carotid arteryCaro tid US 08/23/23: Antegrade flow noted in both vertebral arteries. Mild bilateral internal carotid artery stenosis with less than 50% diameter stenosis.c ontinue with statin and baby aspirin Atypical chest pain 1025 41390 R07.89 lexiscan cardiolite stress test (PROC)()-L exiscan Stress Test: Adequate Stress with Lexiscan. Positive Lexiscan stress test. Reversible defect consistent with ischemia in inferior -lateral area. Normal LV systolic function. LVEF: 67%. The patient will be scheduled for left heart catheteriz ation, with coronary angiogram, and possible PTCA/Stent . The procedure was discussed with the patient, and risks, benefits, and alternativ e options were explained. The patient was given informatio n about heart catheteriz ation and interventi onal procedures . The patient agrees to proceed. [id number] Amanuel Cerna MD [facility] [address] [place] [address] 04/10/2024 11:33:59 04/10/2024 12:20:21 Essential hypertension 62505815 I10 Well controlled Obstructiv e sleep apnea syndrome 33228008 G47.33 Compliant with nightly CPAP use Dyslipidemia 435782727 E 78.5 Needs to keep LDL less than 70, and HDL more than 40.*Last LDL was 57 done on 05/05/22.P t takes atorvastat in 40 mg. Peripheral arterial occlusive disease 341898904 I73.9 stablemild PVD per her last angio 2017 History of transient ischemic attack 445940369 Z86.73 Continue maximal medical treatment and risk factor modificati on Mitral valve prolapse 40 3198393 I34.1 Regular exercise, caffeine reduction, and stress reduction advised. Diabetes mellitus 808472 E11.9 Treatment and evaluation by primary care doctor Discussed importance of adequate glycemic control to minimize cardiovasc ular disease progressio n, A1C goal of < 7% for type 2 DM. Tobacco de pendence syndrome 24699558 F17.200 Cessation highly advised to prevent progressio n of CAD [id number] Amanuel Cerna MD [facility] [address] [place] [address] 01/26/2025 12:14:06 01/26/2025 13:03:36 Essential hypertension 74783263 I10 Well controlled Obstructiv e sleep apnea syndrome 63864068 G47.33 Compliant with nightly CPAP use Dyslipidemia 268384832 E 78.5 Needs to keep LDL less than 70, and HDL more than 40.*Last LDL was 57 done on 05/05/22.P t takes atorvastat in 40 mg. Peripheral arterial occlusive disease 876574616 I73.9 stablemild PVD per her last angio 2017 History of transient ischemic attack 811362747 Z86.73 Continue maximal medical treatment and risk factor modificati on Mitral valve prolapse 40 2799225 I34.1 Regular exercise, caffeine reduction, and stress reduction advised.Ob tain echo to evaluate for structural /functiona l disease. Diabetes mellitus 862818 09 E11.9 Treatment and evaluation by primary care doctor Discussed importance of adequate glycemic control to minimize cardiovasc ular disease progressio n, A1C goal of < 7% for type 2 DM. Tobacco de pendence syndrome 21680796 F17.200 Cessation highly advised to prevent progressio n of CAD Health Concerns Section Related Observation LastModified by Organization Detai ls LastModified Time None Recorded Concern Status LastModified by Organization Details LastModified Time None Recorded Advance Directives Directive None Recorded Payers Insurance Date Sequence Insurance Name Policy Number Policy Dawkins Covered Member ID Dawkins Member ID Guarantor Name 10/23/2024 1 [employer] Valentina K Lorin [id number] Valentina K Lorin 01/29/2025 1 [employer] (MEDICARE REPLACEMENT/A DVANTAGE - HMO) Valentina K Lorin [id number] Valentina K Lorin 10/23/2024 1 [place] Valentina K Lorin [id number] Valentina Padgett 10/23/2024 2 [place] [facility] Valentina K Padgett [id number] Valentina K Padgett Notes Date Note Type Note Provider Name and Address Organization Details Recorded Time 12/01/2021 text/html 12/01/21CC : Cardiac follow up [id number] -year-old white women with Hypertension, Dyslipidemia, Diabetes mellitus , Rheumatoid Arthritis, Psoriasis, mitral valve prolapse, Transient ischemic attacks, and former tobacco dependence (quit 12/17/17) who presents for 6 month follow-up with arterial doppler results. She was last seen in the clinic on 04/30/21 since then she HAD left toe fracture Denies chest pain.Denies shortness of breath at rest. Has mild dyspnea on exertion.No orthopnea. No PNDs.Denies heart palpitations.Denies dizziness. Denies syncope or near syncope.No ankle or leg edema.No major bleeding events.No reported side effects from medications. Taking medications as prescribed with no missed doses.Denies snoring, daytime somnolence and AM headache.*Last LDL was 43 done on 03/20/18 .Pt takes atorvastatin 40 mg. *Had Us, Doppler, Arterial done on 05/22/21 showed Abnormal ankle- brachial index. Calcified non- compressible arteries of the left lower extremity arteries. Previously:*She is active working at [employer] but does not exercise regularly. Patient continues to walk about 2 miles/day.*She unfortunately continues to smoke about 6-7 cigarettes per day. Her dyspnea on exertion is stable and relieved with inhaler. *She underwent cardiac CTA on 11/26/19 which showed no significant coronary artery disease.She continues to have occasional leg pain that she reports is numb and burning in nature. She previously reported her PCP recently diagnosed her with peripheral neuropathy. She does have a history of PVD noted on angiogram 09/22/2016. Her gabapentin was recently increased but she reports it has had minimal improvement. *Had positive stress test done in 09/04/19 with ischemia in apical area. Normal LV systolic function. LVEF 67%.Results from this visit, or from the past:04/24/2019 : Glucose 133,BUN 14,Creati 0.87,BUN 14,Creati 0.87,Na 142,K 4.3,Cl 105,Co2 22,Ca 9.3,AST 34,ALT 27,Alkaline phosphatase 60CBC: WBC 8.0,RBC 4.79,HGB 14.1,HCT 43.0,PLT 185LIPID PANEL : Cholesterol 96,Triglycerides 205,HDL 29,LDL 2609: TR 215, HDL 26, LDL 4303: WBC 12.8, HGB 16.0, HCT 46.7, PLT 1633: Hgb A1c 6.7%,09/22/2017: WBC 12.8, Hgb 16, Hct 46.7, Plt 05805: Na 147 ,K 4.3 ,CL 107 ,CO2 27 ,GLU 109 ,BUN 12 ,CR 0.92 ,HB 16.1, HT 49.3, VIT D 66.603 NA:145, K:3.8, CL:102, CO2:30, GLU:126, BUN:9, CR:0. SOD 143, K 4.0, CL 103, CO2 29, GL 106, BUN11, AST 39, ALT : Na 142 , K 3.7 ,CL 101 ,CO2 30 ,GLU 153 ,BUN 12 ,CR 0.80 ,CK 26 ,TC 179 ,TG 325 ,HDL 22 ,LDL 114 ,AST 41 ,ALT : TC 161. TG 249. LDL 114. HDL 18. AST 75. ALT 88 .01/28/15 : TC 161. TG 249. LDL 114. HDL 18. AST 75. ALT 88 .01/28/15 SOD 144, K 4.3, CL 103, Co2 27, GLU 158, BUN 13,CR 0.90, CK 39. 04/14/20 EKG: Atrial rhythm. Inferior infarct- age undetermined. Left axis secondary to infarct. Consider anterior fascicular block.01/28/20 EKG: Sinus rhythm within normal limits.07/31/2019 EKG: Low voltage chest leads Flat T waves anterior leadsEKG, 12/26/18: Low voltage chest leads. Flat T waves, anterior leads. muEKG 06/27/18 ;Sinus rhythm. P:. normal QRS:. anterior infarct. QS in V4 . R< 0.15mV in V3 V5 inferior infarct. QS in aVF . WITH Q IN lll . low voltage in precordial leads.ST-T ; minimal but extensive precordial ST-T changes consistent with infarct. small negative T in V4. With flat or low negative T in V2 V3 V5 V6. conclusion:. abnormal ECG.EKG 12/27/17 : Abnormality or unclear Low voltage chest leads Poor R progression in chest leadsEK09/27/17: sinus rhythm P normal QRS anteroseptal infarct QS in V1 V3 Q > 40 ms in V4 Q/R > 1/3 in V4 R < 0.15 mV in V2 inferior infarct Q > 40 ms in aVF with Q in III Q/R > 1/3 in aVF low voltage in precordial leads ST-T normal conclusion ECGEKG 03/25/17 : low voltage, chest leads. Poor R progression in chest leadsEK12/01/16 Sinus rhythm. nonspecific IVCDEK08/05/16 Sinus Rhythm. Old inferior infarct. Abnormal.EK01/23/15 Sinus rhythm. P:. normal QRS:. inferior infarct. Q> 40 ms in aVF with Q in III. Q/R>1/3 in aVF. low voltages in precordial leads. ST-T:. normal . conclusion:. abnormal ECG. 03/18/20 ECHO: Study quality: technically difficult. LV chamber size is normal. LV wall thickness is normal. There is normal global systolic function and contractility. The estimated left ventricle ejection fraction is 55-60% (normal). There is trace tricuspid regurgitation. There is mild pulmonary hypertension. Estimated RVSP systolic pressure is 48 mmHg.01/04/18 ECHO: LV systolic function is normal. There is normal global systolic function and contractility. The estimated left ventricle ejection fraction is 55-60%.ECHO 01/04/18: Lv chamber size is normal. LV wall thickness is mildly increased. LV systolic function is normal. There is normal global systolic function and contractility. The estimated left ventricle ejection fraction is 55-60%. There is impaired left ventricular relaxation. Diastolic filling demontrates impaired relaxation. There is mild RV hypokinesis. There is trace tricuspid regrugitation.ECHO: 01/31/15 Normal global left ventricular size, wall thickness, systolic function with no obvious regional wall motion abnormalities with an EF >55%. The left atrium is mildly dilated. There is trace mitral regurgitation. Trace tricuspid regurgitation present. 09/22/16 LHC: No significant obstructive coronary artery disease. Normal left ventricular size and systolic function. Mild PVD.09/07/16 TNST: Positive stress test. Normal LV systolic function. Reversible defect consistent ischemia in the anterior area. LVEF 63%.08/19/16 Arterial Duplex: Mild bilateral lower extremity significant peripheral arterial obstructive disease. CAIO: 01/31/15 Positive lexiscan stress test for symptoms and nuclear defect. Adequate stress with lexiscan. Reversible defect consistent with ischemia in inferior area. 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 Significant chest pain with lexiscan infusion. Normal left ventricle systolic function. 1.5 aminophylline given @ 5 min. post lexiscan injection. Calculation EF 67%. 02/19/15 CATH: Minimal CAD, mildly elevated left ventricle filling pressure.03/19/15 CATH abdominal aorta angiogram with distal runoff right and left femoral artery angio: Mild distal peripheral vascular disease, otherwise no major obstructive lesion noted.Arterial Duplex: 08/19/16 Mild bilateral lower extremity significant peripheral arterial obstructive diseaseABI: 03/05/15 Right sided segmental pressure waveform showed monophasic at stress with ankle brachial index of 0.79 indicating mild peripheral vascular disease at the level of popliteal artery. Right sided segmental pressure waveform showed triphasic morphology at all levels and an ankle brachial index of 1.14 indicating no significant peripheral vascular disease of the right lower extremity. Left sided segmental pressure waveform showed triphasic morphology at all levels and an ankle brachial index of 1.11 indicating no significant peripheral vascular disease of the left lower extremity. Normal ankle-brachial index at rest. Borderline R PVD after 3.5 minutes of stress.CATH 09-22-2016 No significant obstructive coronary artery disease. Normal left ventricular size and systolic function. Mild PVD. Maximum medical therapy combined with risk factor modification to prevent progression of coronary artery disease.03/19/15 CATH abdominal aorta angiogram with distal runoff right and left femoral artery angio: Mild distal peripheral vascular disease, otherwise no major obstructive lesion noted.Treadmill Nuclear Stress Test 09/07/16 : Positive stress test. Normal LV systolic function. Reversible defect consistent ischemia in the anterior area. LVEF 63%. Amanuel Cerna MD [address] [place], [address], [facility] 12/01/2021 17:50:22 07/18/2023 text/html 07/18/23CC : Cardiac follow up dyspnea on [id number] -year-old white women with Hypertension, Dyslipidemia, Diabetes mellitus , mild PVD, Rheumatoid Arthritis, Psoriasis, mitral valve prolapse, Transient ischemic attacks, and former tobacco dependence (quit 12/17/17) who presents for 6 month follow-up with ECHO and labs results. She was last seen in the clinic on 12/01/21, since then she is doing. She reporting occasional chest pain that last for one minutes . Last LDL was 57 done on 05/05/22.Pt takes atorvastatin 40 mg. She denies ER visits and hospitalizations since she was last seen. Today reports:no ccDenies chest pain.Denies shortness of breath at rest. Has mild dyspnea on exertion.No orthopnea. No PNDs.Denies heart palpitations.Denies dizziness. Denies syncope or near syncope.yes ankle or leg edema.No major bleeding events.No reported side effects from medications. Taking medications as prescribed with no missed doses.Denies snoring, daytime somnolence and AM headache.*Last LDL was 57 done on 05/05/22.Pt takes atorvastatin 40 mg. (05/06/2022) CBC-WBC 9.7 RBC 4.10 HGB 7.5 HCT 27.8 PLT 254 CMP-NA 134 K 4.6 BUN 14 CR 1.20 GL 348 CA 9.4 LIPID-CHOL 136 TRIG 119 HDL 55 LDL 57 *Had ECHO on 12/23/21 showed LV chamber size is normal. There is normal global systolic function and contractility. The estimated left ventricle ejection fraction is 55-60% (normal). Previously:She had left toe fracture *Had Us, Doppler, Arterial done on 05/22/21 showed Abnormal ankle- brachial index. Calcified non- compressible arteries of the left lower extremity arteries. *She is active working at [employer] but does not exercise regularly. Patient continues to walk about 2 miles/day. *She unfortunately continues to smoke about 6-7 cigarettes per day. *She underwent cardiac CTA on 11/26/19 which showed no significant coronary artery disease.She continues to have occasional leg pain that she reports is numb and burning in nature. She previously reported her PCP recently diagnosed her with peripheral neuropathy. She does have a history of PVD noted on angiogram 09/22/2016. Her gabapentin was recently increased but she reports it has had minimal improvement. *Had positive stress test done in 09/04/19 with ischemia in apical area. Normal LV systolic function. LVEF 67%.Results from this visit, or from the past:04/24/2019 : Glucose 133,BUN 14,Creati 0.87,BUN 14,Creati 0.87,Na 142,K 4.3,Cl 105,Co2 22,Ca 9.3,AST 34,ALT 27,Alkaline phosphatase 60CBC: WBC 8.0,RBC 4.79,HGB 14.1,HCT 43.0,PLT 185LIPID PANEL : Cholesterol 96,Triglycerides 205,HDL 29,LDL 2609: TR 215, HDL 26, LDL 4303: WBC 12.8, HGB 16.0, HCT 46.7, PLT 1633: Hgb A1c 6.7%,09/22/2017: WBC 12.8, Hgb 16, Hct 46.7, Plt 02831: Na 147 ,K 4.3 ,CL 107 ,CO2 27 ,GLU 109 ,BUN 12 ,CR 0.92 ,HB 16.1, HT 49.3, VIT D 66.603 NA:145, K:3.8, CL:102, CO2:30, GLU:126, BUN:9, CR:0. SOD 143, K 4.0, CL 103, CO2 29, GL 106, BUN11, AST 39, ALT : Na 142 , K 3.7 ,CL 101 ,CO2 30 ,GLU 153 ,BUN 12 ,CR 0.80 ,CK 26 ,TC 179 ,TG 325 ,HDL 22 ,LDL 114 ,AST 41 ,ALT : TC 161. TG 249. LDL 114. HDL 18. AST 75. ALT 88 .01/28/15 : TC 161. TG 249. LDL 114. HDL 18. AST 75. ALT 88 .01/28/15 SOD 144, K 4.3, CL 103, Co2 27, GLU 158, BUN 13,CR 0.90, CK 39. 04/14/20 EKG: Atrial rhythm. Inferior infarct- age undetermined. Left axis secondary to infarct. Consider anterior fascicular block.01/28/20 EKG: Sinus rhythm within normal limits.07/31/2019 EKG: Low voltage chest leads Flat T waves anterior leadsEKG, 12/26/18: Low voltage chest leads. Flat T waves, anterior leads. muEKG 06/27/18 ;Sinus rhythm. P:. normal QRS:. anterior infarct. QS in V4 . R< 0.15mV in V3 V5 inferior infarct. QS in aVF . WITH Q IN lll . low voltage in precordial leads.ST-T ; minimal but extensive precordial ST-T changes consistent with infarct. small negative T in V4. With flat or low negative T in V2 V3 V5 V6. conclusion:. abnormal ECG.EKG 12/27/17 : Abnormality or unclear Low voltage chest leads Poor R progression in chest leadsEK09/27/17: sinus rhythm P normal QRS anteroseptal infarct QS in V1 V3 Q > 40 ms in V4 Q/R > 1/3 in V4 R < 0.15 mV in V2 inferior infarct Q > 40 ms in aVF with Q in III Q/R > 1/3 in aVF low voltage in precordial leads ST-T normal conclusion ECGEKG 03/25/17 : low voltage, chest leads. Poor R progression in chest leadsEK12/01/16 Sinus rhythm. nonspecific IVCDEK08/05/16 Sinus Rhythm. Old inferior infarct. Abnormal.EK01/23/15 Sinus rhythm. P:. normal QRS:. inferior infarct. Q> 40 ms in aVF with Q in III. Q/R>1/3 in aVF. low voltages in precordial leads. ST-T:. normal . conclusion:. abnormal ECG. 03/18/20 ECHO: Study quality: technically difficult. LV chamber size is normal. LV wall thickness is normal. There is normal global systolic function and contractility. The estimated left ventricle ejection fraction is 55-60% (normal). There is trace tricuspid regurgitation. There is mild pulmonary hypertension. Estimated RVSP systolic pressure is 48 mmHg.01/04/18 ECHO: LV systolic function is normal. There is normal global systolic function and contractility. The estimated left ventricle ejection fraction is 55-60%.ECHO 01/04/18: Lv chamber size is normal. LV wall thickness is mildly increased. LV systolic function is normal. There is normal global systolic function and contractility. The estimated left ventricle ejection fraction is 55-60%. There is impaired left ventricular relaxation. Diastolic filling demontrates impaired relaxation. There is mild RV hypokinesis. There is trace tricuspid regrugitation.ECHO: 01/31/15 Normal global left ventricular size, wall thickness, systolic function with no obvious regional wall motion abnormalities with an EF >55%. The left atrium is mildly dilated. There is trace mitral regurgitation. Trace tricuspid regurgitation present. 09/22/16 LHC: No significant obstructive coronary artery disease. Normal left ventricular size and systolic function. Mild PVD.09/07/16 TNST: Positive stress test. Normal LV systolic function. Reversible defect consistent ischemia in the anterior area. LVEF 63%.08/19/16 Arterial Duplex: Mild bilateral lower extremity significant peripheral arterial obstructive disease. CAIO: 01/31/15 Positive lexiscan stress test for symptoms and nuclear defect. Adequate stress with lexiscan. Reversible defect consistent with ischemia in inferior area. 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 Significant chest pain with lexiscan infusion. Normal left ventricle systolic function. 1.5 aminophylline given @ 5 min. post lexiscan injection. Calculation EF 67%. 02/19/15 CATH: Minimal CAD, mildly elevated left ventricle filling pressure.03/19/15 CATH abdominal aorta angiogram with distal runoff right and left femoral artery angio: Mild distal peripheral vascular disease, otherwise no major obstructive lesion noted.Arterial Duplex: 08/19/16 Mild bilateral lower extremity significant peripheral arterial obstructive diseaseABI: 03/05/15 Right sided segmental pressure waveform showed monophasic at stress with ankle brachial index of 0.79 indicating mild peripheral vascular disease at the level of popliteal artery. Right sided segmental pressure waveform showed triphasic morphology at all levels and an ankle brachial index of 1.14 indicating no significant peripheral vascular disease of the right lower extremity. Left sided segmental pressure waveform showed triphasic morphology at all levels and an ankle brachial index of 1.11 indicating no significant peripheral vascular disease of the left lower extremity. Normal ankle-brachial index at rest. Borderline R PVD after 3.5 minutes of stress.CATH 09-22-2016 No significant obstructive coronary artery disease. Normal left ventricular size and systolic function. Mild PVD. Maximum medical therapy combined with risk factor modification to prevent progression of coronary artery disease.03/19/15 CATH abdominal aorta angiogram with distal runoff right and left femoral artery angio: Mild distal peripheral vascular disease, otherwise no major obstructive lesion noted.Treadmill Nuclear Stress Test 09/07/16 : Positive stress test. Normal LV systolic function. Reversible defect consistent ischemia in the anterior area. LVEF 63%. LUCAS RIVERA [place], [place] - [facility] 07/18/2023 14:41:05 09/29/2023 text/html 09/29/23CC : Cardiac follow up dyspnea on [id number] -year-old white women with Hypertension, Dyslipidemia, Diabetes mellitus , mild PVD, Rheumatoid Arthritis, Psoriasis, mitral valve prolapse, Transient ischemic attacks, and former tobacco dependence (quit 12/17/17) who presents for follow-up with stress test and Carotid US results. She was last seen in the clinic on 07/18/23, since then she is reporting occasional chest pain that last for few minutes. She has a positive stress test at the lateral area that is medium in size. She still smoke daily. She reporting also right upper abdominal pain after playing with her grandson she pull a muscle probably and she is going for urgent care after this visit. *Last LDL was 57 done on 05/05/22.Pt takes atorvastatin 40 mg. She denies ER visits and hospitalizations since she was last seen. pt admits daily chest pain.Denies shortness of breath at rest. Has mild dyspnea on exertion.No orthopnea. No PNDs.Denies heart palpitations.Denies dizziness. Denies syncope or near syncope.No ankle or leg edema.No major bleeding events.No reported side effects from medications. Taking medications as prescribed with no missed doses.Denies snoring, daytime somnolence and AM headache.*Last LDL was 57 done on 05/05/22.Pt takes atorvastatin 40 mg. Previously:She reporting occasional chest pain that last for one minutes . (05/06/2022) CBC-WBC 9.7 RBC 4.10 HGB 7.5 HCT 27.8 PLT 254 CMP-NA 134 K 4.6 BUN 14 CR 1.20 GL 348 CA 9.4 LIPID-CHOL 136 TRIG 119 HDL 55 LDL 57 *Had ECHO on 12/23/21 showed LV chamber size is normal. There is normal global systolic function and contractility. The estimated left ventricle ejection fraction is 55-60% (normal). She had left toe fracture *Had Us, Doppler, Arterial done on 05/22/21 showed Abnormal ankle- brachial index. Calcified non- compressible arteries of the left lower extremity arteries. *She is active working at [employer] but does not exercise regularly. Patient continues to walk about 2 miles/day. *She unfortunately continues to smoke about 6-7 cigarettes per day. *She underwent cardiac CTA on 11/26/19 which showed no significant coronary artery disease.She continues to have occasional leg pain that she reports is numb and burning in nature. She previously reported her PCP recently diagnosed her with peripheral neuropathy. She does have a history of PVD noted on angiogram 09/22/2016. Her gabapentin was recently increased but she reports it has had minimal improvement. *Had positive stress test done in 09/04/19 with ischemia in apical area. Normal LV systolic function. LVEF 67%.Results from this visit, or from the past:04/24/2019 : Glucose 133,BUN 14,Creati 0.87,BUN 14,Creati 0.87,Na 142,K 4.3,Cl 105,Co2 22,Ca 9.3,AST 34,ALT 27,Alkaline phosphatase 60CBC: WBC 8.0,RBC 4.79,HGB 14.1,HCT 43.0,PLT 185LIPID PANEL : Cholesterol 96,Triglycerides 205,HDL 29,LDL 26003/21/2018: TR 215, HDL 26, LDL 4303: WBC 12.8, HGB 16.0, HCT 46.7, PLT 1633: Hgb A1c 6.7%,09/22/2017: WBC 12.8, Hgb 16, Hct 46.7, Plt 54315: Na 147 ,K 4.3 ,CL 107 ,CO2 27 ,GLU 109 ,BUN 12 ,CR 0.92 ,HB 16.1, HT 49.3, VIT D 66.603 NA:145, K:3.8, CL:102, CO2:30, GLU:126, BUN:9, CR:0. SOD 143, K 4.0, CL 103, CO2 29, GL 106, BUN11, AST 39, ALT : Na 142 , K 3.7 ,CL 101 ,CO2 30 ,GLU 153 ,BUN 12 ,CR 0.80 ,CK 26 ,TC 179 ,TG 325 ,HDL 22 ,LDL 114 ,AST 41 ,ALT : TC 161. TG 249. LDL 114. HDL 18. AST 75. ALT 88 .01/28/15 : TC 161. TG 249. LDL 114. HDL 18. AST 75. ALT 88 .01/28/15 SOD 144, K 4.3, CL 103, Co2 27, GLU 158, BUN 13,CR 0.90, CK 39. 04/14/20 EKG: Atrial rhythm. Inferior infarct- age undetermined. Left axis secondary to infarct. Consider anterior fascicular block.01/28/20 EKG: Sinus rhythm within normal limits.07/31/2019 EKG: Low voltage chest leads Flat T waves anterior leadsEKG, 12/26/18: Low voltage chest leads. Flat T waves, anterior leads. muEKG 06/27/18 ;Sinus rhythm. P:. normal QRS:. anterior infarct. QS in V4 . R< 0.15mV in V3 V5 inferior infarct. QS in aVF . WITH Q IN lll . low voltage in precordial leads.ST-T ; minimal but extensive precordial ST-T changes consistent with infarct. small negative T in V4. With flat or low negative T in V2 V3 V5 V6. conclusion:. abnormal ECG.EKG 12/27/17 : Abnormality or unclear Low voltage chest leads Poor R progression in chest leadsEK09/27/17: sinus rhythm P normal QRS anteroseptal infarct QS in V1 V3 Q > 40 ms in V4 Q/R > 1/3 in V4 R < 0.15 mV in V2 inferior infarct Q > 40 ms in aVF with Q in III Q/R > 1/3 in aVF low voltage in precordial leads ST-T normal conclusion ECGEKG 03/25/17 : low voltage, chest leads. Poor R progression in chest leadsEK12/01/16 Sinus rhythm. nonspecific IVCDEK08/05/16 Sinus Rhythm. Old inferior infarct. Abnormal.EK01/23/15 Sinus rhythm. P:. normal QRS:. inferior infarct. Q> 40 ms in aVF with Q in III. Q/R>1/3 in aVF. low voltages in precordial leads. ST-T:. normal . conclusion:. abnormal ECG. 03/18/20 ECHO: Study quality: technically difficult. LV chamber size is normal. LV wall thickness is normal. There is normal global systolic function and contractility. The estimated left ventricle ejection fraction is 55-60% (normal). There is trace tricuspid regurgitation. There is mild pulmonary hypertension. Estimated RVSP systolic pressure is 48 mmHg.01/04/18 ECHO: LV systolic function is normal. There is normal global systolic function and contractility. The estimated left ventricle ejection fraction is 55-60%.ECHO 01/04/18: Lv chamber size is normal. LV wall thickness is mildly increased. LV systolic function is normal. There is normal global systolic function and contractility. The estimated left ventricle ejection fraction is 55-60%. There is impaired left ventricular relaxation. Diastolic filling demontrates impaired relaxation. There is mild RV hypokinesis. There is trace tricuspid regrugitation.ECHO: 01/31/15 Normal global left ventricular size, wall thickness, systolic function with no obvious regional wall motion abnormalities with an EF >55%. The left atrium is mildly dilated. There is trace mitral regurgitation. Trace tricuspid regurgitation present. 09/22/16 LHC: No significant obstructive coronary artery disease. Normal left ventricular size and systolic function. Mild PVD.09/07/16 TNST: Positive stress test. Normal LV systolic function. Reversible defect consistent ischemia in the anterior area. LVEF 63%.08/19/16 Arterial Duplex: Mild bilateral lower extremity significant peripheral arterial obstructive disease. CAIO: 01/31/15 Positive lexiscan stress test for symptoms and nuclear defect. Adequate stress with lexiscan. Reversible defect consistent with ischemia in inferior area. 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 Significant chest pain with lexiscan infusion. Normal left ventricle systolic function. 1.5 aminophylline given @ 5 min. post lexiscan injection. Calculation EF 67%. 02/19/15 CATH: Minimal CAD, mildly elevated left ventricle filling pressure.03/19/15 CATH abdominal aorta angiogram with distal runoff right and left femoral artery angio: Mild distal peripheral vascular disease, otherwise no major obstructive lesion noted.Arterial Duplex: 08/19/16 Mild bilateral lower extremity significant peripheral arterial obstructive diseaseABI: 03/05/15 Right sided segmental pressure waveform showed monophasic at stress with ankle brachial index of 0.79 indicating mild peripheral vascular disease at the level of popliteal artery. Right sided segmental pressure waveform showed triphasic morphology at all levels and an ankle brachial index of 1.14 indicating no significant peripheral vascular disease of the right lower extremity. Left sided segmental pressure waveform showed triphasic morphology at all levels and an ankle brachial index of 1.11 indicating no significant peripheral vascular disease of the left lower extremity. Normal ankle-brachial index at rest. Borderline R PVD after 3.5 minutes of stress.CATH 09-22-2016 No significant obstructive coronary artery disease. Normal left ventricular size and systolic function. Mild PVD. Maximum medical therapy combined with risk factor modification to prevent progression of coronary artery disease.03/19/15 CATH abdominal aorta angiogram with distal runoff right and left femoral artery angio: Mild distal peripheral vascular disease, otherwise no major obstructive lesion noted.Treadmill Nuclear Stress Test 09/07/16 : Positive stress test. Normal LV systolic function. Reversible defect consistent ischemia in the anterior area. LVEF 63%. LUCAS dowling [place] - [facility] 09/29/2023 09:55:38 04/10/2024 text/html 04/10/24CC : Cardiac follow up, right sided [id number] -year-old white women with Hypertension, Dyslipidemia, Diabetes mellitus , mild PVD, Rheumatoid Arthritis, Psoriasis, mitral valve prolapse, Transient ischemic attacks, and former tobacco dependence (quit 12/17/17) who presents for 6 month follow-up with labs results. She was last seen in the clinic on 09/29/23, since then she was in the hospital on 11/15/23 because of abdominal hernia ruptureand Abscess and Sepsis, due to unspecified organism, unspecified whether acute organ dysfunction present (HCC). Denies chest pain.Denies shortness of breath at rest. Has mild dyspnea on exertion.No orthopnea. No PNDs.Denies heart palpitations.Denies dizziness. Denies syncope or near syncope.No ankle or leg edema.No major bleeding events.No reported side effects from medications. Taking medications as prescribed with no missed doses.Denies snoring, daytime somnolence and AM headache.*Last LDL was 49 done on 10/11/23.Pt takes atorvastatin 40 mg. (10/12/2023)CMP-NA 134 K 4.3 CR 1.60 GL 209 CA 9.2 CK 32LIPID-TRIG 275 CHOL 85 LDL 49 HDL 13 Previously:She had occasional chest pain that last for few minutes. She had positive stress test at the lateral area that is medium in size. She still smoke daily. She reporting also right upper abdominal pain after playing with her grandson she pull a muscle probably and she is going for urgent care after this visit. *Had ECHO on 12/23/21 showed LV chamber size is normal. There is normal global systolic function and contractility. The estimated left ventricle ejection fraction is 55-60% (normal). *Had Us, Doppler, Arterial done on 05/22/21 showed Abnormal ankle- brachial index. Calcified non- compressible arteries of the left lower extremity arteries. *She is active working at [employer] but does not exercise regularly. Patient continues to walk about 2 miles/day. *She unfortunately continues to smoke about 6-7 cigarettes per day. *She underwent cardiac CTA on 11/26/19 which showed no significant coronary artery disease.She continues to have occasional leg pain that she reports is numb and burning in nature. She previously reported her PCP recently diagnosed her with peripheral neuropathy. She does have a history of PVD noted on angiogram 09/22/2016. Her gabapentin was recently increased but she reports it has had minimal improvement. *Had positive stress test done in 09/04/19 with ischemia in apical area. Normal LV systolic function. LVEF 67%.Results from this visit, or from the past:04/24/2019 : Glucose 133,BUN 14,Creati 0.87,BUN 14,Creati 0.87,Na 142,K 4.3,Cl 105,Co2 22,Ca 9.3,AST 34,ALT 27,Alkaline phosphatase 60CBC: WBC 8.0,RBC 4.79,HGB 14.1,HCT 43.0,PLT 185LIPID PANEL : Cholesterol 96,Triglycerides 205,HDL 29,LDL 2609: TR 215, HDL 26, LDL 4303: WBC 12.8, HGB 16.0, HCT 46.7, PLT 16309/23/2017: Hgb A1c 6.7%,09/22/2017: WBC 12.8, Hgb 16, Hct 46.7, Plt 51156: Na 147 ,K 4.3 ,CL 107 ,CO2 27 ,GLU 109 ,BUN 12 ,CR 0.92 ,HB 16.1, HT 49.3, VIT D 66.6009/18/15 NA:145, K:3.8, CL:102, CO2:30, GLU:126, BUN:9, CR:0. SOD 143, K 4.0, CL 103, CO2 29, GL 106, BUN11, AST 39, ALT : Na 142 , K 3.7 ,CL 101 ,CO2 30 ,GLU 153 ,BUN 12 ,CR 0.80 ,CK 26 ,TC 179 ,TG 325 ,HDL 22 ,LDL 114 ,AST 41 ,ALT : TC 161. TG 249. LDL 114. HDL 18. AST 75. ALT 88 .01/28/15 : TC 161. TG 249. LDL 114. HDL 18. AST 75. ALT 88 .01/28/15 SOD 144, K 4.3, CL 103, Co2 27, GLU 158, BUN 13,CR 0.90, CK 39. 04/14/20 EKG: Atrial rhythm. Inferior infarct- age undetermined. Left axis secondary to infarct. Consider anterior fascicular block.01/28/20 EKG: Sinus rhythm within normal limits.07/31/2019 EKG: Low voltage chest leads Flat T waves anterior leadsEKG, 12/26/18: Low voltage chest leads. Flat T waves, anterior leads. muEKG 06/27/18 ;Sinus rhythm. P:. normal QRS:. anterior infarct. QS in V4 . R< 0.15mV in V3 V5 inferior infarct. QS in aVF . WITH Q IN lll . low voltage in precordial leads.ST-T ; minimal but extensive precordial ST-T changes consistent with infarct. small negative T in V4. With flat or low negative T in V2 V3 V5 V6. conclusion:. abnormal ECG.EKG 12/27/17 : Abnormality or unclear Low voltage chest leads Poor R progression in chest leadsEK09/27/17: sinus rhythm P normal QRS anteroseptal infarct QS in V1 V3 Q > 40 ms in V4 Q/R > 1/3 in V4 R < 0.15 mV in V2 inferior infarct Q > 40 ms in aVF with Q in III Q/R > 1/3 in aVF low voltage in precordial leads ST-T normal conclusion ECGEKG 03/25/17 : low voltage, chest leads. Poor R progression in chest leadsEK12/01/16 Sinus rhythm. nonspecific IVCDEK08/05/16 Sinus Rhythm. Old inferior infarct. Abnormal.EK01/23/15 Sinus rhythm. P:. normal QRS:. inferior infarct. Q> 40 ms in aVF with Q in III. Q/R>1/3 in aVF. low voltages in precordial leads. ST-T:. normal . conclusion:. abnormal ECG. 03/18/20 ECHO: Study quality: technically difficult. LV chamber size is normal. LV wall thickness is normal. There is normal global systolic function and contractility. The estimated left ventricle ejection fraction is 55-60% (normal). There is trace tricuspid regurgitation. There is mild pulmonary hypertension. Estimated RVSP systolic pressure is 48 mmHg.01/04/18 ECHO: LV systolic function is normal. There is normal global systolic function and contractility. The estimated left ventricle ejection fraction is 55-60%.ECHO 01/04/18: Lv chamber size is normal. LV wall thickness is mildly increased. LV systolic function is normal. There is normal global systolic function and contractility. The estimated left ventricle ejection fraction is 55-60%. There is impaired left ventricular relaxation. Diastolic filling demontrates impaired relaxation. There is mild RV hypokinesis. There is trace tricuspid regrugitation.ECHO: 01/31/15 Normal global left ventricular size, wall thickness, systolic function with no obvious regional wall motion abnormalities with an EF >55%. The left atrium is mildly dilated. There is trace mitral regurgitation. Trace tricuspid regurgitation present. 09/22/16 LHC: No significant obstructive coronary artery disease. Normal left ventricular size and systolic function. Mild PVD.09/07/16 TNST: Positive stress test. Normal LV systolic function. Reversible defect consistent ischemia in the anterior area. LVEF 63%.08/19/16 Arterial Duplex: Mild bilateral lower extremity significant peripheral arterial obstructive disease. CAIO: 01/31/15 Positive lexiscan stress test for symptoms and nuclear defect. Adequate stress with lexiscan. Reversible defect consistent with ischemia in inferior area. 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 Significant chest pain with lexiscan infusion. Normal left ventricle systolic function. 1.5 aminophylline given @ 5 min. post lexiscan injection. Calculation EF 67%. 02/19/15 CATH: Minimal CAD, mildly elevated left ventricle filling pressure.03/19/15 CATH abdominal aorta angiogram with distal runoff right and left femoral artery angio: Mild distal peripheral vascular disease, otherwise no major obstructive lesion noted.Arterial Duplex: 08/19/16 Mild bilateral lower extremity significant peripheral arterial obstructive diseaseABI: 03/05/15 Right sided segmental pressure waveform showed monophasic at stress with ankle brachial index of 0.79 indicating mild peripheral vascular disease at the level of popliteal artery. Right sided segmental pressure waveform showed triphasic morphology at all levels and an ankle brachial index of 1.14 indicating no significant peripheral vascular disease of the right lower extremity. Left sided segmental pressure waveform showed triphasic morphology at all levels and an ankle brachial index of 1.11 indicating no significant peripheral vascular disease of the left lower extremity. Normal ankle-brachial index at rest. Borderline R PVD after 3.5 minutes of stress.CATH 09-22-2016 No significant obstructive coronary artery disease. Normal left ventricular size and systolic function. Mild PVD. Maximum medical therapy combined with risk factor modification to prevent progression of coronary artery disease.03/19/15 CATH abdominal aorta angiogram with distal runoff right and left femoral artery angio: Mild distal peripheral vascular disease, otherwise no major obstructive lesion noted.Treadmill Nuclear Stress Test 09/07/16 : Positive stress test. Normal LV systolic function. Reversible defect consistent ischemia in the anterior area. LVEF 63%. Amanuel Cerna MD [address] [place], [id number], [facility] 04/10/2024 12:14:54 01/26/2025 text/html 01/26/25CC : Cardiac follow up, dyspnea on [id number] -year-old white women with Hypertension, Dyslipidemia, Diabetes mellitus , mild PVD, Rheumatoid Arthritis, Psoriasis, mitral valve prolapse, Transient ischemic attacks, and former tobacco dependence (quit 12/17/17) who presents for follow-up. She was last seen in the clinic on 04/10/24, since then she is doing wellShe denies ER visits and hospitalizations since she was last seen. Today reports:Denies chest pain.Denies shortness of breath at rest. Has mild dyspnea on exertion.No orthopnea. No PNDs.Denies heart palpitations.Denies dizziness. Denies syncope or near syncope.No ankle or leg edema.No major bleeding events.No reported side effects from medications. Taking medications as prescribed with no missed doses.Denies snoring, daytime somnolence and AM headache.*Last LDL was 49 done on 10/12/23.Pt takes atorvastatin 40 mg and fenofibrate 54 mg. Previously:EKG 04/10/24 showed Sinus rhythm, P; normal, QRS; normal, ST-T; normal, conclusion: normal ECG. She was in the hospital on 11/15/23 because of abdominal hernia rupture and Abscess and Sepsis, due to unspecified organism, unspecified whether acute organ dysfunction present (HCC). She had positive stress test at the lateral area that is medium in size. She still smoke daily. *Had ECHO on 12/23/21 showed LV chamber size is normal. There is normal global systolic function and contractility. The estimated left ventricle ejection fraction is 55-60% (normal). *Had Us, Doppler, Arterial done on 05/22/21 showed Abnormal ankle- brachial index. Calcified non- compressible arteries of the left lower extremity arteries. *She is active working at [employer] but does not exercise regularly. Patient continues to walk about 2 miles/day. *She unfortunately continues to smoke about 6-7 cigarettes per day. *She underwent cardiac CTA on 11/26/19 which showed no significant coronary artery disease.She continues to have occasional leg pain that she reports is numb and burning in nature. She previously reported her PCP recently diagnosed her with peripheral neuropathy. She does have a history of PVD noted on angiogram 09/22/2016. Her gabapentin was recently increased but she reports it has had minimal improvement. *Had positive stress test done in 09/04/19 with ischemia in apical area. Normal LV systolic function. LVEF 67%.Results from this visit, or from the past:04/24/2019 : Glucose 133,BUN 14,Creati 0.87,BUN 14,Creati 0.87,Na 142,K 4.3,Cl 105,Co2 22,Ca 9.3,AST 34,ALT 27,Alkaline phosphatase 60CBC: WBC 8.0,RBC 4.79,HGB 14.1,HCT 43.0,PLT 185LIPID PANEL : Cholesterol 96,Triglycerides 205,HDL 29,LDL 2609: TR 215, HDL 26, LDL 4303: WBC 12.8, HGB 16.0, HCT 46.7, PLT 1633: Hgb A1c 6.7%,09/22/2017: WBC 12.8, Hgb 16, Hct 46.7, Plt 58381: Na 147 ,K 4.3 ,CL 107 ,CO2 27 ,GLU 109 ,BUN 12 ,CR 0.92 ,HB 16.1, HT 49.3, VIT D 66.603 NA:145, K:3.8, CL:102, CO2:30, GLU:126, BUN:9, CR:0. SOD 143, K 4.0, CL 103, CO2 29, GL 106, BUN11, AST 39, ALT : Na 142 , K 3.7 ,CL 101 ,CO2 30 ,GLU 153 ,BUN 12 ,CR 0.80 ,CK 26 ,TC 179 ,TG 325 ,HDL 22 ,LDL 114 ,AST 41 ,ALT : TC 161. TG 249. LDL 114. HDL 18. AST 75. ALT 88 .01/28/15 : TC 161. TG 249. LDL 114. HDL 18. AST 75. ALT 88 .01/28/15 SOD 144, K 4.3, CL 103, Co2 27, GLU 158, BUN 13,CR 0.90, CK 39. 04/14/20 EKG: Atrial rhythm. Inferior infarct- age undetermined. Left axis secondary to infarct. Consider anterior fascicular block.01/28/20 EKG: Sinus rhythm within normal limits.07/31/2019 EKG: Low voltage chest leads Flat T waves anterior leadsEKG, 12/26/18: Low voltage chest leads. Flat T waves, anterior leads. muEKG 06/27/18 ;Sinus rhythm. P:. normal QRS:. anterior infarct. QS in V4 . R< 0.15mV in V3 V5 inferior infarct. QS in aVF . WITH Q IN lll . low voltage in precordial leads.ST-T ; minimal but extensive precordial ST-T changes consistent with infarct. small negative T in V4. With flat or low negative T in V2 V3 V5 V6. conclusion:. abnormal ECG.EKG 12/27/17 : Abnormality or unclear Low voltage chest leads Poor R progression in chest leadsEK09/27/17: sinus rhythm P normal QRS anteroseptal infarct QS in V1 V3 Q > 40 ms in V4 Q/R > 1/3 in V4 R < 0.15 mV in V2 inferior infarct Q > 40 ms in aVF with Q in III Q/R > 1/3 in aVF low voltage in precordial leads ST-T normal conclusion ECGEKG 03/25/17 : low voltage, chest leads. Poor R progression in chest leadsEK12/01/16 Sinus rhythm. nonspecific IVCDEK08/05/16 Sinus Rhythm. Old inferior infarct. Abnormal.EK01/23/15 Sinus rhythm. P:. normal QRS:. inferior infarct. Q> 40 ms in aVF with Q in III. Q/R>1/3 in aVF. low voltages in precordial leads. ST-T:. normal . conclusion:. abnormal ECG. 03/18/20 ECHO: Study quality: technically difficult. LV chamber size is normal. LV wall thickness is normal. There is normal global systolic function and contractility. The estimated left ventricle ejection fraction is 55-60% (normal). There is trace tricuspid regurgitation. There is mild pulmonary hypertension. Estimated RVSP systolic pressure is 48 mmHg.01/04/18 ECHO: LV systolic function is normal. There is normal global systolic function and contractility. The estimated left ventricle ejection fraction is 55-60%.ECHO 01/04/18: Lv chamber size is normal. LV wall thickness is mildly increased. LV systolic function is normal. There is normal global systolic function and contractility. The estimated left ventricle ejection fraction is 55-60%. There is impaired left ventricular relaxation. Diastolic filling demontrates impaired relaxation. There is mild RV hypokinesis. There is trace tricuspid regrugitation.ECHO: 01/31/15 Normal global left ventricular size, wall thickness, systolic function with no obvious regional wall motion abnormalities with an EF >55%. The left atrium is mildly dilated. There is trace mitral regurgitation. Trace tricuspid regurgitation present. 09/22/16 LHC: No significant obstructive coronary artery disease. Normal left ventricular size and systolic function. Mild PVD.09/07/16 TNST: Positive stress test. Normal LV systolic function. Reversible defect consistent ischemia in the anterior area. LVEF 63%.08/19/16 Arterial Duplex: Mild bilateral lower extremity significant peripheral arterial obstructive disease. CAIO: 01/31/15 Positive lexiscan stress test for symptoms and nuclear defect. Adequate stress with lexiscan. Reversible defect consistent with ischemia in inferior area. 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 Significant chest pain with lexiscan infusion. Normal left ventricle systolic function. 1.5 aminophylline given @ 5 min. post lexiscan injection. Calculation EF 67%. 02/19/15 CATH: Minimal CAD, mildly elevated left ventricle filling pressure.03/19/15 CATH abdominal aorta angiogram with distal runoff right and left femoral artery angio: Mild distal peripheral vascular disease, otherwise no major obstructive lesion noted.Arterial Duplex: 08/19/16 Mild bilateral lower extremity significant peripheral arterial obstructive diseaseABI: 03/05/15 Right sided segmental pressure waveform showed monophasic at stress with ankle brachial index of 0.79 indicating mild peripheral vascular disease at the level of popliteal artery. Right sided segmental pressure waveform showed triphasic morphology at all levels and an ankle brachial index of 1.14 indicating no significant peripheral vascular disease of the right lower extremity. Left sided segmental pressure waveform showed triphasic morphology at all levels and an ankle brachial index of 1.11 indicating no significant peripheral vascular disease of the left lower extremity. Normal ankle-brachial index at rest. Borderline R PVD after 3.5 minutes of stress.CATH 09-22-2016 No significant obstructive coronary artery disease. Normal left ventricular size and systolic function. Mild PVD. Maximum medical therapy combined with risk factor modification to prevent progression of coronary artery disease.03/19/15 CATH abdominal aorta angiogram with distal runoff right and left femoral artery angio: Mild distal peripheral vascular disease, otherwise no major obstructive lesion noted.Treadmill Nuclear Stress Test 09/07/16 : Positive stress test. Normal LV systolic function. Reversible defect consistent ischemia in the anterior area. LVEF 63%. Amanuel Cerna MD [address] [place], [address], [facility] 01/26/2025 12:59:08 OBGyn Episode No OBEpisode recorded.
--- OUTSIDE RECORDS SUMMARY | 2025-05-23 17:00 | XMS_ITS | Encounter Summary ---
Author Organization [facility] Address [address] [place] [address] Phone Care Team Providers Care Team Manager Name Role Phone Thad Carney MD Primary Care Provider [phone] Evette Parry RN Unavailable Unavailable Anthony Guzman MD Unavailable Evette Parry RN Unavailable Unavailable Cuca Landaverde DO Primary Care Provider [phone] Suzie Mulligan CREDIT ADMINISTRATION SPECIALIST Unavailable Unavailable Alicia Foreman SANITATION LABORER Unavailable Unavailab Scott Means MD Unavailable Evette Parry RN Unavailable Unavailable Reason for Visit * Reason Comments Medication Refill Encounter Details Date Type Department Care Team (Late st Contact Info) Description 10/09/2021 [facility]ill [facility] [address] [place] [address] Thad Carney MD [address] [place] [address] Medication Refill Social History Tobacco Use Types [...] Telephone Encounter - Radha Samuel RN - 10/09/2021 1:36 PM CDT Medication failed the protocol, provider to review and approve the medication order if appropriate. Requested Prescriptions Pending Prescriptions Disp Refills hydrOXYzine (ATARAX) 25 MG Tablet [Pharmacy Med Name: HYDROXYZINE HYDROCHLORIDE 25 MG Tablet] 120 Tablet 0 Sig: TAKE 1 TABLET EVERY 6 HOURS NEEDED FOR ANXIETY Not Delegated - Off Protocol Failed - 10/09/2021 12:46 PM Failed - This refill cannot be delegated Passed - Visit with relevant provider in past 12 months or upcoming 90 days Recent Visits Date Type Provider Dept 08/25/21 Office Visit Thad Carney MD [facility] 08/06/21 Office Visit Thad Carney MD [facility] 07/31/21 Office Visit Thad Carney MD [facility] 07/20/21 Office Visit Thad Carney MD [facility] 05/04/21 Office Visit Thad Carney MD [facility] 04/24/21 Office Visit Thad Carney MD [facility] [place] 04/17/21 Office Visit Thad Carney MD [facility] 12/25/20 Office Visit Thad Carney MD [facility] 10/28/20 Office Visit Thad Carney MD [facility] [place] Showing recent visits within past 365 days and meeting all other requirements Future Appointments Date Type Provider Dept 11/24/21 Appointment Thad Carney MD [facility] Showing future appointments within next 90 days and meeting all other requirements documented in this encounter Plan of Treatment Upcoming Encounters Date Type Department Care Team (Late st Contact Info) Description 05/24/2025 9:[address] THRU ORDER TAKER [facility] [place] [address]2 [place] [address] Katrin Figueroa, LINK TRAINER MAINTENANCE WORKER, BLENDER 2 [facility] [place] [address] 06/05/2025 8:[address] TH[address] ORDER TAKER [facility] 1 [facility] [place] [address] Cuca Landaverde, DO [address] [facility] [address] [place] [address] Discharge Disposition: Discharged to home or Selfcare 08/15/2025 8:[address] THRU ORDER TAKER [facility] [place] [address]2 [place] [address] Scott Tavera MD #[address] [place] [address] 09/13/2025 8:[address] TH[address] ORDER TAKER [facility] [address]2 [place] [address] Cuca Landaverde, DO [address] [facility] [address] [place] [address] documented as of this encounter Visit Diagnoses Not on filedocumented in this encounter Additional Health Concerns Assessment Noted Time PHQ-9 Depression Total Score: 17 06/11/2 020 9:01 AM CDT documented as of this encounter Care Teams Team Manager Relationship Specialty Start Date End Date Thad Carney MD PCP - General Family Medicine 12/20/19 12/26/23 Cuca Landaverde DO [address] [facility] [address] [place] [address] PCP - General Family Medicine 12/27/23 Evette Parry, RN [place] Manager Care 06/01/22 05/04/23 Anthony Guzman MD [address] [place] [address] Consulting Physician Gastroenterology 03/18/22 Evette Parry, RN [place] Nurse Manager Care 12/27/23 12/27/23 Suzie Mulligan LPN [place] Health Market Research Lead 04/20/24 04/20/24 Alicia Foreman, SANITATION LABORER [place] Telephonic Rn Manager Care 04/20/24 Scott Tavera MD #[address] [address] Consulting Physician Endocrinology 11/06/24 Evette Parry, RN [place] Nurse Manager Care 01/01/25 documented as of this encounter
--- OUTSIDE RECORDS SUMMARY | 2025-05-23 17:00 | XMS_ITS | Encounter Summary ---
Author Organization [facility] Address [address] [place] [address] Phone Care Team Providers Care Home Theater Installer Name Role Phone Thad Carney MD Primary Care Provider [phone] Evette Parry RN Unavailable Unavailable Anthony Guzman MD Unavailable [phone] Evette Parry RN Unavailable Unavailable Cuca Landaverde DO Primary Care Provider [phone] Suzie Mulligan HAND RIGGER Unavailable Unavailable Alicia Foreman NEWS DEPARTMENT INTERN Unavailable Unavailab Scott Means MD Unavailable Evette Parry RN Unavailable Unavailable Reason for Visit * Reason Comments Medication Refill Encounter Details Date Type Department Care Team (Late st Contact Info) Description 05/23/2022 Refill [facility] [address] [place] [address] Thad Carney MD [address] [place] [address] Medication Refill Social History Tobacco Use Types Packs/Day Years Used Date Smoking Tobacco: Every Day Cigarettes 0.5 30 Smokeless Tobacco: Never Alcohol Use Standard Drinks/Week Comments No 0 (1 standard drink = 0.6 oz pur e alcohol) PHQ-2 Answer Date Recorded Total Score - Questions 1-9 8 02/09 Education Answer Date Recorded What is the [...] Coronavirus/COVID-19? No / Unsure 05/18/2022 7:46 AM TORCH STRAIGHTENER AND HEATER documented as of this encounter Miscellaneous Notes * Telephone Encounter - Noemy Perrin RN - 05/24/2022 8:35 AM TORCH STRAIGHTENER AND HEATER Refill request too soon. H STRAIGHTENER AND HEATER documented in this encounter Plan of Treatment Upcoming Encounters Date Type Department Care Team (Late st Contact Info) Description 05/24/2025 9:00 AM TORCH STRAIGHTENER AND HEATER [facility] [address] [place] [address] Katrin Figueroa, BUILDING CONSULTANT, DYE JIG OPERATOR 2 [place] [address] 06/05/2025 8:45 AM TORCH STRAIGHTENER AND HEATER [facility] [address] [place] [address] Cuca Landaverde, DO [address] [address] Discharge Disposition: Discharged to home or Selfcare 08/15/2025 8:00 AM TORCH STRAIGHTENER AND HEATER [facility]ocr[facility] [address] [place] [address] Scott Tavera MD #[address] [address] 09/13/2025 8:00 AM TORCH STRAIGHTENER AND HEATER Office Visit [facility] - Family [facility] #2 [place] [address] Cuca Landaverde DO 2 [facility] [address] [place] [address] documented as of this encounter Visit Diagnoses Diagnosis Dyslipidemia Other and unspecified hyperlipidemia documented in this encounter Additional Health Concerns Assessment Noted Time PHQ-9 Depression Total Score: 8 03/02/20 22 8:00 AM CDT documented as of this encounter Care Teams Home Theater Installer Relationship Specialty Start Date End Date Thad Carney MD PCP - General Family Medicine 12/20/19 12/26/23 Cuca Landaverde DO 2 [facility] [address] [address] [address] PCP - General Family Medicine 12/27/23 Evette Parry RN [place] Employee Wellness/Fitness Coordinator 06/01/22 05/04/23 Anthony Guzman MD #[address] [place] [address] Consulting Physician Gastroenterology 03/18/22 Evette Parry, [place] Nurse Employee Wellness/Fitness Coordinator 12/27/23 12/27/23 Suzie Mulligan LPN [place] Health Threading Machine Operator 04/20/24 04/20/24 Alicia Foreman LSW [place] Tin Recovery Worker Employee Wellness/Fitness Coordinator 04/20/24 Scott Tavera MD [address] [facility] [address] [address] Consulting Physician Endocrinology 11/06/24 Evette Parry, RN [place] Nurse Employee Wellness/Fitness Coordinator 01/01/25 documented as of this encounter
--- OUTSIDE RECORDS SUMMARY | 2025-05-23 17:00 | XMS_ITS | Encounter Summary ---
Author Organization [facility] Address [address] [place] [address] Phone Care Team Providers Care Frog Shaker Name Role Phone Thad Carney MD Primary Care Provider [phone] Evette Parry RN Unavailable Unavailable Anthony Guzman MD Unavailable [phone] Evette Parry RN Unavailable Unavailable Cuca Landaverde DO Primary Care Provider [phone] Suzie Mulligan SKIP MINER Unavailable Unavailable Alicia Foreman SENIOR JAVASCRIPT ENGINEER Unavailable Unavailab Scott Means MD Unavailable Evette Parry RN Unavailable Unavailable Reason for Visit * Reason Comments Medication Refill Encounter Details Date Type Department Care Team (Late st Contact Info) Description 10/11/2022 Refill [facility] #2 [place] [address] Thad Carney MD [address] [place] [address] Medication Refill Social History Tobacco Use Types [...] Telephone Encounter - Nichole Marcano RN - 10/11/2022 4:50 PM CDT Medication failed the protocol, provider to review and approve the medication order if appropriate. Requested Prescriptions Pending Prescriptions Disp Refills insulin aspart (NovoLOG FlexPen) 100 UNIT/ML Solution Pen-injector [Pharmacy Med Name: NOVOLOG FLEXPEN 100 UNIT/ML Solution Pen-injector] 45 mL 1 Sig: INJECT 20 UNITS UNDER THE SKIN THREE TIMES DAILY PRIOR TO MEALS. MAY ALSO USE A SLIDING SCALE.MAX DOSE OF 100 UNITS DAILY. Not Delegated - Insulin Protocol Failed - 10/11/2022 4:18 PM Failed - This refill cannot be delegated Passed - Visit with relevant provider in past 12 months or upcoming 90 days Recent Visits Date Type Provider Dept 08/19/22 Office Visit [facility] [place] 10/22/21 Office Visit Jyotsna Costa APRN, COMPUTER OPERATIONS MANAGER [facility] Showing recent visits within past 365 days and meeting all other requirements Future Appointments Date Type Provider Dept 11/16/22 Appointment Thad Carney MD [facility] Showing future appointments within next 90 days and meeting all other requirements documented in this encounter Plan of Treatment Upcoming Encounters Date Type Department Care Team (Late st Contact Info) Description 05/24/2025 9:00 AM REFRIGERATOR CRATER Office Visit [facility] Family Medicine [facility] #2 [facility] [address] Katrin Figueroa APRN, COMPUTER OPERATIONS MANAGER 2 [place] [address] 06/05/2025 8:45 AM REFRIGERATOR CRATER [facility] 1 [place] [address] Cuca Landaverde, DO 2 [facility] [address] [place] [address] Discharge Disposition: Discharged to home or Selfcare 08/15/2025 8:00 AM REFRIGERATOR CRATER Office Visit [facility] Endocrinology [facility] #[address] [place] [address] Scott Tavera MD #[address] [place] [address] 09/13/2025 8:00 AM REFRIGERATOR CRATER Office Visit [facility] [place] #2 [facility] [address] Cuca Landaverde, DO 2 [facility] [address] [place] [address] documented as of this encounter Visit Diagnoses Not on filedocumented in this encounter Additional Health Concerns Assessment Noted Time PHQ-9 Depression Total Score: 14 022 2:28 PM REFRIGERATOR CRATER documented as of this encounter Care Teams Frog Shaker Relationship Specialty Start Date End Date Thad Carney MD PCP - General Family Medicine 12/20/19 12/26/23 Cuca Landaverde DO 2 [facility] [address] [place] [address] PCP - General Family Medicine 12/27/23 Evette Parry, RN [place] Lotus Notes Administrator 06/01/22 05/04/23 Anthony Guzman MD #[address] [place] [address] Consulting Physician Gastroenterology 03/18/22 Evette Parry, RN [place] Nurse Lotus Notes Administrator 12/27/23 12/27/23 Suzie Mulligan LPN [place] Health Dredge Pump Operator 04/20/24 04/20/24 Alicia Foreman, SENIOR JAVASCRIPT ENGINEER [place] Blowing Weasand Lotus Notes Administrator 04/20/24 Scott Tavera MD #[address] [address] Consulting Physician Endocrinology 11/06/24 Evette Parry, RN [place] Nurse Lotus Notes Administrator 01/01/25 documented as of this encounter
--- OUTSIDE RECORDS SUMMARY | 2025-05-23 17:00 | XMS_ITS | Encounter Summary ---
Author Organization [facility] Address [address] [place] [address] Phone Care Team Providers Care Assembling Fabricator Name Role Phone Thad Carney MD Primary Care Provider [phone] Evette Parry RN Unavailable Unavailable Anthony Guzman MD Unavailable [phone] Evette Parry RN Unavailable Unavailable Cuca Landaverde DO Primary Care Provider [phone] Suzie Mulligan OUTSIDE RIGGER Unavailable Unavailable Alicia Foreman DIRECTOR AIRPORT Unavailable Unavailab Scott Means MD Unavailable Evette Parry RN Unavailable Unavailable Reason for Visit * Reason Comments Medication Refill Encounter Details Date Type Department Care Team (Late st Contact Info) Description 10/13/2021 Refill [facility] #2 [place] [address] Thad Carney MD [address] [place] [address] Medication Refill Social History Tobacco Use Types [...] Telephone Encounter - Nichole Marcano RN - 10/14/2021 7:59 AM CDT Medication failed the protocol, provider to review and approve the medication order if appropriate. Requested Prescriptions Pending Prescriptions Disp Refills metoclopramide (REGLAN) 5 MG Tablet [Pharmacy Med Name: METOCLOPRAMIDE HCL 5 MG Tablet] 360 Tablet 0 Sig: TAKE 1 TABLET 4 TIMES DAILY (BEFORE MEALS AND NIGHTLY) Not Delegated - GI Stimulants Protocol Failed - 10/13/2021 7:28 PM Failed - This refill cannot be [...] Provider Dept 11/24/21 Appointment Thad Carney MD [facility] Showing future appointments within next 90 days and meeting all other requirements documented in this encounter Plan of Treatment Upcoming Encounters Date Type Department Care Team (Late st Contact Info) Description 05/24/2025 9:00 AM CORPORATE BOND TRADER [facility] #2 [facility] [place] [address] Katrin Figueroa APRN, RACK PRODUCTION WORKER [address] [place] [address] 06/05/2025 8:45 AM CORPORATE BOND TRADER [facility] 1 [facility] [address] Cuca Landaverde, DO 2 [facility] [address] [place] [address] Discharge Disposition: Discharged to home or Selfcare 08/15/2025 8:00 AM CORPORATE BOND TRADER [facility] [place] #2 [place] [address] Scott Tavera MD #[address] [address] 09/13/2025 8:00 AM CORPORATE BOND TRADER [facility] [place] #2 [facility] [place] [address] Cuca Landaverde, DO 2 [facility] [address] [place] [address] documented as of this encounter Visit Diagnoses Not on filedocumented in this encounter Additional Health Concerns Assessment Noted Time PHQ-9 Depression Total Score: 17 020 9:01 AM CDT documented as of this encounter Care Teams Assembling Fabricator Relationship Specialty Start Date End Date Thad Carney MD PCP - General Family Medicine 12/20/19 12/26/23 Cuca Landaverde DO 2 [facility] [address] [place] [address] PCP - General Family Medicine 12/27/23 Evette Parry, RN [place] Buyer Internship 06/01/22 05/04/23 Anthony Guzman MD #[address] [place] [address] Consulting Physician Gastroenterology 03/18/22 Evette Parry, RN [place] Nurse Buyer Internship 12/27/23 12/27/23 Suzie Mulligan LPN [place] Health Geophysical Support Specialist 04/20/24 04/20/24 Alicia Foreman, DIRECTOR AIRPORT [place] Lip And Gate Builder Buyer Internship 04/20/24 Scott Tavera MD #[address] [address] Consulting Physician Endocrinology 11/06/24 Evette Parry, RN [place] Nurse Buyer Internship 01/01/25 documented as of this encounter
--- OUTSIDE RECORDS SUMMARY | 2025-05-23 17:00 | XMS_ITS | Clinical Summary ---
Author Organization [facility] Address [address], [address] [address] [place] [address] Phone Care Team Providers Care Tunnel Man Name Role Phone Anthony Guzman MD Unavailable [phone] Cuca Landaverde DO Primary Care Provider [phone] Scott Tavera MD Unavailable Evette Parry RN Unavailable Unavailable Allergies Active Allergy Reactions Criticality Noted Date Comments Varenicline Hallucinations High 07/28/2016 Levofloxacin Swelling Medium 07/28/2016 Quinolones Swelling Medium 10/28/2020 Alprazolam Hallucinations High 07/28/2016 Medications Cyanocobalamin (B-12) 500 MCG Tablet Take by mouth daily. Active vitamin E (TOCOPHEROL) 1000 UNIT Capsule Take 1,000 Units by mouth daily. Active Continuous Blood Gluc Curriculum And Instruction Specialist (GesplanStyle Artur 2 [place]) Device To continuously monitor blood sugars DX: E11.9 1 Each 09/25/19 22 Active polycarbophil calcium (FIBERCON) 625 MG Tablet Take 1 Tablet by mouth daily. 90 Tablet 3 08/19/19 23 Active aspirin 81 MG Chewable Tablet Take 1 Tablet by mouth daily. 90 Tablet 3 11/17/19 23 Active Continuous Blood Gluc Sensor (FreeStyle Artur 2 Sensor) MiscIndications :Type 2 diabetes mellitus with diabetic neuropathy, with long-term current use of insulin To continuously monitor blood sugar E11.9 6 Each 3 11/17/19 23 Active ferrous sulfate 325 (65 Fe) MG Tablet Take 1 Tablet by mouth daily. 30 Tablet 01/17/20 24 Active ergocalciferol (VITAMIN D) 06304 UNIT CapsuleIndicati ons:Vitamin D deficiency TAKE 1 CAPSULE EVERY WEEK 12 Capsule 3 03/13/20 24 Active Tirzepatide (Mounjaro) 7.5 MG/0.5ML Solution Auto-injector 7.5 mg by Subcutaneous route once a week. 6 mL 1 11/10/19 25 Active HYDROcodone-bharat taminophen (NORCO) 5-325 MG TabletIndicatio ns:Chronic right shoulder pain Take 1 Tablet by mouth every 8 hours as needed for Moderate or more severe pain or Severe pain. 60 Tablet 12/11/19 25 Active isosorbide mononitrate (IMDUR) 60 MG TABLET SR 24 HRIndications:A therosclerosis of [place] coronary artery of [place] heart without angina pectoris Take 1 Tablet by mouth every morning. 90 Tablet 3 12/11/19 25 Active escitalopram (LEXAPRO) 20 MG TabletIndicatio ns:Anxiety,Depr essive disorder Take 1 Tablet by mouth daily. 90 Tablet 3 12/11/19 25 Active busPIRone (BUSPAR) 15 MG TabletIndicatio ns:Anxiety Take 1 Tablet by mouth 3 times daily. 270 Tablet 3 12/11/19 25 Active gabapentin (NEURONTIN) 600 MG Tablet Take 1 Tablet by mouth 2 times daily. 180 Tablet 3 12/11/19 25 026 Active metFORMIN (GLUCOPHAGE-XR) 750 MG TABLET SR 24 HR Take 2 Tablets by mouth daily. This RX is for Metformin SR. 180 Tablet 3 12/11/19 25 Active tiotropium (SPIRIVA) 18 MCG Capsule take 1 Puff by inhalation daily. 90 Capsule 3 12/11/19 25 Active dicyclomine (BENTYL) 10 MG Capsule Take 1 Capsule by mouth 3 times daily. 30 Capsule 3 01/22/20 25 Active metoprolol Succinate (TOPROL-XL) 50 MG TABLET SR 24 HR Take 1 Tablet by mouth daily. 90 Tablet 3 01/22/20 25 Active Alcohol Swabs (DropSafe Alcohol Prep) 70 % PadsIndications :Type 2 diabetes mellitus with diabetic neuropathy, with long-term current use of insulin USE TO CLEAN SKIN PRIOR TO INSULIN INJECTION EVERY DAY 100 Each 3 02/22/20 25 Active fluticasone (FLONASE) 50 MCG/ACT SuspensionIndic ations:Allergic rhinitis, unspecified seasonality, unspecified trigger 2 Sprays by Nasal route daily. Use in each nostril as directed. 48 g 3 02/22/20 25 Active sucralfate (CARAFATE) 1 GM TabletIndicatio ns:Gastroesopha geal reflux disease without esophagitis TAKE 1 TABLET 1 HOUR BEFORE MEALS AND AT BEDTIME. DO NOT TAKE WITHIN 30 MINUTES OF OTHER MEDICATIONS. 360 Tablet 3 02/22/20 25 Active losartan potassium-hydro chlorothiazide (Hyzaar) 100-25 MG Tablet Take 1 Tablet by mouth daily. 90 Tablet 3 03/15/20 25 Active buPROPion (WELLBUTRIN) 300 MG TABLET SR 24 HR XL tablet Take 1 Tablet by mouth every morning. 90 Tablet 1 04/10/20 25 Active amLODIPine (NORVASC) 5 MG Tablet Take 1 Tablet by mouth daily. 90 Tablet 1 05/15/20 25 Active amLODIPine (NORVASC) 5 MG Tablet Take 1 Tablet by mouth daily. 90 Tablet 02/22/20 25 025 Discontin ued(Reord er) Active Problems Problem Noted Date Diagnosed Date [...] syndrome 12/12/2015 Atherosclerotic heart diseas e of [place] coronary artery without angina pectoris 11/20/2015 Calculus [...] reaction 10/24/2017 0 Abdominal mass 12/04/2015 12/25/2020 Encounters Date Type Department Care Team Description 05/23/2025 Nurse Triage [facility] [address] [place] [address] Cuca Landaverde, DO Advice Only; Weight Loss; Fatigue; decreased appetite 05/13/2025 Refill [facility] [place] [address] [place] [address] Cuca Landaverde, DO Medication Refill 05/13/2025 [facility] Outreach [facility] [address] [place] [phone] Evette Parry RN Care Management ([facility]) 04/18/2025 7:45 AM CDT [facility] [address] [address] [place] [address] Cuca Landaverde L, DO Whittington, Shannen M, PT Pain of right hip (Primary Dx); Impaired functional mobility, balance, gait, and endurance Discharge Disposition: Discharged to home or Selfcare 04/18/2025 Travel 04/17/2025 [facility] [address] [place] [phone] Cassie Salazar Care Management (Monthly monitoring call-(Apr)) 04/09/2025 [facility]ill [facility] [place] [address] Cuca Landaverde, DO Medication Refill 03/28/2025 7:45 AM CDT [facility] [address], [address] [address] [place] [address] Cuca Landaverde L, DO Whittington, Shannen M, PT Pain of right hip (Primary Dx); Impaired functional mobility, balance, gait, and endurance Discharge Disposition: Discharged to home or Selfcare 03/28/2025 Travel 03/21/2025 7:45 AM CDT [facility] [address] [address] [place] [address] Shin Landaverdea L, DO Whittington, Shannen M, PT Pain of right hip (Primary Dx) Discharge Disposition: Discharged to home or Selfcare 03/21/2025 Travel 03/18/2025 Patient Outreach [facility] [address] [place] [address] Evette Parry RN Care Management ([facility]) 03/15/2025 8:00 AM CDT Office Visit [facility] [place] [address] [place] [address] Cuca Landaverde, Need for influenza vaccination (Primary Dx); Type 2 diabetes mellitus with diabetic neuropathy, with long-term current use of insulin ([facility]); Encounter for screening mammogram for breast cancer; Primary hypertension; Psoriasis; Chronic obstructive pulmonary disease, unspecified COPD type ([facility]); Insomnia, unspecified type; Tobacco dependence syndrome Discharge Disposition: Discharged to home or Selfcare 03/15/2025 Results Follow-Up [facility] [address] [place] [address] Cuca Landaverde, POCT GLYCOSYLATED HEMOGLOBIN 03/14/2025 7:45 AM CDT Physical Therapy [facility] at [address], [place] [address] [address] Shin Landaverdea L, DO Whittington, Shannen M, PT Pain of right hip (Primary Dx); Impaired functional mobility, balance, gait, and endurance Discharge Disposition: Discharged to home or Selfcare 03/14/2025 Travel 03/07/2025 7:45 AM CDT Physical Therapy [facility] at [facility] [address], [place] [address] [address] Shin Landaverdea L, DO Whittington, Shannen M, PT Pain of right hip (Primary Dx); Impaired functional mobility, balance, gait, and endurance Discharge Disposition: Discharged to home or Selfcare 03/07/2025 Travel 03/01/2025 8:45 AM CDT Physical Therapy [facility] at [facility] [address], [place] [address] [place] [address] Saima Cuca L, DO Whittington, Shannen M, PT Pain of right hip (Primary Dx); Impaired functional mobility, balance, gait, and endurance Discharge Disposition: Discharged to home or Selfcare 03/01/2025 Travel 02/21/2025 10:00 AM CDT Clinical Support [facility] [address] [place] [address] Blood pressure check (Primary Dx) Discharge Disposition: Discharged to home or Selfcare 02/21/2025 Refill [facility] [address] [place] [address] Cuca Landaverde, DO Medication Refill 02/21/2025 Travel from Last 3 Months Immunizations Immunization Administration Dates Next Due Covid-19, Mrna, Lnp-s, Pf, 3 0 Mcg/0.3 Ml Dose ([employer]) 11/06/2020,10/09/2020 Hepatitis A Vaccine 06/08/2006,11/19/2005 Influenza Vaccine greater than 3 yrs 05/13/2020 Influenza Vaccine, Quadrivalent, PF 03/11,04/05/2022,04/17/2021,04/28,04/09/2019,03/30/2018 Influenza Vaccine,unspecifie d Formulation 09/17/2014,09/03/2014 Influenza, Injectable, Quadrivalent 03/24/2017 Influenza, Trivalent, Adjuvanted, PF 03/15/2025, 04/19/2024 Pneumococcal conjugate PCV20 , polysaccharide [id number] conjugate, adjuvant, PF 03/02/2022 TDAP Vaccine 06/05/2016 Family History Medical History Relation Name Comments Cancer Father Diabetes Father Hypertension Father Cancer Mother lung ca Congestive Heart Failure Mother Depression Mother Diabetes Mother Stroke Mother Cancer Sister Luekemia Relation Name Status Comments Father Mother Alive Sister Social History Tobacco Use Types Packs/Day Years Used Date Smoking Tobacco: Every Day Cigarettes 0.5 30 Smokeless Tobacco: Never Tobacco Cessation:Ready to Q uit: Not Asked; Counseling Given: Not Answered Alcohol Use Standard Drinks/Week Comments Never 0 (1 standard drink = 0.6 oz pur e alcohol) Social Connection and Isolation Panel Answer Date Recorded In a typical week, how many times do you talk on the phone with family, friends, or neighbors? More than three times a week 05/03/2024 How often do you get togethe r with friends or relatives? More than three times a week 05/03/2024 How often do you attend chur ch or rastafari services? Never 05/03/2024 Do you belong to any clubs o r organizations such as yazdanism groups, unions, fraternal or athletic groups, or school groups? No 05/03/2024 How often do you attend meet ings of the clubs or organizations you belong to? Never 05/03/2024 Are you , , di vorced, , never , or living with a partner? 05/03/2024 AUDIT-C Answer Date Recorded Q1: How often do you have a drink containing alcohol? Never 05/03/2024 Q2: How many drinks containi ng alcohol do you have on a typical day when you are drinking? Patient does not drink Q3: How often do you have si x or more drinks on one occasion? Never 05/03/2024 Overall Financial Resource Strain (CARDIA) Answe r Date Recorded How hard is it for you to pa y for the very basics like food, housing, medical care, and heating? Not very hard 05/03/2024 PHQ-2 Answer Date Recorded Total Score - Questions 1-9 0 09/0 11/2024 [facility] of Occupat ional Health - Occupational Stress Questionnaire Answer Date Recorded Do you feel stress - tense, restless, nervous, or anxious, or unable to sleep at night because your mind is troubled all the time - these days? Only a little 05/03/2024 Hunger Vital Sign Answer Date Recorded Within the past 12 months, y ou worried that your food would run out before you got the money to buy more. Never true 05/03/20 24 Within the past 12 months, t he food you bought just didn't last and you didn't have money to get more. Never true 05/03/2024 PRAPARE - Transportation Answer Date Re corded In the past 12 months, has l ack of transportation kept you from medical appointments or from getting medications? No 04/11 In the past 12 months, has l ack of transportation kept you from meetings, work, or from getting things needed for daily living? No 05/03/2024 Housing Stability Vital Sign Answer Bj e Recorded In the last 12 months, was t here a time when you were not able to pay the mortgage or rent on time? No 05/03/2024 In the past 12 months, how m any times have you moved where you were living? 0 05/03/2024 At any time in the past 12 m [facility], were you homeless or living in a correction (including now)? No 05/03/2024 Social Connection and Isolation Panel Answer Date Recorded In a typical week, how many times do you talk on the phone with family, friends, or neighbors? Once a week 01/15/2025 How often do you get together with friends or re latives? Never 01/15/2025 How often do you attend yazdanism or rastafari serv ices? Never 01/15/2025 Do you belong to any clubs o r organizations such as yazdanism groups, unions, fraternal or athletic groups, or school groups? No 01/15/2025 How often do you attend meet ings of the clubs or organizations you belong to? Never 01/15/2025 Are you , , di vorced, , never , or living with a partner? 01/15/2025 AUDIT-C Answer Date Recorded Q1: How often do you have a drink containing alcohol? Never 01/15/2025 Q2: How many drinks containi ng alcohol do you have on a typical day when you are drinking? Patient does not drink Q3: How often do you have si x or more drinks on one occasion? Never 01/15/2025 Overall Financial Resource Strain (CARDIA) Answe r Date Recorded How hard is it for you to pa y for the very basics like food, housing, medical care, and heating? Not very hard 01/15/2025 [facility] of Occupat ional Health - Occupational Stress Questionnaire Answer Date Recorded Do you feel stress - tense, restless, nervous, or anxious, or unable to sleep at night because your mind is troubled all the time - these days? Only a little 01/15/2025 Exercise Vital Sign Answer Date Recorde d On average, how many days pe r week do you engage in moderate to strenuous exercise (like a brisk walk)? 0 days 01/15/2025 On average, how many minutes do you engage in exercise at this level? 0 min 01/15/2025 Hunger Vital Sign Answer Date Recorded Within the past 12 months, y ou worried that your food would run out before you got the money to buy more. Sometimes true Within the past 12 months, t he food you bought just didn't last and you didn't have money to get more. Never true 02/2025 PRAPARE - Transportation Answer Date Re corded In the past 12 months, has l ack of transportation kept you from medical appointments or from getting medications? No 02/2025 In the past 12 months, has l ack of transportation kept you from meetings, work, or from getting things needed for daily living? No 01/15/2025 Housing Stability Vital Sign Answer Bj e Recorded In the last 12 months, was t here a time when you were not able to pay the mortgage or rent on time? No 01/15/2025 In the past 12 months, how m any times have you moved where you were living? 0 01/15/2025 At any time in the past 12 m [facility], were you homeless or living in a correction (including now)? No 01/15/2025 [facility] Utilities Answer Date Recorded In the past 12 months has th e electric, gas, oil, or water company threatened to shut off services in your home? No 01/15/2025 Education Answer Date Recorded What is the [...] file Not on file Not on file Last Filed Vital Signs Vital Sign Reading Time Taken Comments Blood Pressure 144/64 03/15/2025 7:59 AM CDT Pulse 80 03/15/2025 7:59 AM CDT Temperature 36.1 C (97 F) 03/15/2025 7:59 AM CDT Respiratory Rate 16 03/15/2025 7:59 AM CDT Oxygen Saturation 97% 03/15/2025 7:59 AM CDT Inhaled Oxygen Concentration - - Weight 65.8 kg (145 lb) 03/15/2025 7:59 AM CDT Height 167.6 cm (5' 6) 03/15/2025 7:59 AM CDT Body Mass Index 23.4 03/15/2025 7:59 AM CDT Plan of Treatment Upcoming Encounters Date Type Department Care Team (Late st Contact Info) Description 05/24/2025 9:00 AM BUNCH TRIMMER MOLD [facility] [facility] [place] [address] Katrin Figueroa, ENGLISH PROFESSOR, PHARMACOGENETICIST [address] [place] [address] 06/05/2025 8:45 AM BUNCH TRIMMER MOLD [facility] [address] [place] [address] Cuca Landaverde, DO [address] [address] Discharge Disposition: Discharged to home or Selfcare 08/15/2025 8:00 AM BUNCH TRIMMER MOLD [facility] [place] [facility] [place] [address] Scott Tavera MD [address] [address] 09/13/2025 8:00 AM BUNCH TRIMMER MOLD [facility] [address] [place] [address] Cuca Landaverde, DO [address] [address] Health Maintenance Due Date Last Done Comments Cologuard 12/07/2003 Immunochemical Fecal Occult Blood 12/07/2003 Medicare Initial AWV [id number] 05/11/2015 Diabetes: Eye Exam 04/11/2025 04/11/2024, 04/18/2023, 07/17/2021 Mammogram 06/01/2025 06/01/2024, 07/23/2021, 05/08/2020, Additional history exists Respiratory Syncytial Virus (RSV) Immunization (Adult) (1 - Risk 50-74 years 1-dose series) 09/06/2025 Postponed from 2008 (Patient Temporarily Declines) Diabetes: Hemoglobin A1c 09/12/2025 025, 12/10/2024, 09/06/2024, Additional history exists Diabetes: Foot Exam 11/09/2025 11/09/2024 Diabetes: Nephropathy Screening 03/15/2026 03/15/2025, 09/06/2024, 09/06/2024, Additional history exists DEXA Bone Density 05/30/2026 05/30/2024, 06/08/2021, 01/29/2020 Td Immunization Every 10 Years (Adults With 1 Tdap) 06/05/2026 06/05/2016 Colonoscopy 07/26/2028 07/26/2023, 09/06/2019, 09/01/2018, Additional history exists Colorectal Cancer Screening 07/26/2028 Hepatitis C Virus (HCV) Screening Completed 09/07/2019 Pneumococcal Immunization (50+ years) Completed 03/02/2022 Pneumococcal Immunization Combined Discontinued 03/02/2022 SARS-COV-2 Immunization Discontinued 06/25/20, 06/01/2021, 11/06/2020, Additional history exists Influenza Immunization Completed , 04/19/2024, 03/22/2023, Additional history exists Hepatitis B Immunization Discontinued Human Papillomavirus (HPV) Immunization Aged Out No longer eligible based on patient's age to complete this topic Meningococcal Immunization (ACWY) Aged Out No longer eligible based on patient's age to complete this topic Rotavirus Immunization Aged Out No lo nger eligible based on patient's age to complete this topic Zoster Immunization Discontinued Goals Goal Patient Goal Type Associated Problems Recent Progress Patient-Stated? Author Behavioral Health Behavioral Health On track(2024 8:43 AM BUNCH TRIMMER MOLD) Yes Johnny Champion, STATOR TESTER Note: I need to be able to cope better with all my stress Goal/Objective: Increase coping skills for stress. Anticipated Time Frame for Goal Completion: 6 months Goal Reviewed with: patient Readiness to change: Ready to change Department associated with goal: [facility] Steps [...] Pressure Patient Goals On track(2024 9:46 AM BUNCH TRIMMER MOLD) Yes Evette Parry RN Note: Follow Up Date 06/2025 - [...] Pain Patient Goals On track(2024 9:46 AM BUNCH TRIMMER MOLD) Yes Evette Parry, RN Note: Follow Up [...] Disease Progression (Hypertension) On track(2024 9:46 AM BUNCH TRIMMER MOLD) Evette Best RN Note: Evidence-based guidance: Tailor [...] meditation or exercise to manage stress. Notes: Procedures Procedure Name Priority Date/Time Associated Diagnosis Comments UR MICROALBUMIN/CREATINI NE RATIO RANDOM Routine 03/15/2025 10:10 AM CDT Type 2 diabetes mellitus with diabetic neuropathy, with long-term current use of insulin (HCC) POCT GLYCOSYLATED HEMOGLOBIN Routine 03/15/2025 8:40 AM CDT Type 2 diabetes mellitus with diabetic neuropathy, with long-term current use of insulin (HCC) CESARIO SCREENING BILATERAL DIGITAL W CAD W BOBBY Routine 06/01/2024 7:53 AM BUNCH TRIMMER MOLD Encounter for screening mammogram for malignant neoplasm of breast Screening for osteoporosis [facility] BONE DENSITOMETRY AXIAL SKELETON Routine 05/30/2024 8:19 AM BUNCH TRIMMER MOLD Encounter for screening mammogram for malignant neoplasm of breast Screening for osteoporosis Age-related osteoporosis without current pathological fracture DILATED EYE EXAM 04/18/2023 1 2:00 AM CDT HEPATITIS PANEL ACUTE (AHP) Routine 09/07/2019 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 Consider Clinical Correlation. CREATININE URINE 163.9 mg/dL 03/15/20 1:43 PM CDT [facility] Comment:No reference range h as been established. Consider Clinical Correlation. ALB/CREAT RATIO 1:43 PM CDT [facility] Urine Non-Phlebotomy Collection / Unknown 03/15/2025 10:10 AM CDT 03/15/2025 10:10 AM CDT Narrative [facility] - 03/15/2025 1:43 PM CDT us Cuca Landaverde DO URINE ORDERABLES Final Result [facility] [place] [address] * POCT GLYCOSYLATED HEMOGLOBIN (03/15/2025 8:40 AM CDT) HGB-A1C 4.9 4 - 6 % 03/15/2025 8:40 AM CDT Cuca Landaverde DO POINT OF CARE TESTING (MANUAL ) Final Result * CESARIO SCREENING BILATERAL DIGITAL W CAD W OBBBY (06/01/2024 7:53 AM BUNCH TRIMMER MOLD) Anatomical Region Laterality Modality breast Bilateral Mammography 06/01/2024 7:49 AM BUNCH TRIMMER MOLD Narrative 06/01/2024 4:55 PM BUNCH TRIMMER MOLD - CESARIO SCREENING BILATERAL DIGITAL W CAD W BOBBY BILATERAL DIGITAL SCREENING MAMMOGRAM 3D/2D WITH CAD WITH MEDIOLATERAL OBLIQUE CRANIOCAUDAL: 06/01/2024 The study was acquired using digital technology and interpreted from soft copy. Current study was also evaluated with ICAD version 7.2. 2D digital mammographic views, as well as 3D digital tomosynthesis were performed in the CC and MLO projections. CLINICAL: Routine screening. Patient has no complaints. Previous breast reduction. She reports a 20 pound weight loss since her last mammogram. No personal history of cancer. No family history of breast cancer. COMPARISONS: Comparison is made to exams dated: 05/08/2020 [facility], 08/15/2018, 08/03/2018, and 07/06/2018 [facility]. BREAST TISSUE:There are scattered areas of fibroglandular density. FINDINGS: There are benign calcifications in the right breast. There also are benign vascular calcifications in the left breast. Additionally, there are benign post operative findings and biopsy clip in the left breast. No significant masses, calcifications, or other findings are seen in either breast. There has been no significant interval change. IMPRESSION: BENIGN There is no mammographic evidence of malignancy. A 1 year screening mammogram is recommended. A letter will be sent to the patient with these results. The patient will be entered into a reminder system with a target due date of 1 year for her next screening exam. Electronically signed by: Camilo alvarez/skyler:06/01/2024 16:30:21 [employer] Outfitter(s): RT Law(R)(M), [facility] letter sent: Normal Exam Reading location: [facility] Mammogram BI-RADS: Category 2: Benign Procedure Note Camilo Elliott MD - 06/01/2024 - CESARIO SCREENING BILATERAL DIGITAL W CAD W BOBBY BILATERAL DIGITAL SCREENING MAMMOGRAM 3D/2D WITH CAD WITH MEDIOLATERAL OBLIQUE CRANIOCAUDAL: 06/01/2024 The study was acquired using digital technology and interpreted from soft copy. Current study was also evaluated with ICAD version 7.2. 2D digital mammographic views, as well as 3D digital tomosynthesis were performed in the CC and MLO projections. CLINICAL: Routine screening. Patient has no complaints. Previous breast reduction. She reports a 20 pound weight loss since her last mammogram. No personal history of cancer. No family history of breast cancer. COMPARISONS: Comparison is made to exams dated: 05/08/2020 [facility], 08/15/2018, 08/03/2018, and 07/06/2018 [facility]. BREAST TISSUE:There are scattered areas of fibroglandular density. FINDINGS: There are benign calcifications in the right breast. There also are benign vascular calcifications in the left breast. Additionally, there are benign post operative findings and biopsy clip in the left breast. No significant masses, calcifications, or other findings are seen in either breast. There has been no significant interval change. IMPRESSION: BENIGN There is no mammographic evidence of malignancy. A 1 year screening mammogram is recommended. A letter will be sent to the patient with these results. The patient will be entered into a reminder system with a target due date of 1 year for her next screening exam. Electronically signed by: Camilo alvarez/skyler:06/01/2024 16:30:21 Wood And Hardware Outfitter(s): RT Law(R)(M), [facility] letter sent: Normal Exam Reading location: [place] Mammogram BI-RADS: Category 2: Benign us Cuca Landaverde DO IMG MAMMO ORDERABLES Final Re sult * [facility] BONE DENSITOMETRY AXIAL SKELETON (05/30/2024 8:19 AM BUNCH TRIMMER MOLD) Anatomical Region Laterality Modality BODY N/A Computed Radiogr aphy 05/30/2024 6:04 PM BUNCH TRIMMER MOLD Impressions 05/30/2024 6:06 PM BUNCH TRIMMER MOLD IMPRESSION: Low Bone Mass. REFERENCE: Bone mineral density: T-Score: Normal (T-score above or = -1.0) Low bone mass (T-score between -1.0 and -2.5) replaces the previously used term osteopenia Osteoporosis (T-score = or below -2.5) Z-Score: Within the expected range for age (Z-score above -2.0) Below the expected range for age (Z-score is -2.0 or below) Please see below follow up recommendations. Medical evaluation for secondary causes of low bone mineral density may be appropriate. FRAX is a World Health Organization validated fracture risk assessment tool that calculates a person's 10 year probability of a major osteoporosis related fracture and hip fracture. According to the National Osteoporosis Foundation guidelines, postmenopausal women and men age 50 or older with low bone mass and a 10 year probability of a major osteoporosis related fracture = or greater than 20% or a 10 year probability of a hip fracture = or greater than 3% should be considered for pharmacological treatment for the prevention of osteoporosis. 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 LEFT HIP: Total BMD is 0.834 g/cm2 T-score is -1.4 This is decreased in comparison to prior exam which is statistically significant. 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 LEFT HIP: Total BMD is 0.834 g/cm2 T-score is -1.4 This is decreased in comparison to prior exam which is statistically significant. Femoral neck BMD is 0.745 g/cm2 T-score is -2.1 FRAX: 10 year risk for a major osteoporotic fracture is 25 %, 10 year risk for a hip fracture is 7.5 % THIS IS AN ELECTRONICALLY VERIFIED FINAL REPORT 05/30/2024 6:04 PM - Electronically signed by Noble Kellogg M.D. MF: ELEN Report ID: [id number] Reading Location: [id number] IMPRESSION: Low Bone Mass. REFERENCE: Bone mineral density: T-Score: Normal (T-score above or = -1.0) Low bone mass (T-score between -1.0 and -2.5) replaces the previously used term osteopenia Osteoporosis (T-score = or below -2.5) Z-Score: Within the expected range for age (Z-score above -2.0) Below the expected range for age (Z-score is -2.0 or below) Please see below follow up recommendations. Medical evaluation for secondary causes of low bone mineral density may be appropriate. FRAX is a World Health Organization validated fracture risk assessment tool that calculates a person's 10 year probability of a major osteoporosis related fracture and hip fracture. According to the National Osteoporosis Foundation guidelines, postmenopausal women and men age 50 or older with low bone mass and a 10 year probability of a major osteoporosis related fracture = or greater than 20% or a 10 year probability of a hip fracture = or greater than 3% should be considered for pharmacological treatment for the prevention of osteoporosis. For further information, including treatment recommendations, please refer to the 2019 ISCD Official Positions (http://www.iscd.org) and the NOF's Clinician's Guide to Prevention and Treatment of Osteoporosis (http://www.nof.org/professionals/clinical-guidelines) us Cuca Landaverde DO IMG DEXA ORDERABLES Final Res ult * DILATED EYE EXAM (04/18/2023 12:00 AM CDT) 04/18/2023 us Provider Scan PROCEDURE/MINOR SURGICAL ORDERAB LES Final Result SCAN * HEPATITIS PANEL ACUTE (AHP) (09/07/2019) Blood specimen (specimen) us Madelin Pritchard ENGLISH PROFESSOR, PHARMACOGENETICIST HEMATOLOGY ORDERABLES Fi nal Result * COLONOSCOPY (09/06/2019) us John Lopez DO PROCEDURE/MINOR SURGICAL ORDERA BLES Final Result from Last 3 Months or Most Recently Relevant to Health Maintenance Additional Health Concerns Active Problems Noted Date Diagnosed Date Disease Progression (Hypertension) 01/15/2025 Insurance MEDICARE MEDICA[place] MEDICARE C HUMA[employer] Advance Directives Documents on File Type Date Recorded Patient Associate Agent Insurance Sales Expl anation Power of Answering Service Operator for Health Care 05/07/2024 9:07 AM Abhay Padgett POA-HC/05/07/24/NEW Healthcare Agents on File Name Relationship Healthcare Agent Relationshi p Communication Abhay Padgett Spouse Healthcare POA Kevin Padgett Son/Step-Son First Alternate Healthcare POA John Padgett Son/Step-Son Second Alternate Healthcare POA Care Teams Tunnel Man Relationship Specialty Start Date End Date Cuca Landaverde DO [address] [address] PCP - General Family Medicine 12/27/23 Anthony Guzman MD [address] [place] [address] Consulting Physician Gastroenterology 03/18/22 Scott Tavera MD #[address] [address] Consulting Physician Endocrinology 11/06/24 Evette Parry RN [place] Nurse Electric Cell Tender 01/01/25
--- OUTSIDE RECORDS SUMMARY | 2025-05-23 17:00 | XMS_ITS | Encounter Summary ---
Author Organization [facility] Address [address] [place] [address] Phone Care Team Providers Care Supervisor Instant Potato Processing Name Role Phone Thad Carney MD Primary Care Provider [phone] Evette Parry RN Unavailable Unavailable Anthony Guzman MD Unavailable [phone] Evette Parry RN Unavailable Unavailable Cuca Landaverde DO Primary Care Provider Suzie Mulligan OPTICIAN APPRENTICE Unavailable Unavailable Alicia Foreman PLANT TECHNICIAN/CONTROL ROOM OPERATOR Unavailable Unavailab Scott Means MD Unavailable Evette Parry RN Unavailable Unavailable Reason for Visit * Reason Comments Medication Refill Encounter Details Date Type Department Care Team (Late st Contact Info) Description 08/06/2022 Refill [facility] - Family Medicine [facility] [address] [place] [address] Thad Carney MD [address] [place] [address] Medication Refill Social History Tobacco Use Types [...] Telephone Encounter - Nichole Marcano RN - 08/06/2022 10:12 AM CST Medication failed the protocol, provider to review and approve the medication order if appropriate. Requested Prescriptions Pending Prescriptions Disp Refills Toujeo Max SoloStar 300 UNIT/ML Solution Pen-injector [Pharmacy Med Name: TOUJEO MAX SOLOSTAR 300 UNIT/ML Solution Pen-injector] 24 mL 1 Sig: INJECT 76 UNITS UNDER THE SKIN EVERY EVENING Not Delegated - Insulin Protocol Failed - 08/06/2022 2:21 AM Failed - This refill cannot be [...] [place] 11/27/21 Office Visit Thad Carney MD [facility] 11/06/21 Office Visit Thad Carney MD [facility] 10/22/21 Office Visit Jyotsna Costa APRN, [place] [facility] 08/25/21 Office Visit Thad Carney MD [facility] 08/06/21 Office Visit Thad Carney MD [facility] [place] Showing recent visits within past 365 days and meeting all other requirements Future Appointments Date Type Provider Dept 08/19/22 Appointment Thad [facility] MD [facility] Showing future appointments within next 90 days and meeting all other requirements NICAL SERVICE SPECIALIST documented in this encounter Plan of Treatment Upcoming Encounters Date Type Department Care Team (Late st Contact Info) Description 05/24/2025 9:00 AM TECHNICAL SERVICE SPECIALIST [facility] [address] [place] [address] Katrin Figueroa APRN, NETTING INSPECTOR [address] [place] [address] 06/05/2025 8:45 AM TECHNICAL SERVICE SPECIALIST [facility] [address] [place] [address] Cuca Landaverde, DO 2 [facility] [address] [place] [address] Discharge Disposition: Discharged to home or Selfcare 08/15/2025 8:00 AM TECHNICAL SERVICE SPECIALIST [facility] [address] [place] [address] Scott Tavera MD #[address] [place] [address] 09/13/2025 8:00 AM TECHNICAL SERVICE SPECIALIST [facility] [address] [place] [address] Cuca Landaverde, DO 2 [facility] [address] [place] [address] documented as of this encounter Visit Diagnoses Diagnosis Type 2 diabetes mellitus with diabetic neuropathy, with long-term current use of insulin documented in this encounter Additional Health Concerns Assessment Noted Time PHQ-9 Depression Total Score: 14 022 2:28 PM TECHNICAL SERVICE SPECIALIST documented as of this encounter Care Teams Supervisor Instant Potato Processing Relationship Specialty Start Date End Date Thad Carney MD PCP - General Family Medicine 12/20/19 12/26/23 Cuca Landaverde DO 2 [facility] [address] [place] [address] PCP - General Family Medicine 12/27/23 Evette Parry, RN [place] Supervisor Whipped Topping 06/01/22 05/04/23 Anthony Guzman MD [address] [place] [address] Consulting Physician Gastroenterology 03/18/22 Evette Parry, RN [place] Nurse Supervisor Whipped Topping 12/27/23 12/27/23 Suzie Mulligan LPN [place] Health Mechanic 04/20/24 04/20/24 Alicia Foreman LSW [place] Salvage Inspector Supervisor Whipped Topping 04/20/24 Scott Tavera MD #[address] [address] Consulting Physician Endocrinology 11/06/24 Evette Parry, RN [place] Nurse Supervisor Whipped Topping 01/01/25 documented as of this encounter
--- OUTSIDE RECORDS SUMMARY | 2025-05-23 17:00 | XMS_ITS | Encounter Summary ---
Author Organization [facility] Address [address] [place] [address] Phone Care Team Providers Care Devil Tender Name Role Phone Thad Carney MD Primary Care Provider [phone] Evette Parry RN Unavailable Unavailable Anthony Guzman MD Unavailable [phone] Evette Parry RN Unavailable Unavailable Cuca Landaverde DO Primary Care Provider [phone] Suzie Mulligan REAL ESTATE BRANCH MANAGER Unavailable Unavailable Alicia Foreman DIRECTOR OPERATING Unavailable Unavailab Scott Means MD Unavailable Evette Parry RN Unavailable Unavailable Reason for Visit * Reason Comments Medication Refill Encounter Details Date Type Department Care Team (Late st Contact Info) Description 01/19/2023 Refill [facility] - [place] [address] [place] [id number] Tariq Gamez APRN, MATERIAL ASSEMBLER [address] [address] Medication Refill Social History Tobacco Use Types [...] suspected to have Coronavirus/COVID-19? No / Unsure 01/06/2023 7:45 AM CDT documented as of this encounter Miscellaneous Notes * Telephone Encounter - Nichole Marcano RN - 01/20/2023 11:33 AM CDT Medication failed the protocol, provider [...] Delegated - Topical Anesthetics Protocol Failed - 01/19/2023 7:22 PM Failed - This refill cannot be delegated Passed - Visit with relevant provider in past 12 months or upcoming 90 days Recent Visits Date Type Provider Dept 01/06/23 Office Visit Thad Carney MD [facility] 11/16/22 Office Visit Thad Carney MD [facility] 11/03/22 Office Visit Tariq Gamez APRN, ZOHAIB [facility] [place] 08/19/22 Office Visit Thad Carney MD [facility] 06/17/22 Office Visit Thad Carney MD [facility] 05/18/22 Office Visit Thad Carney MD [facility] 04/20/22 Office Visit Thad Carney MD [facility] 04/05/22 Office Visit Thad Carney MD [facility] 03/02/22 Office Visit Thad Carney MD [facility] [place] Showing recent visits within past 365 days and meeting all other requirements Future Appointments Date Type Provider Dept 03/22/23 Appointment Thad Carney MD [facility] Showing future appointments within next 90 days and meeting all other requirements documented in this encounter Plan of Treatment Upcoming Encounters Date Type Department Care Team (Late st Contact Info) Description 05/24/2025 9:00 AM NANOTECHNOLOGY ENGINEERING TECHNICIAN [facility] [place] [address]2 [place] [place] [address] Katrin Figueroa APRN, MATERIAL ASSEMBLER [address] [place] [address] 06/05/2025 8:45 AM NANOTECHNOLOGY ENGINEERING TECHNICIAN [facility] [address] [place] [address] Cuca Landaverde, DO [address] [address] Discharge Disposition: Discharged to home or Selfcare 08/15/2025 8:00 AM NANOTECHNOLOGY ENGINEERING TECHNICIAN [facility] - [place] [address]2 [place] [address] Scott Tavera MD #[address] [address] 09/13/2025 8:00 AM NANOTECHNOLOGY ENGINEERING TECHNICIAN [facility] [place] [address]2 [place] [place] [address] Cuca Landaverde, DO 2 [facility] [address] [place] [address] documented as of this encounter Goals Goal Patient Goal Type Associated Problems Recent Progress Patient-Stated? Author Behavioral Health Behavioral Health On track(2024 8:43 AM NANOTECHNOLOGY ENGINEERING TECHNICIAN) Yes Johnny Champion, CLINICAL WRITER Note: I need to be able to cope better with all my stress Goal/Objective: Increase coping skills for stress. Anticipated Time Frame for Goal Completion: 6 months Goal Reviewed with: patient Readiness to change: Ready to change Department associated with goal: [facility] Steps to [...] documented as of this encounter Care Teams Devil Tender Relationship Specialty Start Date End Date Thad Carney MD PCP - General Family Medicine 12/20/19 12/26/23 Cuca Landaverde DO [address] [facility] [place] [address] PCP - General Family Medicine 12/27/23 Evette Parry RN [place] Operations Architect 06/01/22 05/04/23 Anthony Guzman MD #[address] [place] [address] Consulting Physician Gastroenterology 03/18/22 Evette Parry, L[place]ISA [place] Nurse Operations Architect 12/27/23 12/27/23 Suzie Mulligan LPN [place] Health Fabricator Assembler Metal Products 04/20/24 04/20/24 Alicia Foreman LSW [place] Combine Inspector Operations Architect 04/20/24 Scott Tavera MD #[address] [address] Consulting Physician Endocrinology 11/06/24 Evette Parry RN [place] Nurse Operations Architect 01/01/25 documented as of this encounter
--- OUTSIDE RECORDS SUMMARY | 2025-05-23 17:00 | XMS_ITS | Encounter Summary ---
Author Organization [facility] Address [address] [place] [address] Phone Care Team Providers Care Regional Education Coordinator Name Role Phone Anthony Guzman MD Unavailable [phone] Cuca Landaverde DO Primary Care Provider Scott Tavera MD Unavailable Evette Parry RN Unavailable Unavailable Reason for Visit * Reason Onset Date Comments Advice Only 05/23/2025 Weight Loss 05/23/2025 Fatigue 05/23/2025 decreased appetite 05/23/2025 Encounter Details Date Type Department Care Team (Late st Contact Info) Description 05/23/2025 Nurse Triage [facility] [address] [place] [address] Cuca Landaverde, [address] [address] Advice Only; Weight Loss; Fatigue; decreased appetite Social History Tobacco Use Types Packs/Day Years [...] often do you attend chur ch or gnosticism services? Never 05/03/2024 Do you belong to any clubs o r organizations such as congregational groups, unions, fraternal or athletic groups, or [...] Score - Questions 1-9 0 09/0 11/2024 [facility] - Occupational Stress Questionnaire Answer Date Recorded [...] any time in the past 12 m [facility], were you homeless or living in a group home (including now)? No 05/03/2024 Social Connection and Isolation Panel Answer Date Recorded In a typical week, how many times do you talk on the phone with family, friends, or neighbors? Once a week 01/15/2025 How often do you get together with friends or re latives? Never 01/15/2025 How often do you attend congregational or gnosticism serv ices? Never 01/15/2025 Do you belong to any clubs o r organizations such as congregational groups, unions, fraternal or athletic groups, or [...] care, and heating? Not very hard 01/15/2025 [facility] - Occupational Stress [...] any time in the past 12 m [facility], were you homeless or living in a group home (including now)? No 01/15/2025 [facility] Utilities Answer Date Recorded In the [...] encounter Miscellaneous Notes * Telephone Encounter - Cesia Robetro RN - 05/23/2025 10:16 AM NEWS REEL CAMERAMAN SITUATION: 64 y.o. with weight loss, decreased appetite BACKGROUND: Patient contacting PCP office. Patient states weight loss, decreased appetite, and fatigue for couple months, getting worse. History of diabetes. Patient taking Mounjaro 7.5 mg weekly, states she started approximately 12 weeks ago. ASSESSMENT: Symptom Description / Location: Decreased appetite Weight loss, patient states weight today of 125 lb Fatigue Patient states moderate weakness and fatigue, affecting day to day life Patient states vomiting daily in the morning for about two weeks Patient denies nausea or diarrhea Denies pain, fever, cough, cold symptoms Denies chest pain, bleeding Treatment / Response: drinking water No reported treatment. RECOMMENDATION: Caller agreeable to highest disposition listed: Go to Office or Video Visit Now. Care advice provided per triage guideline. Caller verbalized understanding. Due to office unavailability within disposition, advised for patient to be seen at prompt care or urgent care. Caller agreeable to prompt care/urgent care. and Caller requesting to schedule appointment in office at nearest availability. Appointment scheduled. All Patient Appointments Date & Time Provider Department Dept Phone 05/24/2025 9:00 AM Katrin Figueroa [facility] [phone] 06/05/2025 8:45 AM [facility] Mammography [phone] 08/15/2025 8:00 AM Scott Tavera [facility] - Endocrinology [facility] [phone] 09/13/2025 8:00 AM Cuca Landaverde [facility] - [place] [phone] Reason for Disposition: MODERATE weakness (e.g., interferes with work, school, normal activities) and cause unknown (Exceptions: Weakness from acute minor illness or from poor fluid intake; weakness is chronic and not worse.) . Protocols Used: Weakness (Generalized) and Mvysaod-E-OH See care advice and disposition for Guideline. First positive answer recorded, all responses to prior questions were negative. If symptoms increase, change or if new symptoms develop, call your health care provider or call back. Recommendations were based on caller information and is not a diagnosis. Verified and reviewed all triage information with caller. REEL CAMERAMAN * Telephone Encounter - Mono Martin - 05/23/2025 10:14 AM CST Symptoms: Loss of Appetite, Loss of Taste or Smell, Weight Loss (Adult/Peds/) Outcome: Transfer to faculty criminal justice queue Reason: This is the only possible outcome for these symptoms The caller accepted this outcome. REEL CAMERAMAN documented in this encounter Plan of Treatment Upcoming Encounters Date Type Department Care Team (Late st Contact Info) Description 05/24/2025 9:00 AM NEWS REEL CAMERAMAN [facility] [place] [address] Katrin Figueroa, STACKER STRAIGHTENER, STAVE LOG RIPSAW OPERATOR [address] [place] [address] 06/05/2025 8:45 AM NEWS REEL CAMERAMAN [facility] [address] [place] [address] Cuca Landaverde, DO [address] [address] Discharge Disposition: Discharged to home or Selfcare 08/15/2025 8:00 AM NEWS REEL CAMERAMAN [facility] [place] [address] [place] [address] Scott Tavera MD #[address] [address] 09/13/2025 8:00 AM NEWS REEL CAMERAMAN [facility] [address] [place] [address] Cuca Landaverde, DO 2 [facility] [address] [place] [address] documented as of this encounter Goals Goal Patient Goal Type Associated Problems Recent Progress Patient-Stated? Author Behavioral Health Behavioral Health On track(2024 8:43 AM NEWS REEL CAMERAMAN) Yes Johnny Champion LCSW Note: I need to be able to cope better with all my stress Goal/Objective: Increase coping skills for stress. Anticipated Time Frame for Goal Completion: 6 months Goal Reviewed with: patient Readiness to change: Ready to change Department associated with goal: [facility] Steps to achieve [...] Pressure Patient Goals On track(2024 9:46 AM NEWS REEL CAMERAMAN) Yes Evette Parry RN Note: Follow Up [...] Pain Patient Goals On track(2024 9:46 AM NEWS REEL CAMERAMAN) Yes Evette Parry RN Note: Follow Up [...] Disease Progression (Hypertension) On track(2024 9:46 AM NEWS REEL CAMERAMAN) Evette Best RN Note: Evidence-based guidance: Tailor [...] meditation or exercise to manage stress. Notes: documented as of this encounter Visit Diagnoses Not on filedocumented in this encounter Additional Health Concerns Active Problems Noted Date Diagnosed Date Disease Progression (Hypertension) 01/15/2025 Assessment Noted Time PHQ-9 Depression Total Score: 0 03/15/20 8:00 AM CDT documented as of this encounter Care Teams Regional Education Coordinator Relationship Specialty Start Date End Date Cuca Landaverde DO 2 [facility]. [address] [place] [address] PCP - General Family Medicine 12/27/23 Anthony Guzman MD [address] [place] [address] Consulting Physician Gastroenterology 03/18/22 Scott Tavera MD [address]2 [facility] [address] [place] [address] Consulting Physician Endocrinology 11/06/24 Evette Prary, RN [place] Nurse Workforce Services Representative 01/01/25 documented as of this encounter
--- OUTSIDE RECORDS SUMMARY | 2025-05-23 17:00 | XMS_ITS | Encounter Summary ---
Author Organization [facility] Address [address] [place] [address] Phone Care Team Providers Care Scale Operator Name Role Phone Thad Carney MD Primary Care Provider [phone] Evette Parry RN Unavailable Unavailable Anthony Guzman MD Unavailable [phone] Evette Parry RN Unavailable Unavailable Cuca Landaverde DO Primary Care Provider [phone] Suzie Mulligan TURBINE TECHNICIAN Unavailable Unavailable Alicia Foreman SALES PORTER Unavailable Unavailab Scott Means MD Unavailable Evette Parry RN Unavailable Unavailable Reason for Visit * Reason Comments Medication Refill Encounter Details Date Type Department Care Team (Late st Contact Info) Description 03/11/2023 Refill [facility] - Family Medicine [facility] [address] [place] [address] Thad Carney MD [address] [place] [address] Medication Refill Social History Tobacco Use Types [...] suspected to have Coronavirus/COVID-19? No / Unsure 03/01/2023 8:24 AM CDT documented as of this encounter Miscellaneous Notes * Telephone Encounter - Cori Webb RN - 03/12/2023 9:47 AM CDT Medication failed the protocol, provider to review and approve the medication order if appropriate. Requested Prescriptions Pending Prescriptions Disp Refills fluticasone (CUTIVATE) 0.05 % Cream [Pharmacy Med Name: FLUTICASONE PROPIONATE 0.05 % Cream] 30 g 3 Sig: APPLY TO FEET AND HANDS TWICE DAILY Not Delegated - Topical Steroids Protocol Failed - 03/11/2023 5:17 PM Failed - This refill cannot be delegated Passed - Visit with relevant provider in past 12 months or upcoming 90 days Recent Visits Date Type Provider Dept 01/06/23 Office Visit Thad Carney MD [facility] 11/16/22 Office Visit Thad Carney MD [facility] 11/03/22 Office Visit Tariq Gamez APRN, ZOHAIB [facility] 08/19/22 Office Visit Thad Carney MD [facility] 06/17/22 Office Visit Thad Carney MD [facility] 05/18/22 Office Visit Thad Carney MD [facility] 04/20/22 Office Visit Thad Carney MD [facility] 04/05/22 Office Visit Thad Carney MD [facility] Showing recent visits within past 365 days and meeting all other requirements Future Appointments Date Type Provider Dept 03/22/23 Appointment Thad Carney MD [facility] Showing future appointments within next 90 days and meeting all other requirements documented in this encounter Plan of Treatment Upcoming Encounters Date Type Department Care Team (Late st Contact Info) Description 05/24/2025 9:00 AM SNUFF BLENDER [facility] [address] [place] [address] Katrin Figueroa APRN, DEVELOPMENTAL TRAINING COUNSELOR 2 [facility] [place] [address] 06/05/2025 8:45 AM SNUFF BLENDER [facility] 1 [facility] [place] [address] Cuca Landaverde, DO 2 [facility] [address] [place] [address] Discharge Disposition: Discharged to home or Selfcare 08/15/2025 8:00 AM SNUFF BLENDER [facility] [place] [address] [place] [address] Scott Tavera MD #[address] [place] [address] 09/13/2025 8:00 AM SNUFF BLENDER [facility] [address] [place] [address] Cuca Landaverde, DO 2 [facility] [address] [place] [address] documented as of this encounter Goals Goal Patient Goal Type Associated Problems Recent Progress Patient-Stated? 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 Additional Health Concerns Assessment Noted Time PHQ-9 Depression Total Score: 8 12/10/19 23 9:00 AM CDT documented as of this encounter Care Teams Scale Operator Relationship Specialty Start Date End Date Thad Carney MD PCP - General Family Medicine 12/20/19 12/26/23 Cuca Landaverde DO 2 [facility] [address] [address] PCP - General Family Medicine 12/27/23 Evette Parry RN [place] Network Professional 06/01/22 05/04/23 Anthony Guzman MD [address] [place] [address] Consulting Physician Gastroenterology 03/18/22 Evette Parry RN [place] Nurse Network Professional 12/27/23 12/27/23 Suzie Mulligan LPN [place] Health School Bus Mechanic 04/20/24 04/20/24 Alicia Foreman LSW [place] Rock Loader Network Professional 04/20/24 Scott Tavera MD #[address] [address] Consulting Physician Endocrinology 11/06/24 Evette Parry, RN [place] Nurse Network Professional 01/01/25 documented as of this encounter
[2025-05-23 17:07] LABS: Hematocrit 41.8 % (37.0-47.0); Hemoglobin 14.3 g/dL (12.0-15.0); Immature Granulocyte Percent A 0.2 % (0-0.5); Lymphocytes Absolute Auto 2.04 K/mm3 (0.9-3.2); Mean Corpuscular HGB Conc 34.2 g/dl (32-36); Mean Corpuscular Hemoglobin 31.5 pg (26-34); Mean Corpuscular Volume 92.1 fl (80-100); Nucleated Red Blood Cells Absolute Auto 0.000 K/mm3 (0.0-0.012); Nucleated Red Blood Cells Perc 0.0 % (0.0-0.2); Platelet Count Result 217 k/mm3 (150-375); Red Blood Count 4.54 M/mm3 (4.2-5.4); White Blood Count 8.3 K/mm3 (4.5-10.0)
[2025-05-23 17:17] LABS: Alanine Aminotransferase 16 U/L (6-35); Albumin Level 4.1 g/dL (3.5-5.1); Alkaline Phosphatase 75 U/L (38-126); Anion Gap 8 mmol/L (4-12); Aspartate Amino Transferase 23 U/L (14-36); Bilirubin,Total 0.5 mg/dL (0.2-1.3); Blood Urea Nitrogen 32 mg/dL (7-17); Calcium 9.4 mg/dL (8.4-10.2); Carbon Dioxide 26 mmol/L (22-30); Chloride 101 mmol/L (98-107); Estimated CRCL calculation 25 ml/min; Estimated Glomerular Filt Rate 29; Glucose 83 mg/dL (65-110); Lipase 56 U/L (23-300); Potassium 3.9 mmol/L (3.4-5.0); Sodium 135 mmol/L (137-145); Total Protein 7.3 g/dL (6.3-8.2)
[2025-05-23 17:20] LABS: INR 1.0; Prothrombin Time 13.3 Seconds (11.1-14.7)
[2025-05-23 17:21] LABS: Partial Thromboplastin Time 27.4 Seconds (22.3-36.8)
[2025-05-23 17:43] LABS: Influenza A QL RT-PCR Negative (Negative); Influenza B QL RT-PCR Negative (Negative); RSV RNA, RT-PCR Negative (Negative); SARS-CoV-2 RNA PCR Negative (Negative)
[2025-05-23 20:13] VITALS: BP 133/51; PULSE 63; RESP 22; O2SAT 96
[2025-05-23] MEDS: SODIUM CHLORIDE 0.9% IV 1,000 ML 999 ML IV CONT (20:14)
[2025-05-23 21:15] VITALS: BP 145/59; PULSE 63; RESP 18; O2SAT 96
[2025-05-23 21:19] LABS: Add Urine Microscopic? YES; Appearance Urine Turbid (Clear); Glucose Urine UA Negative (Negative); Leukocyte Esterase Ur 3+ LEU/UL (Negative); Need Manual Microscopic Reviewed; Nitrate Urine Positive (Negative); Non Pathogenic Casts >20; Specific Grav Ur 1.020 (1.001-1.035)
[2025-05-23 21:19] LABS: Creatine Kinase 24 U/L (30-135)
[2025-05-23 21:37] LABS: Cannabinoid Screen Urine Negative (Negative)
[2025-05-23 21:56] LABS: Thyroid Stimulating Hormone 1.130 uIU/mL (0.465-4.680)
[2025-05-23 22:10] VITALS: BP 114/85; PULSE 70; RESP 18; O2SAT 98
[2025-05-23] MEDS: CEPHALEXIN 500 MG CAPSULE PO (23:00)
== END 2025-05-23 23:05 | disposition home or self-care (01) ==
PROVIDERS: Physician Assistant; Emergency Provider Student in an Organized Health Care Education/Training Program; PCP Student in an Organized Health Care Education/Training Program
DX: N30.01 Acute cystitis with hematuria (principal); N17.9 Acute kidney failure, unspecified; R53.1 Weakness; R63.4 Abnormal weight loss; Z68.1 Body mass index [BMI] 19.9 or less, adult; T50.995A Adverse effect of other drugs, medicaments and biological substances, initial encounter; Z20.822 Contact with and (suspected) exposure to COVID-19; I10 Essential (primary) hypertension; E78.5 Hyperlipidemia, unspecified; E11.9 Type 2 diabetes mellitus without complications; J44.9 Chronic obstructive pulmonary disease, unspecified; K75.81 Nonalcoholic steatohepatitis (NASH); K21.9 Gastro-esophageal reflux disease without esophagitis; G47.33 Obstructive sleep apnea (adult) (pediatric); D64.9 Anemia, unspecified; M19.90 Unspecified osteoarthritis, unspecified site; L40.50 Arthropathic psoriasis, unspecified; F41.9 Anxiety disorder, unspecified; F32.A Depression, unspecified; F17.210 Nicotine dependence, cigarettes, uncomplicated; Z87.442 Personal history of urinary calculi; Z86.73 Personal history of transient ischemic attack (TIA), and cerebral infarction without residual deficits; Z86.0100 Personal history of colon polyps, unspecified; Z79.899 Other long term (current) drug therapy; Z96.1 Presence of intraocular lens; Z98.42 Cataract extraction status, left eye; Z98.41 Cataract extraction status, right eye; Z90.710 Acquired absence of both cervix and uterus; Z90.49 Acquired absence of other specified parts of digestive tract; Z79.85 Long-term (current) use of injectable non-insulin antidiabetic drugs; Z79.84 Long term (current) use of oral hypoglycemic drugs; Z79.82 Long term (current) use of aspirin; Z79.4 Long term (current) use of insulin
CPT/HCPCS: 36415; 70450; 71046; 80053; 80307; 81001; 82550; 83690; 84443; 85025; 85610; 85730; 87077; 87086; 87186; 87637; 93005; 96360; 99284; A9270; J7030